=== PATIENT | female | born 1965 | race Caucasian/White ===

== ENCOUNTER → 2018-01-11 02:38 | Outpatient (CLI) | payer BC, SELFPAY ==
[2018-01-11 08:38] LABS: Abs Immature Grans 0.01 k/cumm (0.0-0.09); Absolute Basophil Count 0.04 k/cumm (0.0-0.2); Absolute Monocyte Count 0.35 k/cumm (0.11-0.7); Absolute Neutrophil Count 3.18 k/cumm (1.2-6.7); Basophils % 0.8; Eosinophils % 8.4; HCT 42.8 % (36.0-46.0); HGB 14.3 g/dL (12.0-15.5); Immature Grans % 0.2; Lymphocytes % 16.7; Mean Corp. HGB Concentration 33.4 g/dL (32.0-36.0); Mean Corpuscular Hemoglobin 31.6 pg (27.0-33.0); Mean Corpuscular Volume 94.5 fL (80-95); Mean Platelet Volume 10.6 fL (8.0-11.0); Monocytes % 7.3; Neutrophils % 66.6; Platelet Count 133 x1000/uL (130-400); RBC 4.53 m/cumm (4.00-5.20); RBC Distribution Width 12.7 % (11.7-14.6); White Blood Cell Count 4.78 k/cumm (4.4-10.8)
[2018-01-11 08:53] LABS: ALT 23 U/L (12-78); AST 22 U/L (15-37); Alkaline Phosphatase 58 U/L (46-116); Anion Gap 10.3 mmol/L (3-11); BUN 17 mg/dL (7-18); Bilirubin, Total 0.5 mg/dL (0.2-1.0); CO2 26.7 mmol/L (21.0-32.0); CREATININE 1.12 mg/dL (0.55-1.02); Calcium 8.7 mg/dL (8.5-10.1); Chloride 105 mmol/L (98-107); Estimated GFR 51.49 (mL/min/1.73m2); Glucose 82 mg/dL (70-100); Potassium 3.6 mmol/L (3.5-5.1); Sodium 142 mmol/L (136-145); Total Protein 7.7 g/dL (6.4-8.2)
== END ==
PROVIDERS: PCP Family Medicine; Visit Provider Internal Medicine Medical Oncology
DX: C50.412 Malignant neoplasm of upper-outer quadrant of left female breast (principal); Z17.0 Estrogen receptor positive status [ER+]
CPT/HCPCS: 36415; 80053; 85025

== ENCOUNTER 2018-10-24 08:49 | Outpatient (CLI) | payer BC, SELFPAY ==
[2018-10-24 09:48] LABS: ALT 30 U/L (12-78); AST 23 U/L (15-37); Albumin 4.1 g/dL (3.4-5.0); Alkaline Phosphatase 56 U/L (46-116); Anion Gap 10.9 mmol/L (3-11); BUN 23 mg/dL (7-18); Bilirubin, Total 0.4 mg/dL (0.2-1.0); CO2 27.1 mmol/L (21.0-32.0); CREATININE 0.78 mg/dL (0.55-1.02); Calcium 9.4 mg/dL (8.5-10.1); Chloride 102 mmol/L (98-107); Glucose 92 mg/dL (70-100); Sodium 140 mmol/L (136-145); Total Protein 7.8 g/dL (6.4-8.2)
[2018-10-24 09:52] LABS: TSH (W/Ref FT4) 2.11 uIU/mL (0.358-3.74)
== END 2018-10-24 09:09 ==
PROVIDERS: PCP Family Medicine; Visit Provider Nurse Practitioner Adult Health
DX: F32.9 Major depressive disorder, single episode, unspecified (principal); C50.512 Malignant neoplasm of lower-outer quadrant of left female breast; Z17.0 Estrogen receptor positive status [ER+]
CPT/HCPCS: 36415; 80053; 84443

== ENCOUNTER 2021-01-27 16:49 | Outpatient (REF) | payer BC, SELFPAY ==
--- NOTE | 2021-01-27 16:00 | PAPFT_PTH ---
PATIENT: Shannen Nobles LOC: [facility]#:[id number] AGE/SX: 55/F ROOM: RE01/27/[address]: Shonda Garcia : 1965 BED: DIS: 01/27/2021 SPEC #: [id number] RECD: 01/28/21 13:02 STATUS: [place] #: [id number] SALMA: 01/27/21 16:[address]: Shonda Garcia DEPT: PENDING SALE TO [facility] Cytology RECD BY: Maribell Skelton Tissues: 1 - CX/ENDOCX FOR PAP SMEARS Procedures: PAP THIN PREP/UVM Screening HPV DNA PROBE Comments: [id number]
== END 2021-01-27 16:50 | disposition home or self-care (01) ==
LOC: NCHCN 16:49
PROVIDERS: PCP Family Medicine; Visit Provider Family Medicine
DX: Z00.00 Encounter for general adult medical examination without abnormal findings (principal); Z12.4 Encounter for screening for malignant neoplasm of cervix; Z11.51 Encounter for screening for human papillomavirus (HPV)
CPT/HCPCS: 88142; 87624

== ENCOUNTER 2021-07-17 16:54 | Outpatient (REF) | payer BC, SELFPAY ==
[2021-07-19 12:00] LABS: COVID-19 RT-PCR UVMMC Result Negative (Negative)
== END 2021-07-17 16:55 | disposition home or self-care (01) ==
LOC: LBN 16:54
PROVIDERS: PCP Family Medicine; Visit Provider Physician Assistant
DX: Z20.822 Contact with and (suspected) exposure to COVID-19 (principal); R05.8 Other specified cough
CPT/HCPCS: U0003

== ENCOUNTER 2021-09-13 13:42 | Outpatient (CLI) | payer BC, SELFPAY ==
--- NOTE | 2021-09-13 14:14 | DI.RAD_ITS ---
Exam(s) XR CHEST 2V PA LATERAL EXAM: XR CHEST 2V PA LATERAL CLINICAL HISTORY: COUGH R05.8 TECHNIQUE: 2D digital imaging was performed. COMPARISON: No exams were available for comparison FINDINGS: MEDIASTINUM: Normal. HEART: Normal. PULMONARY VASCULATURE: Normal. LUNGS: Clear. PLEURAL SPACE: No pleural effusion or pneumothorax. BONE:Unremarkable for age. IMPRESSION: No acute abnormality. DATA REPOSITORY: RADIATION DOSE DELIVERED:
== END 2021-09-13 14:02 ==
PROVIDERS: PCP Family Medicine; Visit Provider Family Medicine
DX: R05.8 Other specified cough (principal)
CPT/HCPCS: 71046

== ENCOUNTER 2022-05-20 12:59 | Outpatient (REF) | payer BC, SELFPAY ==
[2022-05-20 19:20] LABS: Hemoglobin A1C 5.9 % (<5.7)
[2022-05-20 19:44] LABS: Vitamin D 25 Total 48.6 ng/mL (30-100)
[2022-05-20 19:47] LABS: Calculated LDL 157 mg/dL (<100); Cholesterol 246 mg/dL (<200); Folate 7.5 ng/mL (8.6-20.0); HDL Cholesterol 75 mg/dL (40-60); Triglyceride 74 mg/dL (<150); Vitamin B12 441 pg/mL (193-986)
[2022-05-23 10:02] LABS: HIV-1/2 Ag & Ab Screen Negative (Negative)
[2022-05-23 10:05] LABS: Hepatitis C Ab w Rflx HCV PCR Negative (Negative)
== END 2022-05-20 13:00 | disposition home or self-care (01) ==
LOC: NCHCN 12:59
PROVIDERS: PCP Family Medicine; Visit Provider Family Medicine
DX: E53.8 Deficiency of other specified B group vitamins; E55.9 Vitamin D deficiency, unspecified; Z13.220 Encounter for screening for lipoid disorders; Z00.00 Encounter for general adult medical examination without abnormal findings; Z11.59 Encounter for screening for other viral diseases; Z11.4 Encounter for screening for human immunodeficiency virus [HIV]; F32.89 Other specified depressive episodes; J45.909 Unspecified asthma, uncomplicated; Z13.1 Encounter for screening for diabetes mellitus
CPT/HCPCS: 80061; 82306; 86803; 87389; 82607; 82746; 83036

== ENCOUNTER 2022-08-03 01:34 | Outpatient (CLI) | payer BC, SELFPAY ==
--- NOTE | 2022-08-03 10:30 | DI.RAD_ITS ---
Exam(s) XR HIP LT COMPLETE AP PELVIS EXAM: XR HIP LT COMPLETE AP PELVIS CLINICAL HISTORY: LT HIP PAIN, M25.552; LT LEG GIVES OUT PERIODICALLY THEN HIP SORE. TECHNIQUE: 2D digital imaging was performed of the left hip. Four views were obtained. AP pelvis a nd lateral left hip views were obtained. COMPARISON: No exams were available for comparison FINDINGS: BONES: No acute fracture is present. No bony destructive lesion is seen. JOINTS: No dislocation present. Degenerative changes are seen in the hips bilaterally with joint spac e narrowing, subchondral sclerosis and subchondral cyst. The findings appear more prominent on the r ight. SOFT TISSUE: Normal. IMPRESSION: Osteoarthritis of the hips, right greater than left. DATA REPOSITORY: RADIATION DOSE DELIVERED:
== END 2022-08-03 01:54 ==
PROVIDERS: PCP Family Medicine; Visit Provider Family Medicine
DX: M25.552 Pain in left hip (principal); M16.0 Bilateral primary osteoarthritis of hip
CPT/HCPCS: 73502

== ENCOUNTER 2023-05-15 19:46 | Outpatient (REF) | payer OTHER, SELFPAY ==
[2023-05-15 19:44] LABS: HCT 44.1 % (36.0-46.0); HGB 14.4 g/dL (11.2-15.7); MCH 29.9 pg (27.0-33.0); MCHC 32.7 % (32.0-36.0); MCV 92 fL (80-95); MPV 11.4 fL (8.0-11.0); Platelet Count 188 10^3/uL (130-400); RBC 4.81 10^6/uL (3.93-5.22); RDW 12.7 % (11.7-14.6); RDW-SD 43.2 fL; WBC 7.02 10^3/uL (4.4-10.8)
[2023-05-15 19:58] LABS: ALT 29 U/L (14-59); AST 32 U/L (15-37); Albumin 4.3 g/dL (3.4-5.0); Alkaline Phosphatase 98 U/L (46-116); Anion Gap 15.2 mmol/L (3-11); BUN 28 mg/dL (7-18); Bilirubin, Total 0.3 mg/dL (0.2-1.0); CO2 23.8 mmol/L (21.0-32.0); CREATININE 0.9 mg/dL (0.55-1.02); Calcium 9.4 mg/dL (8.5-10.1); Chloride 98 mmol/L (98-107); Folate 7.6 ng/mL (8.6-20.0); Glucose 97 mg/dL (74-106); Potassium 4.4 mmol/L (3.5-5.1); Sodium 137 mmol/L (136-145); Total Protein 8.2 g/dL (6.4-8.2); Vitamin B12 1744 pg/mL (193-986)
== END 2023-05-15 19:47 | disposition home or self-care (01) ==
LOC: NCHCN 19:46
PROVIDERS: PCP Family Medicine; Visit Provider Family Medicine
DX: Z51.81 Encounter for therapeutic drug level monitoring (principal); D53.1 Other megaloblastic anemias, not elsewhere classified
CPT/HCPCS: 80053; 85027; 82607; 82746

== ENCOUNTER 2024-05-17 21:05 | Outpatient (REF) | payer OTHER, SELFPAY ==
--- OUTSIDE RECORDS SUMMARY | 2024-05-17 21:12 | XMS_ITS | Encounter Summary ---
[facility] Address [facility] [place] [address] Care Team Providers Care Pegger Dobby Looms Name Role Phone Shonda Garcia MD Primary Care Provider Encounter Details Date Type Department Care Team (Late st Contact Info) Description 07/04/2019 1:30 PM EST Office Visit Hematology/Oncology at [address] [address] [facility] [place] [address] Latanya Larkin, RN [facility] [place] [address] Malignant neoplasm of upper-outer quadrant of left breast in female, estrogen receptor positive Social History Tobacco Use Types Packs/Day Years Used Date Smoking Tobacco: Never Smokeless Tobacco: Never Alcohol Use Standard Drinks/Week Comments Yes 0 (1 standard drink = 0.6 oz pur e alcohol) very seldom, once a year Sex and Gender Information Value Date Recorded Sex Assigned at Not on file Gender Identity Not on file Sexual Orientation Not on file documented as of this encounter Last Filed Vital Signs Vital Sign Reading Time Taken Comments Blood Pressure 106/62 07/04/2019 1:29 PM EST Pulse 76 07/04/2019 1:29 PM EST Temperature 36.8 ??C (98.2 ??F) 07/04/2019 1:29 PM ES T Respiratory Rate 18 07/04/2019 1:29 PM EST Oxygen Saturation 99% 07/04/2019 1:29 PM EST Inhaled Oxygen Concentration - - Weight - - Height 167.6 cm (5' 6) 07/04/2019 1:29 PM EST Body Mass Index - - documented in this encounter Progress Notes * Latanya Larkin, STATISTICS PROFESSOR - 07/04/2019 1:30 PM EST Images from the original note were not included. Diagnosis: Left breast IDC 0.5 cm, low grade, ER+/CA+, Her-2 unamplified Stage Ia, s/p lumpectomy and sentinellymph node biopsy 07/14/14 followed by XRT Upper/Outer left breast location HPI: Shannen returns today for follow up of breast cancer. She is currently on treatment with Tamoxifen. Overall she is doing well today. Her main concern is her weight. She refused to weigh today because it makes her anxious. She knows she has gained weight on the Tamoxifen. She wants to know how soon she can stop it. Denies any side effects except for the weight gain. No longer having hot flashes.No cough, SOB, Chest pain, edema, vaginal discharge or bleeding. She recently had surgery at [facility] and had a fatty lump removed on right breast. No new lumps or bumps noted. Denies any new illnesses or hospitalizations since last visit. Past medical history and social history are reviewed. 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 Current Outpatient Medications on File Prior to Visit Medication Sig Dispense Refill ??? cyanocobalamin, vitamin B-12, 1,000 mcg Tablet Take 1,000 mcg by mouth daily. ??? sertraline (ZOLOFT) 25 mg Tablet Take 25 mg by mouth daily. ??? spironolactone (ALDACTONE) 100 mg Tablet ??? tamoxifen (NOLVADEX) 20 mg Tablet Take 1 tablet by mouth daily. 90 tablet 3 ??? crisaborole (EUCRISA) 2 % Ointment Apply to face BID for maintenance 60 g 1 ??? loratadine (CLARITIN) 10 mg Tablet Take 10 mg by mouth daily. ??? pimecrolimus (ELIDEL) 1 % Cream Apply to the face BID. (Patient not taking: Reported on 06/26/2019) 60 g 2 ??? acetaminophen (TYLENOL) 500 mg Tablet Take 1,000 mg by mouth every 6 hours as needed for Pain. ??? triamcinolone (KENALOG) 0.1 % Cream Apply topically on trunk for severe flair of eczema 80 g 1 ??? Fluocinolone Acetonide Oil 0.01 % Drops Reported on 07/04/2016 ??? tacrolimus (PROTOPIC) 0.1 % Ointment Apply topically 2 times daily. To the face (Patient not taking: Reported on 06/26/2019) 60 g 3 ??? cholecalciferol, Vitamin D3, 400 unit tablet Take 1,000 Units by mouth daily. ??? multivitamin (THERAGRAN) tablet Take 1 tablet by mouth daily. ??? LEVALBUTEROL TARTRATE (XOPENEX HFA INHL) Inhale 2 puffs into the lungs every 4 hours as needed. No current facility-administered medications on file prior to visit. Review of Systems Constitution: Positive for weight gain. HENT: Negative. Cardiovascular: Negative. Negative for chest pain and leg swelling. Respiratory: Negative. Skin: Negative. Musculoskeletal: Negative. Gastrointestinal: Negative. Genitourinary: Negative. Neurological: Negative. Psychiatric/Behavioral: Negative. All other systems reviewed and are negative. There were no vitals taken for this visit. Wt Readings from Last 3 Encounters: 11/14/18 59 kg (130 lb) 11/08/18 60.3 kg (133 lb) 05/03/18 59.9 kg (132 lb) Physical Exam Constitutional: She is oriented to person, place, and time. She appears well- developed and well-nourished. HENT: Head: Normocephalic. Eyes: Pupils are equal, round, and reactive to light. Conjunctivae are normal. No scleral icterus. Neck: Normal range of motion. Neck supple. Cardiovascular: Normal rate and regular rhythm. Pulmonary/Chest: Effort normal and breath sounds normal. Right breast exhibits no inverted nipple, no mass, no nipple discharge, no skin change and no tenderness. Left breast exhibits no inverted nipple, no nipple discharge, no skin change and no tenderness. Mass: ? scarring vs .3-4mm nodule. Breasts are symmetrical. Breast exam deferred today- done by Daisy Servin APRN in Breast surgery on 06/26/19. Abdominal: Soft. She exhibits no distension and no mass. There is no abdominal tenderness. There isno guarding. Musculoskeletal: Normal range of motion. General: No edema. Lymphadenopathy: She has no cervical adenopathy. Neurological: She is alert and oriented to person, place, and time. Skin: Skin is warm and dry. Psychiatric: She has a normal mood and affect. Her behavior is normal. Mammograms 06/26/19 CONCLUSION: No mammographic evidence of malignancy. Assessment/plan: Shannen is doing well and has no evidence of recurrent breast cancer now nearly 5 years out. She is at very low risk for recurrence. She is tolerating tamoxifen well but is concerned about her weight and wants to stop taking the tamoxifen because she thinks this is causing her weight gain. Will haveher follow up in 6 months with to discuss discontinuing Tamoxifen. documented in this encounter Plan of Treatment Upcoming Encounters Date Type Department Care Team (Late st Contact Info) Description 09/03/2024 3:30 PM EDT Office Visit Dermatology at [facility] [address] [place] [address] [facility] [place] [address] documented as of this encounter Visit Diagnoses Diagnosis Malignant neoplasm of upper-outer quadrant of left breast in female, estrogen receptor positive documented in this encounter Care Teams Pegger Dobby Looms Relationship Specialty Start Date End Date Shonda Garcia MD [facility] [address] [place] [address] PCP - General 04/27/10 documented as of this encounter
--- OUTSIDE RECORDS SUMMARY | 2024-05-17 21:12 | XMS_ITS | Encounter Summary ---
[place] [address] Care Team Providers Care Junior Accountant Bookkeeper Name Role Phone Shonda Garcia MD Primary Care Provider [phone] Encounter Details Date Type Department Care Team (Late st Contact Info) Description 03/20/2024 Telephone Obstetrics [place] [address] Erika Armendariz RN Social History Tobacco Use Types Packs/Day Years Used Date Smoking Tobacco: Never Smokeless Tobacco: Never Alcohol Use Standard Drinks/Week Comments Yes 0 (1 standard drink = 0.6 oz pur e alcohol) once a week Sex and Gender Information Value Date Recorded Sex Assigned at Not on file Gender Identity Not on file Sexual Orientation Not on file documented as of this encounter Miscellaneous Notes * Telephone Encounter - Erika Armendariz RN - 03/20/2024 2:14 PM EDT Returning TC to Shannen Nobles 58 y.o. to discuss medication questions prior to surgery with Dr. Fung. Shannen is going to start taking the Vagifem tablets tonight, which she is supposed to take nightly for 2 weeks before the surgery. She is also supposed to insert the misoprostol the night prior to surgery, and wants to make sure it is okay to use them both at the same time. Message sent to Dr. Fung for recommendations. Per Dr. Fung, okay to use both simultaneously. Updated patient. documented in this encounter Plan of Treatment Upcoming Encounters Date Type Department Care Team (Late st Contact Info) Description 09/03/2024 3:30 PM EDT Office Visit Dermatology at [facility] [address] [place] [address] Miladys Gordon MD [facility] DR MYESHA [place] [address] documented as of this encounter Visit Diagnoses Not on filedocumented in this encounter Care Teams Junior Accountant Bookkeeper Relationship Specialty Start Date End Date Shonda Garcia MD [facility] [address] [address] PCP - General 04/27/10 documented as of this encounter
--- OUTSIDE RECORDS SUMMARY | 2024-05-17 21:12 | XMS_ITS | Encounter Summary ---
Author Organization [facility] [place] [address] Care Team Providers Care Cosmetology Educator Name Role Phone Shonda Garcia MD Primary Care Provider [phone] Encounter Details Date Type Department Care Team (Latest Contact Info) Description 09/05/2022 Travel Social History Tobacco Use Types Packs/Day Years Used Date Smoking Tobacco: Never Smokeless Tobacco: Never Alcohol Use Standard Drinks/Week Comments Yes 0 (1 standard drink = 0.6 oz pur e alcohol) once a week Sex and Gender Information Value Date Recorded Sex Assigned at Not on file Gender Identity Not on file Sexual Orientation Not on file documented as of this encounter Plan of Treatment Upcoming Encounters Date Type Department Care Team (Late st Contact Info) Description 09/03/2024 3:30 PM EDT Office Visit Dermatology at [facility] [address] [place] [address] Miladys Gordon MD [facility] [address] [place] [address] documented as of this encounter Visit Diagnoses Not on filedocumented in this encounter Care Teams Cosmetology Educator Relationship Specialty Start Date End Date Shonda Garcia MD [facility] [address] [place] [address] PCP - General 04/27/10 documented as of this encounter
--- OUTSIDE RECORDS SUMMARY | 2024-05-17 21:12 | XMS_ITS | Encounter Summary ---
Author Organization [facility] [place] [address] Care Team Providers Care Web Press Operator Apprentice Name Role Phone Shonda Garcia MD Primary Care Provider [phone] Reason for Visit * Reason Comments Follow-up Encounter Details Date Type Department Care Team (Latest Contact Info) Description 02/08/2024 3:00 PM EDT Office Visit Obstetrics [place] [address] Kaylie Fung MD [facility] DR OBSTETRICS [place] [address] Postmenopausal bleeding Social History Tobacco Use Types Packs/Day Years [...] Sign Reading Time Taken Comments Blood Pressure 111/50 02/08/2024 3:04 PM EDT Pulse 82 02/08/2024 3:04 PM EDT Temperature 37 ??C (98.6 ??F) 02/08/2024 3:04 PM EDT Respiratory Rate - - Oxygen Saturation 100% 02/08/2024 3:04 PM EDT Inhaled Oxygen Concentration - - Weight 53.6 kg (118 lb 1.6 oz) 02/08/2024 3:04 P M EDT Height - - Body Mass Index 19.21 12/29/2022 8:01 AM EDT documented in this encounter Progress Notes * Kaylie Fung MD - 02/08/2024 3:00 PM EDT TRUCK FARMER Follow Up Visit Reason for Visit: Shannen is a 58 y.o. post menopausal female with a history of breast cancer who presents for follow up of PMB. History of Present Illness: Last seen by me 12/2022 US stable x2, last US 05/2023 EMB benign 12/2023 Just a little bit of spotting about 1 month ago, nothing since A few days of spotting, red Aunt had some type of TRUCK FARMER cancer that she from after diagnosis of breast cancer Father- prostate cancer Brother- esophagus cancer age 57 Maternal aunt- breast cancer Mother- breast cancer, in January Older sister- breast cancer Younger sister- celiacs disease, ppx mastectomy- tissue was abnormal Gynecologic History: LMP: No LMP recorded. Patient is postmenopausal. Pregnancies: x1 TRUCK FARMER diagnoses: Denies TRUCK FARMER surgeries: Denies Denies sexually active, going through a divorce Was diagnosed with anemia in 06/2022 but this has resolved, changed her eating habits Last pap on 2020. Results NILM, neg HPV History of abnormal paps: Denies Current Outpatient Medications Medication Sig Dispense Refill ketoconazole (Nizoral) 200 mg tablet Symbicort 80-4.5 mcg/actuation HFA Aerosol Inhaler cetirizine (ZyrTEC) 10 mg tablet cyanocobalamin, vitamin B-12, 1,000 mcg Tablet Take 1,000 mcg by mouth daily. sertraline (ZOLOFT) 25 mg Tablet Take 150 mg by mouth daily. spironolactone (ALDACTONE) 100 mg Tablet loratadine (CLARITIN) 10 mg Tablet Take 10 mg by mouth daily. acetaminophen (TYLENOL) 500 mg Tablet Take 1,000 mg by mouth every 6 hours as needed for Pain. triamcinolone (KENALOG) 0.1 % Cream Apply topically on trunk for severe flair of eczema 80 g 1 Fluocinolone Acetonide Oil 0.01 % Drops Reported on 07/04/2016 cholecalciferol, Vitamin D3, 400 unit tablet Take 1,000 Units by mouth daily. multivitamin (THERAGRAN) tablet Take 1 tablet by mouth daily. LEVALBUTEROL TARTRATE (XOPENEX HFA INHL) Inhale 2 puffs into the lungs every 4 hours as needed. crisaborole (EUCRISA) 2 % Ointment Apply to face BID for maintenance (Patient not taking: Reported on 01/09/2020) 60 g 1 pimecrolimus (ELIDEL) 1 % Cream Apply to the face BID. (Patient not taking: Reported on 06/26/2019) 60 g 2 No current facility-administered medications for this visit. Allergies Allergen Reactions Latex Rash Latex balloon Amoxicillin Trihydrate Rash Thiuram Analogues Dermatitis ROS: Otherwise negative except as specified in HPI. Physical Exam Vitals: 02/08/24 1504 BP: 111/50 Pulse: 82 Temp: 37 ??C (98.6 ??F) SpO2: 100% Weight: 53.6 kg (118 lb 1.6 oz) General: NAD, comfortable, pleasant Lungs: Unlabored breathing Neuro: grossly intact Pelvic: External genitalia/vulva- normal, no lesions Bartholin's- normal, no masses or tenderness Urethral meatus- normal size, no prolapse, no lesions Vagina- atrophic vaginal mucosa with friability at cervicovaginal junction, no physiologic discharge, no blood in the vault, no lesions Bladder- no masses or tenderness Cervix- no lesions, well epithelialized Uterus- anteverted, normal size, non-tender, regular shape Adnexa- no masses, tenderness, or nodularity Rectal/perineum- confirms above, normal sphincter tone ENDOMETRIAL BIOPSY PROCEDURE NOTE DOCUMENTATION OF UNIVERSAL PROTOCOL FOR INVASIVE PROCEDURES Informed consent was obtained verbally Timeout conducted with patient and all members of the team. We discussed the risks of endometrial biopsy, including pain, bleeding, infection, risk of uterine perforation and injury to surrounding structures in the event of perforation. PROCEDURE NOTE: Type of Procedure: Endometrial biopsy Procedure Date: 02/09/2024 Performing Provider: Kaylie Fung MD Clinical Indications: Abnormal Uterine Bleeding, Postmenopausal Bleeding Description of Procedure: The cervix was prepped with antiseptic solution. A tenaculum was used to grasp the anterior lip of the cervix. The Pipelle endometrial sampler was used to attempt to collect an endometrial sample but due to cervical stenosis, was not successful. There were no complications, thepatient tolerated the procedure well. No amount of tissue was obtained. Specimens Sent: None Estimated Blood Loss: Min Pre-procedure pain level is xx. Post-procedure pain level is xx. (Patient advised, if pain level above 3, may take Tylenol/Ibuprofen; If pain level above 7,patient advised to call provider). Procedure was chaperoned. Assessment/Plan: Shannen is a 58 y.o. post menopausal female who presents for follow up of PMB. 1. Postmenopausal bleeding Surgical Pathology - Unable to complete endometrial biopsy due to cervical stenosis - Plan for hysteroscopy D&C in OR - Preop vagifem for 2 weeks and misoprostol night prior - Follow up pending pathology Note to patient: The 21st Century Cures Act makes medical notes like this available to patients in the interest of transparency. However, be advised this is a medical document. It is intended as [id number]-lt-eiys communication. It is written in medical language and may contain abbreviations or verbiage that are unfamiliar. Total time spent day of service on chart review, disease discussion and therapeutic counseling, as well as, documentation and coordination of care: 20 min in addition to time needed for procedure that was ultimately not successful Kaylie Fung MD 02/08/2024 3:28 PM * Lasha Mir LNA - 02/08/2024 3:00 PM EDT Examination chaperoned by CARLA Wright. documented in this encounter Plan of Treatment Upcoming Encounters Date Type Department Care Team (Late st Contact Info) Description 09/03/2024 3:30 PM EDT Office Visit Dermatology at [facility] [address] [place] [phone] Miladys Gordon MD [facility] DR [address] [place] [address] documented as of this encounter Visit Diagnoses Diagnosis Postmenopausal bleeding documented in this encounter Care Teams Web Press Operator Apprentice Relationship Specialty Start Date End Date Shonda Garcia MD [address] [place] [address] PCP - General 04/27/10 documented as of this encounter
--- OUTSIDE RECORDS SUMMARY | 2024-05-17 21:12 | XMS_ITS | Encounter Summary ---
Author Organization [facility] [place] [address] Care Team Providers Care Molder Sweep Name Role Phone Shonda Garcia MD Primary Care Provider [phone] Encounter Details Date Type Department Care Team (Late st Contact Info) Description 12/12/2022 Ancillary Procedure Radiology Library at [facility] [place] [id number] Shonda Garcia MD [address] [place] [address] [id number] Social History Tobacco Use Types Packs/Day Years [...] 3:30 PM EDT Office Visit Dermatology at [facility] [address] [place] [address] Miladys Gordon MD [facility] DR [address] [address] documented as of this encounter Procedures Procedure Name Priority Date/Time Associated Diagnosis Comments FILM LIBRARY STORAGE ONLY ULTRASOUND STUDY Routine 12/12/2022 12:00 AM EDT documented in this encounter Results * Film Library- Storage Only Ultrasound Study (12/12/2022 12:00 AM EDT) Narrative JULIANNA - 12/16/2022 9:55 AM EDT This exam is auto-finalizing. It's purpose is for storage only. Shonda Garcia MD IMG FILM LIBRARY ORD ERABLES Performing Organization Address City/State/[facility] Co de Phone Number [place], [place] documented in this encounter Visit Diagnoses Not on filedocumented in this encounter Care Teams Molder Sweep Relationship Specialty Start Date End Date Shonda Garcia MD [address] [place] [address] [address] [place] [address] PCP - General 04/27/10 documented as of this encounter
--- OUTSIDE RECORDS SUMMARY | 2024-05-17 21:12 | XMS_ITS ---
[facility] Organization [facility] [place] [address] Care Team Providers Care Belly Dancer Name Role Phone Shonda Nunez MD Primary Care Provider [phone] Active Problems Problem Noted Date Diagnosed Date History of breast cancer 06/26/2019 Malignant neoplasm of upper- outer quadrant of left breast in female, estrogen receptor positive 01/03/2017 S/P breast reconstruction, left 11/21/2016 S/P lumpectomy, left breast 07/06/2015 Current Oncology Plans No current plan information found. Past Plans No past plan information found. Radiation Treatments * No radiation treatments are documented for this patient in [facility]. Treatments may have been administered in another system. Treatment Summaries Breast cancer, left breast* Cancer Treatment Summary Provided by Shruthi Russell on 06/30/16 General Information Patient name Shannen Nobles (home) [phone] (work) Date of 1965 Support contact Dutch Noblse Care Team Medical Oncologist Dr Noe Couch and Dr Stephen Santoro Surgeon Dr Patricia Cast Radiation Oncologist Dr Monalisa Waller Genetic testing Dr Tan Lu Plastic Surgeon Dr Cassie De Anda Primary Care Physician SHONDA NUNEZ Treatment Summary Chemotherapy and Supportive Care Treatment History Breast Cancer Notes BREAST CANCER NOTES 06/30/2016 Method of Cancer Detection patient-detected mass/breast change left breast Menopausal Status at Diagnosis premenopausal Farmily History Sister with breast cancer in her 40s--genetic testing ordered Date of Diagnostic Biopsy 06/23/2014 Local Surgery Lumpectomy by Dr Cast Axillary Management [place] nodes alone Total Number of Nodes Removed 2 Total Nodes Positive 0 Date of Last Surgical Procedure 07/14/2014 Histology Invasive ductal carcinoma Tumor Staging from Staging System [id number] T1= tumor that is less than 2 cm in size N0= no lymph node involvement M0= no distant spread Stage 1--good prognosis Size of Primary Malignancy 0.5 cm Grade low Margin negative ER estrogen receptor Positive > 90% FL progesterone receptor Positive > 90% HER-2 negative First Adjuvant Endocrine Therapy Tamoxifen 11/03/2014 BRCA Testing negative for deleterious germline mutation BRCA Test Date 07/09/2014 Radiation Rosenbaum Whole breast with tangents Radiation Boost yes Total Dosage of Radiation 60.4--treatment was given from 08/25/2014 to 10/08/2014 Surveillance 03/04/2016- mammogram--no evidence of malignancy Follow-up and Survivorship Care Monitor for ongoing toxicities: Surveillance: Primary Care Provider: Follow-up at least yearly for health maintenance Medical Oncology: Follow up every six months Surgeon: follow up yearly Radiation Oncology: follow- yearly Mammogram: yearly Breast self exam: monthly Genetic testing--done and negative for BRCA mutation Possible late and snf effects of treatment: Tamoxifen side effects: Tamoxifen side effects might include a 0.2% per year increase in his risk of developing a blood clot in the leg or lung,as well as hot flashes, night sweats, mood swings, difficulty sleeping, change in mood, night time leg cramping and an increased risk of developing cataracts. Skin changes at the site of radiation. Late effects include change in pigmentation, skin thickening, retraction and fibrosis (scar tissue) and formation of telangiectasias (small red lines on skin--this can occur several years after completion of treatment and is cosmetic only) Lymphedema of the breast and arm are caused by lymph node dissection and fibrosis (scars) from radiation therapy and surgery. Report any swelling to your cancer team. Your risk if very low for this to happen. You may require physical therapy for manual lymphatic drainage and/or compression sleeve. Alteration in sexual function: Cancer diagnosis and treatment can cause changes in sexual function.You are encouraged to discuss this with your cancer care team. There are no restrictions in being sexually active. Water, oil or silicone-based lubricants or vaginal moisturizers can help with vaginal dryness. Different sexual positions may be more comfortable. Pain: Discuss any problems with persistent pain with your cancer team. Fatigue: Cancer related fatigue is a distressing persistent, subjective sense of physical, emotional, and/or cognitive tiredness or exhaustion related to cancer or cancer treatment that is not proportional to recent activity and interferes with usual functioning. This is a common issue for individuals undergoing cancer treatment and for cancer survivors sometimes for months and years following ena gnosis and treatment. The time course of fatigue is unique to each person. In most cases mild to moderate fatigue will resolve within a year. If it persists longer than this time or if fatigue worsens discuss this issue with your cancer team for further evaluation. Anxiety depression: Survivors of cancer treatment are at high risk for anxiety and depression due to multiple stressors, feeling vulnerable and the many challenges that you have faced and continue toface. Fear of recurrence is normal. Let your providers know if you have any of these symptoms--frequent feelings of being nervous, restless or worried or fearful, trouble sleeping, difficulty concentrating, less interest or enjoyment of usual activities, feeling sad or depressed, difficulty performing your usual activities. Cardiac Toxicities: As part of your cancer treatments you received radiation therapy to the chest you should be screened for heart disease and have an ECHO five to ten years after completion of treatment PCP follow up: Yearly exams for health maintenance and preventative care. Yearly gynecologic exams for women's health care with either narcotics detective or primary care provider. LIFE STYLE: Exercise: Many studies now show that women who exercise and who do not gain weight reduce their risk of breast cancer recurrence. Engage in at least 20-30 minutes of moderate intensity activity on most days of the week. Include strength training exercises at least two days a week. Alcohol: Minimize alcohol intake to no more than one drink a day. Nutrition: Follow the [employer] Guidelines that include the following: limit consumption of processed meat and red meat; eat at least 2.5 cups of vegetables and fruits daily; choose whole grains instead of refined grain products. High fiber and low fat diet is advised. Smoking: smoking increases the risk of breast cancer and other cancers Sunscreen should be used prolonged sun exposure, ie longer than 15 minutes. Screening: Colonoscopy at age 50, yearly pelvic exams, bone density when menopausal, fasting lipid profile as indicated and at the discretion of you primary care provider and all other age appropriate screenings that need to be done yearly Vaccinations: Immunization of inactivated vaccines is recommended for cancer survivors. This includes flu vaccines yearly. Pneumonia vaccine is recommended per CDC guidelines for pneumonia vaccine--primary care provider would administer this. Potential signs of recurrence: Any symptom lasting more than 2 weeks and not improving--persistent pain, cough, shortness of breath, headache. Any change in skin at treatment site from post treatmentbaseline or new lump or nipple discharge. Resources: Helpful websites www. cancer.gov -- National Cancer Drew www. nccn.org -- National Comprehensive Cancer Network www. canceradvocacy. org --National Coalition for Cancer Survivorship www. livestrong. org -- [employer] Survivor Care www. acscsn.org -- Cancer Survivors Network Survivorship care provider contacts PRODUCT MARKETING COORDINATOR: Shruthi Russell
--- OUTSIDE RECORDS SUMMARY | 2024-05-17 21:12 | XMS_ITS | Encounter Summary ---
Author Organization [facility] Address [address] [place] [address] Care Team Providers Care Dress Operator Name Role Phone Unavailable Primary Care Provider Unavailabl e Encounter Details Date Type Department Care Team (Late st Contact Info) Description 07/29/2010 Results Only [facility] [address] [place] [address] Shonda Nunez MD [address] [place] [address] [place] [id number] Social History Tobacco Use Types Packs/Day Years Used Date Smoking Tobacco: Never Assessed Comments Unknown Sex and Gender Information Value Date Recorded Sex Assigned at Not on file Legal Sex Female 18:12 EST Gender Identity Not on file Sexual Orientation Not on file documented as of this encounter Plan of Treatment Not on file documented as of this encounter Procedures Procedure Name Priority Date/Time Associated Diagnosis Comments CYTOPATHOLOGY Routine 07/29/2010 0:00 EST documented in this encounter Results * CYTOPATHOLOGY (07/29/2010 0:00 EST) Pathology Report: CYTOPATHOLOGY REPORT ? Reports generated via electronic interface contain original data; ? however they are lacking the format of the original report. ? Caution should be taken when reading/interpreti ng unformatted reports. ? Name: ? SHANNEN NOBLES ? Accession #: ? [id number] ? : ? 1965 (Age: 44) ??F ?Collect Date: ? 07/29/2010 ? Location: ? [facility] ? Receive Date: ? 08/02/2010 ? Provider: SHONDA NUNEZ MD ? Copy to: ? Final Report ? SPECIMEN ADEQUACY ? Satisfactory for Evaluation ? - transformation zone component present ? GENERAL CATEGORIZATION ? Negative for Intraepithelial Lesion or Malignancy ? INTERPRETATION ? Reactive cellular changes associated with inflammation present (includes ?? repair). ? Bacteria present morphologically consistent with Actinomyces species. ? Last Menstural Period: 07/23/2010 ? Specimen/Source: ??Pap Test, Cervix/Endocervix, ThinPrep Imaging System with ? manual evaluation ? Document reviewed and electronically signed by: ? TOMMIE C GALDAMEZ MD ? Report ??Date: 08/08/2010 10:37 ? HPV with Pap Test ? Date Ordered: ? 08/05/2010 ? Status: ?? Signed Out ?Date Complete: ? 08/12/2010 ? By: ??System Interface ? Date Reported: ? 08/12/2010 ? Interpretation ? RESULT: Negative for HPV types 16, 18, 31, 33, 35, 39, 45, 51, 52, ? 56, 58, 59, and 68. ? Comments ? Document reviewed and electronically signed by: ? System Interface ? Report date: 08/12/2010 ? By the signature above, the attending physician certifies that he/she has ? personally conducted a gross and/or microscopic examination of the described ? specimens and rendered or confirmed the above diagnosis. ? End of Report ? [facility] 07/29/2010 08/02/2010 us Shonda Nunez MD PATHOLOGY ORDERABLES Final Resul t [facility] [address] [place] [address] documented in this encounter Visit Diagnoses Not on filedocumented in this encounter
--- OUTSIDE RECORDS SUMMARY | 2024-05-17 21:12 | XMS_ITS | Encounter Summary ---
Author Organization [facility] [place] [address] Care Team Providers Care Dredge Pump Operator Name Role Phone Shonda Garcia MD Primary Care Provider [phone] Encounter Details Date Type Department Care Team (Latest Contact Info) Description 06/26/2019 1:25 PM EST Laboratory Appointment Lab [address] [place] [phone] Malignant neoplasm of lower-outer quadrant of left breast of female, estrogen receptor positive Social History Tobacco [...] 3:30 PM EDT Office Visit Dermatology at [address] [place] [address] Miladys Gordon MD [facility] [place] [address] documented as of this encounter Procedures Procedure Name Priority Date/Time Associated Diagnosis Comments HC VENIPUNCTURE STAT 06/26/2019 2:05 PM EST Malignant neoplasm of lower-outer quadrant of left breast of female, estrogen receptor positive documented in this encounter Results * (ABNORMAL) Comprehensive metabolic panel (non-fasting) (06/26/2019 2:05 PM EST) Glucose 93 65 - 199 mg/dL [facility] Comment:Diabetes: >=200 mg/d L plus symptoms Blood Urea Nitrogen 27(H) 8 - 18 mg/dL [facility] Creatinine 0.78 0.70 - 1.20 mg/dL [facility] Sodium 140 135 - 145 mmol/L [facility] Potassium 4.0 3.5 - 5.0 mmol/L [facility] Comment: Please note: ??Patients with WBC >100,000 may have falsely elevated Potassium levels. ??For accurate Potassium quantification in these patients send serum separator tube (gold top) for subsequent determinations. ??Contact the Clinical Chemistry Laboratory if there are any questions. Chloride 100 98 - 107 mmol/L [facility] Carbon Dioxide 28 22 - 31 mmol/L [facility] Anion Gap 12 5 - 15 mmol/L [facility] Calcium 9.5 8.5 - 10.5 mg/dL [facility] Protein, Total 7.6 6.1 - 8.0 gm/dL [facility] Albumin 4.5 3.2 - 5.2 gm/dL [facility] Aspartate Aminotransferase 23 0 - 30 unit/L [facility] Alanine Aminotransferase 18 0 - 30 unit/L [facility] Alkaline Phosphatase 60 35 - 105 unit/L [facility] Bilirubin, Total 0.3 0.2 - 1.3 mg/dL [facility] Est Glomerular Filtration Rate 88 >=60 mL/min/1. 73 m?? [facility] Comment: The eGFR was calculated using the CKD-EPI equation. As with all creatinine based estimates of kidney function, eGFR values calculated with the CKD-EPI equation are not accurate in patients with acute kidney failure, extremes of body mass or the acutely ill. [email or web address]/[facility]nk[facility] eGFR 102 >=60 mL/min/1. 73 m?? [facility] Comment: The eGFR was calculated using the CKD-EPI equation. As with all creatinine based estimates of kidney function, eGFR values calculated with the CKD-EPI equation are not accurate in patients with acute kidney failure, extremes of body mass or the acutely ill. [email or web address]/[facility] Blood specimen (specimen) 06/26/2019 2:05 PM EST 06/26/2019 2:08 PM EST Narrative Resulting Agency Comment Spec In Lab Ra Weems MD CHEMISTRY ORDERABLES [facility] [place] [address] documented in this encounter Visit Diagnoses Diagnosis Malignant neoplasm of lower-outer quadrant of left breast of female, estrogen receptor positive documented in this encounter Care Teams Dredge Pump Operator Relationship Specialty Start Date End Date Shonda Garcia MD [facility] [address] [place] [address] PCP - General 04/27/10 documented as of this encounter
--- OUTSIDE RECORDS SUMMARY | 2024-05-17 21:12 | XMS_ITS | Encounter Summary ---
Author Organization [facility] [place] [address] Care Team Providers Care Film Or Tape Librarian Name Role Phone Shonda Garcia MD Primary Care Provider [phone] Reason for Visit * Reason Comments Follow Up Surgery Encounter Details Date Type Department Care Team (Late st Contact Info) Description 11/16/2020 2:00 PM EDT Office [place] [address] Pardeep Quan MD [facility] [place] [address] S/P breast reconstruction, left Social History Tobacco Use Types Packs/Day Years [...] on file documented as of this encounter Progress Notes * Pardeep Quan MD - 11/16/2020 2:00 PM EDT Plastic Surgery Post Op Note Reason for visit: F/U status post procedure Date of surgery: 11/14/18 Procedure(s): Removal of left ruptured implant and replacement Complications: None Reported Date of surgery: 08/09/16 Procedure(s): Left capsulotomy Complications: None reported ?? Date of surgery: 10/20/15 ??Procedure(s): Bilateral breast reconstruction s/p left lumpectomy and radiation (300 cc saline smooth round moderate plus saline??implants placed and filled to 325 cc.) ??Complications: None reported HPI: Patient reports she is doing great. Arrives unaccompanied for today's visit. Denies any pressing concerns, no new asymmetry. Examination: Patient is alert, conversant, comfortable, ambulating Incision: CDI, healing well. No collection, no erythema, no evidence of cellulitis. Oliva 1 implants bilaterally Small volume deficit on left Good volume symmetry Nipple sits slightly higher on the left Implants in good position Gen: pleasant, well-appearing, in no acute distress. Neuro: Perrl eomi Resp: Regular rate, no stridor or wheezing Impression: Shannen Nobles is a 55 y.o. female who was seen today for follow-up after the above procedure. Please see the operative note for details. She has healed well, has an excellent result. Noconcern of asymmetry. We talked about the left breast and the history of radiation that increases the likelihood of capsular contraction. There is a subtle volume loss in the inferior portion of the left breast and options of the possibility of proceeding with another surgery to improve the contour. At this time she would like to defer an operation. We will plan to see her back in 1 year. Photos were obtained with signed informed consent. Plan: Follow up: 1 year with me I, Viktoriya Bailey, have preformed the documentation for this encounter in the presence of and acting as a scribe for Pardeep Quan MD I performed the services which were documented by the scribe, and I agree with the accuracy of the documentation in this encounter. PARDEEP QUAN MD documented in this encounter Plan of Treatment Upcoming Encounters Date Type Department Care Team (Late st Contact Info) Description 09/03/2024 3:30 PM EDT Office Visit Dermatology at [facility] [address] [place] [address] Miladys Gordon MD [facility] [address] [place] [address] documented as of this encounter Visit Diagnoses Diagnosis S/P breast reconstruction, left Breast replaced by other means documented in this encounter Care Teams Film Or Tape Librarian Relationship Specialty Start Date End Date Shonda Garcia MD [facility] [facility] [address] [place] [address] PCP - General 04/27/10 documented as of this encounter
--- OUTSIDE RECORDS SUMMARY | 2024-05-17 21:12 | XMS_ITS | Encounter Summary ---
Author Organization [facility] Address [address] [place] [address] Care Team Providers Care Drug Discovery Informatics Specialist Name Role Phone Unavailable Primary Care Provider Unavailabl e Encounter Details Date Type Department Care Team (Late st Contact Info) Description 06/26/2015 Results Only [facility] [phone] Shonda Nunez MD [address] [phone] Social History Tobacco Use Types Packs/Day [...] Procedure Name Priority Date/Time Associated Diagnosis Comments PAP TEST- RESULT ONLY Routine 06/26/2015 0:00 EST documented in this encounter Results * PAP TEST- RESULT ONLY (06/26/2015 0:00 EST) Pathology Report: CYTOPATHOLOGY REPORT Reports generated via electronic interface contain original data; however they are lacking the format of the original report. Caution should be taken when reading/interpreti ng unformatted reports. Name: ? SHANNEN NOBLES ? Accession #: ? [id number] ? : ? 1965 (Age: 49) ??F ?Collect Date: ? 06/26/2015 ? Location: ? [facility] ? Receive Date: ? 06/29/2015 ? Provider: SHONDA NUNEZ MD Copy to: ? Final Report SPECIMEN ADEQUACY ? Satisfactory for Evaluation - transformation zone component present GENERAL CATEGORIZATION ? Negative for Intraepithelial Lesion or Malignancy INTERPRETATION ? Reactive cellular changes associated with inflammation present (includes repair). Last Menstrual Period: 2014 Hormonal/Contracep tive status: None Specimen/Source: ??Pap Test, Cervix, ThinPrep Imaging System with manual evaluation Document reviewed and electronically signed by: ? MEGAN HWANG MD ? Report ??Date: 07/02/2015 17:03 HPV with Pap Test ? Date Ordered: ? 07/06/2015 ? Status: ?? Signed Out ?Date Complete: ? 07/07/2015 ? By: ??System Interface ? Date Reported: ? 07/07/2015 ? Interpretation RESULT: Negative for HPV. No E6 or E7 mRNA is detected from HPV types 16,18,31,33,35, 39,45,51,52,56,58, 59,66, and 68 by room attendant mediated amplification. Comments Document reviewed and electronically signed by: ? System Interface ? Report date: 07/07/2015 By the signature above, the attending physician certifies that he/she has personally conducted a gross and/or microscopic examination of the described specimens and rendered or confirmed the above diagnosis. End of Report [facility] 06/26/2015 06/29/2015 us Shonda Nunez MD PATHOLOGY ORDERABLES Final Resul t [facility] [address] [place] [address] documented in this encounter Visit Diagnoses Not on filedocumented in this encounter
--- OUTSIDE RECORDS SUMMARY | 2024-05-17 21:12 | XMS_ITS | Encounter Summary ---
[place] [address] Care Team Providers Care Profile Stitching Machine Operator Name Role Phone Shonda Garcia MD Primary Care Provider [phone] Encounter Details Date Type Department Care Team (Late st Contact Info) Description 06/26/2019 2:30 PM EST Office Visit [place] [phone] Daisy Nash, SAFE AND VAULT MECHANIC [facility] [place] [address] History of breast cancer Social History Tobacco Use Types Packs/Day Years [...] as of this encounter Progress Notes * Daisy Nash, SAFE AND VAULT MECHANIC - 06/26/2019 2:30 PM EST Shannen returns today in surgical follow up of left breast cancer. She is a patient of Dr. Cast. Shannen incidentally noted a left breast mass in June 2014. She presented for evaluation. Mammogram and u/s confirmed a 5mm mass in the upper, outer left breast. Biopsy revealed IDC (ER/PA+, HER2-). Breast MRI did not reveal any additional sites of disease nor adenopathy. She opted for BCT. ---Pathologic Diagnosis--- Specimens: A - Left breast partial mastectomy C - Left axillary sentinal node Histologic Type: Invasive ductal carcinoma Tumor Grade: Low (High, Intermediate, Low) Eirylg-Llwki-Yehpyiglxc Score: 5 Tubular Differentiation: 2 Mitotic Rate: 1 Nuclear Grade: 2 Tumor Size: 0.5 cm (maximum diameter) In Situ Histologic Type: DCIS Extensive/Minor Component: Minor Grade: Low (High, Intermediate, Low) Necrosis: Absent (Present / Absent) Pattern(s): Solid, Cribriform Microcalcifications: Not identified. Angiolymphatic Invasion: Absent Perineural invasion: Absent Nipple involvement: N/A Skin/Skeletal muscle invasion: N/A Other Findings: Atypical ductal hyperplasia. Columnar cell hyperplasia and flat epithelial atypia. (See Comment.) Fibrocystic changes including usual ductal hyperplasia, cysts, duct ectasia, adenosis. Healing biopsy site. Resection Margins (RM): Invasive Ca: Uninvolved (involved/uninvolved) Distance from closest RM(s): 0.1 cm to blue/superficial (A3) 0.4 cm to deep margin (A4) DCIS: Uninvolved (involved/uninvolved) Distance from closest RM(s): 0.14 cm to blue/superficial (A3) Axillary lymph nodes: Total no. nodes sampled: 2 No. non-sentinel nodes: 0 (Specimen _, block(s)_) No. positive for carcinoma: NA (H&E stain only) No. sentinel nodes: 2 (Specimen C, blocks1-2)(H&E only) No. with metastases 0.02 cm or less (isolated tumor cells) 0 No. with metastases >0.02 cm to 0.2 cm (micrometastases) 0 No. with metastases >0.2 cm (macrometastases) 0 Total no. nodes negative for carcinoma: 2 Estrogen/Progestin receptors and FISH, performed on prior biopsy [id number], see spearate report pTNM: pT1aN0 (AJCC, 7th edition, 2010) B - Left breast superfical margin, re-excision: Benign breast tissue. She did well with surgery. She was treated with whole breast xrt and is now on tamoxifen. She has not had menses since she started mc. She has noted some weight gain. She is currently going through a divorce, she was for 32 years. She believes this is a good thing. She has no complaints and is happy with her implants. She has no fevers, chills, sob, chest pain, abdominal pain, or lymphedema. Objective: Physical Exam Constitutional: She is oriented to person, place, and time. She appears well- developed and well-nourished. Eyes: EOM are normal. Neck: Normal range of motion. ROM in the left arm is intact. There is no cervical, supraclavicular or axillary adenopathy. There are no masses in either breast and no skin changes. Well healed axillary incision with preserved shape of the breast. verterbral bodies without tenderness. Mammogram today: cat2 Assessment and Plan: 53 y.o. female with history of stage I IDC of the left breast. Shannen is doing well without evidence of local or systemic recurrence. I will see Shannen back in 1 year with screening mammogram. She will call with any questions in the interval timeframe. Comprehensive Breast Program Surgery Follow Up Note Range of motion of surgical arm complete Lymphedema present No Cosmesis-surgeon reported Cosmesis-patient reported Excellent Good Local or regional recurrence No Contralateral cancer present No Distant recurrence present No Date of last follow up 06/26/19 Daisy Nash APRN documented in this encounter Plan of Treatment Upcoming Encounters Date Type Department Care Team (Late st Contact Info) Description 09/03/2024 3:30 PM EDT Office Visit Dermatology at [facility] [address] [place] [address] Miladys Gordon MD [facility] [address] [place] [address] documented as of this encounter Results * Mammo Screening Cad and Guillaume with Implants Bilateral (11/16/2020 4:08 PM EDT) Anatomical Region Laterality Modality Breast Bilateral Mammography Impressions 11/16/2020 4:41 PM EDT No mammographic evidence of malignancy. RECOMMENDATION: Routine screening. A result letter has been sent to this patient by the [facility]. BIRADS CATEGORY 1: NEGATIVE * ??Regular screening mammograms starting between age 40 and 50 reduces the risk of from breast cancer. * ??All screening tests have both risks and benefits. These risks and benefits should be assessed for each individual patient through discussion with their provider to determine their preferred breast cancer screening schedule. * ??Women should report any breast changes to a health care provider right away. * ??Some women, because of their family history, a genetic tendency, or other factors, should be screened with annual breast MRI as well as with mammograms. (The number of women who fall into this category is very small). Patients and health care providers should discuss each patients history to decide if earlier screening and/or breast MRI are appropriate. * ??Screening should continue as long as a woman is in good health and is expected to live 10 years or longer. * ??Screening mammography may not detect 10-15% of breast cancers. Thank you for letting us participate in the care of this patient. ??If you are a health care provider and have any questions regarding this report, please contact the number below. ??For patients who have questions please contact the health acute care clinical nurse specialist that requested your imaging first. ? Electronically signed by: Deepika River MD, [facility] ([phone]), at 11/16/2020 4:41 PM Narrative 11/16/2020 4:41 PM EDT BILATERAL MAMMOGRAPHY REASON FOR EXAM: Screening TECHNIQUE: CC and MLO views were obtained of each breast using standard 2-D mammography as well as 3-D tomosynthesis. Images were obtained in standard and implant displaced projections. Computer aided detection was used. Comparison: This is compared with prior images. FINDINGS: There are scattered areas of fibroglandular density. There are no suspicious microcalcifications, masses, or areas of distortion. There are intact bilateral submuscular saline implants. The pattern is stable. Daisy Nash SAFE AND VAULT MECHANIC IMG MAMMO ORDERABLE S documented in this encounter Visit Diagnoses Diagnosis History of breast cancer Personal history of malignant neoplasm of breast History of breast cancer Personal history of malignant neoplasm of breast documented in this encounter Care Teams Profile Stitching Machine Operator Relationship Specialty Start Date End Date Shonda Garcia MD [address] [facility] [address] [place] [address] PCP - General 04/27/10 documented as of this encounter
--- OUTSIDE RECORDS SUMMARY | 2024-05-17 21:12 | XMS_ITS | Encounter Summary ---
Author Organization [facility] Address [address] [place] [address] Care Team Providers Care Planting Material Carrier Name Role Phone Unavailable Primary Care Provider Unavailabl e Encounter Details Date Type Department Care Team (Late st Contact Info) Description 04/08/2013 Results Only [facility] Laboratory Services - [facility] ([facility]) [address] [place] [address] Shonda Nunez MD [address] [address] Social History Tobacco Use Types [...] Diagnosis Comments PAP TEST- RESULT ONLY Routine 04/08/2013 0:00 EST documented in this encounter Results * PAP TEST- RESULT ONLY (04/08/2013 0:00 EST) Pathology Report: CYTOPATHOLOGY REPORT Reports generated via electronic interface contain original data; however they are lacking the format of the original report. Caution should be taken when reading/interpreti ng unformatted reports. Name: ? SHANNEN NOBLES ? Accession #: ? [id number] : ? 1965 (Age: 47) ??F ?Collect Date: ? 04/08/2013 Location: ? [facility] ? Receive Date: ? 04/09/2013 Provider: ?SHONDA NUNEZ MD Copy to: ? Specimen/Source: ?Pap Test, Cervix/Endocervix, ThinPrep Imaging System with manual evaluation Last Menstrual Period: ? 04/01/2013 ? SPECIMEN ADEQUACY ? Satisfactory for Evaluation - transformation zone component present GENERAL CATEGORIZATION ? Negative for Intraepithelial Lesion or Malignancy ? Document reviewed and electronically signed by: ? VERO Pickett(ASCP) ? Report Date: ??04/15/2013 14:02 End of Report [facility] 04/08/2013 04/09/2013 us Shonda Nunez MD PATHOLOGY ORDERABLES Final Resul t [facility] [address] [place] [address] documented in this encounter Visit Diagnoses Not on filedocumented in this encounter
--- OUTSIDE RECORDS SUMMARY | 2024-05-17 21:12 | XMS_ITS | Clinical Summary ---
Author Organization [facility]ly [facility] Address [address] [facility] [place] [address] Care Team Providers Care Fleet Operations Manager Name Role Phone Shonda Garcia MD Primary Care Provider [phone] Allergies Active Allergy Reactions Criticality Noted Date Comments Amoxicillin Trihydrate Rash Medium Latex Rash 07/03/2014 Latex balloon Thiuram Analogues Dermatitis Low Medications Medication Sig Dispensed Refills Start Date End Date Status LEVALBUTEROL TARTRATE (XOPENEX HFA INHL) Inhale 2 puffs into the lungs every 4 hours as needed. Active cholecalciferol, Vitamin D3, 400 unit tablet Take 1,000 Units by mouth daily. Active multivitamin (THERAGRAN) tablet Take 1 tablet by mouth daily. Active Fluocinolone Acetonide Oil 0.01 % Drops Reported on 07/04/2016 05/11/2014 Active triamcinolone (KENALOG) 0.1 % Cream Apply topically on trunk for severe flair of eczema 80 g 1 06/18/2015 Active acetaminophen (TYLENOL) 500 mg Tablet Take 1,000 mg by mouth every 6 hours as needed for Pain. Active pimecrolimus (ELIDEL) 1 % CreamIndications:At opic dermatitis, unspecified type Apply to the face BID. 60 g 2 03/04/2016 Active Additional Information Patient not taking.Reported on 06/26/2019 loratadine (CLARITIN) 10 mg Tablet Take 10 mg by mouth daily. Active crisaborole (EUCRISA) 2 % OintmentIndications :Atopic dermatitis, unspecified type Apply to face BID for maintenance 60 g 1 12/22/2016 Active Additional Information Patient not taking.Reported on 01/09/2020 spironolactone (ALDACTONE) 100 mg Tablet 02/13/2018 Active sertraline (ZOLOFT) 25 mg Tablet Take 150 mg by mouth daily. Active cyanocobalamin, vitamin B-12, 1,000 mcg Tablet Take 1,000 mcg by mouth daily. Active ketoconazole (Nizoral) 200 mg tablet 08/26/2022 Active Symbicort 80-4.5 mcg/actuation HFA Aerosol Inhaler 08/23/2022 Active cetirizine (ZyrTEC) 10 mg tablet 08/31/2022 Active estradioL (Vagifem) 10 mcg vaginal tabletIndications:P ostmenopausal bleeding Insert 1 tablet nightly for 2 weeks leading up to procedure and then continue twice per week 28 tablet 3 02/08/2024 Active miSOPROStoL (Cytotec) 200 mcg tabletIndications:P ostmenopausal bleeding Place one tablet vaginally night prior to procedure 1 tablet 02/08/2024 Active Active Problems Problem Noted Date Diagnosed Date History of breast cancer 06/26/2019 Malignant neoplasm of upper- outer quadrant of left breast in female, estrogen receptor positive 01/03/2017 S/P breast reconstruction, left 11/21/2016 S/P lumpectomy, left breast 07/06/2015 Encounters Date Type Department Care Team Description 04/04/2024 11:42 AM EDT Anesthesia Event [facility] [phone] Benedict Hidalgo MD 04/04/2024 11:33 AM EDT - 04/04/2024 12:34 PM EDT Surgery [place] [phone] Kaylie Fung MD HYSTEROSCOPY, SURG W/ENDOMETRIAL SAMPLING, POLYPECTOMY (WRVU 4.17) 04/04/2024 9:52 AM EDT - 04/04/2024 12:53 PM EDT Hospital Encounter [place] [phone] Kaylie Fung MD Postmenopausal bleeding Discharge Disposition: Home 04/04/2024 Interpretation Only Radiology [address] [place] [address] [place] [phone] Unknown 03/20/2024 Telephone Obstetrics and Gynecology at [facility] [address] [place] [address] Erika Armendariz RN from Last 3 Months Family History Medical History Relation Comments Esophageal Cancer Brother metastatic; ? Etoh, smoker; alive at 50 Prostate Cancer Father also, skin cance r in his 30s and 40s (nose, arms); alive at 70 Esophageal Cancer Paternal Uncle 1 Etoh, smoker; alive at 62 Prostate Cancer Paternal Uncle 2 alive at 75 Breast Cancer Sister Dx's 2013; lumpe ctomy, XRT, Gordon; alive at 49 Relation Status Comments Brother Father Paternal Uncle 1 Paternal Uncle 2 Sister Social History Tobacco Use Types Packs/Day Years Used Date Smoking Tobacco: Never Smokeless Tobacco: Never Alcohol Use Standard Drinks/Week Comments Yes 0 (1 standard drink = 0.6 oz pur e alcohol) once a week IPV Inpatient Questions Answer Date Recorded Does Anyone Try to Keep You From Having Contact with Others or Doing Things Outside Your Home? no 04/04/2024 Feels Threatened by Someone no 03/07 Feels Unsafe at Home or Work/School no 04/04/2024 Physical Signs of Abuse Present no 04/04/2024 Sex and Gender Information Value Date Recorded Sex Assigned at Not on file Gender Identity Not on file Sexual Orientation Not on file Last Filed Vital Signs Vital Sign Reading Time Taken Comments Blood Pressure 108/74 04/04/2024 12:45 PM EDT Pulse 50 04/04/2024 12:45 PM EDT Temperature 36.6 ??C (97.9 ??F) 04/04/2024 12:18 PM E DT Respiratory Rate 16 04/04/2024 12:45 PM EDT Oxygen Saturation 100% 04/04/2024 12:45 PM EDT Inhaled Oxygen Concentration - - Weight 53.5 kg (118 lb) 04/04/2024 10:07 AM EDT Height 167.6 cm (5' 6) 04/04/2024 10:07 AM EDT Body Mass Index 19.05 04/04/2024 10:07 AM EDT Plan of Treatment Upcoming Encounters Date Type Department Care Team (Late st Contact Info) Description 09/03/2024 3:30 PM EDT Office Visit Dermatology at [facility] [address] [place] [address] [facility] [address] [place] [address] Health Maintenance Due Date Last Done Comments CT Colonography 1965 Colonoscopy 1965 Colorectal Cancer Screening 1965 FIT DNA 1965 FIT 1965 Sigmoidoscopy (10 year) with FIT yearly 1965 Sigmoidoscopy 1965 HIV screen 09/13/1985 Hepatitis C Screening 09/13/1985 Hepatitis B vaccine (0-59 yrs) (1) 09/13/1986 Tetanus/Diphtheria/Pertussis Vaccines (1 - Tdap) 09/13/1986 HPV test 09/13/1997 PAP Smear 09/13/1997 Breast Cancer Share Decision Needed 2007 Zoster vaccine (1 of 2) 09/13/2017 Advance Directive 09/13/2022 Covid-19 Vaccine (1 - 2023-2 5 season) 2024 Influenza (Flu) vaccine (1 o f 1 - Influenza standard series) 02/04/2024 Breast Cancer screening 12/07/2025 12/08/19, 07/08/2022, 11/16/2020, Additional history exists Medical Devices Implanted Type Area Aircraft Systems Technician Device Identifier Shelf Expiration Date Model / Serial / Lot Mammpete,Eugenio Rodriguez d,Mod,+,Prfl, 300c ([id number]) - [id number] Implanted:Qty : 1 on 10/20/2015 by Cassie De Anda MD at [facility] IMPLANTS Right: Breast DO NOT USE [employer] - [id number] 09/02/2019 350-2300 / / [id number] MammaJennifer Rn d,Mod,+,Prfl, 300c ([id number]) - [id number] Implanted:Qty : 1 on 10/20/2015 by Cassie De Anda MD at [facility] IMPLANTS Left: Breast DO NOT USE [employer] - [id number] 12/03/2016 350-2300 / / [id number] Mamma,Eugenio Rodriguez d,Mod,+,Prfl, 300c ([id number]) - [id number] Implanted:Qty : 1 on 11/14/2018 by Pardeep Lund MD at [facility] IMPLANTS Left: Breast [employer] [facility] SUE 08/05/2022 350-2300 / [id number] / [id number] Procedures Procedure Name Priority Date/Time Associated Diagnosis Comments SURGICAL PATHOLOGY Routine 04/04/2024 12 :01 PM EDT Postmenopausal bleeding Hysteroscopy, W/Endo Bx (64047) Yes 04/04/2024 11:42 AM EDT Postmenopausal bleeding HYSTEROSCOPY, SURG W/ENDOMETRIAL SAMPLING, POLYPECTOMY Routine 04/04/2024 9:58 AM EDT Postmenopausal bleeding DH OR ENDOSCOPY Routine 04/04/2024 MAMMO SCREENING CAD AND GUILLAUME WITH IMPLANTS BILATERAL Routine 12/08/2023 8:54 AM EDT Encounter for screening mammogram for breast cancer from Last 3 Months or Most Recently Relevant to Health Maintenance Results * Surgical Pathology (04/04/2024 12:01 PM EDT) Case Report Surgical Pathology Report ? Case: [id number] ? Authorizing Provider: ??Kaylie Fung MD ? Collected: ? 04/04/2024 1201 ? Ordering Location: ? [facility] ??Received: ?04/04/2024 1711 ? [facility] ? Hospital ? Pathologist: ? Nancy Betancourt, ? MD Mary ? Specimen: ?Endometrium ? 04/15/2024 6:17 PM [facility] Final Diagnosis A. Endometrium, hysteroscopic curetting: - Benign atrophic endometrium. - Fragments of myometrium 04/15/2024 6:17 PM [facility] Clinical Information PMB 04/15/2024 6:17 PM [facility] Gross Description A. Endometrium, . A - Labeled/Fixative : EMC, formalin. Quantity/Size: Fragments, averaging 0.3 cm. Tissue Description: Rodríguez-brown soft tissue fragments. Sections/Process ing: Submitted in toto in 1 cassette labeled A1. CCP 04/15/2024 6:17 PM EST [facility] Result Note Routine 04/15/2024 6:17 PM EST [facility] Tissue ENDOMETRIAL STRUCTURE / Unknown 04/04/2024 12:01 PM EDT 04/04/2024 5:11 PM EDT Comment:Endocervical Curetti ngs, POSTMENOPAUSAL BLEEDING, CERVICAL STENOSIS Kaylie Fung MD PATHOLOGY/CYTOLOGY O RDERABLES [facility] [place] [address] * DH OR Endoscopy (04/04/2024) Anatomical Region Laterality Modality Other 04/04/2024 Narrative 04/04/2024 12:00 AM EDT Photographs - Images Procedure Note Unknown - 04/09/2024 Photographs - Images Unknown EA IMAGES * Mammo Screening Cad and Guillaume with Implants Bilateral (12/08/2023 8:54 AM EDT) WORKSTATION ID [id number] DH RAD Anatomical Region Laterality Modality Breast Bilateral Mammography Impressions 12/08/2023 10:44 AM EDT Limited study secondary to implants. No mammographic evidence of malignancy. Annual screening mammography is recommended. For women with a personal history of breast cancer and dense breast tissue, or those diagnosed before age 50, annual surveillance with breast MRI is recommended. FINAL ASSESSMENT: BI-RADS Category 2: Benign * ??Individuals should report any breast changes to a health care provider right away. * ??Screening mammography may not detect 10-15% of?breast cancers. Thank you for letting us participate in the care of this patient. ??If you are a health care provider and have any questions regarding this report, please contact the number below. ??For patients who have questions please contact the health school childcare attendant that requested your imaging first. ? Electronically signed by: Lillian Munoz MD, [facility] ??([phone]), at 12/08/2023 10:44 AM Narrative 12/08/2023 10:44 AM EDT EXAMINATION: MAMMO SCREENING CAD AND GUILLAUME WITH IMPLANTS BILATERAL REASON FOR EXAM: Screening; sister with breast cancer history. Personal history of left breast cancer treated with lumpectomy and radiation starting in 2014. TECHNIQUE: CC and MLO views were obtained of BOTH breasts. 2D and 3D tomosynthesis images were obtained, with and without implant displacement. Computer aided detection was used. COMPARISON: Comparison was made to the prior relevant examinations. BREAST DENSITY: There are scattered areas of fibroglandular density. FINDINGS: The presence of implants reduces the sensitivity of mammography for cancer detection. There are no suspicious microcalcifications, masses, or areas of distortion. Stable appearance. Shonda Garcia MD IMG MAMMO ORDERABLES from Last 3 Months or Most Recently Relevant to Health Maintenance Advance Directives * Full Code (Latest Code Status on File) Date Activated Date Inactivated Comments 11/13/2018 1:13 PM 11/14/2018 3:27 PM Question Answer Comments Does patient have capacity to make decision: Yes * Full Code Date Activated Date Inactivated Comments 08/09/2016 2:07 PM 08/09/2016 6:53 PM Question Answer Comments Does patient have capacity to make decision: Yes * Full Code Date Activated Date Inactivated Comments 08/09/2016 12:50 PM 08/09/2016 2:07 PM Question Answer Comments Does patient have capacity to make decision: Yes * Full Code Date Activated Date Inactivated Comments 07/13/2014 12:27 PM 07/14/2014 4:02 PM Care Teams Fleet Operations Manager Relationship Specialty Start Date End Date Shonda Garcia MD [facility] [address] [address] PCP - General 04/27/10
--- OUTSIDE RECORDS SUMMARY | 2024-05-17 21:12 | XMS_ITS | Encounter Summary ---
Author Organization [facility] [place] [address] Care Team Providers Care Automotive Warranty Administrator Name Role Phone Shonda Garcia MD Primary Care Provider [phone] Encounter Details Date Type Department Care Team (Latest Contact Info) Description 07/08/2022 1:50 PM EST - 07/08/2022 11:59 PM EST Hospital Encounter Mammography/[place] [address] Shonda Garcia MD [address] [place] [address] [address] [place] [address] Visit for screening mammogram Discharge Disposition: Home Social History Tobacco Use Types Packs/Day Years [...] on file documented as of this encounter Medications at Time of Discharge Medication Sig Dispensed Refills Start Date End Date cyanocobalamin, vitamin B-12, 1,000 mcg Tablet Take 1,000 mcg by mouth daily. sertraline (ZOLOFT) 25 mg Tablet Take 150 mg by mouth daily. spironolactone (ALDACTONE) 100 mg Tablet 02/13/2018 crisaborole (EUCRISA) 2 % OintmentIndications:At opic dermatitis, unspecified type Apply to face BID for maintenance 60 g 1 12/22/2016 loratadine (CLARITIN) 10 mg Tablet Take 10 mg by mouth daily. pimecrolimus (ELIDEL) 1 % CreamIndications:Atopi c dermatitis, unspecified type Apply to the face BID. 60 g 2 03/04/2016 acetaminophen (TYLENOL) 500 mg Tablet Take 1,000 mg by mouth every 6 hours as needed for Pain. triamcinolone (KENALOG) 0.1 % Cream Apply topically on trunk for severe flair of eczema 80 g 1 06/18/2015 Fluocinolone Acetonide Oil 0.01 % Drops Reported on 07/04/2016 05/11/2014 cholecalciferol, Vitamin D3, 400 unit tablet Take 1,000 Units by mouth daily. multivitamin (THERAGRAN) tablet Take 1 tablet by mouth daily. LEVALBUTEROL TARTRATE (XOPENEX HFA INHL) Inhale 2 puffs into the lungs every 4 hours as needed. 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 90 tablet 3 07/04/2019 09/05/2022 tacrolimus (PROTOPIC) 0.1 % OintmentIndications:De rmatitis Apply topically 2 times daily. To the face 60 g 3 07/25/2014 09/05/2022 documented as of this encounter Plan of Treatment Upcoming Encounters Date Type Department Care Team (Late st Contact Info) Description 09/03/2024 3:30 PM EDT Office Visit Dermatology at [facility] [address] [place] [address] Miladys Gordon MD [facility] [place] [address] documented as of this encounter Procedures Procedure Name Priority Date/Time Associated Diagnosis Comments MAMMO SCREENING CAD AND PAUL WITH IMPLANTS BILATERAL Routine 07/08/2022 2:08 PM EST Visit for screening mammogram documented in this encounter Results * Mammo Screening Cad and Paul with Implants Bilateral (07/08/2022 2:08 PM EST) Anatomical Region Laterality Modality Breast Bilateral Mammography Impressions 07/11/2022 11:54 AM EST No mammographic evidence of malignancy. RECOMMENDATION: Routine screening mammography is recommended with the frequency dependent on the patient?s age, breast cancer risk factors and preference. Additional studies may be recommended for women with higher than average risk for breast cancer. A result letter has been sent to this patient by the [facility]. BI-RADS CATEGORY 1: NEGATIVE * ??Regular screening mammograms [...] who have questions please contact the health rn coronary care unit that requested your imaging first. ? Electronically signed by: Jamie Aggarwal MD[facility] ([phone]), at 07/11/2022 11:54 AM Narrative 07/11/2022 11:54 AM EST REASON FOR EXAM: Screening TECHNIQUE: CC and MLO views were obtained of BOTH breasts. 2D and 3D tomosynthesis images were obtained. Computer aided detection was used. Karen views were obtained COMPARISON: Prior images BREAST DENSITY: There are scattered areas of fibroglandular density. FINDINGS: The implants are intact. There are no suspicious microcalcifications, masses, or areas of distortion in either breast. No significant changes compared to prior studies. The presence of dense implants reduces the sensitivity of mammography for cancer detection. Shonda Garcia MD IMG MAMMO ORDERABLES documented in this encounter Visit Diagnoses Diagnosis Visit for screening mammogram Other screening mammogram documented in this encounter Care Teams Automotive Warranty Administrator Relationship Specialty Start Date End Date Shonda Garcia MD [facility] [address] [place] [address] PCP - General 04/27/10 documented as of this encounter
--- OUTSIDE RECORDS SUMMARY | 2024-05-17 21:12 | XMS_ITS | Encounter Summary ---
Author Organization [facility] Address [address] [place] [address] Care Team Providers Care Gate Person Name Role Phone Unavailable Primary Care Provider Unavailabl e Encounter Details Date Type Department Care Team (Late st Contact Info) Description 09/03/2007 Results Only [facility] - Map conversion [address] [place] [address] Shonda Nunez MD [address] [address] Social History Tobacco Use Types [...] Priority Date/Time Associated Diagnosis Comments CYTOPATHOLOGY Routine 09/03/2007 0:00 EDT documented in this encounter Results * CYTOPATHOLOGY (09/03/2007 0:00 EDT) Pathology Report: CYTOPATHOLOGY REPORT Reports generated via electronic interface contain original data; however they are lacking the format of the original report. Caution should be taken when reading/interpreti ng unformatted reports. Name: ? SHANNEN NOBLES ? Accession #: ? [id number] : ? 1965 (Age: 41) ??F ?Collect Date: ? 09/03/2007 Location: ? [facility] ? Receive Date: ? 09/03/2007 Provider: ?SHONDA NUNEZ MD Copy to: ? Specimen/Source: ?ThinPrep Pap Test, Cervix/Endocervix, processed on [employer] ThinPrep Imaging System, with manual evaluation Last Menstrual Period: ? 08/15/07 Hormonal/Contracep tive Status: ? Yes: Ortho Novum 777 Other: ? HPVA - HPV testing requested if ASC-US on the current ThinPrep Pap test. ? SPECIMEN ADEQUACY ? Satisfactory for Evaluation - transformation zone component present GENERAL CATEGORIZATION ? Negative for Intraepithelial Lesion or Malignancy ? Document reviewed and electronically signed by: ? MAGDY Montelongo(ASCP) ? Report Date: ??09/07/2007 14:04 End of Report ARIELLA BOWMAN 09/03/2007 09/03/2007 us Shonda Nunez MD PATHOLOGY ORDERABLES Final Resul t Performing Organization Address City/State/[facility] Co de Phone Number ARIELLA BOWMAN [address] [place] [address] documented in this encounter Visit Diagnoses Not on filedocumented in this encounter
--- OUTSIDE RECORDS SUMMARY | 2024-05-17 21:12 | XMS_ITS | Encounter Summary ---
Author Organization [facility] Address [facility] [place] [address] Care Team Providers Care Waste Reduction Coordinator Name Role Phone Shonda Garcia MD Primary Care Provider [phone] Reason for Visit * Reason Comments Follow Up Surgery s/p removal of ruptu red implant and replacement dos 11/14/18 Encounter Details Date Type Department Care Team (Late st Contact Info) Description 06/26/2019 3:30 PM EST Office [place] [address] Pardeep Quan MD [facility] [place] [address] S/P breast reconstruction, left Social History Tobacco [...] Progress Notes * Pardeep Quan MD - 06/26/2019 3:30 PM EST Plastic Surgery Post Op Note Reason for [...] to 325 cc.) ??Complications: None reported HPI: Pt reports she is doing well. Arrives unaccompanied for today. She is happy with her the results of her reconstruction. Continues to preform implant massage daily. Examination: Patient is alert, conversant, comfortable, ambulating Incision: CDI, healing well. No collection, no erythema, no evidence of cellulitis. Oliva 1 implants bilaterally Implants in good position Gen: pleasant, well-appearing, in no acute distress. Neuro: Perrl eomi Resp: Regular rate, no stridor or wheezing Impression: Shannen Nobles is a 53 y.o. female who was seen today for follow-up after the above procedure. Please see the operative note for details. She is doing well without complaints, has healedwell. We talked about her prior history of radiation treatment, and that this does increase the likelihood of capsular contractor. We discussed the importance of implant massage and that her current implant massage regime has helped to keep the scar capsule around the implants soft. I expressed to the patient that in the instance any further questions or concerns were to arise that I would be happy to have her follow up with me in clinic at a sooner date. Photos were obtained with signed informed consent. Plan: Follow up: 1 year I, Viktoriya Bailey, have preformed the documentation for this encounter in the presence of and acting as a scribe for Pardeep Quna MD I performed the services which were documented by the scribe, and I agree with the accuracy of the documentation in this encounter. PARDEEP QUAN MD documented in this encounter Plan of Treatment Upcoming Encounters Date Type Department Care Team (Late st Contact Info) Description 09/03/2024 3:30 PM EDT Office Visit Dermatology at [facility] [address] [place] [address] Miladys Gordon MD [facility] [place] [address] documented as of this encounter Visit Diagnoses Diagnosis S/P breast reconstruction, left Breast replaced by other means documented in this encounter Care Teams Waste Reduction Coordinator Relationship Specialty Start Date End Date Shonda Garcia MD [address] [facility] [address] [place] [address] PCP - General 04/27/10 documented as of this encounter
--- OUTSIDE RECORDS SUMMARY | 2024-05-17 21:12 | XMS_ITS | Encounter Summary ---
Author Organization [facility] [place] [address] Care Team Providers Care Medical Record Librarians Teacher Name Role Phone Shonda Garcia MD Primary Care Provider [phone] Encounter Details Date Type Department Care Team (Late st Contact Info) Description 08/03/2022 Ancillary Procedure Radiology Library at [facility] [place] [id number] Shonda Garcia MD [address] [place] [address] [id number] Social History Tobacco Use Types Packs/Day Years [...] 3:30 PM EDT Office Visit Dermatology at [facility] [address] [place] [address] Miladys Gordon MD [facility] [address] [address] documented as of this encounter Procedures Procedure Name Priority Date/Time Associated Diagnosis Comments FILM LIBRARY STORAGE ONLY DX PELVIS Routine 08/03/2022 12:00 AM EST documented in this encounter Results * Film Library- Storage Only DX Pelvis (08/03/2022 12:00 AM EST) Narrative JULIANNA - 08/13/2022 2:22 AM EST This exam is auto-finalizing. It's purpose is for storage only. Shonda Garcia MD G FILM LIBRARY ORD ERABLES Performing Organization Address City/State/[facility] Co de Phone Number [place], [place] documented in this encounter Visit Diagnoses Not on filedocumented in this encounter Care Teams Medical Record Librarians Teacher Relationship Specialty Start Date End Date Shonda Garcia MD [address] [place] [address] [address] [place] [address] PCP - General 04/27/10 documented as of this encounter
--- OUTSIDE RECORDS SUMMARY | 2024-05-17 21:12 | XMS_ITS | Encounter Summary ---
[place] [address] Care Team Providers Care Wash Worker Name Role Phone Shonda Garcia MD Primary Care Provider [phone] Encounter Details Date Type Department Care Team (Latest Contact Info) Description 12/08/2023 8:20 AM EDT - 12/08/2023 11:59 PM EDT Hospital Encounter Mammography[place] [address] Shonda Garcia MD [address] [place] [address] [address] [place], [place] [id number] Encounter for screening mammogram for breast cancer Discharge Disposition: Home Social History Tobacco Use [...] Sig Dispensed Refills Start Date End Date ketoconazole (Nizoral) 200 mg tablet 08/26/2022 Symbicort 80-4.5 mcg/actuation HFA Aerosol Inhaler 08/23/2022 cetirizine (ZyrTEC) 10 mg tablet 08/31/2022 cyanocobalamin, vitamin B-12, 1,000 mcg Tablet Take 1,000 mcg by mouth daily. sertraline (ZOLOFT) 25 mg Tablet Take 150 mg by mouth daily. spironolactone (ALDACTONE) 100 mg Tablet 02/13/2018 crisaborole (EUCRISA) 2 % OintmentIndications:Atop ic dermatitis, unspecified type Apply to face BID for maintenance 60 g 1 12/22/2016 loratadine (CLARITIN) 10 mg Tablet Take 10 mg by mouth daily. pimecrolimus (ELIDEL) 1 % CreamIndications:Atopic dermatitis, unspecified type Apply to the face [...] the lungs every 4 hours as needed. documented as of this encounter Plan of Treatment Upcoming Encounters Date Type Department Care Team (Late st Contact Info) Description 09/03/2024 3:30 PM EDT Office Visit Dermatology at [address] [place] [address] Miladys Gordon MD [facility] [address] [place] [address] documented as of this encounter Procedures Procedure Name Priority Date/Time Associated Diagnosis Comments MAMMO SCREENING CAD AND GUILLAUME WITH IMPLANTS BILATERAL Routine 12/08/2023 8:54 AM EDT Encounter for screening mammogram for breast cancer documented in this encounter Results * Mammo Screening Cad and Guillaume with Implants Bilateral (12/08/2023 8:54 AM EDT) WORKSTATION ID [id number] DH RAD Anatomical Region Laterality Modality [...] who have questions please contact the health intensive care specialist that requested your imaging first. ? Electronically signed by: Lillian Munoz MD, [facility] ??([phone]), at 12/08/2023 10:44 AM Narrative 12/08/2023 10:44 [...] appearance. Shonda Garcia MD IMG MAMMO ORDERABLES documented in this encounter Visit Diagnoses Diagnosis Encounter for screening mammogram for breast cancer documented in this encounter Care Teams Wash Worker Relationship Specialty Start Date End Date Shonda Garcia MD [address] [place] [address] PCP - General 04/27/10 documented as of this encounter
--- OUTSIDE RECORDS SUMMARY | 2024-05-17 21:12 | XMS_ITS | Clinical Summary ---
Author Organization [facility] Address [address] [place] [address] Care Team Providers Care Machine Operator Assistant Name Role Phone Unavailable Primary Care Provider Unavailabl e Social History Tobacco Use Types Packs/Day Years Used Date Smoking Tobacco: Never Assessed Comments Unknown Sex and Gender Information Value Date Recorded Sex Assigned at Not on file Legal Sex Female 18:12 EST Gender Identity Not on file Sexual Orientation Not on file Plan of Treatment Health Maintenance Due Date Last Done Comments Hepatitis B Vaccine (1 of - 19+ 3-dose series) 09/13 COVID-19 Vaccine ( season) 2024 Hepatitis C Screen Completed 05/20/2022 Procedures Procedure Name Priority Date/Time Associated Diagnosis Comments HEPATITIS C AB W REFLEX TO HCV RNA BY PCR Routine 05/20/2022 9:26 EST from Last 3 Months or Most Recently Relevant to Health Maintenance Results * HEPATITIS C AB W REFLEX TO HCV RNA BY PCR (05/20/2022 9:26 EST) Hep C Antibody Negative Negative 05/23/2022 10:00 EST [facility] Blood VENOUS BLOOD / Unknown 05/20/2022 9:26 EST 05/22/2022 17:09 EST us Provider Outr Resulting Lab CHEMISTRY & BLOOD GA S ORDERABLES Final Result [facility] [address] [place] [address] from Last 3 Months or Most Recently Relevant to Health Maintenance
--- OUTSIDE RECORDS SUMMARY | 2024-05-17 21:12 | XMS_ITS | Encounter Summary ---
Author Organization [facility] Address [address] [place] [address] Care Team Providers Care Chaser Apprentice Name Role Phone Unavailable Primary Care Provider Unavailabl e Encounter Details Date Type Department Care Team (Late st Contact Info) Description 06/29/2005 Results Only [facility] - Maple conversion [address] [place] [address] Shonda Nunez MD [address] [place] [address] [place] [address] Social History Tobacco Use Types Packs/Day [...] Priority Date/Time Associated Diagnosis Comments CYTOPATHOLOGY Routine 06/29/2005 0:00 EST documented in this encounter Results * CYTOPATHOLOGY (06/29/2005 0:00 EST) Pathology Report: CYTOPATHOLOGY REPORT Reports generated via electronic interface contain original data; however they are lacking the format of the original report. Caution should be taken when reading/interpreti ng unformatted reports. Name: ? SHANNEN NOBLES ? Accession #: ? [id number] : ? 1965 (Age: 39) ??F ?Collect Date: ? 06/29/2005 Location: ? [facility] ? Receive Date: ? 07/01/2005 Provider: ?SHONDA NUNEZ MD Copy to: ? Specimen/Source: ?ThinPrep Pap Test, Cervix/Endocervix, processed on [employer] ThinPrep Imaging System, with manual evaluation Last Menstrual Period: ? 06/20/05 Hormonal/Contracep tive Status: ? Yes: Ortho Novum Lo Other: ? HPVA - HPV testing requested if ASC-US on the current ThinPrep Pap test. ? SPECIMEN ADEQUACY ? Satisfactory for Evaluation - transformation zone component present GENERAL CATEGORIZATION ? Negative for Intraepithelial Lesion or Malignancy ? Document reviewed and electronically signed by: ? Ellen Joaquin, SCT(ASCP) ? Report Date: ??07/04/2005 10:16 End of Report ARIELLA BOWMAN 06/29/2005 07/01/2005 us Shonda Nunez MD PATHOLOGY ORDERABLES Final Resul t ARIELLA BOWMAN [address] [place] [address] documented in this encounter Visit Diagnoses Not on filedocumented in this encounter
--- OUTSIDE RECORDS SUMMARY | 2024-05-17 21:12 | XMS_ITS | Encounter Summary ---
[place] [address] Care Team Providers Care Associate Professor Of Education Name Role Phone Shonda Garcia MD Primary Care Provider [phone] Reason for Visit * Auth/Cert (Routine) Specialty Diagnoses / Procedures Referred By Contac t Referred To Contact Diagnoses Postmenopausal bleeding postmenopausal bleeding, cervical stenosis Procedures PRO HYSTEROSCOPY, W/ENDO BX HYSTEROSCOPY, SURG W/ENDOMETRIAL SAMPLING, POLYPECTOMY (WRVU 4.17) Kaylie Fung MD [facility] DR OBSTETRICS [place] [address] [facility] Referral ID Status Reason Start Date Expiration Date Visits Re quested Visits Authorized [id number] 1 1 Encounter Details Date Type Department Care Team (Late st Contact Info) Description 04/04/2024 11:42 AM EDT Anesthesia Event [facility] [place] [address] Benedict Hidalgo MD [facility] [place] [address] Anesthesia Record Procedure Summary Procedure Name Responsible Anesthesiologist Anesthesia Start Time Anesthesia Stop Time HYSTEROSCOPY, SURG W/ENDOMETRIAL SAMPLING, POLYPECTOMY (WRVU 4.17) (Uterus) Benedict Hidalgo MD 04/04/24 1142 04/04/24 1220 Events Date Time Event Comment 04/04/2024 1049 1142 AN Verify 1142 Start 1142 An Start Data 1146 An Induction 1147 An Intubation 1149 Anesthesia Ready 1150 Break/Relief Out 1216 an stop data 1220 Recovery or ICU Handoff Kinga ent care was transferred to the destination unit staff after review of the patient's medical history, current anesthetic/surgical status and plan, according to the Provider Handoff Checklist. 1220 Stop Meds Name Total midazolam 2 mg fentaNYL 12.5 mcg lidocaine IV 50 mg propofoL 200 mg propofol INF 151.14 mg PHENYLephrine 80 mcg dexAMETHasone 8 mg ondansetron 8 mg ketorolac 30 mg lactated ringers 0 mL * Agents Name O2 * Blood No blood administrations on file. Lines, Drains, and Airways Type Details Placement Removal Supraglottic Mask Ventilation: No t Attempted (0); LMA Type: iGel; LMA Size: 3 04/04/24 1150 by Kaylyn Bo CRNA documented in this encounter Social History Tobacco Use Types Packs/Day Years Used Date Smoking Tobacco: Never Smokeless Tobacco: Never Alcohol Use Standard Drinks/Week Comments Yes 0 (1 standard drink = 0.6 oz pur e alcohol) once a week DH IPV Inpatient Questions Answer Date Recorded Does [...] on file documented as of this encounter OR Notes * Anesthesia Postprocedure Evaluation - Benedict Hidalgo MD - 04/04/2024 1:04 PM EDT Department of Anesthesiology Post-procedure Note Patient: Shannen Nobles Procedure Summary Date: 04/04/24 Room / Location: [facility] OR [address] [place] [address] [facility] Anesthesia Start: 1142 Anesthesia Stop: 1220 Procedure: HYSTEROSCOPY, SURG W/ENDOMETRIAL SAMPLING, POLYPECTOMY (WRVU 4.17) (Uterus) Diagnosis: Postmenopausal bleeding (postmenopausal bleeding, cervical stenosis) Surgeons: Kaylie Fung MD Responsible Provider: Benedict Hidalgo MD Anesthesia Type: general ASA Status: 2 All Anesthesia Providers: Anesthesiologist: Benedict Hidalgo MD [facility] ERECT[facility]: Kaylyn Bo CRNA Vitals Value Taken Time BP 108/74 04/04/24 1245 Temp 36.6 ??C (97.9 ??F) 04/04/24 1218 Pulse 50 04/04/24 1245 Resp 16 04/04/24 1245 SpO2 100 % 04/04/24 1245 Pain Level 0 04/04/24 1245 Vitals shown include unfiled device data. Patient Location: PACU/[facility] Level of Consciousness: Awake and Alert Pain Management: Satisfactory Analgesia PONV: None Cardiovascular Status: At Baseline Respiratory Status: At Baseline Postoperative Fluid Status: Possible Anesthetic Complications: NONE apparent at time of evaluation Final Primary Anesthesia Type: General (The anesthetic type performed was the same as planned.) Comments: * Anesthesia Preprocedure Evaluation - Benedict Hidalgo MD - 04/04/2024 10:45 AM EDT Pre-Anesthesia Evaluation for: Shannen Nobles a 58 y.o. female. Procedure(s): HYSTEROSCOPY, SURG W/ENDOMETRIAL SAMPLING, POLYPECTOMY (WRU 4.17) Patient Active Problem List Diagnosis Date Noted ??? History of breast cancer 06/26/2019 ??? Malignant neoplasm of upper-outer quadrant of left breast in female, estrogen receptor /01/2017 ??? S/P breast reconstruction, left 11/21/2016 ??? S/P lumpectomy, left breast 07/06/2015 Past Medical History: Diagnosis Date ??? Asthma ??? Attention deficit disorder controlled with Adderal ??? Breast cancer ??? Dermatitis ??? Eczema childhood eczema ??? TMJ (temporomandibular joint disorder) wears retainer Past Surgical History: Procedure Laterality Date ??? BREAST BIOPSY Left 06/23/2014 Invasive ductal carcinoma, atypical papillary hyperplasia ??? BREAST ENHANCEMENT SURGERY Bilateral ??? BREAST LUMPECTOMY Left 07/2014 rad tx ??? NASAL SEPTUM SURGERY 2011 deviated septum ??? PRO BX/REMV, LYMPH NODE, DEEP AXILL Left 07/14/2014 BIOPSY OR EXCISION OF LYMPH NODE(S), OPEN, DEEP AXILLARY NODE(S) performed by Patricia Cast MD at [facility] ??? PRO DELAY BREAST PROS AFTER BREAST SURG Left 11/14/2018 DELAYED INSERTION OF BREAST PROSTHESIS FOLLOWING MASTOPEXY, MASTECTOMY, OR IN RECONSTRUCTION (WRVU 12.63) performed by Pardeep Lund MD at [facility] ??? PRO ENLARGE BREAST WITH IMPLANT Bilateral 10/20/2015 AUGMENTATION MAMMOPLASTY, RICK performed by Cassie De Anda MD at [facility] ??? PRO ENLARGE BREAST WITH IMPLANT Left 11/14/2018 AUGMENTATION MAMMOPLASTY, UNILATERAL (WRVU 8.64) performed by Pardeep Lund MD at [facility] ??? PRO INJ RADIOACTIVE TRACER FOR ID OF SENTINEL NODE Left 07/14/2014 SENTINEL NODE INJECTION performed by Patricia Cast MD at [facility] ??? PRO MASTECTOMY PARTIAL Left 07/14/2014 MASTECTOMY PARTIAL performed by Patricia Cast MD at [facility] ??? PRO REMOVAL OF IMPLANT MATERIAL Left 11/14/2018 REMOVAL OF MAMMARY IMPLANT MATERIAL (WRVU 8.54) performed by Pardeep Lund MD at [facility] ??? PRO REVISION RECONSTRUCTED BREAST Left 08/09/2016 REVISION OF RECONSTRUCTED BREAST (WRVU 10.41) performed by Cassie De Anda MD at [facility] Social History Tobacco Use ??? Smoking status: Never ??? Smokeless tobacco: Never Substance Use Topics ??? Alcohol use: Yes Comment: once a week Social History Substance and Sexual Activity Drug Use No Allergies Allergen Reactions ??? Latex Rash Latex balloon ??? Amoxicillin Trihydrate Rash ??? Thiuram Analogues Dermatitis Medications: MAR and/or home medications have been reviewed. Physical Exam: Preprocedure Vitals Current as of 04/04/24 1045 BP: 109/76 Pulse: 56 Resp: 18 SpO2: 98 Temp: 36.5 ??C (97.7 ??F) Height: 167.6 cm (5' 6) (04/04/24) Weight: 53.5 kg (118 lb) (04/04/24) BMI: 19.04 IBW: 59.3 kg (130 lb 10.4 oz) Last edited 04/04/24 1007 by CL Airway Assessment: Mallampati: II TM distance: >3 FB Neck ROM: full Cardiovascular Assessment: system normal Pulmonary Assessment: unlabored breathing pulmonary exam normal Dental Assessment: Misc Assessment: Other exam findings: BP Readings from Last 3 Encounters: 04/04/24 : 109/76 02/08/24 : 111/50 12/29/22 : 96/50 Last Filed Perioperative Cognitive Screening None Anesthesia Plan: ASA 2 general, with a(n) intravenous induction 58 y/o female, hx of asthma, ADD, TMJ, presenting for hysteroscopy. Allergies to latex, amoxicillin, thiuram analogues. NPO confirmed. > 4 METS. Plan for GALMA. Informed Consent: Anesthetic plan and risks discussed with patient. Plan discussed with [employer] [employer] ERECT[employer]. Anesthesia Screening documented in this encounter Plan of Treatment Upcoming Encounters Date Type Department Care Team (Late st Contact Info) Description 09/03/2024 3:30 PM EDT Office Visit Dermatology at [facility] [address] [facility] [place] [address] Miladys Gordon MD [facility] DR MYESHA [place] [address] documented as of this encounter Visit Diagnoses Not on filedocumented in this encounter Administered Medications Inactive Administered Medications - up to 3 most recent administrations Medication Order MAR Action Action Date Dose Rate Site dexAMETHasone (Decadron) injection Intravenous, PRN, Starting on Ana Laura 04/04/24 at 1147, Until Ana Laura 04/04/24 at 1225, Anesthesia Intra-op, Routine Given 04/04/2024 11:47 AM EDT 8 mg fentaNYL (pf) (50 mcg/mL) multi-dose injection Intravenous, PRN, Starting on Ana Laura 04/04/24 at 1204, Until Ana Laura 04/04/24 at 1225, Anesthesia Intra-op, Routine Given 04/04/2024 12:04 PM EDT 12.5 mcg ketorolac (Toradol) (30 mg/mL) injection Intravenous, PRN, Starting on Ana Laura 04/04/24 at 1208, Until Ana Laura 04/04/24 at 1225, Anesthesia Intra-op, Routine Given 04/04/2024 12:08 PM EDT 30 mg lactated ringers infusion Intravenous, CONTINUOUS PRN, Starting on Ana Laura 04/04/24 at 1142, Until Ana Laura 04/04/24 at 1225, Anesthesia Intra-op New Bag 04/04/2024 11:42 AM EDT lidocaine (pf) (Xylocaine) (20 mg/mL) 2% injection syringe Intravenous, PRN, Starting on Ana Laura 04/04/24 at 1146, Until Ana Laura 04/04/24 at 1225, Anesthesia Intra-op, Routine Given 04/04/2024 11:46 AM EDT 50 mg midazolam (pf) (Versed) (1 mg/mL) multi-dose injection Intravenous, PRN, Starting on Ana Laura 04/04/24 at 1142, Until Ana Laura 04/04/24 at 1225, Anesthesia Intra-op, Routine Given 04/04/2024 11:42 AM EDT 2 mg ondansetron (pf) (Zofran) (2 mg/mL) injection Intravenous, PRN, Starting on Ana Laura 04/04/24 at 1147, Until Ana Laura 04/04/24 at 1225, Anesthesia Intra-op, Routine Given 04/04/2024 12:08 PM EDT 4 mg Given 04/04/2024 11:47 AM EDT 4 mg PHENYLephrine in NS (PF) (ZAIN-SYNEPHRINE) 0.8 mg/10 mL (80 mcg/mL) multi-dose injection Syringe Intravenous, PRN, Starting on Ana Laura 04/04/24 at 1150, Until Ana Laura 04/04/24 at 1225, Anesthesia Intra-op, Routine Given 04/04/2024 11:50 AM EDT 80 mcg propofoL (Diprivan) (10 mg/mL) infusion Intravenous, CONTINUOUS PRN, Starting on Ana Laura 04/04/24 at 1147, Until Ana Laura 04/04/24 at 1225, Anesthesia Intra-op, Routine Rate/Dose Change 04/04/2024 11:55 AM EDT 125 mcg/kg/min 40.125 mL/hr New Bag 04/04/2024 11:47 AM EDT 150 mcg/kg/min 48.15 mL /hr propofoL (Diprivan) 10 mg/mL bolus injection (Anesthesia) Intravenous, PRN, Starting on Ana Laura 04/04/24 at 1146, Until Ana Laura 04/04/24 at 1225, Anesthesia Intra-op Given 04/04/2024 12:03 PM EDT 50 mg Given 04/04/2024 11:46 AM EDT 150 mg documented in this encounter Care Teams Associate Professor Of Education Relationship Specialty Start Date End Date Shonda Garcia MD [address] [place] [address] PCP - General 04/27/10 documented as of this encounter
--- OUTSIDE RECORDS SUMMARY | 2024-05-17 21:12 | XMS_ITS | Encounter Summary ---
[facility] [place] [address] Care Team Providers Care Signalman Name Role Phone Shonda Garcia MD Primary Care Provider Encounter Details Date Type Department Care Team (Latest Contact Info) Description 11/16/2020 3:40 PM EDT - 11/16/2020 11:59 PM EDT Hospital Encounter Mammography/[place] [address] Daisy Nash, ZOOKEEPER [facility] [place] [address] History of breast cancer Discharge Disposition: Home Social History [...] 3:30 PM EDT Office Visit Dermatology at [facility] [address] [place] [address] Miladys Gordon MD [facility] DR MYESHA [place] [address] documented as of this encounter Procedures Procedure Name Priority Date/Time Associated Diagnosis Comments MAMMO SCREENING CAD AND PAUL WITH IMPLANTS BILATERAL Routine 11/16/2020 4:08 PM EDT History of breast cancer documented in this encounter Results * Mammo Screening Cad and Paul with Implants Bilateral (11/16/2020 4:08 PM EDT) [...] who have questions please contact the health respite care provider that requested your imaging first. ? Electronically signed by: Deepika River MD, [facility] ([phone]), at 11/16/2020 4:41 PM Narrative 11/16/2020 4:41 [...] implants. The pattern is stable. Daisy Nash APRN IMG MAMMO ORDERABLE S documented in this encounter Visit Diagnoses Diagnosis History of breast cancer Personal history of malignant neoplasm of breast documented in this encounter Care Teams Signalman Relationship Specialty Start Date End Date Shonda Garcia MD [address] [facility] [address] [place] [address] PCP - General 04/27/10 documented as of this encounter
--- OUTSIDE RECORDS SUMMARY | 2024-05-17 21:12 | XMS_ITS | Encounter Summary ---
Author Organization [facility] [place] [address] Care Team Providers Care Office Clerk Name Role Phone Shonda Garcia MD Primary Care Provider [phone] Encounter Details Date Type Department Care Team (Latest Contact Info) Description 12/08/2023 Travel Social History Tobacco Use Types Packs/Day [...] 3:30 PM EDT Office Visit Dermatology at [facility] [address] [place] [address] Miladys Gordon MD [facility] [address] [place] [address] documented as of this encounter Visit Diagnoses Not on filedocumented in this encounter Care Teams Office Clerk Relationship Specialty Start Date End Date Shonda Garcia MD [facility] [address] [place] [address] PCP - General 04/27/10 documented as of this encounter
--- OUTSIDE RECORDS SUMMARY | 2024-05-17 21:12 | XMS_ITS | Encounter Summary ---
Author Organization [facility] [place] [address] Care Team Providers Care Stay Cutter Name Role Phone Shonda Garcia MD Primary Care Provider [phone] Reason for Visit * Reason Comments Bilateral Hip Pain * Consultation (Routine) - Closed Specialty Diagnoses / Procedures Referred By Charanjit t Referred To Contact Orthopaedics Diagnoses Left hip pain BILATERAL HIP PAIN Shonda Garcia MD [address] [place] [address] [address] [facility] [address] [place] [id number] Referral ID Status Reason Start Date Expiration Date V isits Requested Visits Authorized [id number] Closed Consult, Test & Treat PCP Updated and/or Approved 08/12/2022 08/12/2023 12 12 Encounter Details Date Type Department Care Team (Late st Contact Info) Description 09/05/2022 3:00 PM EDT Office [place] [address] Kerri Bush PA [facility] [place] [address] Arthritis of right hip Social History Tobacco Use Types Packs/Day Years [...] Sign Reading Time Taken Comments Blood Pressure - - Pulse - - Temperature - - Respiratory Rate - - Oxygen Saturation - - Inhaled Oxygen Concentration - - Weight 65.8 kg (145 lb) 09/05/2022 3:04 PM EDT Height 167 cm (5' 5.75) 09/05/2022 3:04 PM EDT Body Mass Index 23.58 09/05/2022 3:04 PM EDT documented in this encounter Progress Notes * Kerri Bush PA - 09/05/2022 3:00 PM EDT Images from the original note were not included. Department of Orthopaedics Division of Adult Joint Reconstructive Surgery ARTHROPLASTY HISTORY/PREVIOUS HIP SURGERY: 1. none No chief complaint on file. Today's date: 09/05/2022 Subjective: Shannen Nobles presents to clinic today to discuss BILATERAL hip pain. She does not have a ton of pain, but feels that her hips give out. Her hips can become stiff. She is noticing this everywhere now. She was not able to get in to see her local doctor so they sent her to see us. She will sometimes have a slight groin pain if she was carrying boxes up stairs. Things will calm down after this. 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 She stands most of the day. Her biggest concern today is that her hips are giving out. \ REVIEW OF SYSTEMS: Shannen denies fevers, chills, night sweats, nausea, or vomiting. QUESTIONNAIRE RESPONSES: View : No data to display. View : No data to display. View : No data to display. ALLERGIES Allergies Allergen Reactions ??? Latex Rash Latex balloon ??? Amoxicillin Trihydrate Rash ??? Thiuram Analogues Dermatitis SOCIAL HISTORY: reports that she has never smoked. She has never used smokeless tobacco. She reports current alcohol use. She reports that she does not use drugs. SIGNIFICANT MEDICAL COMORBIDITIES: Patient Active Problem List Diagnosis Code ??? S/P lumpectomy, left breast Z98.890 ??? S/P breast reconstruction, left Z98.890 ??? Malignant neoplasm of upper-outer quadrant of left breast in female, estrogen receptor [id number], Z17.0 ??? History of breast cancer Z85.3 Objective: There were no vitals taken for this visit. General : alert, appears stated age and cooperative Gait: Normal. The patient can bear weight on the injured extremity. Hip Exam: RIGHT Prior surgery on this joint:No Leg Length: Longer leg: equal Limb Length discrepancy: 0cm Motion: Flexion contracture: 0 Total degrees of Flexion: 125 Total degrees of Abduction: 25 Total degrees of Ext Rotation: 40 Total degrees of Internal Rotation: 10 Gait Abnormality: Normal Radiographic evidence of joint damage: [0= normal; 1=minimal ; 2= some osteophytes , some narrowing ; 3= moderate osteophytes, significantnarrowing, mild deformity; 4= large osteophytes, marked narrowing, obvious deformity]: 3= moderate osteophytes, significant narrowing, mild deformity Skin Integrity: Normal Pulses Palpable: Left PT: Yes Left DP: Yes Motor/Sensory: Left Distal Motor: Normal Distal Sensory: Normal Hip Abductors: 4 Quads 4 Planter flexion/dorsiflexion against resistance 5/5 Hip Exam: LEFT Prior surgery on this joint:No Leg Length: Longer leg: equal Limb Length discrepancy: 0cm Motion: Flexion contracture: 0 Total degrees of Flexion: 125 Total degrees of Abduction: 25 Total degrees of Ext Rotation: 40 Total degrees of Internal Rotation: 10 Gait Abnormality: Normal Radiographic evidence of joint damage: [0= normal; 1=minimal ; 2= some osteophytes , some narrowing ; 3= moderate osteophytes, significantnarrowing, mild deformity; 4= large osteophytes, marked narrowing, obvious deformity]: 2 Skin Integrity: Normal Pulses Palpable: Left PT: Yes Left DP: Yes Motor/Sensory: Left Distal Motor: Normal Distal Sensory: Normal Hip Abductors: 4 Quads 4 Planter flexion/dorsiflexion against resistance 5/5 Imaging: X-ray RIGHT more than left Joint space narrowing with osteophyte formation. Assessment: Ms. Nobles is a 56 y.o. year old female with non symptomatic RIGHT more than LEFT hip arthritis. Plan: We had a long discussion regarding the nature of complaints. She continues to have good hip ROM with no groin pain on exam. She has recently been going through some emotional challenges and has movedinto her own apartment. Her weight has fluctuated a bit and she has been a bit less active as her baseline. I suspect that this is contributing to her feeling of weakness. Her ankle strength is reassuring. We discussed working on HEP to increase strengthening of the hip/knees. We discussed keeping active as well as symptoms of hip arthritis that could warrant changes in treatment plan. She will work with HEP and let us know if she would like to change her treatment plan. Kerri Bush PA-C This note was dictated using Lasso software documented in this encounter Plan of Treatment Upcoming Encounters Date Type Department Care Team (Late st Contact Info) Description 09/03/2024 3:30 PM EDT Office Visit Dermatology at [facility] [address] [place] [address] Miladys Gordon MD [facility] [address] [place] [address] documented as of this encounter Visit Diagnoses Diagnosis Arthritis of right hip documented in this encounter Care Teams Stay Cutter Relationship Specialty Start Date End Date Shonda Garcia MD [address] [place] [address] PCP - General 04/27/10 documented as of this encounter
--- OUTSIDE RECORDS SUMMARY | 2024-05-17 21:12 | XMS_ITS | Encounter Summary ---
Author Organization [facility] [place] [address] Care Team Providers Care Manager Federal Name Role Phone Shonda Garcia MD Primary Care Provider Encounter Details Date Type Department Care Team (Late st Contact Info) Description 04/04/2024 Interpretation Only Radiology [address] [place] [address] [place] [id number] Unknown None Social History Tobacco Use Types Packs/Day Years [...] Dermatology at [facility] [address] [place] [phone] Miladys Gordon MD [facility] [address] [place] [address] documented as of this encounter Procedures Procedure Name Priority Date/Time Associated Diagnosis Comments DH OR ENDOSCOPY Routine 04/04/2024 documented in this encounter Results * DH OR Endoscopy (04/04/2024) Anatomical Region Laterality Modality Other 04/04/2024 Narrative 04/04/2024 12:00 AM EDT Photographs - Images Procedure Note Unknown - 04/09/2024 Photographs - Images Unknown EA IMAGES documented in this encounter Visit Diagnoses Not on filedocumented in this encounter Care Teams Manager Federal Relationship Specialty Start Date End Date Shonda Garcia MD [facility] [address] [place] [address] PCP - General 04/27/10 documented as of this encounter
--- OUTSIDE RECORDS SUMMARY | 2024-05-17 21:12 | XMS_ITS | Encounter Summary ---
[place] [address] Care Team Providers Care Executive Administrative Assistant Name Role Phone Shonda Garcia MD Primary Care Provider Reason for Visit * Reason Comments Follow-up * Consultation (Routine) - Closed Specialty Diagnoses / Procedures Referred By Charanjit dover Referred To Contact Obstetrics and Gynecology Diagnoses Abnormal uterine bleeding Shonda Garcia MD [address] [place] [address] [address] [facility] [place] [employer] [address] [place] [address] Referral ID Status Reason Start Date Expiration Date V isits Requested Visits Authorized [id number] Closed Consult, Test & Treat PCP Updated and/or Approved 12/23/2022 12/23/2023 12 12 Encounter Details Date Type Department Care Team (Latest Contact Info) Description 12/29/2022 8:00 AM EDT Office Visit Obstetrics [place] [address] Mike Hayes MD [facility] OBSTETRICS [place] [address] Postmenopausal bleeding Social History Tobacco Use Types [...] Sign Reading Time Taken Comments Blood Pressure 96/50 12/29/2022 8:01 AM EDT Pulse 56 12/29/2022 8:01 AM EDT Temperature 36.8 ??C (98.2 ??F) 12/29/2022 8:01 AM ED T Respiratory Rate 18 12/29/2022 8:01 AM EDT Oxygen Saturation 100% 12/29/2022 8:01 AM EDT Inhaled Oxygen Concentration - - Weight 56.1 kg (123 lb 11.2 oz) 12/29/2022 8:01 AM EDT Height 167 cm (5' 5.75) 12/29/2022 8:01 AM EDT Body Mass Index 20.12 12/29/2022 8:01 AM EDT documented in this encounter Patient Instructions * Patient Instructions* Mike Hayes MD - 12/29/2022 8:00 AM EDT ENDOMETRIAL BIOPSY AFTERCARE INSTRUCTIONS What should you expect after an endometrial biopsy? You will notice some light bleeding which will require a sanitary pad, for approximately one week. The discharge may become more watery, pink or yellow. The vaginal area may feel sore for 1-2 days. You will experience mild cramping that should subside with aufs-ucn-hndvhte medications, such as ibuprofen or Tylenol, for approximately 2-7 days. If you have no allergies and medical contraindications, you may take 600 mg of ibuprofen/motrin/advil or 650 mg of Tylenol for relief of this cramping every 6 hours as needed for pain. What restrictions should I follow after an endometrial biopsy? The following restrictions apply: Do not have sex for one week Do not use tampons for one week Do not douche Avoid heavy lifting for 1-2 days You should call the office if you experience the following: Fever (temperature greater than 101.0) or chills Bright red, heavy bleeding (using more than one pad per hour) Severe cramping or pain that does not improve with vhfi-usw-qgzysze medications, such as ibuprofen. When should I follow-up? You should expect a post-procedure follow-up through myD-H message, phone call or letter in 2-3 weeks once your results return. You may need follow up after your biopsy depending on your results. This will be determined by review of your results and determined by your provider. When should you expect results of your biopsies? Most pathology results are available within 1-2 weeks. documented in this encounter Progress Notes * Freida Payan LNA - 12/29/2022 8:00 AM EDT This patient was seen in the [facility] clinic today. I was present as dietary director for the sensitive parts of her exam. * Mike Hayes MD - 12/29/2022 8:00 AM EDT Images from the original note were not included. 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 post menopausal female who presents for a new patient visit with the following complaints/concerns: postmenopausal bleeding History of Present Illness: A week of postmenopausal bleeding about a month ago One spot here and there and couple times since then No cramping No change in bowel or bladder changes 06/19 breast CA, Had reconstructive surgery 10/18 Tamoxifen for 5 years, ended 2 years ago Stopped having periods when she went on Tamoxifen 7 years ago Bled at 3 year joy on Tamoxifen x1 episode Father- prostate cancer Brother- esophagus cancer age 57 Maternal aunt- breast cancer Mother- undiagnosed cancer, currently on hospice Younger sister- celiacs disease, ppx mastectomy- tissue was abnormal Genetic testing for patient was negative TVUS Gynecologic History: LMP: No LMP recorded. Patient is postmenopausal. 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 Results NILM, neg HPV History of abnormal paps: Denies PHQ9 Questionnaires Data (Clinic and Pt Entered): Today's value 12/29/2022 7:58 AM PHQ-9: Responses Post 10/03/22 Conversion Little interest or pleasure Not at all Down, depressed, hopeless Not at all PHQ-2 Subscore 0 GAD7 Questionnaires Data: last 4 values No data to display Patient Active Problem List Diagnosis Date Noted History of breast cancer 06/26/2019 Malignant neoplasm of upper-outer quadrant of left breast in female, estrogen receptor positive 01/03/2017 S/P breast reconstruction, left 11/21/2016 S/P lumpectomy, left breast 07/06/2015 Past Medical History: Diagnosis Date Asthma Attention deficit disorder controlled with Adderal Breast cancer Dermatitis Eczema childhood eczema TMJ (temporomandibular joint disorder) wears retainer Past Surgical History: Procedure Laterality Date BREAST BIOPSY Left 06/23/2014 Invasive ductal carcinoma, atypical papillary hyperplasia BREAST ENHANCEMENT SURGERY Bilateral BREAST LUMPECTOMY Left 07/2014 rad tx NASAL SEPTUM SURGERY 2010 deviated septum PRO BX/REMV, LYMPH NODE, DEEP AXILL Left 07/14/2014 BIOPSY OR EXCISION OF LYMPH NODE(S), OPEN, DEEP AXILLARY NODE(S) performed by Patricia Cast MD at [facility] PRO DELAY BREAST PROS AFTER BREAST SURG Left 11/14/2018 DELAYED INSERTION OF BREAST PROSTHESIS FOLLOWING MASTOPEXY, MASTECTOMY, OR IN RECONSTRUCTION (WRVU 12.63) performed by Pardeep Lund MD at [facility] PRO ENLARGE BREAST WITH IMPLANT Bilateral 10/20/2015 AUGMENTATION MAMMOPLASTY, RICK performed by Cassie De Anda MD at [facility] PRO ENLARGE BREAST WITH IMPLANT Left 11/14/2018 AUGMENTATION MAMMOPLASTY, UNILATERAL (WRVU 8.64) performed by Pardeep Lund MD at [facility] PRO INJ RADIOACTIVE TRACER FOR ID OF SENTINEL NODE Left 07/14/2014 SENTINEL NODE INJECTION performed by Patricia Cast MD at [facility] PRO MASTECTOMY PARTIAL Left 07/14/2014 MASTECTOMY PARTIAL performed by Patricia Cast MD at [facility] PRO REMOVAL OF IMPLANT MATERIAL Left 11/14/2018 REMOVAL OF MAMMARY IMPLANT MATERIAL (WRVU 8.54) performed by Pardeep Lund MD at [facility] PRO REVISION RECONSTRUCTED BREAST Left 08/09/2016 REVISION OF RECONSTRUCTED BREAST (WRVU 10.41) performed by Cassie De Anda MD at [facility] Family History Problem Relation Age of Onset Breast Cancer Sister 48 Dx's 2013; lumpectomy, XRT, Gordon; alive at 49 Prostate Cancer Father 60 also, skin cancer in his 30s and 40s (nose, arms); alive at 70 Esophageal Cancer Brother 49 metastatic; ? Etoh, smoker; alive at 50 Esophageal Cancer Paternal Uncle 58 Etoh, smoker; alive at 62 Prostate Cancer Paternal Uncle 70 alive at 75 OB History 1 Para 1 Term AB Living SAB IAB Ectopic Multiple Live Births # Outc Date GA Lbr Mario/2nd Wgt Sex Del Anes PTL Lv 1 Para has a current medication list which includes the following prescription(s): symbicort, cyanocobalamin (vitamin b-12), spironolactone, loratadine, acetaminophen, triamcinolone, cholecalciferol, multivitamin, levalbuterol tartrate, ketoconazole, cetirizine, sertraline, crisaborole, pimecrolimus, and f luocinolone acetonide oil. Allergies Allergen Reactions Latex Rash Latex balloon Amoxicillin Trihydrate Rash Thiuram Analogues Dermatitis ROS: Otherwise negative except as specified in HPI. Physical Exam Vitals: 12/29/22 0801 BP: 96/50 Pulse: 56 Resp: 18 Temp: 36.8 ??C (98.2 ??F) TempSrc: Temporal SpO2: 100% Weight: 56.1 kg (123 lb 11.2 oz) Height: 167 cm (5' 5.75) General: NAD, comfortable, pleasant Lungs: Unlabored breathing Abdomen: soft, nontender, nondistended Neuro: grossly intact Pelvic: External genitalia/vulva- normal, no lesions Bartholin's- normal, no masses or tenderness Urethral meatus- normal size, no prolapse, no lesions Vagina- pale pink vaginal mucosa, moderate physiologic discharge, no blood in the vault, no lesions Bladder- no masses or tenderness Cervix- no lesions, well epithelialized Uterus- anteverted, normal size, non-tender, regular shape Adnexa- no masses, tenderness, or nodularity Rectal/perineum- no skin changes ENDOMETRIAL BIOPSY PROCEDURE NOTE DOCUMENTATION OF UNIVERSAL PROTOCOL FOR INVASIVE PROCEDURES Informed consent was obtained verbally. Timeout conducted with patient and all members of the team. We discussed the risks of endometrial biopsy, including pain, bleeding, infection, risk of uterine perforation and injury to surrounding structures in the event of perforation. PROCEDURE NOTE: Type of Procedure: Endometrial biopsy Procedure Date: 12/29/2022 Performing Provider: Mike Hayes MD Clinical Indications:Postmenopausal Bleeding Description of Procedure: The cervix was prepped with antiseptic solution. A tenaculum was used to grasp the anterior lip of the cervix. Karma dilators needed for cervical dilation. The Gynex endometrial sampler was passed into endometrial canal, 1 passes were made, the uterus sounds to 7 cm. There were no complications, the patient tolerated the procedure well. Scant amount of tissue was obtained. Specimens Sent: Endometrial biopsy Estimated Blood Loss: Min Procedure was chaperoned. Assessment/Plan: Shannen is a 57 y.o. post menopausal female who presents for a new patient visit with the following complaints/concerns: PMB 1. Postmenopausal bleeding Specimen to Pathology - Reviewed ddx of PMB including vaginal/uterine atrophy, uterine polyps, cervical dysplasia, hyperplasia or uterine cancer - Reviewed workup including endometrial sampling in the OR or the office and TVUS - Reviewed TVUS results from OSH - EMB completed today - Will call patient with results Note to patient: The 21st Century Cures Act makes medical notes like this available to patients in the interest of transparency. However, be advised this is a medical document. It is intended as joib-yj-tjsv communication. It is written in medical language and may contain abbreviations or verbiage that are unfamiliar. Total time spent day of service on chart review, disease discussion and therapeutic counseling, as well as, documentation and coordination of care: 30 min not including time take for endometrial biopsy Mike Hayes MD 12/29/2022 8:48 AM documented in this encounter Miscellaneous Notes * Addendum Note - Mike Hayes MD - 12/29/2022 8:00 AM EDTAddended by: MIKE HAYES on: 01/12/2023 05:40 PM Modules accepted: Orders documented in this encounter Plan of Treatment Upcoming Encounters Date Type Department Care Team (Late st Contact Info) Description 09/03/2024 3:30 PM EDT Office Visit Dermatology at [facility] [address] [place] [id number] Miladys Gordon MD [facility] MYESHA [place] [address] documented as of this encounter Procedures Procedure Name Priority Date/Time Associated Diagnosis Comments SPECIMEN TO PATHOLOGY Routine 12/29/2022 8:45 AM EDT Postmenopausal bleeding SURGICAL PATHOLOGY REPORT Routine 12/29/2022 8:00 AM EDT documented in this encounter Results * Specimen to Pathology (12/29/2022 8:45 AM EDT) AP Specimen 12/29/2022 8:45 AM EDT 12/29/2022 8:45 AM EDT Narrative [facility] - 12/29/2022 8:45 AM EDT Specimen requisition ordered. ??Separate Pathology report to follow Mike Hayes MD PATHOLOGY/CYTOLOGY O RDERABLES [facility] [place] [address] * Surgical Pathology Report (12/29/2022 8:00 AM EDT) Final Diagnosis [id number] ? Location: 5L The signing pathologist has (i) examined the relevant preparation(s) for the specimen(s) and (ii) rendered or confirmed the diagnosis(es). . ?Surgical Pathology DIAGNOSIS A - Endometrium, biopsy: - Strips of benign inactive endometrium with stromal breakdown and scant fragments of benign cervical squamous and endocervical epithelium intermixed with mucus and inflammatory exudates. - No evidence of endometrial hyperplasia or overt cytologic atypia. Electronically signed by: ?Jaky WESLEY, Filipe Verified: ??01/02/2023 8:29 ?? Pathologist Performed at: ??-[facility] [place] Dept. of [place]ology, [place] [address] Executive Admin: Naz Urias MD, FCAP, ??CLIA Certificate: [id number] SPECIMEN(S) SUBMITTED A - endometrial, biopsy (1) CLINICAL INFORMATION Postmenopausal bleeding, five years of tamoxifen use SPECIMEN PROCESSING A - Labeled/Fixative : Patient demographics, formalin. Quantity/Size: Fragments, aggregating 1 x 0.8 x 0.3 cm. Tissue Description: Scant fragments of pink red soft tissue admixed with abundant mucus. Sections/Process ing: Entirely submitted in 1 cassette labeled A1. ??pps 01/02/2023 8:29 AM EDT [facility] ENDOMETRIAL STRUCTURE / Unknown 12/29/2022 8:00 AM EDT 12/29/2022 8:00 AM EDT Mike Hayes MD PATHOLOGY/CYTOLOGY O RDERABLES [facility] [address] [place] [address] documented in this encounter Visit Diagnoses Diagnosis Postmenopausal bleeding documented in this encounter Care Teams Executive Administrative Assistant Relationship Specialty Start Date End Date Shonda Garcia MD [address] [place] [address] PCP - General 04/27/10 documented as of this encounter
--- OUTSIDE RECORDS SUMMARY | 2024-05-17 21:12 | XMS_ITS | Encounter Summary ---
Author Organization [facility] Address [address] [place] [address] Care Team Providers Care Store Management Trainee Name Role Phone Unavailable Primary Care Provider Unavailabl e Encounter Details Date Type Department Care Team (Late st Contact Info) Description 04/11/2003 Results Only [facility] [address] [place] [address] Shonda Nunez MD [address] [place] [address] [place] [phone] Social History Tobacco Use Types Packs/Day [...] Priority Date/Time Associated Diagnosis Comments CYTOPATHOLOGY Routine 04/11/2003 0:00 EST documented in this encounter Results * CYTOPATHOLOGY (04/11/2003 0:00 EST) Pathology Report: CYTOPATHOLOGY REPORT Reports generated via electronic interface contain original data; however they are lacking the format of the original report. Caution should be taken when reading/interpreti ng unformatted reports. Name: ? SHANNEN NOBLES ? Accession #: ? [id number] : ? 1965 (Age: 37) ??F ?Collect Date: ? 04/11/2003 Location: ? [facility] ? Receive Date: ? 04/15/2003 Provider: ?SHONDA NUNEZ MD Copy to: ? Specimen/Source: ?ThinPrep Pap Test, Cervix/Endocervix Last Menstrual Period: ? 03/10/03 Hormonal/Contracep tive Status: ? Yes: Ortho[facility] 777 Other: ? HPVA - HPV testing requested if ASC-US on the current ThinPrep Pap test. ? SPECIMEN ADEQUACY ? Satisfactory for Evaluation - transformation zone component present GENERAL CATEGORIZATION ? Negative for Intraepithelial Lesion or Malignancy INTERPRETATION ? Reactive cellular changes associated with inflammation present (includes repair). ? Document reviewed and electronically signed by: ? ALEXX JACOBS MD ? Report Date: ??04/24/2003 17:56 End of Report ARIELLA BOWMAN 04/11/2003 04/15/2003 us Shonda Nunez MD PATHOLOGY ORDERABLES Final Resul t ARIELLA BOWMAN [address] [place] [address] documented in this encounter Visit Diagnoses Not on filedocumented in this encounter
--- OUTSIDE RECORDS SUMMARY | 2024-05-17 21:12 | XMS_ITS | Encounter Summary ---
[place] [address] Care Team Providers Care Scientist Electronics Name Role Phone Shonda Garcia MD Primary Care Provider [phone] Reason for Referral * Consultation (Routine) - Closed Specialty Diagnoses / Procedures Referred By Contac t Referred To Contact Orthopaedics Diagnoses Left hip pain BILATERAL HIP PAIN Shonda Garcia MD [address] [place] [address] [facility] [address] [place] [phone] Referral ID Status Reason Start Date Expiration Date V isits Requested Visits Authorized [id number] Closed Consult, Test & Treat PCP Updated and/or Approved 08/12/2022 08/12/2023 12 12 Encounter Details Date Type Department Care Team (Late st Contact Info) Description 08/12/2022 Transcribe Orders eDH Incoming Referrals [phone] Shonda Garcia MD [address] [place] [address] Left hip pain Social History Tobacco Use Types Packs/Day Years [...] 3:30 PM EDT Office Visit Dermatology at [facility] [address] [place] [address] Miladys Gordon MD [facility] [place] [address] Scheduled Referrals Name Type Priority Associated Diagnoses Order Schedule Referral to Orthopaedics Outpatient Referral Routine Left hip pain Ordered: 08/12/2022 documented as of this encounter Visit Diagnoses Diagnosis Left hip pain Pain in joint, pelvic region and thigh documented in this encounter Care Teams Scientist Electronics Relationship Specialty Start Date End Date Shonda Garcia MD [address] [facility] [address] [place] [address] PCP - General 04/27/10 documented as of this encounter
--- OUTSIDE RECORDS SUMMARY | 2024-05-17 21:12 | XMS_ITS | Referral Summary ---
Author Organization [facility] Address [address] [place] [address] Care Team Providers Care Presser And Blocker Knitted Goods Name Role Phone Unavailable Primary Care Provider Unavailabl e Social History Tobacco Use Types Packs/Day Years Used Date Smoking Tobacco: Never Assessed Comments Unknown Sex and Gender Information Value Date Recorded Sex Assigned at Not on file Legal Sex Female 18:12 EST Gender Identity Not on file Sexual Orientation Not on file Plan of Treatment Not on file Procedures Procedure Name Priority Date/Time Associated Diagnosis Comments HEPATITIS C AB W REFLEX TO HCV RNA BY PCR Routine 05/20/2022 9:26 EST from Last 3 Months or Most Recently Relevant to Health Maintenance Results * HEPATITIS C AB W REFLEX TO HCV RNA BY PCR (05/20/2022 9:26 EST) Hep C Antibody Negative Negative 05/23/2022 10:00 EST [facility] Blood VENOUS BLOOD / Unknown 05/20/2022 9:26 EST 05/22/2022 17:09 EST us Provider Outr Resulting Lab CHEMISTRY & BLOOD GA S ORDERABLES Final Result [facility] [address] [place] [address] from Last 3 Months or Most Recently Relevant to Health Maintenance
--- OUTSIDE RECORDS SUMMARY | 2024-05-17 21:12 | XMS_ITS | Encounter Summary ---
Author Organization [facility] [place] [address] Care Team Providers Care Scientific Programmer Name Role Phone Shonda Garcia MD Primary Care Provider [phone] Encounter Details Date Type Department Care Team (Latest Contact Info) Description 12/29/2022 Travel Social History Tobacco Use Types Packs/Day [...] 3:30 PM EDT Office Visit Dermatology at [facility] [address] [place] [address] Miladys Gordon MD [facility] [address]ES[address] [place] [address] documented as of this encounter Visit Diagnoses Not on filedocumented in this encounter Care Teams Scientific Programmer Relationship Specialty Start Date End Date Shonda Garcia MD [facility] ETHAN GOMEZ [address] [place] [id number] PCP - General 04/27/10 documented as of this encounter
--- OUTSIDE RECORDS SUMMARY | 2024-05-17 21:12 | XMS_ITS | Encounter Summary ---
Author Organization [facility] Address [address] [place] [address] Care Team Providers Care Power Wood Sawyer Name Role Phone Unavailable Primary Care Provider Unavailabl e Encounter Details Date Type Department Care Team (Late st Contact Info) Description 05/21/2022 Lab Requisition [facility] Pathology & Laboratory Medicine - [address] [phone] Outr Resulting Lab, Provider Social History Tobacco Use Types Packs/Day Years [...] Procedure Name Priority Date/Time Associated Diagnosis Comments HIV 1/2 ANTIGEN AND ANTIBODY, 4TH GENERATION Routine 05/20/2022 9:26 EST documented in this encounter Results * HIV 1/2 ANTIGEN AND ANTIBODY, 4TH GENERATION (05/20/2022 9:26 EST) HIV 1 and 2 Antibody/p24 Antigen, 4th Generation Negative Negative 05/23/2022 9:57 EST [facility] Comment:If acute HIV-1 infec tion is suspected in a high risk patient, submit plasma specimen for HIV-1 RNA quantitation test. Blood VENOUS BLOOD / Unknown 05/20/2022 9:26 EST 05/22/2022 17:09 EST Narrative [facility] - 05/23/2022 9:57 EST Fourth Generation assay performed on the Siemens Centaur XPT. us Provider Outr Resulting Lab IMMUNOLOGY AND SEROL OGY ORDERABLES Final Result [facility] [address] [place] [address] documented in this encounter Visit Diagnoses Not on filedocumented in this encounter
--- OUTSIDE RECORDS SUMMARY | 2024-05-17 21:12 | XMS_ITS | Encounter Summary ---
Author Organization [facility] [place] [address] Care Team Providers Care Profile Grinder Technician Name Role Phone Shonda Garcia MD Primary Care Provider Encounter Details Date Type Department Care Team (Late st Contact Info) Description 01/09/2020 10:30 AM EDT Office Visit Hematology/Oncology at [address] [phone] Ra Weems MD [facility] DR HEMAT[place] [address] Ophelia Jennings APRN [address] [place] [address] DR HEMATOLOGY ONCOLOGY [place], [place] [id number] Malignant neoplasm of upper-outer quadrant of left [...] Sign Reading Time Taken Comments Blood Pressure 106/69 01/09/2020 10:40 AM EDT Pulse 82 01/09/2020 10:40 AM EDT Temperature 36.4 ??C (97.5 ??F) 01/09/2020 1 0:40 AM EDT Respiratory Rate 16 01/09/2020 10:4 0 AM EDT Oxygen Saturation 100% 01/09/2020 10: 40 AM EDT Inhaled Oxygen Concentration - - Weight 64.8 kg (142 lb 12.8 oz) 020 10:40 AM EDT Height 167.6 cm (5' 5.98) 01/09/2020 1 0:40 AM EDT Body Mass Index 23.06 01/09/2020 10:40 AM EDT documented in this encounter Progress Notes * Ra Weems MD - 01/09/2020 10:30 AM EDT Subjective: Patient ID: Shannen Nobles is a 54 y.o. female. HPI I am meeting the patient for the first time in the [facility]. She has a history of left breast cancer that was ER positive and HER-2 negative. She underwent a partial mastectomy and radiation therapy. The tumor was only 5 mm with no nodes. She has now completed 5 years of tamoxifen. Her biggest complaint is weight gain which she blames on the tamoxifen. She is also been under a lot of stress with a contentious divorce that she is going through. She has not noted any lumps or bumps. Review of Systems Constitutional: Positive for unexpected weight change (weight gain on Gordon). Negative for fatigue and fever. HENT: Negative for nosebleeds. Respiratory: Negative for cough and shortness of breath. Cardiovascular: Negative for chest pain and palpitations. Gastrointestinal: Negative for abdominal pain and diarrhea. Musculoskeletal: Negative for back pain. Skin: Negative for rash. Neurological: Negative for speech difficulty. Hematological: Negative for adenopathy. Does not bruise/bleed easily. All other systems reviewed and are negative. Objective: Physical Exam Constitutional: Appearance: Normal appearance. She is not toxic-appearing. HENT: Mouth/Throat: Mouth: Mucous membranes are moist. Eyes: General: No scleral icterus. Cardiovascular: Rate and Rhythm: Normal rate. Pulmonary: Effort: Pulmonary effort is normal. Skin: Findings: No rash. Neurological: Mental Status: She is oriented to person, place, and time. Assessment and Plan: 54-year-old female with a very early stage low risk invasive breast cancer of the left breast. She underwent optimal local therapy with breast conserving surgery and radiation therapy. She has now completed 5 years of tamoxifen in the adjuvant hormonal setting. We did discuss the rationale for hormonal therapy. It may be contributing somewhat to her weight gain. We also discussed duration of hormonal therapy. In her low risk situation I do not think there is any role to continue therapy beyond 5 years. We did review the CTS 5 calculator together which also put her in a low risk group and did not recommend extended hormonal therapy. She was quite happy not to go on with the treatment. At this point she can return to her primary care doctor. She needs no specific oncologic follow-up for the previous cancer but should get yearly mammograms. I remain available if she has more problems. documented in this encounter Plan of Treatment Upcoming Encounters Date Type Department Care Team (Late st Contact Info) Description 09/03/2024 3:30 PM EDT Office Visit Dermatology at [facility] [address] [place] [address] Miladys Gordon MD [facility] DR [place] [address] documented as of this encounter Visit Diagnoses Diagnosis Malignant neoplasm of upper-outer quadrant of left breast in female, estrogen receptor positive documented in this encounter Care Teams Profile Grinder Technician Relationship Specialty Start Date End Date Shonda Garcia MD Eva GOMEZ [address] [place] [address] PCP - General 04/27/10 documented as of this encounter
--- OUTSIDE RECORDS SUMMARY | 2024-05-17 21:12 | XMS_ITS | Encounter Summary ---
Author Organization [facility] [place] [address] Care Team Providers Care Eye Care Professional Name Role Phone Shonda Garcia MD Primary Care Provider Reason for Visit * Auth/Cert (Routine) Specialty Diagnoses / Procedures Referred By Contac t Referred To Contact Diagnoses Postmenopausal bleeding postmenopausal bleeding, cervical stenosis Procedures PRO HYSTEROSCOPY, W/ENDO BX HYSTEROSCOPY, SURG W/ENDOMETRIAL SAMPLING, POLYPECTOMY (WRVU 4.17) Kaylie Fung MD [facility] [address] [facility] Referral ID Status Reason Start Date Expiration Date Visits Re quested Visits Authorized [id number] 1 1 Encounter Details Date Type Department Care Team (Late st Contact Info) Description 04/04/2024 11:33 AM EDT - 04/04/2024 12:34 PM EDT Surgery [place] [address] Kaylie Fung MD [facility] [place] [address] HYSTEROSCOPY, SURG W/ENDOMETRIAL SAMPLING, POLYPECTOMY (WRVU 4.17) Social History Tobacco Use Types Packs/Day Years [...] Sign Reading Time Taken Comments Blood Pressure 111/74 04/04/2024 12:30 PM EDT Pulse 54 04/04/2024 12:30 PM EDT Temperature 36.6 ??C (97.9 ??F) 04/04/2024 12:18 PM E DT Respiratory Rate 16 04/04/2024 12:30 PM EDT Oxygen Saturation 100% 04/04/2024 12:30 PM EDT Inhaled Oxygen Concentration - - Weight 53.5 kg (118 lb) 04/04/2024 10:07 AM EDT Height 167.6 cm (5' 6) 04/04/2024 10:07 AM EDT Body Mass Index 19.05 04/04/2024 10:07 AM EDT documented in this encounter Discharge Instructions * Discharge Instructions* Kathy Martinez RN - 04/04/2024 10:02 AM EDT General Anesthesia Discharge Instructions Go home and rest. You may be sleepy for several hours. Take it easy as sudden position changes may cause nausea and/or dizziness. Use caution on stairs. Do not smoke if you are alone. Follow a light to regular diet as tolerated today. If nausea occurs, start with clear liquids, and progress slowly to a regular diet. Do not drive, operate machinery, drink alcoholic beverages or make any legal decisions after havinggeneral anesthesia. The medications given change your reaction time and alter your judgement. IV site -- slight redness is normal, you can use warm compresses. If tenderness and redness increases or foul drainage occurs, please contact your M.D. Patients who have had endotracheal tubes/LMA (tubes used by the anesthesia staff to ensure a safe airway during your operation) may have a sore throat. This is normal and cold liquids or soothing lozenges will help ease this discomfort. Narcotic pain medications can cause constipation, please ask the surgeons office what they recommend for prevention of this. Some non-pharmaceutical means of constipation prevention include increasing intake of fluids, eating more fruits and vegetables as well as fruit juices. If you are uncomfortable and/or unable to urinate within 8 hours of discharge and it is before 5 pm, call your physician. If it is after 5pm go to the closest emergency room or call the hospital power sewing machine operator at [phone] and ask for physician destination specialist covering for your physician. Questions or problems after 5pm or on a weekend: Call the [facility] power sewing machine operator at and ask for the physician destination specialist covering for your doctor. At 10:15 am you received 975 mg of acetaminophen- Your next dose should not be taken before 8 hourshave passed or as advised by your provider. Next dose not before- 4:15-6:15 pm You should not take more than a total of 3000 mg of acetaminophen in a 24 hour period. documented in this encounter Medications at Time of Discharge Medication Sig Dispensed Refills Start Date End Date estradioL (Vagifem) 10 mcg vaginal tabletIndications:Postm enopausal bleeding Insert 1 tablet nightly for 2 weeks leading up to procedure and then continue twice per week 28 tablet 3 02/08/2024 miSOPROStoL (Cytotec) 200 mcg tabletIndications:Postm enopausal bleeding Place one tablet vaginally night prior to procedure 1 tablet 02/08/2024 ketoconazole (Nizoral) 200 mg tablet 08/26/2022 Symbicort 80-4.5 mcg/actuation HFA Aerosol Inhaler 08/23/2022 cetirizine (ZyrTEC) 10 mg tablet 08/31/2022 cyanocobalamin, vitamin B-12, 1,000 mcg Tablet Take 1,000 mcg by mouth daily. sertraline (ZOLOFT) 25 mg Tablet Take 150 mg by mouth daily. spironolactone (ALDACTONE) 100 mg Tablet 02/13/2018 crisaborole (EUCRISA) 2 % OintmentIndications:Tylor pic dermatitis, unspecified type Apply to face BID [...] as needed. documented as of this encounter Progress Notes * Jaya Hernandez RN - 04/04/2024 12:51 PM EDT Discharge instructions and medications reviewed with patient and escort. All questions answered andwritten copy sent home with patient.Patient awake and alert in PACU, VSS, able to tolerate PO intake. Not complaining of any pain. Patient ambulated to car for discharge accompanied by [facility] staff member. documented in this encounter H&P Notes * Brooke Melgar MD - 04/04/2024 11:40 AM EDT PROPULSION SYSTEMS ENGINEER Pre-op H&P HISTORY OF PRESENT ILLNESS: Shannen Nobles is a 58 y.o. patient presenting for her pre-op evaluation. She is scheduled for a hysteroscopy, D&C for PMB. She last saw Dr. Fung on 02/08/24. She wasfound to have PMB and an in office EMB on 02/2024 was unable to be completed due to cervical stenosis. She has used vagifem for 2 weeks prior and took misprostol last night. Today, she reports no recent changes in her health or medications. She desires to proceed with the scheduled procedures. Denies lightheadedness, chest pain, shortness of breath, abdominal pain, leg cramping. OBGyn hx: US stable x2, last US 05/2023 EMB benign 12/2023 Spotting 01/2024 P1, x1 No motorboat mechanic surgeries or diagnoses Last pap 2020, NILM, HPV neg REVIEW OF SYMPTOMS Constitutional: Negative for activity change, fatigue and fever. Respiratory: Negative for cough, shortness of breath and wheezing. Cardiovascular: Negative for chest pain, palpitations and leg swelling. Gastrointestinal: Negative for abdominal pain, nausea and vomiting. Genitourinary: Negative for pelvic pain and vaginal bleeding. Neurological: Negative for dizziness and headaches. Past Medical History: Diagnosis Date Asthma Attention [...] NODE(S) performed by Patricia Cast MD at [facility] PRO DELAY BREAST PROS AFTER BREAST SURG Left 11/14/2018 DELAYED INSERTION OF BREAST PROSTHESIS FOLLOWING MASTOPEXY, MASTECTOMY, OR IN RECONSTRUCTION (WRVU 12.63) performed by Pardeep Lund MD at [facility] PRO ENLARGE BREAST WITH IMPLANT Bilateral 10/20/2015 AUGMENTATION MAMMOPLASTY, RICK performed by Cassie De Anda MD at [facility] PRO ENLARGE BREAST WITH IMPLANT Left 11/14/2018 AUGMENTATION MAMMOPLASTY, UNILATERAL (WRVU 8.64) performed by Pardeep Lund MD at [facility] PRO INJ RADIOACTIVE TRACER FOR ID OF SENTINEL NODE Left 07/14/2014 SENTINEL NODE INJECTION performed by Patricia Cast MD at [facility] PRO MASTECTOMY PARTIAL Left 07/14/2014 MASTECTOMY PARTIAL performed by Patricia Cast MD at [facility] PRO REMOVAL OF IMPLANT MATERIAL Left 11/14/2018 REMOVAL OF MAMMARY IMPLANT MATERIAL (WRVU 8.54) performed by Pardeep Lund MD at [facility] PRO REVISION RECONSTRUCTED BREAST Left 08/09/2016 REVISION OF RECONSTRUCTED BREAST (WRVU 10.41) performed by Cassie De Anda MD at [facility] Allergies: Allergies Allergen Reactions Latex Rash Latex balloon Amoxicillin Trihydrate Rash Thiuram Analogues Dermatitis No current facility-administered medications on file prior to encounter. Current Outpatient Medications on File Prior to Encounter Medication Sig Dispense Refill estradioL (Vagifem) 10 mcg vaginal tablet Insert 1 tablet nightly for 2 weeks leading up to procedure and then continue twice per week 28 tablet 3 miSOPROStoL (Cytotec) [address] one tablet vaginally night prior to procedure 1 tablet 0 ketoconazole (Nizoral) 200 mg tablet cetirizine (ZyrTEC) 10 mg tablet cyanocobalamin, vitamin B-12, 1,000 mcg Tablet Take 1,000 mcg by mouth daily. spironolactone (ALDACTONE) 100 mg Tablet loratadine (CLARITIN) 10 mg Tablet Take 10 mg by mouth daily. cholecalciferol, Vitamin D3, 400 unit tablet Take 1,000 Units by mouth daily. multivitamin (THERAGRAN) tablet Take 1 tablet by mouth daily. Symbicort 80-4.5 mcg/actuation HFA Aerosol Inhaler sertraline (ZOLOFT) 25 mg Tablet Take 150 mg by mouth daily. crisaborole (EUCRISA) 2 % Ointment Apply to face BID for maintenance (Patient not taking: Reported on 01/09/2020) 60 g 1 pimecrolimus (ELIDEL) 1 % Cream Apply to the face BID. (Patient not taking: Reported on 06/26/2019) 60 g 2 acetaminophen (TYLENOL) 500 mg Tablet Take 1,000 mg by mouth every 6 hours as needed for Pain. triamcinolone (KENALOG) 0.1 % Cream Apply topically on trunk for severe flair of eczema 80 g 1 Fluocinolone Acetonide Oil 0.01 % Drops Reported on 07/04/2016 LEVALBUTEROL TARTRATE (XOPENEX HFA INHL) Inhale 2 puffs into the lungs every 4 hours as needed. Social History Tobacco Use Smoking status: Never Smokeless tobacco: Never Substance Use Topics Alcohol use: Yes Comment: once a week OBJECTIVE: Last value Range last 8 hrs Temperature Temp: 36.5 ??C (97.7 ??F) Temp: [36.5 ??C (97.7 ??F)] Heart Rate Heart Rate: 56 Heart Rate: [56] Blood Pressure BP: 109/76 BP: (109)/(76) Respiratory Rate Resp: 18 Resp: [18] SpO2 SpO2: 98 % SpO2: [98 %] Constitutional: Well-developed and well-nourished. No distress. Cardiovascular: Normal rate, regular rhythm and normal heart sounds. Pulmonary/Chest: Effort normal and bilateral breath sounds clear to auscultation Abdominal: Soft, normal bowel sounds. She exhibits no distension. There is no tenderness. Neurological: She is alert A/P: 58 y.o. female presents for planned hysteroscopy, D&C for endometrial sampling in the setting of PMB with failed in-office attempt 2/2 cervical stenosis. No interval changes in history or physical exam. -- Surgical consent reviewed, discussed risks including bleeding, infection, injury to surrounding structure, uterine perforation, need for additional procedures. Informed consent obtained and the consent form was signed. -- Antibiotics: N/A -- VTE prophylaxis: SCDs -- Proceed to OR for planned procedure -- Anticipated discharge: same day Discussed and seen with Dr. Fung, Sticker Operator Attending. Brooke Melgar MD, PGY4 Obstetrics and Gynecology 04/04/2024 Associated attestation - Kaylie Fung MD - 04/04/2024 12:31 PM EDT I have seen the patient in the preoperative area, reviewed the surgical plan, postoperative concerns for which to reach out, and answered any questions. I agree with the above resident note. Kaylie Fung MD 04/04/2024 12:31 PM documented in this encounter Miscellaneous Notes * Op Note - Kaylie Fung MD - 04/04/2024 11:59 AM EDT [facility] [place] Patient Name: Shannen Nobles : [id number] MR#: [id number] Case Date: 04/04/2024 Surgeon: Surgeons and Role: * Kaylie Fung MD - Primary Preoperative diagnosis: postmenopausal bleeding, cervical stenosis Postoperative diagnosis: postmenopausal bleeding, cervical stenosis Procedure(s) (LRB): HYSTEROSCOPY, SURG W/ENDOMETRIAL SAMPLING, POLYPECTOMY (WRVU 4.17) (N/A) Anesthesia: General Estimated Blood Loss: 0 mL Findings: EUA with small, mobile uterus. Hysteroscopically, normal vagina, cervix and uterine cavity. Atrophic uterine lining, no lesions, bilateral ostia visualized. Complications: None Specimens removed during surgery: ID Type Source Tests Collected by Time Destination 1 : Endocervical Curettings Tissue Endometrium SURGICAL PATHOLOGY Kaylie Fung MD 04/04/2024 1201 Disposition: awakened from anesthesia, extubated and taken to the recovery room in a stable condition, having suffered no apparent untoward event. Condition: doing well without problems (Please see the Surgical Encounter Summary for any Implant and Specimen details pertinent to this patient.) HPI / Surgical Indications and Consent: Shannen oNbles is a 58 y.o. post menopausal female with a history of breast cancer who presents with recurrent postmenopausal bleeding. TVUS stable x2, last TVUS 05/2023, EMB benign 12/2022. EMBattempted in the office but was unsuccessful due to cervical stenosis. She used estradiol and misoprostol vaginally in anticipation of this procedure. Reviewed consent with the patient. Discussed risks such as bleeding, infection, need for blood transfusion, and damage to nearby organs, including uterine perforation. Discussed benefits and alternatives. Patient had time to ask questions which were answered. Patient signed consent and it was placed in the chart. Procedure: After obtaining informed consent and discussing the risks and benefits of the above procedure in the outpatient setting, the patient was met in the preoperative area where she was properly identifiedby the surgical and anesthesia teams. The patient was taken to the operating room where anesthesia was obtained without difficulty. She was placed in dorsal lithotomy position using Yellofin stirrups. The perineum and vagina were preppedwith Betadine solution. The patient was draped in the usual sterile fashion. Attention was directed to the perineum where the cervix was easily visualized with vaginal retractors and grasped at the anterior lip with a single-tooth tenaculum. The uterus was sounded as above.The cervix was then sequentially dilated to 17-Yoruba with Jaquez dilators. The diagnostic Myosure hysteroscope with saline infusion was introduced through the cervix into the uterine cavity. Survey was performed with the above findings noted. A Temens curette was then used to curettage the uterine cavity in all 4 quadrants with a gritty texture noted. Pathologic specimens were sent off for pathologic review. The tenaculum was removed from the cervix. There was no active bleeding noted and all instr uments were withdrawn from the uterus and vagina. All sponge, instrument, and needle counts were correct x2 at this point. The patient was placed in dorsal supine position. Anesthesia was reversed without difficulty and the patient was taken to the recovery room in stable condition. I, Dr. Kaylie Fung was present and scrubbed throughout the entire procedure. Surgical Infection Prevention Bundle Used? N/A Attestation: Case Date: 04/04/2024 I performed this procedure without the involvement of a resident. Kaylie Fung MD * Brief Op Note - Kaylie Fung MD - 04/04/2024 11:47 AM EDT Brief Operative Note Patient Name: Shannen Nobles : [id number] MR#: [id number] Case Date: 04/04/2024 Surgeon: Surgeons and Role: * Kaylie Fung MD - Primary Preoperative diagnosis: postmenopausal bleeding, cervical stenosis Postoperative diagnosis: postmenopausal bleeding, cervical stenosis Procedure(s) (LRB): HYSTEROSCOPY, SURG W/ENDOMETRIAL SAMPLING, POLYPECTOMY (WRVU 4.17) (N/A) Anesthesia: General Findings: EUA with small, mobile uterus. Hysteroscopically, normal vagina, cervix and uterine cavity. Atrophic uterine lining, no lesions, bilateral ostia visualized. Complications: None Intake: Intraprocedure Crystalloid Total None Transfusion No data found in the last 1 encounters. Output: Estimated Blood Loss: 0mL Urine Output:: (no urine output recorded) Other Output: (no other output recorded) Bladder not drained Drains: None Specimens removed during surgery: ID Type Source Tests Collected by Time Destination 1 : Endocervical Curettings Tissue Endometrium SURGICAL PATHOLOGY Kaylie Fung MD 04/04/2024 1201 Disposition: awakened from anesthesia, extubated and taken to the recovery room in a stable condition, having suffered no apparent untoward event. Condition: doing well without problems Attestation: Case Date: 04/04/2024 I performed this procedure without the involvement of a resident. (Please see the Surgical Encounter Summary for any Implant and Specimen details pertinent to this patient.) Surgical Infection Prevention Bundle Used? N/A documented in this encounter Plan of Treatment Upcoming Encounters Date Type Department Care Team (Late st Contact Info) Description 09/03/2024 3:30 PM EDT Office Visit Dermatology at [facility] [address] [place] [address] Miladys Gordon MD [facility] [address] MY[place] [address] documented as of this encounter Procedures Procedure Name Priority Date/Time Associated Diagnosis Comments SURGICAL PATHOLOGY Routine 04/04/2024 12 :01 PM EDT Postmenopausal bleeding Hysteroscopy, W/Endo Bx (28622) Yes 04/04/2024 11:42 AM EDT Postmenopausal bleeding HYSTEROSCOPY, SURG W/ENDOMETRIAL SAMPLING, POLYPECTOMY Routine 04/04/2024 9:58 AM EDT Postmenopausal bleeding documented in this encounter Results * Surgical Pathology (04/04/2024 12:01 PM EDT) Case Report Surgical Pathology Report ? Case: [id number] ? Authorizing Provider: ??Kaylie Fung MD ? Collected: ? 04/04/2024 1201 ? Ordering Location: ? [facility] ??Received: ?04/04/2024 1711 ? [facility] ? Hospital ? Pathologist: ? Nancy Betancourt, ? Mary, MD ? Specimen: ?Endometrium ? 04/15/2024 6:17 PM EST [facility] Final Diagnosis A. Endometrium, hysteroscopic curetting: - Benign atrophic endometrium. - Fragments of myometrium 04/15/2024 6:17 PM EST [facility] Clinical Information PMB 04/15/2024 6:17 PM EST [facility] Gross Description A. Endometrium, . A - Labeled/Fixative : EMC, formalin. Quantity/Size: Fragments, averaging 0.3 cm. Tissue Description: Rodríguez-brown soft tissue fragments. Sections/Process ing: Submitted in toto in 1 cassette labeled A1. CCP 04/15/2024 6:17 PM [facility] Result Note Routine 04/15/2024 6:17 PM [facility] Tissue ENDOMETRIAL STRUCTURE / Unknown 04/04/2024 12:01 PM EDT 04/04/2024 5:11 PM EDT Comment:Endocervical Curetti ngs, POSTMENOPAUSAL BLEEDING, CERVICAL STENOSIS Kaylie Fung MD PATHOLOGY/CYTOLOGY O RDDEEPTI Performing Organization Address City/State/[facility] Co de Phone Number [facility] [place] [phone] documented in this encounter Visit Diagnoses Diagnosis Postmenopausal bleeding Postmenopausal bleeding documented in this encounter Administered Medications Inactive Administered Medications - up to 3 most recent administrations Medication Order MAR Action Action Date Dose Rate Site acetaminophen (Tylenol) tablet 975 mg 975 mg, Oral, ONCE, 1 dose, On Ana Laura 04/04/24 at 1015, Maximum dose of acetaminophen is 4,000 mg from all sources in 24 hours. When ordered for pain, acetaminophen should be given even when other ordered pain medications are indicated. , Routine Given 04/04/2024 10:13 AM EDT 975 mg documented in this encounter Active and Recently Administered Medications Times are shown in EDT. Scheduled Medication Order 04/02/2024 04/03/2024 04/04/2024 acetaminophen (Tylenol) tablet 975 mg (COMPLETED) 975 mg, Oral, ONCE, 1 dose, On Ana Laura 04/04/24 at 1015, Maximum dose of acetaminophen is 4,000 mg from all sources in 24 hours. When ordered for pain, acetaminophen should be given even when other ordered pain medications are indicated. , Routine 1013 (Given - Provid er: Teleisha Juan V, RN) documented in this encounter Care Teams Eye Care Professional Relationship Specialty Start Date End Date Shonda Garcia MD [facility] [address] [place] [address] PCP - General 04/27/10 documented as of this encounter
--- OUTSIDE RECORDS SUMMARY | 2024-05-17 21:12 | XMS_ITS | Encounter Summary ---
Author Organization [facility] [place] [place] [address] Care Team Providers Care Road Traffic Controller Name Role Phone Shonda Garcia MD Primary Care Provider [phone] Encounter Details Date Type Department Care Team (Latest Contact Info) Description 06/26/2019 1:22 PM EST - 06/26/2019 11:59 PM EST Hospital Encounter Mammography/[place] [address] Daisy Nash, AGRICULTURAL SERVICE WORKER [facility] [place] [address] History of breast cancer Discharge Disposition: Home [...] hours as needed. tamoxifen (NOLVADEX) 20 mg Tablet Take 1 tablet by mouth daily. 90 tablet 3 02/03/2017 07/04/2019 tacrolimus (PROTOPIC) 0.1 % OintmentIndications:De rmatitis Apply topically 2 times daily. To the face 60 g 3 07/25/2014 09/05/2022 documented as of this encounter Plan of Treatment Upcoming Encounters Date Type Department Care Team (Late st Contact Info) Description 09/03/2024 3:30 PM EDT Office Visit Dermatology at [facility] [address] [place] [address] Miladys Gordon MD [facility] [address] MYES[place] [address] documented as of this encounter Procedures Procedure Name Priority Date/Time Associated Diagnosis Comments MAMMO SCREENING CAD AND PAUL WITH IMPLANTS BILATERAL Routine 06/26/2019 1:49 PM EST History of breast cancer documented in this encounter Results * Mammo Screening Cad and Paul with Implants Bilateral (06/26/2019 1:49 PM EST) Anatomical Region Laterality Modality Breast Bilateral Mammography Impressions 06/26/2019 2:05 PM EST No mammographic evidence of malignancy. Recommendation: Routine annual screening anticipated postlumpectomy changes left breast. Intact bilateral saline implants. Advise continued screening. BI-RADS Category 2: Benign Findings * ??Medical organizations agree that annual screening mammography beginning at age 40 saves the most lives. * ??The risks of screening are negligible compared to dying from breast cancer or suffering from more aggressive treatment required when detected at a later stage. * ??No woman is at low risk for breast cancer. * ??Some women, because of their family history, a genetic tendency, or certain other factors, should be screened with breast MRI along with mammograms. (The number of women who fall into this category is very small). The patient and health care provider should discuss the patient history and decide if earlier screening and breast MRI are appropriate. * ??Screening should continue as long as a woman is in good health and is expected to live 10 years or longer. * ??Screening mammography may not detect 10-15% of breast cancers. * ??Women should report any breast changes to a health care provider right away. Thank you for letting us participate in the care of this patient. For questions regarding this report, please contact the number below. ? Narrative 06/26/2019 2:05 PM EST EXAMINATION: MAMMO SCREENING CAD AND PAUL WITH IMPLANTS BILATERAL CLINICAL HISTORY: follow up 03.19.18 Status post left lumpectomy TECHNIQUE: CC and MLO views were obtained of each breast. 2-D and 3- D tomosynthesis images were obtained. Images were obtained in standard and implant displaced projections. Computer aided detection was used. COMPARISON: This study was compared with prior images. FINDINGS: There are scattered areas of fibroglandular density. There are no suspicious masses, suspicious microcalcifications, or areas of architectural distortion. There are intact bilateral submuscular saline implants. There is minimal postsurgical distortion in the left upper outer quadrant. An axillary node dissection clip is identified on the left. Daisy Nash APRN IMG MAMMO ORDERABLE S documented in this encounter Visit Diagnoses Diagnosis History of breast cancer Personal history of malignant neoplasm of breast documented in this encounter Care Teams Road Traffic Controller Relationship Specialty Start Date End Date Shonda Garcia MD [facility] [address] [place] [address] PCP - General 04/27/10 documented as of this encounter
--- OUTSIDE RECORDS SUMMARY | 2024-05-17 21:12 | XMS_ITS | Encounter Summary ---
Author Organization [facility] [place] [address] Care Team Providers Care Machine Paint Mixer Name Role Phone Shonda Garcia MD Primary Care Provider [phone] Encounter Details Date Type Department Care Team (Latest Contact Info) Description 02/08/2024 Travel Social History Tobacco Use Types Packs/Day [...] 3:30 PM EDT Office Visit Dermatology at [facility] [address] [place] [address] Miladys Gordon MD [facility] DR MYESHA [place] [address] documented as of this encounter Visit Diagnoses Not on filedocumented in this encounter Care Teams Machine Paint Mixer Relationship Specialty Start Date End Date Shonda Garcia MD [facility] ETHAN GOMEZ [address] [place] [address] PCP - General 04/27/10 documented as of this encounter
--- OUTSIDE RECORDS SUMMARY | 2024-05-17 21:12 | XMS_ITS | Encounter Summary ---
Author Organization [facility] Address [address] [place] [address] Care Team Providers Care Puddler Pile Driving Name Role Phone Unavailable Primary Care Provider Unavailabl e Encounter Details Date Type Department Care Team (Late st Contact Info) Description 07/18/2021 Lab Requisition [facility] Pathology & [place] [address] Outr Resulting Lab, Provider Social History Tobacco [...] Procedure Name Priority Date/Time Associated Diagnosis Comments ZZCOVID-19 TEST [facility] PCR Today 07/17/2021 13:15 EST COVID-19 TESTING Routine 07/17/2021 13:1 5 EST documented in this encounter Results * COVID-19 TEST [facility] PCR (07/17/2021 13:15 EST) Swab 07/17/2021 13:1 5 EST 07/18/2021 16:04 EST us Provider Outr Resulting Lab MICROBIOLOGY - GENER AL ORDERABLES Final Result [facility] [address] [place] [address] * COVID-19 TESTING (07/17/2021 13:15 EST) COVID-19 rt-PCR Result Negative Negative 07/19/2021 11:54 EST [facility] Comment: This test has not been FDA cleared or approved. This test has been authorized by FDA under an EUA for use by authorized laboratories. This test has been authorized only for detection of nucleic acid from 2019-nCoV, not for any other viruses or pathogens. This test is only authorized for the duration of the declaration that circumstances exist justifying the authorization of emergency use of in vitro diagnostic tests for detection and/or diagnosis of 2019-nCoV under section 564(b)(1) of Act, 21 U.S.C ?? 360bbb-3(b) (1), unless the authorization is terminated or revoked sooner. Negative results do not preclude 2019-nCoV infection and should not be used as the sole basis for treatment or other patient management decisions. Negative results must be combined with clinical observations, patient history, and epidemiological information. Testing was performed using the yue SARS-CoV-2 assay ([employer] on the Yue 6800 System Performing Lab Yue 6800 [facility] Lab 07/19/2021 11:54 EST [facility] Swab 07/17/2021 13:1 5 EST 07/18/2021 16:04 EST us Provider Outr Resulting Lab MICROBIOLOGY - GENER AL ORDERABLES Final Result [facility] [address] [place] [address] documented in this encounter Visit Diagnoses Not on filedocumented in this encounter
--- OUTSIDE RECORDS SUMMARY | 2024-05-17 21:12 | XMS_ITS | Encounter Summary ---
Author Organization [facility] Address [address] [place] [address] Care Team Providers Care Lye Peel Operator Name Role Phone Unavailable Primary Care Provider Unavailabl e Encounter Details Date Type Department Care Team (Late st Contact Info) Description 05/21/2022 Lab Requisition [facility] Pathology & Laboratory Medicine - [address] [address] Outr Resulting Lab, Provider Social History Tobacco [...] RNA BY PCR Routine 05/20/2022 9:26 EST documented in this encounter Results * HEPATITIS C AB W REFLEX TO HCV RNA BY PCR (05/20/2022 9:26 EST) Hep C Antibody Negative Negative 05/23/2022 10:00 EST [facility] Blood VENOUS BLOOD / Unknown 05/20/2022 9:26 EST 05/22/2022 17:09 EST us Provider Outr Resulting Lab CHEMISTRY & BLOOD GA S ORDERABLES Final Result [facility] [address] [place] [address] documented in this encounter Visit Diagnoses Not on filedocumented in this encounter
--- OUTSIDE RECORDS SUMMARY | 2024-05-17 21:12 | XMS_ITS | Encounter Summary ---
Author Organization [facility] [place] [address] Care Team Providers Care Air Carrier Inspector Name Role Phone Shonda Garcia MD Primary Care Provider [phone] Encounter Details Date Type Department Care Team (Late st Contact Info) Description 06/08/2020 Telephone [place] [address] Delaney Mathew Social History Tobacco Use Types Packs/Day Years [...] encounter Miscellaneous Notes * Telephone Encounter - Delaney Scherer - 06/08/2020 1:27 PM EST Shannen called stating that Lucina DesireMiguel Angel saw her sister Ashly Tong last week for a consultation, and Shannen wanted to give Lucina permission to review her records for comparison. documented in this encounter Plan of Treatment Upcoming Encounters Date Type Department Care Team (Late st Contact Info) Description 09/03/2024 3:30 PM EDT Office Visit Dermatology at [facility] [address] [place] [phone] Miladys Gordon MD [facility] DR MYESHA [place] [address] documented as of this encounter Visit Diagnoses Not on filedocumented in this encounter Care Teams Air Carrier Inspector Relationship Specialty Start Date End Date Shonda Garcia MD [address] [place] [address] PCP - General 04/27/10 documented as of this encounter
--- OUTSIDE RECORDS SUMMARY | 2024-05-17 21:12 | XMS_ITS | Encounter Summary ---
Author Organization [facility] [place] [address] Care Team Providers Care Hat Band Attacher Name Role Phone Shonda Garcia MD Primary Care Provider [phone] Encounter Details Date Type Department Care Team (Latest Contact Info) Description 07/08/2022 Travel Social History Tobacco Use Types Packs/Day [...] 3:30 PM EDT Office Visit Dermatology at [facility] [address] [place] [address] Miladys Gordon MD [facility] DR MYESHA [place] [address] documented as of this encounter Visit Diagnoses Not on filedocumented in this encounter Care Teams Hat Band Attacher Relationship Specialty Start Date End Date Shonda Garcia MD [facility] ETHAN GOMEZ [address] [place] [address] PCP - General 04/27/10 documented as of this encounter
--- OUTSIDE RECORDS SUMMARY | 2024-05-17 21:12 | XMS_ITS | Encounter Summary ---
[place] [address] Care Team Providers Care Principal Statistical Programmer Name Role Phone Shonda Garcia MD Primary Care Provider [phone] Reason for Referral * Consultation (Routine) - Closed Specialty Diagnoses / Procedures Referred By Contac t Referred To Contact Obstetrics and Gynecology Diagnoses Abnormal uterine bleeding Shonda Garcia MD [address] [place] [address] [facility] [employer] [address] [address] Referral ID Status Reason Start Date Expiration Date V isits Requested Visits Authorized [id number] Closed Consult, Test & Treat PCP Updated and/or Approved 12/23/2022 12/23/2023 12 12 Encounter Details Date Type Department Care Team (Latest Contact Info) Description 12/23/2022 Transcribe Orders eDH Incoming Referrals [phone] Shonda Garcia MD [address] [place] [address] Abnormal uterine bleeding Social History Tobacco Use Types Packs/Day [...] PM EDT Office Visit Dermatology at [facility] [address] [place] [address] Miladys Gordon MD [facility] DR MYESHA [place] [address] Scheduled Referrals Name Type Priority Associated Diagnoses Orde r Schedule Referral to Ob-Master Hearth Technician Outpatient Referral Routine Abnormal uterine bleeding Ordered: 12/23/2022 documented as of this encounter Visit Diagnoses Diagnosis Abnormal uterine bleeding Unspecified disorder of menstruation and other abnormal bleeding from female genital tract documented in this encounter Care Teams Principal Statistical Programmer Relationship Specialty Start Date End Date Shonda Garcia MD [address] [place] [address] PCP - General 04/27/10 documented as of this encounter
--- OUTSIDE RECORDS SUMMARY | 2024-05-17 21:12 | XMS_ITS | Encounter Summary ---
Author Organization [facility] Address [address] [place] [address] Care Team Providers Care Ore Dressing Engineer Name Role Phone Unavailable Primary Care Provider Unavailabl e Encounter Details Date Type Department Care Team (Latest Contact Info) Description 01/29/2021 Lab Requisition [facility] Pathology & Laboratory Medicine - [facility] [address] [place] [address] Shonda Garcia MD [address] [phone] Encounter for general adult medical examination without abnormal findings; Encounter for screening for malignant neoplasm of cervix; Encounter for screening for human papillomavirus (HPV) Social History Tobacco Use Types Packs/Day Years [...] Name Priority Date/Time Associated Diagnosis Comments PAP TEST Today 01/27/2021 4:00 EDT Encounter for general adult medical examination without abnormal findings Encounter for screening for malignant neoplasm of cervix Encounter for screening for human papillomavirus (HPV) HPV DNA DETECTION WITH GENOTYPING, PCR Today 01/27/2021 4:00 EDT Encounter for general adult medical examination without abnormal findings Encounter for screening for malignant neoplasm of cervix Encounter for screening for human papillomavirus (HPV) documented in this encounter Results * HUMAN PAPILLOMAVIRUS (HPV) DETECTION-HIGH RISK TYPES (01/27/2021 4:00 EDT) HPV other High Risk types, PCR Negative Negative 02/10/2021 7:16 [facility] Comment:No E6 or E7 mRNA is detected from HPV types 16,18,31,33,35,39,45,51,52,56,58,59,66, and 68 by wire spooler mediated amplification. Papanicolaou smear specimen (specimen) CERVIX UTERI STRUCTURE / Unknown 01/27/2021 4:00 EDT 02/08/2021 9:46 EDT us Shonda Garcia MD MICROBIOLOGY - GENERAL ORDERABLE S Final Result [facility] [address] [place] [address] * PAP TEST (01/27/2021 4:00 EDT) Specimens A. Cervix and/or Endocervix , ThinPrep Imaging System with Manual Evaluation 02/10/2021 7:16 [facility] Specimen Adequacy Satisfactory for Evaluation - transformation zone component present Scant squamous epithelial component, contamination present, possibly lubricant 02/10/2021 7:16 [facility] General Categorization Negative for intraepithelial lesion or malignancy 02/10/2021 7:16 [facility] Attestation . 02/10/2021 7:16 [facility] at 0716 Clinical History See below 02/11/20 7:16 [facility] HPV The result for the Human Papillomavirus (HPV) Detection-High Risk Types is Negative. No E6 or E7 mRNA is detected from HPV types 16,18,31,33,35,39 ,45,51,52,56,58,5 9,66, and 68 by wire spooler mediated amplification.Cassie ting was performed on specimen [id number] and was resulted on 02/10/2021 0709 EDT by LEISA, LAB INSTRUMENT RESULTS IN 02/10/2021 7:16 T [facility] Performing Lab [facility] 02/10/2021 7:16 [facility] Scanned Images 02/10/2021 7:16 EDT [facility] Papanicolaou smear specimen (specimen) CERVIX UTERI STRUCTURE / Unknown 01/27/2021 4:00 EDT 01/29/2021 11:08 EDT us Shonda Garcia MD PATHOLOGY ORDERABLES Final Resul t [facility] [address] [place] [address] documented in this encounter Visit Diagnoses Diagnosis Encounter for general adult medical examination without abnormal findings Unspecified general medical examination Encounter for screening for malignant neoplasm of cervix Screening for malignant neoplasm of the cervix Encounter for screening for human papillomavirus (HPV) Special screening examination for human papillomavirus (HPV) documented in this encounter
--- OUTSIDE RECORDS SUMMARY | 2024-05-17 21:12 | XMS_ITS | Encounter Summary ---
Author Organization [facility] [place] [address] Care Team Providers Care Windsmith Name Role Phone Shonda Garcia MD Primary Care Provider [phone] Encounter Details Date Type Department Care Team (Late st Contact Info) Description 11/16/2020 2:40 PM EDT Laboratory Appointment Lab [address] [place] [phone] Social History Tobacco Use Types Packs/Day Years [...] 3:30 PM EDT Office Visit Dermatology at [facility] [address] [place] [address] Miladys Gordon MD [facility] [place] [address] documented as of this encounter Procedures Procedure Name Priority Date/Time Associated Diagnosis Comments HEMOGRAM Routine 11/16/2020 2:59 PM EDT HEPATIC FUNCTION PANEL Routine 11/16/2020 2:59 PM EDT documented in this encounter Results * Hemogram (11/16/2020 2:59 PM EDT) White Blood Cell 6.2 4.0 - 9.5 x10(3)/[facility] Red Blood Cell 4.54 4.00 - 5.21 x10(6)/[facility] Hemoglobin 13.3 11.7 - 15.5 gm/dL [facility] Hematocrit 40.8 35.7 - 45.8 % [facility] Mean Cell Volume 89.9 82.6 - 94.4 fL [facility] Mean Cell Hemoglobin 29.3 27.1 - 32.0 pg [facility] Mean Cell Hemoglobin Concentration 32.6 31.7 - 35.0 gm/dL [facility] Platelet 215 145 - 357 x10(3)/[facility] RDW Standard Deviation 43.6 37.0 - 46.0 [facility] RDW coefficient of variation 13.2 11.5 - 14.1 % [facility] Mean Platelet Volume 10.3 7.6 - 12.9 fL [facility] NRBC% auto 0.0 % [facility] NRBC Absolute 0.000 0.000 - 0.000 x10(3)/[facility] Blood Venous Draw / Unknown 11/16/2020 2:59 PM EDT 11/16/2020 3:03 PM EDT Narrative Resulting Agency Comment Spec In Lab Shonda Garcia MD HEMATOLOGY ORDERABLE S [facility] [place] [address] * Hepatic Function Panel (11/16/2020 2:59 PM EDT) Pathologist [facility] Protein, Total 7.4 6.1 - 8.0 gm/dL [facility] Albumin 4.6 3.2 - 5.2 gm/dL [facility] Aspartate Aminotransferase 23 0 - 30 unit/L [facility] Alanine Aminotransferase 18 0 - 30 unit/L [facility] Alkaline Phosphatase 100 35 - 105 unit/L [facility] Bilirubin, Total 0.3 0.2 - 1.3 mg/dL [facility] Bilirubin, Direct 0.1 0.0 - 0.3 mg/dL [facility] Blood Venous Draw / Unknown 11/16/2020 2:59 PM EDT 11/16/2020 3:03 PM EDT Narrative Resulting Agency Comment Spec In Lab Shonda Garcia MD CHEMISTRY ORDERABLES [facility] [place] [address] documented in this encounter Visit Diagnoses Not on filedocumented in this encounter Care Teams Windsmith Relationship Specialty Start Date End Date Shonda Garcia MD [facility] [address] [place] [address] PCP - General 04/27/10 documented as of this encounter
--- OUTSIDE RECORDS SUMMARY | 2024-05-17 21:12 | XMS_ITS | Continuity of Care Document ---
Author Organization [facility] Address [address] [place] [address] Care Team Providers Care Cat Hooker Name Role Phone Shonda Garcia Primary Care Physician [phone] Encounter [id number] Date(s): 04/02/24 - 04/02/[address] [address] Discharge Disposition: Home or Self Care Attending Physician: Shonda Garcia MD Admitting Physician: Shonda Garcia MD Assessment and Plan Diagnostic Tests Pending * Hemoglobin A1c 04/02/24 Results Laboratory List Name Date Folate Level 04/02/24 Most recent to oldest [Reference Range]: 1 Folate Level [>=8.6 ng/mL] >20.0 ng/mL 1 (04/02/24 6:30 PM) 1Interpretive Data: Normal: >8.6 ng/mL Deficient: <3.0 ng/mL The results of this assay can be falsely elevated due to the consumption of Biotin. Please instructpatients to discontinue the use of vitamins or supplements that contain Biotin 12 hours before blood collection. Social History Social History Type Response Sex Female Sex Representation Female (finding) Patient Care team information Care Team Personnel Name: Shonda Garcia MD Position: No Access Member Role: Primary Care Physician Address: [address] [facility] [place] [address]- Insurance Providers Guarantor name: ANDREA PATEL Health Plan Information #: 1 [facility] Member Number: [id number] Policy Number: NA Health Plan Information #: 2 Payer: [facility] Member Number: [id number] Policy Number: NA
--- OUTSIDE RECORDS SUMMARY | 2024-05-17 21:12 | XMS_ITS | Encounter Summary ---
Author Organization [facility]ly [facility] [place] [address] Care Team Providers Care Buffer Machine Name Role Phone Shonda Garcia MD Primary Care Provider [phone] Reason for Visit * Auth/Cert (Routine) Specialty Diagnoses / Procedures Referred By Contac t Referred To Contact Diagnoses Postmenopausal bleeding postmenopausal bleeding, cervical stenosis Procedures PRO HYSTEROSCOPY, W/ENDO BX HYSTEROSCOPY, SURG W/ENDOMETRIAL SAMPLING, POLYPECTOMY (WRVU 4.17) Kaylie Fung MD [facility] OBSTETRICS [place] [address] [facility] Referral ID Status Reason Start Date Expiration Date Visits Re quested Visits Authorized [id number] 1 1 Encounter Details Date Type Department Care Team (Latest Contact Info) Description 04/04/2024 9:52 AM EDT - 04/04/2024 12:53 PM EDT Hospital Encounter Outpatient [place] [address] Kaylie Fung MD [facility] OBSTETR[facility] [place] [address] Postmenopausal bleeding Discharge Disposition: Home Social History Tobacco Use Types Packs/Day Years Used Date Smoking Tobacco: Never Smokeless Tobacco: Never Alcohol Use Standard Drinks/Week Comments Yes 0 (1 standard drink = 0.6 oz pur e alcohol) once a week [facility] Inpatient Questions Answer Date Recorded Does Anyone [...] Discharge Instructions * Discharge Instructions* Kathy Martinez V RN - 04/04/2024 10:02 AM EDT General [...] closest emergency room or call the hospital glass pulverizer equipment operator at [phone] and ask for physician precision printing worker covering for your physician. Questions or problems after 5pm or on a weekend: Call the [facility] glass pulverizer equipment operator at and ask for the physician precision printing worker covering for your doctor. At 10:15 am [...] Melgar MD - 04/04/2024 11:40 AM EDT BAKERY SUPERVISOR Pre-op H&P HISTORY OF PRESENT ILLNESS: Shannen [...] benign 12/2023 Spotting 01/2024 P1, x1 No trust administrative assistant surgeries or diagnoses Last pap 2020, NILM, [...] NODE(S) performed by Patricia Cast MD at [facility] PRO DELAY BREAST PROS AFTER BREAST SURG Left 11/14/2018 DELAYED INSERTION OF BREAST PROSTHESIS FOLLOWING MASTOPEXY, MASTECTOMY, OR IN RECONSTRUCTION (WRVU 12.63) performed by Pardeep Lund MD at [facility] PRO ENLARGE BREAST WITH IMPLANT Bilateral 10/20/2015 AUGMENTATION MAMMOPLASTY, RICK performed by Cassie De Anda MD at [facility] PRO ENLARGE BREAST WITH IMPLANT Left 11/14/2018 AUGMENTATION MAMMOPLASTY, UNILATERAL (WRVU 8.64) performed by Pardeep Lund MD at [facility] PRO INJ RADIOACTIVE TRACER FOR ID OF SENTINEL NODE Left 07/14/2014 SENTINEL NODE INJECTION performed by Patricia Cast MD at [facility] PRO MASTECTOMY PARTIAL Left 07/14/2014 MASTECTOMY PARTIAL performed by Patricia Cast MD at [facility] PRO REMOVAL OF IMPLANT MATERIAL Left 11/14/2018 REMOVAL OF MAMMARY IMPLANT MATERIAL (WRVU 8.54) performed by Pardeep Lund MD at [facility] PRO REVISION RECONSTRUCTED BREAST Left 08/09/2016 REVISION OF RECONSTRUCTED BREAST (WRVU 10.41) performed by Cassie De Anda MD at [facility] Allergies: Allergies Allergen Reactions Latex Rash [...] day Discussed and seen with Dr. Fung, Cyber Systems Administrator Attending. Brooke Melgar MD, PGY4 Obstetrics and [...] Fung MD - 04/04/2024 11:59 AM EDT [facility] [place] Patient Name: Shannen Nobles : [id number] MR#: [id number] Case Date: 04/04/2024 Surgeon: Surgeons and Role: [...] HPI / Surgical Indications and Consent: Shannen Nobles is a 58 y.o. post menopausal female [...] above.The cervix was then sequentially dilated to 17-Cuban with Jaquez dilators. The diagnostic Myosure hysteroscope [...] Operative Note Patient Name: Shannen Nobles : [id number] MR#: [id number] Case Date: 04/04/2024 Surgeon: Surgeons and Role: [...] PM EDT Office Visit Dermatology at [facility] [address] [place] [address] Miladys Gordon MD [facility] DR MYESHA [place] [address] documented as of this encounter Procedures Procedure Name Priority Date/Time Associated Diagnosis Comments SURGICAL PATHOLOGY Routine 04/04/2024 12 :01 PM EDT Postmenopausal bleeding Hysteroscopy, W/Endo Bx (19461) Yes 04/04/2024 11:42 AM EDT Postmenopausal bleeding HYSTEROSCOPY, SURG W/ENDOMETRIAL SAMPLING, POLYPECTOMY Routine 04/04/2024 9:58 AM EDT Postmenopausal bleeding documented in this encounter Results * Surgical Pathology (04/04/2024 12:01 PM EDT) Case Report Surgical Pathology Report ? Case: [id number] ? Authorizing Provider: ??Kaylie Fung MD ? Collected: ? 04/04/2024 1201 ? Ordering Location: ? [facility] ??Received: ?04/04/2024 1711 ? [facility] ? Hospital ? Pathologist: ? Nancy Betancourt, ? MD Mary ? Specimen: ?Endometrium ? 04/15/2024 6:17 PM EST [facility] Final Diagnosis A. Endometrium, hysteroscopic curetting: - Benign atrophic endometrium. - Fragments of myometrium 04/15/2024 6:17 PM EST [facility] Clinical Information PMB 04/15/2024 6:17 PM EST [facility] Gross Description A. Endometrium, . A - Labeled/Fixative : EMC, formalin. Quantity/Size: Fragments, averaging 0.3 cm. Tissue Description: Rodríguez-brown soft tissue fragments. Sections/Process ing: Submitted in toto in 1 cassette labeled A1. CCP 04/15/2024 6:17 PM [facility] Result Note Routine 04/15/2024 6:17 PM [facility] Tissue ENDOMETRIAL STRUCTURE / Unknown 04/04/2024 12:01 PM EDT 04/04/2024 5:11 PM EDT Comment:Endocervical Curetti ngs, POSTMENOPAUSAL BLEEDING, CERVICAL STENOSIS Kaylie Fung MD PATHOLOGY/CYTOLOGY O RDERABLES [facility] [place] [address] documented in this encounter Visit Diagnoses Diagnosis Postmenopausal bleeding documented in this encounter Administered [...] , Routine 1013 (Given - Provid er: Kathy Sheth RN) documented in this encounter Care Teams Buffer Machine Relationship Specialty Start Date End Date Shonda Garcia MD [address] [place] [address] PCP - General 04/27/10 documented as of this encounter
--- OUTSIDE RECORDS SUMMARY | 2024-05-17 21:13 | XMS_ITS | Encounter Summary ---
Author Organization [facility] [place] [address] Care Team Providers Care Child Support Officer Name Role Phone Shonda Garcia MD Primary Care Provider [phone] Reason for Visit * Reason Onset Date Comments Medication Refill 12/22/2016 Encounter Details Date Type Department Care Team (Late st Contact Info) Description 12/22/2016 Refill Dermatology at [facility] [address] [place] [phone] Dulce Markham MD [facility] [place] [address] Atopic dermatitis, unspecified type Social History Tobacco Use Types Packs/Day Years [...] 3:30 PM EDT Office Visit Dermatology at [facility] [address] [place] [phone] Miladys Gordon MD [facility] [address] [address] documented as of this encounter Visit Diagnoses Diagnosis Atopic dermatitis, unspecified type documented in this encounter Care Teams Child Support Officer Relationship Specialty Start Date End Date Shonda Garcia MD [facility] [address] [place] [address] PCP - General 04/27/10 documented as of this encounter
--- OUTSIDE RECORDS SUMMARY | 2024-05-17 21:13 | XMS_ITS | Encounter Summary ---
[place] [address] Care Team Providers Care Hospital Internship Name Role Phone Shonda Garcia MD Primary Care Provider [phone] Reason for Visit * Reason Comments Establish Care * Consultation (Routine) - Closed Specialty Diagnoses / Procedures Referred By Contac t Referred To Contact Obstetrics and Gynecology Diagnoses recurrent vaginitis Shonda Garcia MD [address] [place] [address] [address] [facility] [address] [place] [address] Referral ID Status Reason Start Date Expiration Date V isits Requested Visits Authorized [id number] Closed Consult, Test & Treat Connection Center 04/01/2016 04/01/2017 1 1 Encounter Details Date Type Department Care Team (Late st Contact Info) Description 07/04/2016 11:00 AM EST Office Visit Obstetrics [place] [address] Rae Miller MD [facility] DR OBSTETRICS [place] [address] Recurrent vaginitis; Atopic dermatitis, unspecified type Social History Tobacco [...] Sign Reading Time Taken Comments Blood Pressure 100/60 07/04/2016 10:52 AM EST Pulse 59 07/04/2016 10:52 AM EST Temperature 36.7 ??C (98.1 ??F) 07/04/2016 10:[address] Respiratory Rate 14 07/04/2016 10:52 AM EST Oxygen Saturation 100% 07/04/2016 10:52 AM EST Inhaled Oxygen Concentration - - Weight 58.5 kg (129 lb) 07/04/2016 10:52 AM EST Height 165.1 cm (5' 5) 07/04/2016 10:52 AM EST Body Mass Index 21.47 07/04/2016 10:52 AM EST documented in this encounter Progress Notes * Rae Miller MD - 07/04/2016 11:00 AM EST Ms. Nobles is a 50 y.o.P1 seen at the request of Dr. Shonda Garcia for recurrent vaginitis. She developed this discharge when she started tamoxifen 11/17. She also developed vulvar itching., The vulvar itching is controlled when when she showers daily, but she hesitates to do that with hergeneralized skin dryness. Sometimes she gets a feeling of the skin being scaly, mostly inner labial sulcus anteriorly. She has been treated with several different courses of fluconazole, she can't say if it got better or not with use. Currently she does have a discharge daily, it is not a severe problem for her. She doesn't need a lubricant with sex. Long history of atopic dermatitis. Previously took oral ketoconazole. Was prescribed elidel, but comments that protopic works better, but gives her acne. 06/19 breast CA, Had reconstructive surgery 10/18 Outpatient Prescriptions Marked as Taking for the 07/04/16 encounter (Office Visit) with Rae Miller MD Medication Sig Dispense Refill ??? lactobacillus (BACID) Capsule Take 1 tablet by mouth daily. ??? pimecrolimus (ELIDEL) 1 % Cream Apply to the face BID. 60 g 2 ??? tamoxifen (NOLVADEX) 20 mg Tablet Take 1 tablet by mouth daily. 90 tablet 3 ??? acetaminophen (TYLENOL) 500 mg Tablet Take 1,000 mg by mouth every 6 hours as needed for Pain. ??? triamcinolone (KENALOG) 0.1 % Cream Apply topically on trunk for severe flair of eczema 80 g 1 ??? tacrolimus (PROTOPIC) 0.1 % Ointment Apply topically 2 times daily. To the face 60 g 3 ??? CETIRIZINE HCL (ZYRTEC ORAL) Take by mouth daily as needed. ??? cholecalciferol, Vitamin D3, 400 unit tablet Take 1,000 Units by mouth daily. ??? multivitamin (THERAGRAN) tablet Take 1 tablet by mouth daily. ??? LEVALBUTEROL TARTRATE (XOPENEX HFA INHL) Inhale 2 puffs into the lungs every 4 hours as needed. Patient Active Problem List Diagnosis Code ??? Breast cancer, left breast C50.912 ??? S/P lumpectomy, left breast Z90.12 BP 100/60 Pulse 59 Temp 36.7 ??C (98.1 ??F) (Oral) Resp 14 Ht 165.1 cm (5' 5) Wt 58.5 kg (129 lb) SpO2 100% BMI 21.47 kg/m2 On exam, she has mild erythema on her face. Ext genitalia with normal appearing labia, and clitoris. No scaling seen. No lichenification. Speculum exam: Small amount of light yellow creamy secretions. Vag yeast culture done. Wet mount: rare spores seen, nl squames, elongated lactobacilli. Impression: Recurrent ?yeast infections, in a patient on tamoxifen Plan: Check yeast culture. Discussed that the most common yeast seen in women on tamoxifen is rylan glabrata - which does not respond to fluconazole. If she has glabrata, would treat with boric acid vag supps 600 mg for 2 weeks. Fluconazole can decrease efficacy of tamoxifen -so would need to consider suppressive topical product if she has rylan albicans. As the discharge is not severely symptomatic, she might also choose to avoid 2nd or 3rd line treatment if it is rylan glabrata and we are unable to clear her vaginitis. I spent 35 minutes total with the patient, with 30 minutes of the time spent [id number] in discussing her diagnosis and reviewing options for treatment documented in this encounter Plan of Treatment Upcoming Encounters Date Type Department Care Team (Late st Contact Info) Description 09/03/2024 3:30 PM EDT Office Visit Dermatology at [facility] [address] [place] [address] Miladys Gordon MD [facility] [address] [place] [address] documented as of this encounter Procedures Procedure Name Priority Date/Time Associated Diagnosis Comments YEAST CULTURE Routine 07/04/2016 12:15 PM EST Recurrent vaginitis documented in this encounter Results * Yeast culture Vaginal (07/04/2016 12:15 PM EST) Yeast Culture Moderate Rylan spherica [facility] Vaginal 07/04/2016 12:1 5 PM EST 07/04/2016 1:10 PM EST Narrative Resulting Agency Comment Spec In Lab Rae Milelr MD MICROBIOLOGY - GENE RAL ORDERABLES [facility] [place] [address] documented in this encounter Visit Diagnoses Diagnosis Recurrent vaginitis Vaginitis and vulvovaginitis, unspecified Atopic dermatitis, unspecified type documented in this encounter Care Teams Hospital Internship Relationship Specialty Start Date End Date Shonda Garcia MD [facility] [address] [place] [address] PCP - General 04/27/10 documented as of this encounter
--- OUTSIDE RECORDS SUMMARY | 2024-05-17 21:13 | XMS_ITS | Encounter Summary ---
[facility] Organization [facility] [place] [address] Care Team Providers Care Funeral Driver Name Role Phone Shonda Garcia MD Primary Care Provider [phone] Reason for Visit * Auth/Cert Specialty Diagnoses / Procedures Referred By Charanjit dover Referred To Contact Diagnoses Personal history of malignant neoplasm of breast Z85.3 - History of breast cancer Tentative DOS - 08/09/2016 CPT: 56265-[id number], [id number] Procedures PRO REVISE BREAST RECONSTRUCTION PRO SURGERY OF BREAST CAPSULE REVISION OF RECONSTRUCTED BREAST Referral ID Status Reason Start Date Expiration Date Visits Re quested Visits Authorized [id number] 1 1 Encounter Details Date Type Department Care Team (Late st Contact Info) Description 08/09/2016 2:16 PM EST Anesthesia Event [place] [address] Omar Forte MD [facility] DR [place] [address] Ap Raymond MD [facility] DR [place] [address] Anesthesia Record Procedure Summary Procedure Name Responsible Anesthesiologist Anesthesia Start Time Anesthesia Stop Time REVISION OF RECONSTRUCTED BREAST (WRVU 11.17) (Left: Breast) Omar Forte MD 08/09/16 1416 08/09/16 1524 Events Date Time Event Comment 08/09/2016 1232 1416 Start 1421 AN Verify 1421 An Start Data 1421 An Induction 1423 An Intubation 1424 Anesthesia Ready 1446 Procedure Start Time out don e. Local per surgeon. 1519 an stop data 1523 Recovery or ICU Handoff [place] ent care was transferred to the destination unit staff after review of the patient's medical history, current anesthetic/surgical status and plan, according to the Provider Handoff Checklist. 1524 Stop Meds Name Total Midazolam 2 mg fentaNYL 50 mcg IV Lidocaine 20 mg Propofol 150 mg Propofol INF 221.25 mg Dexmedetomidine 12 mcg Dexmedetomidine INF 15.34 mcg Dexamethasone 8 mg Ondansetron 8 mg ePHEDrine 25 mg clindamycin (CLEOCIN) injection 600 mg 6 00 mg lactated ringers infusion 1,000 mL 1,600 mL * Agents Name O2 Air N2O Sevoflurane (et) * Blood No blood administrations on file. Lines, Drains, and Airways Type Details Placement Removal Incision mid axillary; LDA no t present upon assessment; 11/14/18; 1009 07/14/14 1119 by 11/14/18 1009 by Tatiana Houser, KOREY Incision breast; 11/14/18; 1009 07/14/14 1120 by 0 11/14/18 1009 by Tatiana Houser, KOREY Incision 10/20/15; breast; LD A not present upon assessment; 11/14/18; 1009 10/20/15 0000 by Ap Linda RN 11/14/18 1009 by Tatiana Houser, KOREY (RETIRED) Peripheral IV Line - Single Lumen 08/09/16; 1225; metacarpal vein (top of hand), right; [id number] catheter system; 20 gauge, 1 in length; Nichelle Lara RN; distraction, intradermal injection; no longer indicated, removed per policy/procedure, catheter/device intact; 08/09/16; 1640 08/09/16 1225 by Nichelle Lara RN 08/09/16 1640 by Melanie Lambert RN Supraglottic Mask Ventilation: No t Attempted (0); LMA Type: iGel; LMA Size: 3; Inserted by: Neida VENCES; Removal Date: 08/09/16; Removal Time: 1541 08/09/16 1423 by Yumiko Carrasquillo CRNA 08/09/16 1541 by Melanie Lambert RN Incision 08/09/16; 1510; breast; LDA not present upon assessment; 11/14/18; 1009 08/09/16 1510 by Ellen Lowe RN 11/14/18 1009 by Tatiana Houser RN documented in this encounter Social History Tobacco [...] OR Notes * Anesthesia Postprocedure Evaluation - Omar Forte MD - 08/09/2016 4:55 PM EST [facility] Department of Anesthesiology Post-procedure Note Patient: Shannen Nobles Procedure Summary Date Anesthesia Start Anesthesia Stop Room / Location 08/09/16 1416 1524 [facility] [place] [address] [place] [address] [facility] Procedure Diagnosis Surgeon Responsible Provider REVISION OF RECONSTRUCTED BREAST (WRVU 10.41) (Left Breast) (history of left breast cancer) Cassie De Anda MD Nguyen, Tung T, MD All Anesthesia Providers: Anesthesiologist: Omar Forte MD ROUTE SALES ASSOCIATE: Yumiko Carrasquillo CRNA Last (1hr) Vitals: BP 119/73 (08/09/16 1600) Temp Pulse 79 (08/09/16 1600) Resp SpO2 100 % (08/09/16 1600) Patient Location: PACU/LOCATED WITHIN [facility] Level of Consciousness: Awake and Alert Pain Management: Satisfactory Analgesia PONV: None Cardiovascular Status: At Baseline Respiratory Status: At Baseline Postoperative Fluid Status: Intravascular EUvolemia Possible Anesthetic Complications: NONE apparent at time of evaluation Final Primary Anesthesia Type: General (The anesthetic type performed was the same as planned.) Comments: * Anesthesia Preprocedure Evaluation - Ap Raymond MD - 08/09/2016 12:21 PM EST Pre-Anesthesia Evaluation for: Shannen Nobles a 50 y.o. female. Procedure(s): REVISION OF RECONSTRUCTED BREAST (WRVU 10.41) BREAST, CAPSULOTOMY, OPEN PERIPROSTHETIC (WRVU 9.17) Patient Active Problem List Diagnosis ??? S/P lumpectomy, left breast ??? Breast cancer, left breast Past Medical History: Diagnosis Date ??? Asthma ??? Attention deficit disorder controlled with Adderal ??? Breast cancer ??? Dermatitis ??? Eczema childhood eczema ??? TMJ (temporomandibular joint disorder) wears retainer Past Surgical History: Procedure Laterality Date ??? BREAST BIOPSY Left 06/2014 ??? BREAST ENHANCEMENT SURGERY Bilateral ??? BREAST LUMPECTOMY Left 07/2014 ??? NASAL SEPTUM SURGERY 2011 deviated septum ??? PRO BX/REMV, LYMPH NODE, DEEP AXILL Left 07/14/2014 BIOPSY OR EXCISION OF LYMPH NODE(S), OPEN, DEEP AXILLARY NODE(S) performed by Patricia Cast MD at [facility] ??? PRO ENLARGE BREAST WITH IMPLANT Bilateral 10/20/2015 AUGMENTATION MAMMOPLASTY, RICK performed by Cassie De Anda MD at [facility] ??? PRO IDENTIFY SENTINEL NODE Left 07/14/2014 SENTINEL NODE INJECTION performed by Patricia Cast MD at [facility] ??? PRO MASTECTOMY, PARTIAL Left 07/14/2014 MASTECTOMY PARTIAL performed by Patricia Cast MD at [facility] Social History Substance Use Topics ??? Smoking status: Never Smoker ??? Smokeless tobacco: Never Used ??? Alcohol use Yes Comment: very seldom, once a year History Drug Use No Allergies Allergen Reactions ??? Latex Rash ??? Amoxicillin Trihydrate ??? Thiuram Analogues Dermatitis Medications: MAR and/or home medications have been reviewed. Physical Exam: Vitals: 08/09/16 1205 BP: 111/63 Pulse: 59 Resp: 18 Temp: 36.3 ??C (97.3 ??F) Body mass index is 21.3 kg/(m^2). Height: 166.4 cm (5' 5.5) Weight - Scale: 59 kg (130 lb) Airway Assessment: Mallampati: II TM distance: <3 FB Neck ROM: full Hx of TMJ and wears a lower mouth device that is easily removable Cardiovascular Assessment: cardiovascular exam normal Pulmonary Assessment: pulmonary exam normal [facility]: IV access: Peripheral line Anesthesia Plan: ASA 2 general, with a(n) intravenous induction 50 yo with hx of left breast ca presents for left breast reconstruction revision Hx of motion sickness and ARIELA (has done well with scope patch) TMJ and wears lower mouth device Asthma- Mild ADHD Denies other problems with anesthesia Denies recent CP SOB URI or GERD Risks and benefits of GA discussed All questions answered Pre-op tylenol, gabapentin, scope patch AP RAYMOND MD Region - Other Informed Consent: Anesthetic plan and risks discussed with patient. Plan discussed with ROUTE SALES ASSOCIATE. PAT Staff Note documented in this encounter Plan of Treatment Upcoming Encounters Date Type Department Care Team (Late st Contact Info) Description 09/03/2024 3:30 PM EDT Office Visit Dermatology at [facility] [address] [place] [address] Miladys Gordon MD [facility] DR MYESHA [place] [address] documented as of this encounter Visit Diagnoses Not on filedocumented in this encounter Administered Medications Inactive Administered Medications - up to 3 most recent administrations Medication Order MAR Action Action Date Dose Rate Site clindamycin (CLEOCIN) injection 600 mg 600 mg, Intravenous, EVERY 12 HOURS, First dose on Mon08/09/16 at 1430, Until Discontinued, Routine, Indication for (Active or Suspected): Prophylaxis Given 08/09/2016 2:24 PM EST 600 mg dexamethasone (DECADRON) injection PRN, Starting on Mon08/09/16 at 1421, Until Mon08/09/16 at 1526, Anesthesia Intra-op, Routine Given 08/09/2016 2:21 PM EST 8 mg dexmedetomidine (PRECEDEX) injection PRN, Starting on Mon08/09/16 at 1435, Until Mon08/09/16 at 1526, Anesthesia Intra-op, Routine Given 08/09/2016 2:35 PM EST 12 mcg dexmedetomidine (PRECEDEX) IV infusion (anesthesia) CONTINUOUS PRN, Starting on Mon08/09/16 at 1428, Until Mon08/09/16 at 1526, Anesthesia Intra-op, Routine Rate/Dose Change 08/09/2016 2:29 PM EST 0.2 mcg/kg/hr 3 mL/hr New Bag 08/09/2016 2:28 PM EST 12 mcg/kg/hr 177 mL/hr ePHEDrine 5 mg/mL multi-dose injection PRN, Starting on Mon08/09/16 at 1430, Until Mon08/09/16 at 1526, Anesthesia Intra-op, Routine Given 08/09/2016 3:04 PM EST 5 mg Given 08/09/2016 2:50 PM EST 10 mg Given 08/09/2016 2:30 PM EST 10 mg fentaNYL 50 mcg/mL multi-dose injection PRN, Starting on Mon08/09/16 at 1421, Until Mon08/09/16 at 1526, Pain, Anesthesia Intra-op, Routine Given 08/09/2016 2:40 PM EST 25 mcg Given 08/09/2016 2:21 PM EST 25 mcg lactated ringers infusion 1,000 mL 1,000 mL, at 100 mL/hr, Intravenous, CONTINUOUS, Starting on Mon08/09/16 at 1215, Until Mon08/09/16 at 1651, Day of Surgery (Day of Procedure) New Bag 08/09/2016 2:54 PM EST New Bag 08/09/2016 12:26 PM EST 1,000 mLs 100 mL/hr lidocaine (PF) (XYLOCAINE) 100 mg/5 mL (2 %) injection PRN, Starting on Mon08/09/16 at 1421, Until Mon08/09/16 at 1526, Anesthesia Intra-op, Routine Given 08/09/2016 2:21 PM EST 20 mg midazolam (PF) (VERSED) 1 mg/mL multi-dose injection PRN, Starting on Mon08/09/16 at 1421, Until Mon08/09/16 at 1526, Sleep, Anesthesia Intra-op, Routine Given 08/09/2016 2:21 PM EST 2 mg ondansetron (ZOFRAN) injection PRN, Starting on Mon08/09/16 at 1502, Until Mon08/09/16 at 1526, Nausea, Anesthesia Intra-op, Routine Given 08/09/2016 3:04 PM EST 4 mg Given 08/09/2016 3:02 PM EST 4 mg propofol (DIPRIVAN) 10 mg/mL bolus injection (Anesthesia) PRN, Starting on Mon08/09/16 at 1421, Until Mon08/09/16 at 1526, Anesthesia Intra-op Given 08/09/2016 2:21 PM EST 150 mg propofol (DIPRIVAN) infusion CONTINUOUS PRN, Starting on Mon08/09/16 at 1422, Until Mon08/09/16 at 1526, Anesthesia Intra-op, Routine Rate/Dose Change 08/09/2016 2:45 PM EST 100 mcg/kg/min 35.4 mL/hr New Bag 08/09/2016 2:22 PM EST 50 mcg/kg/min 17.7 mL/hr documented in this encounter Care Teams Funeral Driver Relationship Specialty Start Date End Date Shonda Garcia MD [facility] [address] [place] [address] PCP - General 04/27/10 documented as of this encounter
--- OUTSIDE RECORDS SUMMARY | 2024-05-17 21:13 | XMS_ITS | Encounter Summary ---
[facility] [place] [address] Care Team Providers Care Wood Pile Driver Operator Name Role Phone Shonda Garcia MD Primary Care Provider [phone] Reason for Visit * Reason Comments Breast Cancer Encounter Details Date Type Department Care Team (Late st Contact Info) Description 01/03/2017 2:30 PM EDT Office Visit Hematology/Oncology at [address] [phone] Taz Santoro MD [address] [place] [phone] Malignant neoplasm of upper-outer quadrant of left [...] Sign Reading Time Taken Comments Blood Pressure 93/59 01/03/2017 2:45 PM EDT Pulse 58 01/03/2017 2:45 PM EDT Temperature 36.8 ??C (98.2 ??F) 01/03/2017 2:45 PM ED T Respiratory Rate 16 01/03/2017 2:45 PM EDT Oxygen Saturation 100% 01/03/2017 2:45 PM EDT Inhaled Oxygen Concentration - - Weight 56.2 kg (124 lb) 01/03/2017 2:45 PM EDT Height 165.8 cm (5' 5.28) 01/03/2017 2:45 PM ED T copied Body Mass Index 20.46 01/03/2017 2:45 PM EDT documented in this encounter Progress Notes * Taz Santoro MD - 01/03/2017 2:30 PM EDT Diagnosis: 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 She remains on tamoxifen 20 mg daily and is doing well in that regard. She did have some initial weight gain after her diagnosis but is now on a very vigorous exercise program using a treadmill for 6 miles a day and she has increased the protein in her diet a bit and with that has lost 9 pounds and is back where she wants to be as far as weight. She feels well overall. She is having no bone pain, no breathing problems, no other difficulties. She has not noticed any lumps or bumps. Past medical history and social history are reviewed. She is doing well overall. Current Outpatient Prescriptions on File Prior to Visit Medication Sig Dispense Refill ??? crisaborole (EUCRISA) 2 % Ointment Apply to face BID for maintenance 60 g 1 ??? crisaborole 2 % Ointment Apply twice a day to the face for maintenance 60 g 0 ??? tamoxifen (NOLVADEX) 20 mg Tablet Take 1 tablet by mouth every day 90 tablet 3 ??? loratadine (CLARITIN) 10 mg Tablet Take 10 mg by mouth daily. ??? acetaminophen (TYLENOL) 500 mg Tablet Take [...] To the face 60 g 3 ??? SPIRONOLACTONE ORAL Take 100 mg by mouth daily. Indications: Acneiform Eruption ??? cholecalciferol, Vitamin D3, 400 unit tablet Take 1,000 Units by mouth daily. ??? multivitamin (THERAGRAN) tablet Take 1 tablet by mouth daily. ??? LEVALBUTEROL TARTRATE (XOPENEX HFA INHL) Inhale 2 puffs into the lungs every 4 hours as needed. ??? lactobacillus (BACID) Capsule Take 1 tablet by mouth daily. ??? pimecrolimus (ELIDEL) 1 % Cream Apply to the face BID. (Patient not taking: Reported on 01/03/2017) 60 g 2 No current facility-administered medications on file prior to visit. Review of Systems Constitutional: Negative for fever, chills, activity change, fatigue and unexpected weight change. HENT: Negative for sore throat, mouth sores and trouble swallowing. Eyes: Negative. Respiratory: Negative for cough, shortness of breath and wheezing. Cardiovascular: Negative for chest pain, palpitations and leg swelling. Gastrointestinal: Negative for nausea, vomiting, abdominal pain, diarrhea, constipation and abdominal distention. Genitourinary: Negative for dysuria and difficulty urinating. Musculoskeletal: Negative. Skin: Negative. Neurological: Negative. Hematological: Negative for adenopathy. BP 93/59 (Patient Position: Sitting) Pulse 58 Temp 36.8 ??C (98.2 ??F) (Oral) Resp 16 Ht 165.8 cm (5' 5.28) Comment: copied Wt 56.2 kg (124 lb) SpO2 100% BMI 20.46 kg/m2 Head: Normocephalic, without obvious abnormality, atraumatic Eyes: PERRL, conjunctiva/corneas clear, EOM's intact, fundi benign, both eyes Ears: Normal TM's and external ear canals, both ears Nose: Nares normal, septum midline, mucosa normal, no drainage or sinus tenderness Throat: Lips, mucosa, and tongue normal; teeth and gums normal Neck: Supple, symmetrical, trachea midline, no adenopathy, thyroid: not enlarged, symmetric, no tenderness/mass/nodules, no carotid bruit or JVD Back: Symmetric, no curvature, ROM normal, no CVA tenderness Lungs: Clear to auscultation bilaterally, respirations unlabored Chest Wall: No tenderness or deformity Heart: Regular rate and rhythm, S1, S2 normal, no murmur, rub or gallop Abdomen: Soft, non-tender, bowel sounds active all four quadrants, no masses, no organomegaly Extremities: Extremities normal, atraumatic, no cyanosis or edema Pulses: 2+ and symmetric Skin: Skin color, texture, turgor normal, no rashes or lesions Lymph nodes: Cervical, supraclavicular, and axillary nodes normal Neurologic: Normal REASON FOR EXAM: Screening. History of left breast cancer. 03/04/16 ?? TECHNIQUE: CC and MLO views were obtained of both breasts. Images were obtained in standard and implant displaced projections. Computer aided detection was used. 3D tomosynthesis images were obtained in addition to 2D images. ?? Comparison: The study is compared with prior images. ?? FINDINGS: Breast density:The breasts are heterogeneously dense, which may obscure small masses. ?? There are no suspicious microcalcifications, masses, or areas of distortion. There are bilateral intact submuscular saline implants. There are post treatment changes in the left breast. ?? CONCLUSION: No mammographic evidence of malignancy. ?? RECOMMENDATION: Routine screening. ?? BIRADS CATEGORY 2: BENIGN FINDINGS ?? Lab today shows white count of 6.25, hemoglobin 14.5, hematocrit 43.4, platelet count is 211,000. CMP shows normal electrolytes. Creatinine of 0.79, an ALP of 60, and a calcium of 9.2. ASSESSMENT/PLAN: Shannen is doing well with no evidence of recurrent breast cancer. She is at very low risk for recurrence. She is tolerating the tamoxifen well. We will see her back in 6 months time with labs or sooner if there are issues in the interim. documented in this encounter Plan of Treatment Upcoming Encounters Date Type Department Care Team (Late st Contact Info) Description 09/03/2024 3:30 PM EDT Office Visit Dermatology at [facility] [address] [place] [address] Miladys Gordon MD [facility] [place] [address] Scheduled Orders Name Type Priority Associated Diagnoses Orde r Schedule CBC (with Diff) Lab Routine Malignant Neoplasm Of Upper-Outer Quadrant Of Left Breast In Female, Estrogen Receptor Positive Expected: 07/06/2017 (Approximate), Expires: 01/03/2018 Comprehensive metabolic panel (non-fasting) Lab Routine Malignant Neoplasm Of Upper-Outer Quadrant Of Left Breast In Female, Estrogen Receptor Positive Expected: 07/06/2017 (Approximate), Expires: 01/03/2018 documented as of this encounter Visit Diagnoses Diagnosis Malignant neoplasm of upper-outer quadrant of left breast in female, estrogen receptor positive documented in this encounter Care Teams Wood Pile Driver Operator Relationship Specialty Start Date End Date Shonda Garcia MD [address] [place] [address] PCP - General 04/27/10 documented as of this encounter
--- OUTSIDE RECORDS SUMMARY | 2024-05-17 21:13 | XMS_ITS | Encounter Summary ---
Author Organization [facility] [place] [address] Care Team Providers Care [employer] Name Role Phone Shonda Garcia MD Primary Care Provider Reason for Visit * Auth/Cert Specialty Diagnoses / Procedures Referred By Contac t Referred To Contact Diagnoses RUPTURED IMPLANT AND REPLACEMENT Procedures PRO REMOVAL OF IMPLANT MATERIAL PRO DELAY BREAST PROS AFTER BREAST SURG PRO ENLARGE BREAST WITH IMPLANT REMOVAL OF MAMMARY IMPLANT MATERIAL (WRVU 8.54) DELAYED INSERTION OF BREAST PROSTHESIS FOLLOWING MASTOPEXY, MASTECTOMY, OR IN RECONSTRUCTION (WRVU 12.63) AUGMENTATION MAMMOPLASTY, UNILATERAL (WRVU 8.64) Referral ID Status Reason Start Date Expiration Date Visits Re quested Visits Authorized [id number] 1 1 Encounter Details Date Type Department Care Team (Late st Contact Info) Description 11/14/2018 11:15 AM EDT - 11/14/2018 1:00 PM EDT Surgery [facility] [place] [address] Pardeep Quan MD [facility] [place] [address] REMOVAL OF MAMMARY IMPLANT MATERIAL (WRVU 9) Social History Tobacco Use Types Packs/Day Years [...] Sign Reading Time Taken Comments Blood Pressure 123/66 11/14/2018 12:50 PM EDT Pulse 58 11/14/2018 12:50 PM EDT Temperature 36.2 ??C (97.2 ??F) 11/14/2018 11:55 AM E DT Respiratory Rate 16 11/14/2018 12:50 PM EDT Oxygen Saturation 100% 11/14/2018 12:50 PM EDT Inhaled Oxygen Concentration - - Weight 59 kg (130 lb) 11/14/2018 9:50 AM EDT Height 167.6 cm (5' 6) 11/14/2018 9:50 AM EDT Body Mass Index 20.98 11/14/2018 9:50 AM EDT documented in this encounter Discharge Instructions * Discharge Instructions* Tatiana Houser, RN - 11/14/2018 10:27 AM EDT At 10:30 am you received 1000 mg of acetaminophen- Your next dose should not be taken before 8 hours have passed. Next dose not before- 6:30 pm today. You should not take more than a total of 3000 mg of acetaminophen in a 24 hour period. General Anesthesia Discharge Instructions Go home and [...] closest emergency room or call the hospital hydrogen braze furnace operator at [phone] and ask for physician residential collections covering for your physician. Questions or problems after 5pm or on a weekend: Call the [facility] hydrogen braze furnace operator at and ask for the physician residential collections covering for your doctor. * Patient Instructions* Anthony Olivo MD - 11/14/2018 10:28 AM EDT Implant Post-op Instructions Pain ??? With any surgery there is some discomfort or pain. We recommend taking an anti-inflammatory (Ibuprofen) and Tylenol for pain after surgery. ??? DO NOT use ice or heat on your incisions. Your ability to feel hot or cold at the incision willbe abnormal for several months. ??? You will have nerve pain after your surgery because the nerve endings have been disturbed. Nerve pain may feel like a burning sensation, itching, or a shooting, electric shock pain. This is normal and will get better as you heal. Swelling ??? Mild swelling is normal after surgery, this will improve over the next few weeks. Incisions ??? Expect to have some red, pink, yellow/clear drainage from your incisions for the first 1-[address] dressings at the incisions while you have drainage. ??? Expect redness at the incision line for several weeks as your absorbable sutures are dissolving. If the redness begins to spread away from the incision, you should call the clinic. ??? Spitting sutures: occasionally an area of redness and tenderness develops where a dissolving stitch becomes irritated and pushes to the surface. This stitch is clear or white and looks like fishing line. If this occurs, it is not an emergency. You may clip the stitch or call the clinic for an appointment with the nurse. Bra ??? Surgical bra only until your 1st clinic visit after surgery. ??? Do not wear an under-wire bra for 3 months as your skin may still be numb from surgery. Activity ???If it hurts, don???t do it? You should see the physical therapist approximately three weeks after surgery. If this is not scheduled, please call our office. ??? For the first 1-2 weeks, when pushing yourself up to get out of bed, avoid using the arm on thereconstructed side. ??? Do not engage in sexual intercourse for the first 1-2 weeks. ??? Do not sleep on your side or stomach for 2 weeks. ??? Do not lift anything that weighs more than 5 pounds for 6 weeks. ??? No strenuous exercise (tennis, aerobics, jogging) for 6 weeks. ??? Walking is encouraged. At least get up and walk around the house several times per day. Feel free to walk as much as you want. Walking improves circulation, respiratory function and healing. ??? Most women return to work in 4-6 weeks. ??? Traveling is fine but you may wish to say close to your doctor in the first few weeks in case there are any complications. Call our office if: ??? Your incision opens up ??? One breast is hard and is much larger than the other ??? You have signs of infection o A temperature over 100.4 F. o Redness of the incision lines that is beginning to spread away from the incision. o Yellow pus-like or foul smelling drainage from the incision or drain site. o Increase pain/discomfort that is not relieved by your pain medication. To make an appointment or for questions about scheduling, please contact our administrative officesat [phone] For clinical questions, please call our nurses at [phone] Both offices are open Monday thru Monday 8a - 5p. With emergencies after hours, call the hospital hydrogen braze furnace operator at [phone] and ask for the Plastic Surgery Resident residential collections. Future Appointments Date Time Provider Department Center 11/21/2018 10:40 AM Sera Alvarez APRN [facility] 01/15/2019 8:30 AM Ericka Richardson APRN [facility] documented in this encounter Medications at Time [...] 07/25/2014 09/05/2022 documented as of this encounter Progress Notes * Maddie Rodriguez - 11/14/2018 1:25 PM EDT Patient dressing and into the BR, + void documented in this encounter H&P Notes * Anthony Olivo MD - 11/14/2018 10:26 AM EDT PLASTIC SURGERY INTERVAL H&P CC: ruptured breast implant (left) S: Shannenviviana Nobles's condition is unchanged since H&P originally performed. Denies any new ED visits, hospitalizations, trauma, or new events. Overall the patient has been doing well and now presents for removal of left breast implant and replacement. Past Medical History: Diagnosis Date ??? Asthma ??? Attention deficit disorder controlled with Adderal ??? Breast cancer ??? Dermatitis ??? Eczema childhood eczema ??? TMJ (temporomandibular joint disorder) wears retainer Past Surgical History: Procedure Laterality Date ??? BREAST BIOPSY Left 06/23/2014 Invasive ductal carcinoma, atypical papillary hyperplasia ??? BREAST ENHANCEMENT SURGERY Bilateral ??? BREAST LUMPECTOMY Left 07/2014 rad tx ??? NASAL SEPTUM SURGERY 2010 deviated septum ??? PRO BX/REMV, LYMPH NODE, DEEP AXILL Left 07/14/2014 BIOPSY OR EXCISION OF LYMPH NODE(S), OPEN, DEEP AXILLARY NODE(S) performed by Patricia Cast MD at [facility] ??? PRO ENLARGE BREAST WITH IMPLANT Bilateral 10/20/2015 AUGMENTATION MAMMOPLASTY, RICK performed by Cassie De Anda MD at [facility] ??? PRO IDENTIFY SENTINEL NODE Left 07/14/2014 SENTINEL NODE INJECTION performed by Patricia Cast MD at [facility] ??? PRO MASTECTOMY, PARTIAL Left 07/14/2014 MASTECTOMY PARTIAL performed by Patricia Cast MD at [facility] ??? PRO REVISE BREAST RECONSTRUCTION Left 08/09/2016 REVISION OF RECONSTRUCTED BREAST (WRVU 10.41) performed by Cassie De Anda MD at [facility] Allergies Allergen Reactions ??? Latex Rash Latex balloon ??? Amoxicillin Trihydrate Rash ??? Thiuram Analogues Dermatitis No current facility-administered medications on file prior to encounter. Current Outpatient Medications on File Prior to Encounter Medication Sig Dispense Refill ??? cyanocobalamin, vitamin B-12, 1,000 mcg Tablet Take 1,000 mcg by mouth daily. ??? sertraline (ZOLOFT) 25 mg Tablet Take 25 mg by mouth daily. ??? spironolactone (ALDACTONE) 100 mg Tablet ??? tamoxifen (NOLVADEX) 20 mg Tablet Take 1 tablet by mouth daily. 90 tablet 3 ??? loratadine (CLARITIN) 10 mg Tablet Take 10 mg by mouth daily. ??? acetaminophen (TYLENOL) 500 mg Tablet Take 1,000 mg by mouth every 6 hours as needed for Pain. ??? triamcinolone (KENALOG) 0.1 % Cream Apply topically on trunk for severe flair of eczema 80 g 1 ??? cholecalciferol, Vitamin D3, 400 unit tablet Take 1,000 Units by mouth daily. ??? multivitamin (THERAGRAN) tablet Take 1 tablet by mouth daily. ??? LEVALBUTEROL TARTRATE (XOPENEX HFA INHL) Inhale 2 puffs into the lungs every 4 hours as needed. ??? crisaborole (EUCRISA) 2 % Ointment Apply to face BID for maintenance 60 g 1 ??? pimecrolimus (ELIDEL) 1 % Cream Apply to the face BID. 60 g 2 ??? Fluocinolone Acetonide Oil 0.01 % Drops Reported on 07/04/2016 ??? tacrolimus (PROTOPIC) 0.1 % Ointment Apply topically 2 times daily. To the face 60 g 3 Family History Problem Relation Age of Onset ??? Breast Cancer Sister 48 Dx's 2014; lumpectomy, XRT, Gordon; alive at 49 ??? Prostate Cancer Father 60 also, skin cancer in his 30s and 40s (nose, arms); alive at 70 ??? Esophageal Cancer Brother 49 metastatic; ? Etoh, smoker; alive at 50 ??? Esophageal Cancer Paternal Uncle 58 Etoh, smoker; alive at 62 ??? Prostate Cancer Paternal Uncle 70 alive at 75 Social History Socioeconomic History ??? Marital status: Spouse name: Not on file ??? Number of children: 1 ??? Years of education: Not on file ??? Highest education level: Not on file Occupational History ??? 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 Financial resource strain: Not on file ??? Food insecurity: Worry: Not on file Inability: Not on file ??? Transportation needs: Medical: Not on file Non-medical: Not on file Tobacco Use ??? Smoking status: Never Smoker ??? Smokeless tobacco: Never Used Substance and Sexual Activity ??? Alcohol use: Yes Comment: very seldom, once a year ??? Drug use: No ??? Sexual activity: Yes Lifestyle ??? Physical activity: Days per week: Not on file Minutes per session: Not on file ??? Stress: Not on file Relationships ??? Social connections: Talks on phone: Not on file Gets together: Not on file Attends zoroastrian service: Not on file Active member of club or organization: Not on file Attends meetings of clubs or organizations: Not on file Relationship status: Not on file ??? Intimate partner violence: Fear of current or ex partner: Not on file Emotionally abused: Not on file Physically abused: Not on file Forced sexual activity: Not on file Other Topics Concern ??? Not on file Social History Narrative ??? Not on file Review of Systems: Constitutional: denies fever, chills Skin: denies rashes or skin changes HEENT, CV, Resp, GI, , Neuro: negative O: Patient Vitals for the past 24 hrs: BP Temp Temp src Pulse Resp SpO2 Height Weight 11/14/18 0950 113/66 36 ??C (96.8 ??F) Temporal 52 18 100 % 167.6 cm (5' 6) 59 kg (130 lb) NAD, A&Ox3 Non-labored respirations, clear to auscultation bilaterally Regular rate and rhythm Site: left breast AP: 53 y.o. female with RUPTURED IMPLANT AND REPLACEMENT. - After extensive discussion of the risks, benefits, and alteratives of surgical intervention, the patient consented to proceed with surgery. - IV antibiotics ordered - Proceed to OR for: Procedure(s): REMOVAL OF MAMMARY IMPLANT MATERIAL (WRVU 8.54) DELAYED INSERTION OF BREAST PROSTHESIS FOLLOWING MASTOPEXY, MASTECTOMY, OR IN RECONSTRUCTION (WRVU 12.63) AUGMENTATION MAMMOPLASTY, UNILATERAL (WRVU 8.64) Anthony Olivo MD Plastic Surgery, PGY-5 documented in this encounter Miscellaneous Notes * Op Note - Pardeep Quan MD - 11/14/2018 11:50 AM EDT [facility] [place] [facility] Operative Note Patient Name: Shannen Nobles : [id number] MR#: [id number] Case Date: 11/14/2018 Surgeon: Surgeon(s) and Role: * Pardeep Quan MD - Primary * Anthony Olivo MD - Resident Registered Nurse Beam Sealer: Almita Miller RN Preoperative diagnosis: RUPTURED IMPLANT AND REPLACEMENT Postoperative diagnosis: RUPTURED IMPLANT AND REPLACEMENT Procedure(s) (LRB): REMOVAL OF MAMMARY IMPLANT MATERIAL (WRVU 8.54) (Left) DELAYED INSERTION OF BREAST PROSTHESIS FOLLOWING MASTOPEXY, MASTECTOMY, OR IN RECONSTRUCTION (WRVU 12.63) (Left) AUGMENTATION MAMMOPLASTY, UNILATERAL (WRVU 8.64) (Left) Findings: removal of ruptured right breast implant, capsulotomy, implantation of 300cc saline implant Anesthesia: General Estimated Blood Loss: 50ml Specimens removed during surgery: Ruptured implant sent to intern [employer]. Drains: none Surgical Closure: Primary Closure - skin incision is completely closed without any wires, mercedez, drains or other devices Disposition: awakened from anesthesia, extubated and taken to the recovery room in a stable condition, having suffered no apparent untoward event. Condition: doing well without problems (Please see the Surgical Encounter Summary for any Implant and Specimen details pertinent to this patient.) HPI/Surgical Indications: 53-year-old woman with history of bilateral saline submuscular implants who presents with recent left breast implant rupture. Procedure Description: The patient was identified and marked in the preoperative holding area. We reviewed the surgical plan and she wished to proceed. We reviewed the potential risks and complications. The patient was brought to the operating room and positioned supine on the operating table with arms out. Anesthetic monitors and SCDs were applied. General anesthesia was induced and a time-out was performed. Pre-operative antibiotics were administered. The breasts were prepped and draped in the usual sterile fashion. The prior inframammary incision on the left breast was marked and injected with 0.25% Marcaine withepinephrine. Incision was made with a #15 blade and a skin flap 1 cm in length was carefully elevated to allow for a 2-layered closure. The capsule was then entered and the ruptured implant was removed. The ruptured implant was inspected and found to contain a small amount of translucent thin yellow serous fluid which was also found in the breast pocket. Implant was carefully inspected and there were no obvious defects. The implant was removed in its entirety. The cavity was copiously irrigatedwith normal saline and a sizer was placed in the cavity and filled with 300 cc. The capsule was tight and the 300 cc volume was not easily accommodated, therefore we elected to perform a capsulotomy. The capsule was carefully released along the upper and lateral poles to give a more natural shape to the breast pocket. Radial and circumferential capsulotomy incision were performed from 11 to 5 o'clock. A temporary sizer was then placed in the breast pocket and the pocket were then again revised.Once the capsule was revised, it was carefully inspected after placement of the temporary sizer. The re was excellent position of the sizer at this point in time with a gentle curve. Of note, we did not change the position of the patient's IMF or performed any release inferiorly. The wounds were then copiously irrigated. Hemostasis was achieved with electrocautery. 300ml saline implants were chosen. The pocket and chest wall were irrigated with antibiotic solution and clean blue towels were placed around the incision. Using the Parisi Funnel, new gloves, and a no-touch technique, the implant was inserted into the breast pocket. The capsule was closed with a 4-0 PDS in an interrupted fashion, the deep dermal was closed with 4-0 PDS in a deep dermal fashion, and then a 4-0 Monocryl in the subcuticular layer of the skin. Dermabond and steristrips were applied. All counts were current at the end of the case. The attending surgeon was present for the entire care.The patient was awoken from anesthesia with no apparent complications and transported back to therecovery room. Infection Bundle used? No Attestation: Case Date: 11/14/2018 I was present and I participated during the entire procedure (does not need to include opening and closing). PARDEEP QUAN MD 11/14/2018 * Brief Op Note - Anthony Olivo MD - 11/14/2018 11:48 AM EDT Brief Operative Note Patient Name: Shannen Nobles : [id number] MR#: [id number] Case Date: 11/14/2018 Surgeon: Surgeon(s) and Role: * Pardeep Quan MD - Primary * Anthony Olivo MD - Resident Preoperative diagnosis: RUPTURED IMPLANT AND REPLACEMENT Postoperative diagnosis: RUPTURED IMPLANT AND REPLACEMENT Procedure(s) (LRB): REMOVAL OF MAMMARY IMPLANT MATERIAL (WRVU 8.54) (Left) DELAYED INSERTION OF BREAST PROSTHESIS FOLLOWING MASTOPEXY, MASTECTOMY, OR IN RECONSTRUCTION (WRVU 12.63) (Left) AUGMENTATION MAMMOPLASTY, UNILATERAL (WRVU 8.64) (Left) Anesthesia: General Findings: removal of ruptured right breast implant, capsulotomy, implantation of 300cc saline implant Complications: none apparent Estimated Blood Loss: 5ml Specimens removed during surgery: Implant sent to company. Fluids: Intraprocedure Crystalloid Total lactated ringers infusion Volume (mL) 1000 mL PRBCs: none (See Anesthesia Record/Report for Other Blood Products) Urine Output: none Drains: none Disposition: awakened from anesthesia, extubated and taken to the recovery room in a stable condition, having suffered no apparent untoward event. Condition: doing well without problems (Please see the Surgical Encounter Summary for any Implant and Specimen details pertinent to this patient.) Infection Bundle used? No Plan: -Follow-up: 1 week with Ann/nurse -no suture removal, no drain Future Appointments Date Time Provider Department Center 11/21/2018 10:40 AM Sera Alvarez APRN [facility] [address] [place] [address] CLIN 01/15/2019 8:30 AM Ericka Richardson APRN [facility] documented in this encounter Plan of Treatment Upcoming Encounters Date Type Department Care Team (Late st Contact Info) Description 09/03/2024 3:30 PM EDT Office Visit D[facility]atology at [facility] [address] [place] [address] Miladys Gordon MD [facility] [address] [place] [address] documented as of this encounter Procedures Procedure Name Priority Date/Time Associated Diagnosis Comments AUGMENTATION MAMMOPLASTY, UNILATERAL (WRVU 8.12) Yes 11/14/2018 10:44 AM EDT RUPTURED IMPLANT AND REPLACEMENT DELAYED INSERTION OF BREAST PROSTHESIS FOLLOWING MASTOPEXY, MASTECTOMY, OR IN RECONSTRUCTION (WRVU 10.48) Yes 11/14/2018 10:44 AM EDT RUPTURED IMPLANT AND REPLACEMENT REMOVAL OF MAMMARY IMPLANT MATERIAL (WRVU 9) Yes 11/14/2018 10:44 AM EDT RUPTURED IMPLANT AND REPLACEMENT documented in this encounter Visit Diagnoses Not on filedocumented in this encounter Administered Medications Inactive Administered Medications - up to 3 most recent administrations Medication Order MAR Action Action Date Dose Rate Site acetaminophen (TYLENOL) tablet 1,000 mg 1,000 mg, Oral, EVERY 6 HOURS PRN, Starting on Mon11/13/18 at 1313, Until Mon11/14/18 at 1527, Pain, Maximum dose of acetaminophen is 4000 mg from all sources in 24 hours., Routine Given 11/14/2018 10:24 AM EDT 1,000 mg bacitracin injection ONCE PRN, Starting on Mon11/14/18 at 1119, Until Mon11/14/18 at 1527, Intra-Operative (Intra-Procedure), Routine Given 11/14/2018 11:19 AM EDT 50,000 Units 19- Surgical Site BUpivacaine-EPINEPHrin e 0.25 %-1:200,000 injection ONCE PRN, Starting on Mon11/14/18 at 1105, Until Mon11/14/18 at 1527, Intra-Operative (Intra-Procedure), Routine Given 11/14/2018 11:05 AM EDT 9 mLs 19- Surgical Site gentamicin (GARAMYCIN) injection ONCE PRN, Starting on Mon11/14/18 at 1121, Until Mon11/14/18 at 1527, Intra-Operative (Intra-Procedure), Routine Given 11/14/2018 11:21 AM EDT 80 mg 19- Surgical Site ibuprofen (ADVIL;MOTRIN) 200 mg tablet 1 dose, Starting on Mon11/14/18 at 1304, Until Mon11/14/18 at 1306, Maddie Rodriguez: cabinet override Given 11/14/2018 1:06 PM EDT 400 mg scopolamine (TRANSDERM-SCOP) 1 mg over 3 days patch 1 patch 1 patch, Transdermal, EVERY 72 HOURS, First dose on Mon11/14/18 at 1100, Until Discontinued, Routine Patch Applied 11/14/2018 10:38 AM EDT 1 patch 01- Ear Behind (Left) scopolamine (TRANSDERM-SCOP) 1 mg over 3 days patch 1 dose, Starting on Mon11/14/18 at 1037, Until Mon11/14/18 at 1038, Tatiana Houser.: cabinet override scopolamine (TRANSDERM-SCOP) 1 mg patch Patch Removal Transdermal, EVERY 72 HOURS, First dose on Mon11/17/18 at 1045, Until Discontinued, Remove scopolamine 1 mg patch scopolamine (TRANSDERM-SCOP) 1 mg patch Patch Verification Transdermal, 2 TIMES DAILY, First dose on Mon11/14/18 at 2245, Until Discontinued, Verify scopolamine 1 mg patch. documented in this encounter Active and Recently Administered Medications Times are shown in EDT. Scheduled Medication Order 11/12/2018 11/13/2018 11/14/2018 clindamycin (CLEOCIN) injection 600 mg (COMPLETED) 600 mg, Intravenous, ONCE, 1 dose, On Mon11/14/18 at 1045, Day of Surgery (Day of Procedure), Routine, Indication for (Active or Suspected): Prophylaxis 1052 (Given - Provid er: Yumiko Carrasquillo CRNA) scopolamine (TRANSDERM-SCOP) 1 mg over 3 days patch 1 patch(Linked Group 1) 1 patch, Transdermal, EVERY 72 HOURS, First dose on Mon11/14/18 at 1100, Until Discontinued, Routine 1038 (Patch Applied - Provider: Tatiana Houser, RN) scopolamine (TRANSDERM-SCOP) 1 mg patch Patch Removal(Linked Group 1) Transdermal, EVERY 72 HOURS, First dose on Mon11/17/18 at 1045, Until Discontinued, Remove scopolamine 1 mg patch scopolamine (TRANSDERM-SCOP) 1 mg patch Patch Verification(Linked Group 1) Transdermal, 2 TIMES DAILY, First dose on Mon11/14/18 at 2245, Until Discontinued, Verify scopolamine 1 mg patch. Continuous Medication Order 11/12/2018 11/13/2018 11/14/2018 lactated ringers infusion (CANCELED) 1,000 mL, at 100 mL/hr, Intravenous, CONTINUOUS, Starting on Mon11/14/18 at 1030, Until Mon11/14/18 at 1318, Day of Surgery (Day of Procedure) 1037 (New Bag - Prov ider: Yumiko Carrasquillo CRNA)1137 (Stopped - Provider: Yumiko Carrasquillo CRNA) PRN Medication Order 11/12/2018 11/13/2018 11/14/2018 acetaminophen (TYLENOL) tablet 1,000 mg 1,000 mg, Oral, EVERY 6 HOURS PRN, Starting on Mon11/13/18 at 1313, Until Mon11/14/18 at 1527, Pain, Maximum dose of acetaminophen is 4000 mg from all sources in 24 hours., Routine 1024 (Given - Provid er: Tatiana Houser RN) bacitracin injection (CANCELED) ONCE PRN, Starting on Mon11/14/18 at 1119, Until Mon11/14/18 at 1527, Intra-Operative (Intra-Procedure), Routine 1119 (Given - Provid er: Pardeep Quan MD - Comment: Bacitracin 50,000 units mixed with Gentamicin 80mg, added to 500ml of Normal Saline.) BUpivacaine-EPINEPHrine 0.25 %-1:200,000 injection (CANCELED) ONCE PRN, Starting on Mon11/14/18 at 1105, Until Mon11/14/18 at 1527, Intra-Operative (Intra-Procedure), Routine 1105 (Given - Provid er: Pardeep Qaun MD) gentamicin (GARAMYCIN) injection (CANCELED) ONCE PRN, Starting on Mon11/14/18 at 1121, Until Mon11/14/18 at 1527, Intra-Operative (Intra-Procedure), Routine 1121 (Given - Provid er: Pardeep Quan MD - Comment: Bacitracin 50,000 units mixed with Gentamicin 80mg, added to 500ml of Normal Saline.) No Frequency Medication Order 11/12/2018 11/13/2018 11/14/2018 clindamycin (CLEOCIN) 600 mg/50 mL infusion 1 dose, Starting on Mon11/14/18 at 1022, Until Mon11/14/18 at 1527, Tatiana Houser.: cabinet override 1030 (Due) ibuprofen (ADVIL;MOTRIN) 200 mg tablet (COMPLETED) 1 dose, Starting on Mon11/14/18 at 1304, Until Mon11/14/18 at 1306, Maddie Rodriguez: cabinet override 1306 (Given - Provid er: Maddie Rodriguez) Linked Groups Order Group 1: scopolamine (TRANSDERM-SCOP) 1 mg over 3 days patch 1 patchJump to med 1 patch, Transdermal, EVERY 72 HOURS, First dose on Mon11/14/18 at 1100, Until Discontinued, Routine And scopolamine (TRANSDERM-SCOP) 1 mg patch Patch VerificationJump to med Transdermal, 2 TIMES DAILY, First dose on Mon11/14/18 at 2245, Until Discontinued, Verify scopolamine 1 mg patch. And scopolamine (TRANSDERM-SCOP) 1 mg patch Patch RemovalJump to med Transdermal, EVERY 72 HOURS, First dose on Mon11/17/18 at 1045, Until Discontinued, Remove scopolamine 1 mg patch documented in this encounter Care Teams Curator Medical Museum Relationship Specialty Start Date End Date Shonda Garcia MD [address] [place] [address] PCP - General 04/27/10 documented as of this encounter
--- OUTSIDE RECORDS SUMMARY | 2024-05-17 21:13 | XMS_ITS | Encounter Summary ---
Author Organization [facility] [place] [address] Care Team Providers Care Environmental Law Professor Name Role Phone Shonda Garcia MD Primary Care Provider [phone] Reason for Visit * Reason Comments Follow Up Surgery BBA Encounter Details Date Type Department Care Team (Late st Contact Info) Description 03/04/2016 11:45 AM EDT Office [place] [address] Cassie De Anda MD [facility] DR [place]LASTIC [place] [address] S/P lumpectomy, left breast Social History Tobacco Use Types Packs/Day Years [...] as of this encounter Progress Notes * Cassie De Anda MD - 03/04/2016 11:45 AM EDT Plastic Surgery Post Op Note Reason for visit: F/U status post procedure Date of surgery: 10/20/15 Procedure(s): Bilateral breast augmentation s/p left lumpectomy and radiation (300 cc saline smooth round moderate plus implants placed and filled to 325 cc.) Complications: None reported Pain: 0/10 HPI: Pt reports she is doing well and has no concerns. She is delighted with her outcome. Examination: Patient is alert, conversant, comfortable, ambulating Incisions: CDI, healing well. Breasts symmetric in volume Left IMF approximately 5 mm higher than right. Capsule slightly firmer on left. Right side khanna grade I capsule Left side khanna grade II capsule No palpable fluid collection. No erythema, no evidence of cellulitis. Impression: Shannen Nobles is a 50 y.o. female who was seen today for follow-up after the above procedure. Please see the operative note for details. She is doing well to date. We discussed revisionto lower the left implant but she declined. I explained that the differences in her breasts are largely due to the radiation. Plan: 1. Follow up: annually 2. Continue implant massage 3. RTC sooner for any concerns or rupture I, Melissa Kerr, am acting as scribe for Dr De Anda. All work documented was performed by Dr De Anda. ???I performed the above scribed service and agree with the accuracy of the note?? CASSIE DE ANDA MD documented in this encounter Plan of Treatment Upcoming Encounters Date Type Department Care Team (Late st Contact Info) Description 09/03/2024 3:30 PM EDT Office Visit Dermatology at [facility] [address] [place] [address] Miladys Gordon MD [facility] DR MYESHA NEAL-[place] [address] documented as of this encounter Visit Diagnoses Diagnosis S/P lumpectomy, left breast Other postprocedural status documented in this encounter Care Teams Environmental Law Professor Relationship Specialty Start Date End Date Shonda Garcia MD [address] [place] [id number] PCP - General 04/27/10 documented as of this encounter
--- OUTSIDE RECORDS SUMMARY | 2024-05-17 21:13 | XMS_ITS | Encounter Summary ---
Author Organization [facility] [place] [address] Care Team Providers Care External Auditor Name Role Phone Shonda Garcia MD Primary Care Provider [phone] Encounter Details Date Type Department Care Team (Late Contact Info) Description 05/20/2019 Orders Only Hematology/Oncology at [address] [address] Ra Weems MD [facility] [place] [address] Malignant neoplasm of lower-outer quadrant of left [...] Encounters Date Type Department Care Team (Late Contact Info) Description 09/03/2024 3:30 PM EDT Office Visit Dermatology at [facility] [address] [place] [phone] Miladys Gordon MD [facility] DR MYESHA [place] [address] documented as of this encounter Results * (ABNORMAL) Comprehensive metabolic panel (non-fasting) (06/26/2019 2:05 PM EST) Glucose 93 65 - 199 mg/dL [facility] Comment:Diabetes: >=200 mg/d L plus symptoms Blood Urea Nitrogen 27(H) 8 - 18 mg/dL [facility] Creatinine 0.78 0.70 - 1.20 mg/dL [facility] Sodium 140 135 - 145 mmol/L [facility] Potassium 4.0 3.5 - 5.0 mmol/L [facility] Comment: Please note: ??Patients with WBC >100,000 may have falsely elevated Potassium levels. ??For accurate Potassium quantification in these patients send serum separator tube (gold top) for subsequent determinations. ??Contact the Clinical Chemistry Laboratory if there are any questions. Chloride 100 98 - 107 mmol/L [facility] Carbon Dioxide 28 22 - 31 mmol/L [facility] Anion Gap 12 5 - 15 mmol/L [facility] Calcium 9.5 8.5 - 10.5 mg/dL [facility] Protein, Total 7.6 6.1 - 8.0 gm/dL [facility] Albumin 4.5 3.2 - 5.2 gm/dL [facility] Aspartate Aminotransferase 23 0 - 30 unit/L [facility] Alanine Aminotransferase 18 0 - 30 unit/L [facility] Alkaline Phosphatase 60 35 - 105 unit/L [facility] Bilirubin, Total 0.3 0.2 - 1.3 mg/dL [facility] Est Glomerular Filtration Rate 88 >=60 mL/min/1. 73 m?? [facility] Comment: The eGFR was calculated using the CKD-EPI equation. As with all creatinine based estimates of kidney function, eGFR values calculated with the CKD-EPI equation are not accurate in patients with acute kidney failure, extremes of body mass or the acutely ill. http://agri.capital/DHnkf eGFR 102 >=60 mL/min/1. 73 m?? [facility] Comment: The eGFR was calculated using the CKD-EPI equation. As with all creatinine based estimates of kidney function, eGFR values calculated with the CKD-EPI equation are not accurate in patients with acute kidney failure, extremes of body mass or the acutely ill. http://agri.capital/DHMCnkf Blood specimen (specimen) 06/26/2019 2:05 PM EST 06/26/2019 2:08 PM EST Narrative Resulting Agency Comment Spec In Lab Ra Weems MD CHEMISTRY ORDERABLES [facility] [place] [phone] documented in this encounter Visit Diagnoses Diagnosis Malignant neoplasm of lower-outer quadrant of left breast of female, estrogen receptor positive documented in this encounter Care Teams External Auditor Relationship Specialty Start Date End Date Shonda Garcia MD [address] [place] [address] PCP - General 04/27/10 documented as of this encounter
--- OUTSIDE RECORDS SUMMARY | 2024-05-17 21:13 | XMS_ITS | Encounter Summary ---
Author Organization [facility] [place] [address] Care Team Providers Care Multiple Needle Stitcher Name Role Phone Shonda Garcia MD Primary Care Provider [phone] Encounter Details Date Type Department Care Team (Late st Contact Info) Description 03/04/2016 8:30 AM EDT Laboratory Appointment Lab [address] [place] [phone] Social History Tobacco Use Types Packs/Day Years [...] 3:30 PM EDT Office Visit Dermatology at [facility] [address] [place] [address] Miladys Gordon MD [facility] DR MYESHA [place] [address] documented as of this encounter Procedures Procedure Name Priority Date/Time Associated Diagnosis Comments HEMOGLOBIN A1C Routine 03/04/2016 8:45 AM EDT GLUCOSE Routine 03/04/2016 8:45 AM EDT documented in this encounter Results * Hemoglobin A1c (03/04/2016 8:45 AM EDT) Hemoglobin A1c 5.3 4.3 - 5.6 % [facility] Comment: Reference Range: 4.3 - 5.6% 5.7 - 6.4% - Increased Risk of Developing Diabetes Mellitus >= 6.5% - Consistent with diagnosis of Diabetes Mellitus In the absence of hyperglycemia (i.e. plasma glucose > 200 mg/dL) or classic symptoms of hyperglycemia a repeat measurement of HbA1c should be performed on a separate sample to confirm the diagnosis. Diagnosis and Classification of Diabetes Mellitus, Diabetes Care 2013; 36: Suppl. 1, H11-01 Estimated Average Glucose 105 mg/dL [facility] Comment: eAG equivalents for HbA1c percentages: HbA1c(%) ?eAG(mg/dL) 6.0 ?126 6.5 ?140 7.0 ?154 7.5 ?169 8.0 ?183 8.5 ?197 9.0 ?212 9.5 ?226 10.0 ? 240 Limitations: The eAG calculation has not been validated on women, individuals below 18 years old and above 70 years old, and individuals with hemoglobinopathies. Additional resources are available on the ADA website: http://PlasmaSil.com/DHMCadacalc Barry LEWIS, Milton J, Stella R, et al. ??Translating the A1C assay into estimated average glucose values. ??Diabetes Care 2008:31(8):7838-9999. Blood specimen (specimen) Venous Draw / Unknown 03/04/2016 8:45 AM EDT 03/04/2016 8:50 AM EDT Narrative Resulting Agency Comment Spec In Lab Shonda Garcia MD CHEMISTRY ORDERABLES Performing Organization Address City/[facility]/ZIP Co de Phone Number [facility] [place] [address] * Glucose, random (03/04/2016 8:45 AM EDT) Glucose 77 65 - 199 mg/dL [facility] Comment:Diabetes: >=200 mg/d L plus symptoms Blood specimen (specimen) Venous Draw / Unknown 03/04/2016 8:45 AM EDT 03/04/2016 8:50 AM EDT Narrative Resulting Agency Comment Spec In Lab Shonda Garcia MD CHEMISTRY ORDERABLES Performing Organization Address [facility] Co de Phone Number [facility] [place] [address] documented in this encounter Visit Diagnoses Not on filedocumented in this encounter Care Teams Multiple Needle Stitcher Relationship Specialty Start Date End Date Shonda Garcia MD [facility] [address] [place] [address] PCP - General 04/27/10 documented as of this encounter
--- OUTSIDE RECORDS SUMMARY | 2024-05-17 21:13 | XMS_ITS | Encounter Summary ---
Author Organization [facility] [place] [address] Care Team Providers Care Test Engineering Technician Name Role Phone Shonda Garcia MD Primary Care Provider [phone] Reason for Visit * Reason Onset Date Comments Questions 10/31/2018 Encounter Details Date Type Department Care Team (Late st Contact Info) Description 10/31/2018 Telephone Hematology Oncology at [address] [phone] Yasmin Bettencourt I RN Questions Social History Tobacco Use Types Packs/Day Years [...] encounter Miscellaneous Notes * Telephone Encounter - Yasmin Bettencourt RN - 10/31/2018 2:36 PM EDT Placed call and spoke with patientwho is questioning if she should take Tamoxifen and Sertraline. Patient expresses concern that the Sertraline will affect the efficacy of the Tamoxifen. Message to Matti YOUNG> Howie mendoza with patient and explained that Sertraline has a less negative effect on Tamosifen.The patient intends to call her PCP to discuss . documented in this encounter Plan of Treatment Upcoming Encounters Date Type Department Care Team (Late st Contact Info) Description 09/03/2024 3:30 PM EDT Office Visit Dermatology at [facility] [address] [place] [address] Miladys Gordon MD [facility] DR MY[place] [address] documented as of this encounter Visit Diagnoses Not on filedocumented in this encounter Care Teams Test Engineering Technician Relationship Specialty Start Date End Date Shonda Garcia MD [address] [place], [place] [address] [place] [id number] PCP - General 04/27/10 documented as of this encounter
--- OUTSIDE RECORDS SUMMARY | 2024-05-17 21:13 | XMS_ITS | Encounter Summary ---
Author Organization [facility] [place] [address] Care Team Providers Care Aging Room Hand Name Role Phone Shonda Garcia MD Primary Care Provider [phone] Reason for Visit * Reason Comments Radiation Follow-up breast cancer Encounter Details Date Type Department Care Team (Late st Contact Info) Description 06/30/2016 9:00 AM EST Office Visit Radiation Oncology at [address] [phone] Shruthi Russell APRN [address] [place] [address] [place] [address] Malignant neoplasm of left female breast, unspecified site of breast Social History Tobacco Use Types Packs/Day [...] Sign Reading Time Taken Comments Blood Pressure 104/61 06/30/2016 8:58 AM EST Pulse 61 06/30/2016 8:58 AM EST Temperature 36.7 ??C (98.1 ??F) 06/30/2016 8:58 AM ES T Respiratory Rate 18 06/30/2016 8:58 AM EST Oxygen Saturation 100% 06/30/2016 8:58 AM EST Inhaled Oxygen Concentration - - Weight 60.3 kg (133 lb) 06/30/2016 8:58 AM EST Height 165.8 cm (5' 5.28) 06/30/2016 8:58 AM ES T copy Body Mass Index 21.95 06/30/2016 8:58 AM EST documented in this encounter Progress Notes * Shruthi Russell, MEDICAL SUPPLY TECHNICIAN - 06/30/2016 9:00 AM EST Patient ID: Shannen Nobles is a 50 y.o. female with breast ca, L, IDC, low gr, ER+TN+, Dsz1ptc-, s/p lumpectomy & SNB, pT1a pN0, stage I. She was treated with adjuvant radiation therapy for a total dose of 60.4 Gy which was completed on 10/08/2014. She was started on Tamoxifen post radiation therapy. She is in clinic for scheduled follow-up and to review her survivor care plan. HPI 48 y/o f who palpated a mass in UOQ L breast. ?? 06[place]10/14 [facility] [place]gs & US from 06/03/14: US visualized 5 mm mass @ 0200, correlatingw/palpable area of concern, equivocal on mmg. ? 06/23/14 US guided bx 5 mm L breast mass @ 0200. ?? Path: IDC. ER+TN+, [id number]-. ?? 06/27/14 CXR: No met dz. ? 06/30/14 MRI B Breasts: L breast lesion #1, 5 mm @ 2 o'clock. L ax visualization adequate, no suspicious node. R breast w/o lesion. R axilla visualization adequate, no suspicious node. ? 07/03/[address] Cast. ?? 07/09/14 BRCA1 & BRCA2 testing: Neg. ?? 07/14/14 L breast lumpectomy & SNB. Specimen mmg showed the marker clip & mass. Bx cavity clips placed. ?? Path: IDC, low gr, 0.5 cm, +DCIS (minor), no ALI, RM neg, closest RM to DCIS = 0.14 cm, 2 ax lymph nodes, both neg; pT1a N0. Treatment was given from 08/25/14 to 10/08/14. ??50.4 Gy in 28 fxs was given to L breast, followed by volume reduction & 10 Gy in 5 fxs boost to lumpectomy bed, boosting lumpectomy bed to 60.4 Gy in 33 fxs. 6 MV Xray external beam with 3D xrtused. ?? The course of xrt was tolerated well, w/the expected side effect of skin reaction w/in irradiated area managed w/shaylee's cream, 1% hydrocortisone cream & mepilex-lite. She also noted some tiredness. Exam near completion of xrt showed moderate erythema of L breast w/dry desquamation in several areas. Treatment summary reviewed with patient 06/30/2016 BREAST CANCER NOTES 06/30/2016 Method of Cancer Detection patient-detected mass/breast change left breast Menopausal Status at Diagnosis premenopausal Farm[place] History Sister with breast cancer in her 40s--genetic testing ordered Date of Diagnostic Biopsy 06/23/2014 Local Surgery Lumpectomy by Dr Cast Axillary Management [place] nodes alone Total Number of Nodes Removed [...] negative ER estrogen receptor Positive > 90% TN progesterone receptor Positive > 90% HER-2 negative First Adjuvant Endocrine Therapy Tamoxifen 11/03/2014 BRCA Testing negative for deleterious germline mutation BRCA Test Date 07/09/2014 Radiation [place]baum Whole breast with tangents Radiation Boost yes Total Dosage of Radiation 60.4 Gy --treatment was given from 08/25/2014 to 10/08/2014 Surveillance 03/04/2016- mammogram--no evidence of malignancy Patient Active Problem List Diagnosis Code ??? Breast cancer, left breast C50.912 ??? S/P lumpectomy, left breast Z90.12 Past Surgical History Procedure Laterality Date ??? Pro mastectomy, partial Left 07/14/2014 MASTECTOMY PARTIAL performed by Patricia Cast MD at [facility] ??? Pro bx/remv, lymph node, deep axill Left 07/14/2014 BIOPSY OR EXCISION OF LYMPH NODE(S), OPEN, DEEP AXILLARY NODE(S) performed by Patricia Cast MD at [facility] ??? Pro identify sentinel node Left 07/14/2014 SENTINEL NODE INJECTION performed by Patricia Cast MD at [facility] ??? Nasal septum surgery 2011 deviated septum ??? Pro enlarge breast with implant Bilateral 10/20/2015 AUGMENTATION MAMMOPLASTY, RICK performed by Cassie De Anda MD at [facility] ??? Breast lumpectomy Left 07/2014 ??? Breast biopsy Left 06/2014 ??? Breast enhancement surgery Bilateral Allergies Allergen Reactions ??? Latex Rash ??? Amoxicillin Trihydrate ??? Thiuram Analogues Dermatitis Medications 06/30/16 1117 Medication Sig Taking? lactobacillus (BACID) Capsule Take 1 tablet by mouth daily. Yes pimecrolimus (ELIDEL) 1 % Cream Apply to the face BID. Yes tamoxifen (NOLVADEX) 20 mg Tablet Take 1 tablet by mouth daily. Yes acetaminophen (TYLENOL) 500 mg Tablet Take 1,000 mg by mouth every 6 hours as needed for Pain. Yes triamcinolone (KENALOG) 0.1 % Cream Apply topically on trunk for severe flair of eczema Yes Fluocinolone Acetonide Oil 0.01 % Drops Yes tacrolimus (PROTOPIC) 0.1 % Ointment Apply topically 2 times daily. To the face Yes CETIRIZINE HCL (ZYRTEC ORAL) Take by mouth daily as needed. Yes SPIRONOLACTONE ORAL Take 100 mg by mouth daily. Indications: Acneiform Eruption Yes cholecalciferol, Vitamin D3, 400 unit tablet Take 1,000 Units by mouth daily. Yes multivitamin (THERAGRAN) tablet Take 1 tablet by mouth daily. Yes LEVALBUTEROL TARTRATE (XOPENEX HFA INHL) Inhale 2 puffs into the lungs every 4 hours as needed. Yes Social history reviewed and updated Social Supports: Pt is to Dutch of 29 years. They have a 15 year old son. Pt's parents and her parents are local supports. She indicated they have good friends and neighbors. ?? Living Situation/Daily Activities/Transportation: Pt and manage their daily chores and activities. Pt does drive. No issues with transportation. She lives ~ 40 minutes from this facility. ?? 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 ? Advance Directives: Pt has not completed her advance directive. She does have the booklet/form at home. She wants her as her health care decision maker ?? Utilization of Community Resources:Pt receives primary care at the [facility]. ?? Adjustment to Illness/Mental Health Issues:patient reports doing well emotionally at this time. Interim History?Mrs Nobles reports that she is doing very well at this time. She has had issues with chronic vaginal yeast infections?? And has been referred by her PCP to [facility] [place] [facility]. [facility] She has had menses once since starting HINOJOSA and that was last November. She has tolerated the HINOJOSA well with no significant side effects. She reports no breast issues. She has no persistent cough, no chesttightness, no restriction in range of motion, no lymphedema, no skeletal pain. She is active and exercises three times a week walking on her treadmill for about 45 minutes for a distance of about four miles. ?? Her mood is positive. She had questions regarding when a bone density test should be done since oneof her aunts has severe osteoporosis in her 60s. ?? Review of Systems Constitutional: Negative. Negative for activity change, appetite change, chills, diaphoresis, fatigue and unexpected weight change. Walks 4 miles three times a week HENT: Negative. Respiratory: Negative. Negative for chest tightness, shortness of breath and wheezing. Cardiovascular: Negative. Negative for chest pain, palpitations and leg swelling. Gastrointestinal: Negative. Genitourinary: Negative. Negative for difficulty urinating, dysuria and enuresis. Last menses November 2015 + chronic vaginal yeast infections--appointment at - next week for consult Musculoskeletal: Negative. Skin: Negative. Neurological: Negative. Hematological: Negative. Psychiatric/Behavioral: Negative. Vitals Office Visit from 06/30/2016 in [facility] Radiation Oncology Weight - Scale 60.3 kg (133 lb) Height 165.8 cm (5' 5.28) [copy] BSA (Calculated - sq m) 1.67 sq meters BMI (Calculated) 22 Temp 36.7 ??C (98.1 ??F) Temp Source Oral Heart Rate 61 Heart Rate Source NIBP Resp 18 BP 104/61 BP Location Left arm Patient Position Sitting SpO2 100 % Objective: Physical Exam Constitutional: She is oriented to person, place, and time. She appears well- developed and well-nourished. No distress. HENT: Head: Normocephalic and atraumatic. Eyes: Conjunctivae and EOM are normal. Right eye exhibits no discharge. Left eye exhibits no discharge. No scleral icterus. Neck: Neck supple. Cardiovascular: Normal rate, regular rhythm and normal heart sounds. Exam reveals no gallop and no friction rub. No murmur heard. Pulmonary/Chest: Effort normal and breath sounds normal. No respiratory distress. She has no wheezes. She has no rales. She exhibits no tenderness. Abdominal: Soft. Bowel sounds are normal. She exhibits no distension. There is no tenderness. Thereis no rebound. Musculoskeletal: Normal range of motion. She exhibits no edema or deformity. Lymphadenopathy: Head (right side): No submental, no submandibular, no tonsillar, no preauricular, no posterior auricular and no occipital adenopathy present. Head (left side): No submental, no submandibular, no tonsillar, no preauricular, no posterior auricular and no occipital adenopathy present. She has no cervical adenopathy. She has no axillary adenopathy. Right: No supraclavicular adenopathy present. Left: No supraclavicular adenopathy present. Neurological: She is alert and oriented to person, place, and time. She exhibits normal muscle tone. Coordination normal. Skin: Skin is warm and dry. No rash noted. She is not diaphoretic. No erythema. No pallor. Psychiatric: She has a normal mood and affect. Her behavior is normal. Judgment and thought contentnormal. Vitals reviewed. Breast__X__ no nipple discharge, no dryness, no erythema, no tenderness, no lymphedema of breast orarm Treated site: ____Right or _X___Left, __X__Breast or Chest wall Telangectasias: __X__None, ____Few; Moderate; Many and confluent Hypopigmentation: _X___None; ____Slight or localized; ____Marked or generalized Hyperpigmentation: __X__None; ____Slight or localized; ____Marked or generalized Fibrosis: __X___None; Increased density; ____Marked increased density + retraction; ____ Very marked Dry skin: __X__None; ____Asymptomatic; symptomatic; Interferes with ADL Cosmetic Result: ___X__ Excellent; Good;____ Fair; ____Poor 03/04/2016- bilateral mammogram REASON FOR EXAM: Screening. History of left breast cancer. ?? TECHNIQUE: CC and MLO views were [...] ?? CONCLUSION: No mammographic evidence of malignancy. Assessment and Plan: Shannen Nobles is a 50 y.o. female with breast ca, L, IDC, low gr, ER+TN+, Eqa5pcu-, s/p lumpectomy & SNB, pT1a pN0, stage I. She was treated with adjuvant radiation therapy for a total dose of 60.4 Gy which was completed on 10/08/2014. She was started on Tamoxifen post radiation therapy. She istolerating HINOJOSA well. Mrs Nobles is doing very well with BALJIT. Her most recent mammogram in February 2016 was negative for recurrence. She has no late effects from treatment. Follow-up for a total of 40 minutes, with 30 minutes of that time spent discussing her current clinical condition, reviewing her Breast Cancer Survivor Care Plan which includes review of her breast cancer history, treatment history, health behaviors to promote wellness, ongoing surveillance, late effects of treatments and symptoms to report as well as planning further management. We will see patient again in one year. She will be seen by medical oncology in the interim. documented in this encounter Plan of Treatment Upcoming Encounters Date Type Department Care Team (Late st Contact Info) Description 09/03/2024 3:30 PM EDT Office Visit Dermatology at [facility] [address] [place] [address] Miladys Gordon MD [facility] DR MYESHA [place] [address] documented as of this encounter Procedures Procedure Name Priority Date/Time Associated Diagnosis Comments LAB SCAN 12/28/2016 12:00 AM EDT LAB SCAN 06/30/2016 12:00 AM EST documented in this encounter Results * SCAN DOC: LAB (12/28/2016 12:00 AM EDT) Narrative 12/28/2016 12:00 AM EDT Ordered by an unspecified provider. Scanning Provider MEDIA MGR SCAN EXT O RDR/RSLT * SCAN DOC: LAB (06/30/2016 12:00 AM EST) Scanning Provider MEDIA MGR SCAN EXT O RDR/RSLT documented in this encounter Visit Diagnoses Diagnosis Malignant neoplasm of left female breast, unspecified site of breast documented in this encounter Care Teams Aging Room Hand Relationship Specialty Start Date End Date Shonda Garcia MD [address] [place] [address] PCP - General 04/27/10 documented as of this encounter
--- OUTSIDE RECORDS SUMMARY | 2024-05-17 21:13 | XMS_ITS | Encounter Summary ---
Author Organization [facility] [place] [address] Care Team Providers Care Vice President Lending Name Role Phone Shonda Garcia MD Primary Care Provider [phone] Encounter Details Date Type Department Care Team (Late st Contact Info) Description 07/11/2016 Orders Only Obstetrics [place] [phone] Tonya [address], RN Social History Tobacco Use Types Packs/Day [...] PM EDT Office Visit Dermatology at [facility] [address] [place] [address] Miladys Gordon MD [facility] DR MYESHA [place] [address] documented as of this encounter Visit Diagnoses Not on filedocumented in this encounter Care Teams Vice President Lending Relationship Specialty Start Date End Date Shonda Garcia MD [facility] [address] [place] [id number] PCP - General 04/27/10 documented as of this encounter
--- OUTSIDE RECORDS SUMMARY | 2024-05-17 21:13 | XMS_ITS | Encounter Summary ---
Author Organization [facility] [place] [address] Care Team Providers Care Skoog Patching Machine Operator Name Role Phone Shonda Garcia MD Primary Care Provider [phone] Reason for Visit * Reason Comments Breast Cancer Encounter Details Date Type Department Care Team (Late st Contact Info) Description 06/30/2016 10:30 AM EST Office Visit Hematology/Oncology at [address] [phone] Taz Santoro MD [address] [place] [address] Malignant neoplasm of lower-outer quadrant of left female breast Social History Tobacco Use Types Packs/Day [...] Time Taken Comments Blood Pressure 104/61 06/30/2016 9:19 AM EST Pulse 61 06/30/2016 9:19 AM EST Temperature 36.7 ??C (98.1 ??F) 06/30/2016 9:19 AM ES T Respiratory Rate 18 06/30/2016 9:19 AM EST Oxygen Saturation 100% 06/30/2016 9:19 AM EST Inhaled Oxygen Concentration - - Weight 60.3 kg (133 lb) 06/30/2016 9:19 AM EST c opied Height 165.8 cm (5' 5.28) 06/30/2016 9:19 AM ES T copied Body Mass Index 21.95 06/30/2016 9:19 AM EST documented in this encounter Progress Notes * Taz Santoro MD - 06/30/2016 10:30 AM EST Diagnosis: Left breast 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 It is now two years since her initial surgery. She is at low risk for recurrence and remains on tamoxifen 20 mg daily. Her menstrual periods have stopped. She is taking her medicine appropriately and not missing doses. She is having some problems with recurrent yeast infections and is going to be seeing FLIGHT MECHANIC for that. We talked about the possibility that there is a relationship between the tamoxifen and her infection. She asked whether switching to an aromatase inhibitor would help that and I am really not aware that would be the cause, although I suppose it is possible. We did decide to wait until she sees FLIGHT MECHANIC before making any changes. She is also thinking about having a minor revision of her left breast implant. She is scheduled tentatively for August to do that and after thinking about things for the past few months she has decided she wants to go ahead with that. She did have her mammograms last summer. I Past medical history and social history are reviewed. She is doing well overall. Current Outpatient Prescriptions on File Prior to Visit Medication Sig Dispense Refill ??? lactobacillus (BACID) [...] ??? Fluocinolone Acetonide Oil 0.01 % Drops ??? tacrolimus (PROTOPIC) 0.1 % Ointment Apply topically 2 times daily. To the face 60 g 3 ??? CETIRIZINE HCL (ZYRTEC ORAL) Take by mouth daily as needed. ??? SPIRONOLACTONE ORAL Take 100 mg by [...] Neurological: Negative. Hematological: Negative for adenopathy. BP 104/61 (Patient Position: Sitting) Pulse 61 Temp 36.7 ??C (98.1 ??F) (Oral) Resp 18 Ht 165.8 cm (5' 5.28) Comment: copied Wt 60.3 kg (133 lb) Comment: copied SpO2 100% BMI 21.95 kg/m2 Head: Normocephalic, without obvious abnormality, atraumatic [...] ?? BIRADS CATEGORY 2: BENIGN FINDINGS ?? Laboratory today is fine with normal CBC, white count 5.2, hemoglobin 12.9, hematocrit 38.8, platelets are 172, CMP shows normal electrolytes and creatinine of 0.79, calcium of 8.5, and ALP of 44. ASSESSMENT/PLAN: Shannen is doing well with no evidence of recurrent breast cancer. She is at very low risk for recurrence. We will see her back in six months' time with lab and she will continue on tamoxifen 20 mg daily. If she decides she wants to switch over to an aromatase inhibitor we would consider that, but she is at risk for osteoporosis with those and we would have to check some bone densities periodically. She has an understanding of that but may desire a change, depending on whether or not these yeast infections get under control. documented in this encounter Plan of Treatment Upcoming Encounters Date Type Department Care Team (Late st Contact Info) Description 09/03/2024 3:30 PM EDT Office Visit Dermatology at [facility] [address] [place] [address] Miladys Gordon MD [facility] [place] [address] documented as of this encounter Results * (ABNORMAL) Comprehensive metabolic panel (non-fasting) (06/30/2017 3:32 PM EST) Glucose 83 65 - 199 mg/dL [facility] Comment:Diabetes: >=200 mg/d L plus symptoms Blood Urea Nitrogen 30(H) 8 - 18 mg/dL [facility] Creatinine 0.91 0.70 - 1.20 mg/dL [facility] Sodium 141 135 - 145 mmol/L [facility] Potassium 3.6 3.5 - 5.0 mmol/L [facility] Comment: Please note: ??Patients with WBC >100,000 may have falsely elevated Potassium levels. ??For accurate Potassium quantification in these patients send serum separator tube (gold top) for subsequent determinations. ??Contact the Clinical Chemistry Laboratory if there are any questions. Chloride 101 98 - 107 mmol/L [facility] Carbon Dioxide 24 22 - 31 mmol/L [facility] Anion Gap 16(H) 5 - 15 mmol/L [facility] Calcium 9.4 8.5 - 10.5 mg/dL [facility] Protein, Total 7.6 6.1 - 8.0 gm/dL [facility] Albumin 4.7 3.2 - 5.2 gm/dL [facility] Aspartate Aminotransferase 22 0 - 30 unit/L [facility] Alanine Aminotransferase 22 0 - 30 unit/L [facility] Alkaline Phosphatase 49 40 - 104 unit/L [facility] Bilirubin, Total 0.3 0.2 - 1.3 mg/dL [facility] Est Glomerular Filtration Rate >60 >=60 [facility] Comment: The reported eGFR should be multiplied by 1.2 for patients. The MDRD is not an appropriate measure of renal function for patients with body mass extremes or in patients with acute kidney failure. http://Conecte Link.Mopio/DHnkdep http://HedgeCo/DHMCnkf Blood specimen (specimen) 06/30/2017 3:32 PM EST 06/30/2017 3:40 PM EST Narrative Resulting Agency Comment Spec In Lab Taz Santoro MD CHEMISTRY ORDERABLES Performing Organization Address City/State/[facility] Co de Phone Number [facility] [place] [address] documented in this encounter Visit Diagnoses Diagnosis Malignant neoplasm of lower-outer quadrant of left female breast Malignant neoplasm of lower-outer quadrant of female breast documented in this encounter Care Teams Skoog Patching Machine Operator Relationship Specialty Start Date End Date Shonda Garcia MD [address] [place] [address] PCP - General 04/27/10 documented as of this encounter
--- OUTSIDE RECORDS SUMMARY | 2024-05-17 21:13 | XMS_ITS | Encounter Summary ---
Author Organization [facility] [place] [address] Care Team Providers Care Insect Control Aide Name Role Phone Shonda Garcia MD Primary Care Provider [phone] Encounter Details Date Type Department Care Team (Late st Contact Info) Description 04/03/2017 10:33 AM EDT - 04/03/2017 11:59 PM EDT Hospital [place] [address] Alka Morse, KIERRA [facility] [place] [place] [address] Encounter for screening mammogram for malignant neoplasm of breast Discharge Disposition: Home Social History Tobacco Use [...] Sig Dispensed Refills Start Date End Date crisaborole (EUCRISA) 2 % OintmentIndications:At opic dermatitis, [...] mouth daily. 90 tablet 3 02/03/2017 07/04/2019 crisaborole 2 % OintmentIndications:At opi dermatitis, unspecified type Apply twice a day to the face for maintenance 60 g 11/21/2016 07/06/2017 lactobacillus (BACID) Capsule Take 1 tablet by mouth daily. 07/06/2017 tacrolimus (PROTOPIC) 0.1 % OintmentIndications:De rmatitis Apply topically 2 times daily. To the face 60 g 3 07/25/2014 09/05/2022 SPIRONOLACTONE ORALIndications:acneif orm eruption Take 100 mg by mouth daily. Indications: Acneiform Eruption 05/03/2018 documented as of this encounter Plan of Treatment Upcoming Encounters Date Type Department Care Team (Late st Contact Info) Description 09/03/2024 3:30 PM EDT Office Visit Dermatology at [facility] [address] [place] [address] Miladys Gordon MD [facility] [address] [place] [address] documented as of this encounter Procedures Procedure Name Priority Date/Time Associated Diagnosis Comments MAMMO SCREENING CAD AND PAUL WITH IMPLANTS BILATERAL Routine 04/03/2017 11:01 AM EDT Encounter for screening mammogram for malignant neoplasm of breast documented in this encounter Results * Mammo Screening Cad and Paul with Implants Bilateral (04/03/2017 11:01 AM EDT) Anatomical Region Laterality Modality Breast Bilateral Mammography Narrative 04/03/2017 11:50 AM EDT REASON FOR EXAM: Screening. History of left breast cancer. TECHNIQUE: CC and MLO views were obtained of both breasts. Images were obtained in standard and implant displaced projections. Computer aided detection was used. 3D tomosynthesis images were obtained in addition to 2D images. Comparison: The study is compared with prior images. FINDINGS: Breast density:The breasts are heterogeneously dense, which may obscure small masses. There are no suspicious microcalcifications, masses, or areas of distortion. There are bilateral submuscular saline implants. There are post treatment changes in the left breast. CONCLUSION: No mammographic evidence of malignancy. RECOMMENDATION: Routine screening. BIRADS CATEGORY 2: BENIGN FINDINGS * ??The [employer] and The Society of Breast Imaging recommend annual screening beginning at age 40 for the general female population. * ??Screening should continue as long as a woman is in good health and is expected to live 10 more years or longer. * ??All women should be familiar with the known benefits, limitations, and potential harms linked to breast cancer screening. They also should know how their breasts normally look and feel and report any breast changes to a health care provider right away. * ??Some women, because of their family history, a genetic tendency, or certain other factors, should be screened with MRIs along with mammograms. (The number of women who fall into this category is very small.) The patient and health care provider should discuss the patient history and decide if earlier screening and breast MRI are appropriate. Alka Morse APRN IMG MAMMO ORDERA BLES documented in this encounter Visit Diagnoses Diagnosis Encounter for screening mammogram for malignant neoplasm of breast Other screening mammogram documented in this encounter Care Teams Insect Control Aide Relationship Specialty Start Date End Date Shonda Garcia MD [address] [place] [address] PCP - General 04/27/10 documented as of this encounter
--- OUTSIDE RECORDS SUMMARY | 2024-05-17 21:13 | XMS_ITS | Encounter Summary ---
Author Organization [facility] Address [facility] [place] [address] Care Team Providers Care Machine Adjuster Leader Case Trim Name Role Phone Shonda Garcia MD Primary Care Provider [phone] Encounter Details Date Type Department Care Team (Latest Contact Info) Description 05/10/2018 9:35 AM EST - 05/10/2018 11:59 PM [facility] Hospital [place] [address] Tonya Santillan, TICKET DISPENSER CHANGER [address] [facility] [place] [address] Malignant neoplasm of lower-outer quadrant of left breast of female, estrogen receptor positive; Malignant neoplasm of upper-outer quadrant of left breast in female, estrogen receptor positive Discharge Disposition: Home Social History Tobacco Use [...] Sig Dispensed Refills Start Date End Date spironolactone (ALDACTONE) 100 mg Tablet 02/13/2018 crisaborole [...] 3:30 PM EDT Office Visit Dermatology at [facility] [address] [place] [address] Miladys Gordon MD [facility] [address] [place] [address] documented as of this encounter Procedures Procedure Name Priority Date/Time Associated Diagnosis Comments LAB SCAN 10/24/2018 12:00 AM EDT MAMMO BREAST US LIMITED LEFT Routine 05/10/2018 10:10 AM EST Malignant neoplasm of lower-outer quadrant of left breast of female, estrogen receptor positive Malignant neoplasm of upper-outer quadrant of left breast in female, estrogen receptor positive documented in this encounter Results * SCAN DOC: LAB (10/24/2018 12:00 AM EDT) Narrative 10/24/2018 12:00 AM EDT Ordered by an unspecified provider. Scanning Provider MEDIA MGR SCAN EXT O RDR/RSLT * US Breast Limited Left (05/10/2018 10:10 AM EST) Anatomical Region Laterality Modality Breast Left Mammography Impressions 05/10/2018 11:33 AM EST No sonographic evidence of malignancy with attention to the LEFT breast upper outer quadrant within the provider palpated region of interest.. RECOMMENDATION: Clinical follow-up. Continued annual screening. BI-RADS Category 2: Benign Findings * ??The [place] and The Society of [...] earlier screening and breast MRI are appropriate. I have personally reviewed the image(s) and the residents interpretation and agree with the findings, Deepika River at 05/10/2018 11:33 AM Narrative 05/10/2018 11:33 AM EST EXAMINATION: LEFT BREAST ULTRASOUND CLINICAL HISTORY: pt palpated lump- she is not sure if it is new or not. The palpated lump beneath inferior to the prior LEFT lumpectomy scar. TECHNIQUE: Targeted high-resolution grayscale ultrasound focused on the provider palpated region of interest. COMPARISON: Multiple prior mammograms with most recent comparison being a screening series dated March 19, 2018. FINDINGS: Both I and the resident performed high-resolution ultrasound of theLEFT breast following the technologist. There is a prominent fat lobule along the 2:00 radian approximately 10 cm from the nipple correlating with the palpable abnormality. This is surrounded by normal parenchymal elements. There is no evidence of discrete solid lesion, abnormal acoustical shadowing, or cyst. Tonya Santillan APRN IMG MAMMO ORDERABLES documented in this encounter Visit Diagnoses Diagnosis Malignant neoplasm of lower-outer quadrant of left breast of female, estrogen receptor positive Malignant neoplasm of upper-outer quadrant of left breast in female, estrogen receptor positive documented in this encounter Care Teams Machine Adjuster Leader Case Trim Relationship Specialty Start Date End Date Shonda Garcia MD [address] [facility] [address] [place] [address] PCP - General 04/27/10 documented as of this encounter
--- OUTSIDE RECORDS SUMMARY | 2024-05-17 21:13 | XMS_ITS | Encounter Summary ---
Author Organization [facility] [place] [address] Care Team Providers Care Food Production Supervisor Name Role Phone Shonda Garcia MD Primary Care Provider [phone] Encounter Details Date Type Department Care Team (Late st Contact Info) Description 03/19/2018 2:15 PM EDT Office [place] [id number] Alka Morse, RESERVOIR ENGINEERING CONSULTANT [facility] [place] [address] History of breast cancer Social History Tobacco [...] as of this encounter Progress Notes * Alka Morse, RESERVOIR ENGINEERING CONSULTANT - 03/19/2018 2:15 PM EDT Shannen returns today in surgical follow up of left breast cancer.She is a patient of Dr Cast.Shannen incidentally noted a left breast mass in June 2014.. She presented for evaluation. Mammogram and u/s confirmed a 5mm mass in the upper, outer left breast. Biopsy revealed IDC (ER/AL+, HER2-). Breast MRI did not reveal any additional sites of disease nor adenopathy. She opted for BCT. ---Pathologic Diagnosis--- Specimens: A - Left breast partial mastectomy C - Left axillary sentinal node Histologic Type: Invasive ductal carcinoma Tumor Grade: Low (High, Intermediate, Low) Ubyhcy-Hgyzg-Ypmywmvzou Score: 5 Tubular Differentiation: 2 Mitotic Rate: [...] and FISH, performed on prior biopsy [id number], see spearate report pTNM: pT1aN0 (AJCC, 7th edition, 2010) B - Left breast superfical margin, re-excision: Benign breast tissue. She did well with surgery. She was treated with whole breast xrt and is now on mc. She has no complaints and is happy with her implants.. She has no fevers, chills, sob, chest pain, adbominal pain, lymphedema. Objective: Physical Exam Constitutional: She is [...] tenderness. Mammogram today: cat2 Assessment and Plan: 52 yo female with history of stage I IDC [...] present No Date of last follow up 03/19/18 documented in this encounter Plan of Treatment Upcoming Encounters Date Type Department Care Team (Late st Contact Info) Description 09/03/2024 3:30 PM EDT Office Visit Dermatology at [place] [address] [place] [address] Miladys Gordon MD [facility] [place] [address] documented as of this encounter Visit Diagnoses Diagnosis History of breast cancer Personal history of malignant neoplasm of breast documented in this encounter Care Teams Food Production Supervisor Relationship Specialty Start Date End Date Shonda Garcia MD [facility] [address] [place] [address] PCP - General 04/27/10 documented as of this encounter
--- OUTSIDE RECORDS SUMMARY | 2024-05-17 21:13 | XMS_ITS | Encounter Summary ---
Author Organization [facility] [place] [address] Care Team Providers Care Ribbon Inker Name Role Phone Shonda Garcia MD Primary Care Provider [phone] Encounter Details Date Type Department Care Team (Late Contact Info) Description 11/03/2016 Orders Only Hematology Oncology at [address] [address] Maxine Winkler RN Malignant neoplasm of areola of left breast in female Social History Tobacco Use Types Packs/Day Years [...] 3:30 PM EDT Office Visit Dermatology at [facility] [address] [place] [address] Miladys Gordon MD [facility] [address] [address] documented as of this encounter Visit Diagnoses Diagnosis Malignant neoplasm of areola of left breast in female documented in this encounter Care Teams Ribbon Inker Relationship Specialty Start Date End Date Shonda Garcia MD [address] [place] [address] [address] [place] [address] PCP - General 04/27/10 documented as of this encounter
--- OUTSIDE RECORDS SUMMARY | 2024-05-17 21:13 | XMS_ITS | Encounter Summary ---
Author Organization [facility] [place] [address] Care Team Providers Care Crew Trainer Name Role Phone Shonda Garcia MD Primary Care Provider [phone] Encounter Details Date Type Department Care Team (Latest Contact Info) Description 06/30/2017 3:05 PM EST Laboratory Appointment Lab [address] [place] [phone] Malignant neoplasm of lower-outer quadrant of left female breast; Malignant neoplasm of upper-outer quadrant of left [...] Visit Dermatology at [facility] [address] [place] [address] Miladys Gordon MD [facility] [address] [place] [address] documented as of this encounter Procedures Procedure Name Priority Date/Time Associated Diagnosis Comments HEMOGRAM Routine 06/30/2017 3:32 PM EST Malignant neoplasm of lower-outer quadrant of left female breast DIFFERENTIAL, AUTOMATED Routine 06/30/2017 3:32 PM EST Malignant neoplasm of lower-outer quadrant of left female breast CBC (WITH DIFF) Routine 06/30/2017 3:32 PM EST Malignant neoplasm of lower-outer quadrant of left female breast COMPREHENSIVE METABOLIC PANEL Routine 06/30/2017 3:32 PM EST Malignant neoplasm of lower-outer quadrant of left female breast documented in this encounter Results * (ABNORMAL) Differential, Automated (06/30/2017 3:32 PM EST) Neutrophil % 70.7 % [facility] Neutrophil Absolute 4.86 1.70 - 6.10 x10(3)/ L [facility] Lymph % 14.8 % [facility] Lymphocytes Abs 1.0 0.9 - 3.2 x10(3)/ L [facility] Monocyte % 6.5 % [facility] Monocyte Abs 0.4 0.3 - 0.9 x10(3)/ L [facility] Eos % 6.7 % [facility] Eosinophils Abs 0.5(H) 0.0 - 0.4 x10(3)/ L [facility] Basophil % 1.0 % [facility] Baso Absolute 0.1 0.0 - 0.1 x10(3)/mc L [facility] Immature Gran % 0.30 % [facility] Comment: Immature granulocytes(IG's)percentage and absolute count will include metamyelocytes, myelocytes, and promyelocytes. Blood smears from CBCs yielding IG's will be scanned manually for concordance. If this scan disagrees with the automated IG or if promyelocytes are noted, a manual differential will be performed. Immature Gran Absolute 0.02 0.00 - 0.04 x10(3)/mc L [facility] Blood specimen (specimen) 06/30/2017 3:32 PM EST 06/30/2017 3:40 PM EST Narrative Resulting Agency Comment Spec In Lab Taz Santoro MD HEMATOLOGY ORDERABLE S [facility] [place] [address] * Hemogram (06/30/2017 3:32 PM EST) White Blood Cell 6.9 4.0 - 9.5 x10(3)/[facility] Red Blood Cell 4.22 4.00 - 5.21 x10(6)/[facility] Hemoglobin 13.2 11.7 - 15.5 gm/dL [facility] Hematocrit 39.6 35.7 - 45.8 % [facility] Mean Cell Volume 93.8 82.6 - 94.4 fL [facility] Mean Cell Hemoglobin 31.3 27.1 - 32.0 pg [facility] Mean Cell Hemoglobin Concentration 33.3 31.7 - 35.0 gm/dL [facility] Platelet 201 145 - 357 x10(3)/[facility] RDW Standard Deviation 45.2 37.0 - 46.0 fL [facility] RDW coefficient of variation 13.1 11.5 - 14.1 % [facility] Mean Platelet Volume 10.1 7.6 - 12.9 fL [facility] NRBC% auto 0.0 % [facility] NRBC Absolute 0.000 0.000 - 0.000 x10(3)/[facility] Blood specimen (specimen) 06/30/2017 3:32 PM EST 06/30/2017 3:40 PM EST Narrative Resulting Agency Comment Spec In Lab Taz Santoro MD HEMATOLOGY ORDERABLE S Performing Organization Address City/[facility]/ZIP Co de Phone Number [facility] [place] [address] * (ABNORMAL) Comprehensive metabolic panel (non-fasting) (06/30/2017 3:32 PM EST) Glucose 83 65 - 199 mg/dL [facility] Comment:Diabetes: >=200 mg/d L plus symptoms Blood Urea Nitrogen 30(H) 8 - 18 mg/dL [facility] Creatinine 0.91 0.70 - 1.20 mg/dL [facility] Sodium 141 135 - 145 mmol/L [facility] Potassium 3.6 3.5 - 5.0 mmol/L [facility] Comment: Please note: ??Patients with WBC >100,000 may have falsely elevated Potassium levels. ??For accurate Potassium quantification in these patients send serum separator tube (gold top) for subsequent determinations. ??Contact the Clinical Chemistry Laboratory if there are any questions. Chloride 101 98 - 107 mmol/L [facility] Carbon Dioxide 24 22 - 31 mmol/L [facility] Anion Gap 16(H) 5 - 15 mmol/L [facility] Calcium 9.4 8.5 - 10.5 mg/dL [facility] Protein, Total 7.6 6.1 - 8.0 gm/dL [facility] Albumin 4.7 3.2 - 5.2 gm/dL [facility] Aspartate Aminotransferase 22 0 - 30 unit/L [facility] Alanine Aminotransferase 22 0 - 30 unit/L [facility] Alkaline Phosphatase 49 40 - 104 unit/L [facility] Bilirubin, Total 0.3 0.2 - 1.3 mg/dL [facility] Est Glomerular Filtration Rate >60 >=60 [facility] Comment: The reported eGFR should be multiplied by 1.2 for patients. The MDRD is not an appropriate measure of renal function for patients with body mass extremes or in patients with acute kidney failure. http://[employer]/DHnkdep http://[employer]/DHMCnkf Blood specimen (specimen) 06/30/2017 3:32 PM EST 06/30/2017 3:40 PM EST Narrative Resulting Agency Comment Spec In Lab Taz Santoro MD CHEMISTRY ORDERABLES [facility] [place] [address] documented in this encounter Visit Diagnoses Diagnosis Malignant neoplasm of lower-outer quadrant of left female breast Malignant neoplasm of lower-outer quadrant of female breast Malignant neoplasm of upper-outer quadrant of left breast in female, estrogen receptor positive documented in this encounter Care Teams Crew Trainer Relationship Specialty Start Date End Date Shonda Garcia MD [facility] [address] [place] [address] PCP - General 04/27/10 documented as of this encounter
--- OUTSIDE RECORDS SUMMARY | 2024-05-17 21:13 | XMS_ITS | Encounter Summary ---
[place] [address] Care Team Providers Care Tube Rebuilder Name Role Phone Shonda Garcia MD Primary Care Provider [phone] Reason for Visit * Reason Comments Follow Up Surgery s/p left breast caps ulotomy 08/09/16 Encounter Details Date Type Department Care Team (Latest Contact Info) Description 08/18/2016 8:00 AM EDT Clinical [place] [address] Postoperative follow-up Social History Tobacco Use Types Packs/Day Years [...] as of this encounter Progress Notes * Jennyfer Humphreys RN - 08/18/2016 8:00 AM EDT Reason for Visit: Postoperative Evaluation s/p 08/09/16- left capsulotomy Pt is here for an incision check. Subjective: 0/10 for discomfort. States that she has not needed any narcotics for post op recovery Objective: Mild swelling. No bruising Sutures removed, incision well approximated, steri-strips applied after techni-care wash. Complications: none Assessment: No signs of delayed healing, erythemia, or fluid collection. Incisions CDI Plan: We reviewed post op incision instructions including; begin breast massage in 3 weeks once steri-strips fall off, instructions provided in AVS. We reviewed sun precautions, increase protein in the diet, signs and symptoms of infection and correct phone numbers to call us for concerns. Dressing instructions: She will continue to wear band for her implants and begin massage in 2 weeks. She will leave her steri strips in place until they fall off on their own. Shannen Nobles expressed understanding of instructions, and agrees with the plan of care. Follow up in [address] De Anda. For incision check. documented in this encounter Plan of Treatment Upcoming Encounters Date Type Department Care Team (Late st Contact Info) Description 09/03/2024 3:30 PM EDT Office Visit Dermatology at [facility] [address] [place] [address] Miladys Gordon MD [facility] [address] [place] [address] documented as of this encounter Visit Diagnoses Diagnosis Postoperative follow-up Follow-up examination, following unspecified surgery documented in this encounter Care Teams Tube Rebuilder Relationship Specialty Start Date End Date Shonda Garcia MD [facility] [address] [place] [address] PCP - General 04/27/10 documented as of this encounter
--- OUTSIDE RECORDS SUMMARY | 2024-05-17 21:13 | XMS_ITS | Encounter Summary ---
[facility] [place] [address] Care Team Providers Care Explosives Worker Name Role Phone Shonda Garcia MD Primary Care Provider [phone] Reason for Visit * Auth/Cert Specialty Diagnoses / Procedures Referred By Contac t Referred To Contact Diagnoses Personal history of malignant neoplasm of breast Z85.3 - History of breast cancer Tentative DOS - 08/09/2016 CPT: 13060-xrux, [id number] Procedures PRO REVISE BREAST RECONSTRUCTION PRO SURGERY OF BREAST CAPSULE REVISION OF RECONSTRUCTED BREAST Referral ID Status Reason Start Date Expiration Date Visits Re quested Visits Authorized [id number] 1 1 Encounter Details Date Type Department Care Team (Late st Contact Info) Description 08/09/2016 1:00 PM EST - 08/09/2016 2:45 PM EST Surgery [facility] [place] [address] Cassie De Anda MD [facility] [place] [address] REVISION OF RECONSTRUCTED BREAST (WRVU 11.17) Social History Tobacco Use Types Packs/Day Years [...] Sign Reading Time Taken Comments Blood Pressure 111/63 08/09/2016 12:05 PM EST Pulse 59 08/09/2016 12:05 PM EST Temperature 36.3 ??C (97.3 ??F) 08/09/2016 12:[address] Respiratory Rate 18 08/09/2016 12:05 PM EST Oxygen Saturation 100% 08/09/2016 12:05 PM EST Inhaled Oxygen Concentration - - Weight 59 kg (130 lb) 08/09/2016 12:05 PM EST Height 166.4 cm (5' 5.5) 08/09/2016 12:05 PM ES T Body Mass Index 21.3 08/09/2016 12:05 PM EST documented in this encounter Discharge Instructions * Discharge Instructions* Melanie Lambert RN - 08/09/2016 3:29 PM EST General Anesthesia Discharge Instructions Go home and rest. You may be sleepy for several hours. Take it easy as sudden position changes may cause nausea and/or dizziness. Use caution on stairs. Follow a light to regular diet as [...] is normal and cold liquids or soothing lozengers will help ease this discomfort. Narcotic pain [...] closest emergency room or call the hospital air support operations operator at [phone] and ask for physician personal lines insurance agent covering for your physician. Questions or problems after 5pm or on a weekend: Call the [facility] air support operations operator at and ask for the physician personal lines insurance agent covering for your doctor. At noon you received 1000 mg of acetaminophen- Your next dose should not be taken before 8 hours have passed. Next dose not before- 8pm. You should not take more than a total of 3000 mg of acetaminophen in a 24 hour period. SCOPOLAMINE PATCH DISCHARGE INSTRUCTIONS You are wearing a scopolamine patch. This is a medication patch used to prevent and treat nausea and vomiting after surgery. The patch is located: Behind the: Left ear. Please follow these instructions while you are wearing the patch. Try not to touch the patch. ??? If you do touch the patch, wash your hands right away. Make sure to remove all traces of medication from your hands. ??? If the medication gets on your hands and then you touch your eyes, your vision may become blurry or your pupils may widen. These are both normal and temporary reactions; they will go away shortly. You may remove the patch as early as: tonight BUT must remove it no later than Noon on 08/12. There will still be some active ingredients on the patch, so fold it in half (with the sticky sidestogether) and throw it in the trash. This will help prevent others from coming into contact with it. After removing the patch, carefully wash your hands and behind your ear (or wherever the patch was placed) with soap and water. If you have not urinated in 6-8 hours after your surgery, remove the patch and call your surgeon. * Patient Instructions* Subha Pemberton PA - 08/09/2016 2:08 PM EST Implant Based Reconstruction Post-op Instructions The healing process after breast reconstruction surgery varies with each person. You should expect to feel tired for the first 2-3 weeks due to anesthesia and the healing process. Pain ??? With any surgery there is some discomfort or pain. We will give you a prescription for a narcotic pain pill to take at home. We also recommend taking an anti-inflammatory (Ibuprofen , may start 48hrs after surgery). Take pain relievers as prescribed and only as needed. ??? Take an otrm-vdr-prwlrzg stool softener, such as Colace while taking your narcotic pain reliever to maintain bowel regularity. Drink plenty of water. ??? DO NOT use ice or heat [...] get better as you heal. Swelling ??? Moderate bruising and swelling of the breast(s) is normal for the first few weeks after surgery. Showering ??? You may shower 48 hours after surgery. At that time postoperative dressings may be removed. Please keep the steri strips on over your incision. Steri strips will fall off on their own. ??? Do not take a bath or use a hot tub until your skin is completely healed, approximately 3 weeks. Postoperative Dressings: ?? Please keep the krelix bandage around at the top of your breasts. After showering, please reapply the krelix. Krelix is to keep your implant down. Continue this until your follow-up appointment inclinic. Bra ??? Do not wear a bra until your 1st clinic visit after surgery. Activity ???If it hurts, don???t do it? For the first 1-2 weeks, when pushing yourself up to get out of bed, avoid using the arm on thereconstructed side. ??? Do not drive for 1-2 weeks while you are on narcotic pain reliever or if driving causes you pain. ??? Do not engage in sexual intercourse [...] about scheduling, please contact our administrative officesat [phone] For clinical questions, please call our nurses at [phone] Both offices are open Monday thru Monday 8a - 5p. With emergencies after hours, call the hospital air support operations operator at [phone] and ask for the Plastic Surgery Resident personal lines insurance agent. Narcotics: You may be given a prescription for a narcotic medication immediately following your surgery. Narcotics are prescribed for short-term use to help treat your pain. Surgical pain requiring narcotics will usually be greatly decreased 2-3 days after surgery & should be mild to absent by 10-14 days. We will prescribe a narcotic pain reliever for no longer than 2 weeks following your surgery. This will be determined by your surgeon. Narcotics do not reduce inflammation and it is inflammation that is usually a major cause of pain after surgery. Narcotics have many side effects such as constipation, lightheadedness, dizziness, sedation, confusion, nausea and vomiting. Driving and the use of alcohol are not recommended while you are using narcotic pain medications. Non-steroidal anti-inflammatories (NSAIDS) such as aspirin, Aleve and ibuprofen (Advil, Motrin) aremedications that reduce pain and inflammation. If you find your pain is not adequately controlled with the prescribed dose of your narcotic pain medication, NSAIDS may be used 48 hours after surgery with your narcotic to help alleviate the pain caused by inflammation. As you progress through your post-operative period, your pain should decrease and the use of narcotic medications should be less necessary. To reduce your chance of side effects, it is recommended that you save your narcotic medication for nighttime use and switch to NSAIDS or Acetaminophen (Tylenol) during the day. Alternative means of pain relief such as rest and relaxation, positioning, as well as decreasing stimulants such as coffee, tea, soft drinks, and nicotine may also help to alleviate pain. If you continue to experience significant pain 4-5 days after your procedure, it may be necessary to be re-evaluated by your physician. PRESCRIPTION RENEWALS: Renewal requests should be called in to our prescription line at [phone]. Narcotic renewals may be requested from 8am-4pm Monday through Monday. Due to patient safety, narcotic renewals will not be honored after hours or on weekends. It is best to make your request 2-3 days before you run out of your medication as it will take at least 24 hours for physician approval and nurse follow-up. Note that certain prescriptions, such as Percocet, Oxycodone, Vicodin, & Hydrocodone can not becalled in to a pharmacy and must be picked up or mailed to you. If mailed to you, expect 2-5 business days prior to arrival. Future Appointments Date Time Provider Department Center 08/16/2016 1:00 PM NURSE, PLASTIC SURGERY [facility] documented in this encounter Medications at Time of Discharge Medication Sig Dispensed Refills Start Date End Date loratadine (CLARITIN) 10 mg Tablet Take 10 [...] the lungs every 4 hours as needed. oxyCODONE (ROXICODONE) 5 mg Tablet Take 1 tablet by mouth every 4 hours as needed for Pain. 20 tablet 08/09/2016 09/05/2016 lactobacillus (BACID) Capsule Take 1 tablet by mouth daily. 07/06/2017 tamoxifen (NOLVADEX) 20 mg TabletIndications:Malig nant neoplasm of areola of left breast in female Take 1 tablet by mouth daily. 90 tablet 3 11/06/2015 11/02/2016 tacrolimus (PROTOPIC) 0.1 % OintmentIndications:Gary matitis Apply topically 2 times daily. To the face 60 g 3 07/25/2014 09/05/2022 SPIRONOLACTONE ORALIndications:acneifo rm eruption Take 100 mg by mouth daily. Indications: Acneiform Eruption 05/03/2018 documented as of this encounter Progress Notes * Melanie Lambert RN - 08/09/2016 4:51 PM EST Discharge instructions and medications reviewed with patient and nida Judd. All questions answered and written copy sent home with patient. * Subha Pemberton PA - 08/09/2016 2:07 PM EST Opioid PDMP 03/29/2016 [place] PDMP Query Date 08/08/2016 [place] QUERY DATE: 08/09/16 Risk Assessment Category: Estuardo Nobles is getting a prescription opioid for the treatment of acute post-operative pain related to the surgical procedure during this encounter. Pt has been advised to take the smallest dose possible to control pain and as the pain improves to take smaller doses and increase the time between doses. In addition to this medication, pt was educated on the non-opioid pain medications that canbe taken for adjunct treatment of pain. Non-pharmacological treatments were also discussed that include but not limited to ice, elevation, and activity modification as appropriate. The Acute Opioid Therapy Informed Consent form has been completed during this encounter and sent tomedical records for scanning to chart. Subha Pemberton PA-C Plastic Surgery Pager [phone] documented in this encounter H&P Notes * Subha Pemberton PA - 08/09/2016 2:07 PM EST 24 HOUR INTERVAL H&P S: Shannen Nobles's condition unchanged since last H&P Denies any new ED visits, hospitalizations, trauma, or new events. Denies history of bleeding/clotting disorders, heart disorders, liver or kidney disorders. Has beenoverall doing well. O: Patient Vitals for the past 24 hrs: BP Temp Temp src Pulse Resp SpO2 Height Weight 08/09/16 1205 111/63 36.3 ??C (97.3 ??F) Temporal 59 18 100 % 166.4 cm (5' 5.5) 59 kg (130 lb) Gen: appearing in no acute distress and stated age Resp: clear to auscultation bilaterally, non-labored on RA CV: RRR, no clubbing Surgical site marked AP: 50 y.o. female with history of left breast cancer. - After extensive discussion of the risks, benefits, and alteratives of surgical intervention, the patient consented to proceed with surgery. - IV antibiotics, SCDs ordered - Full Code - Proceed to OR for: Procedure(s): REVISION OF RECONSTRUCTED BREAST (WRVU 10.41) BREAST, CAPSULOTOMY, OPEN PERIPROSTHETIC (WRVU 9.17) Subha Pemberton PA-C Plastic Surgery Pager [phone] documented in this encounter Miscellaneous Notes * Op Note - Cassie De Anda MD - 08/09/2016 3:42 PM EST [facility] [place] Patient Name: Shannen Nobles : [id number] MR#: [id number] Case Date: 08/09/2016 Surgeon: Surgeon(s) and Role: * Cassie De Anda MD - Primary Preoperative diagnosis: history of left breast cancer Postoperative diagnosis: history of left breast cancer Procedure(s) (LRB): REVISION OF RECONSTRUCTED BREAST (WRVU 10.41) (Left) Anesthesia: General Estimated Blood Loss: 1 cc Specimens removed during surgery: None Drains: None Surgical Closure: Primary Closure - closure of ALL tissue levels during the original surgery regardless of wires, wickes, drains, or other devices extruding through the incision Disposition: awakened from anesthesia, extubated and taken to the recovery room in a stable condition, having suffered no apparent untoward event. Condition: doing well without problems (Please see the Surgical Encounter Summary for any Implant and Specimen details pertinent to this patient.) HPI/Surgical Indications: Shannen freeman 50 yo F who is s/p bilateral breast augmentation for asymmetry post left lumpectomy and RTX. On the left, the implant is resting one cm above the IMF and she presents today for inferior capsulotomy. Procedure Description: She was then marked in the preoperative area in the standing position. The midline, IMFs, proposed pocket site and meridians of each breast and the anterior axillary line were marked in addition to the planned incision site. She was then brought to the OR and positioned supine on OR table. General anesthesia was induced and pre-operative antibiotics dosed. SCDs were placed and a time out performed. The chest was then prepped and draped sterilely. We began by injected a total of 10 cc of 0.25% Sensorcaine with epinephrine into the left breast (along the proposed incision sites, along the medial aspect of each breast, and in the submuscular plane ). After adequate time for the epinephrine effect, the prior 4 cm long scar was excised and the incision deepened to the level of the implant. The implant was then retracted superiorly and protected with a retractor. The inferior capsule was then incised with bovie cautery along the chest wall and radial capsulotomies performed beginning at the base extending on to the inferior anterior surfaceof the capsule until the implant could descend to the desired symmetric IMF level. The pocket was then hemostased with electrocautery, checked for symmetry in position and washed with triple antibiotic saline solution. After conformation of correct lie within the pocket, the deep breast fascia and the deep dermis was closed with 3-0 Vicryl and the skin with subcuticular 4-0 monocryl. Dermabond was used to reinforce the wound closure. The wound was dressed with a sterile dressing and the patient placed in a Kerlex superiorly and a bra.There were no complications. Needle count was correct and I was present the entire procedure. Attestation: Case Date: 08/09/2016 I performed this procedure without the involvement of a resident. CASSIE DE ANDA MD 08/09/2016 Infection Bundle used? N/A Attestation: Case Date: 08/09/2016 I performed this procedure without the involvement of a resident. CASSIE DE ANDA MD 08/09/2016 * Brief Op Note - Subha Pemberton PA - 08/09/2016 3:15 PM EST Brief Operative Note Patient Name: Shannen Nobles : [id number] MR#: [id number] Case Date: 08/09/2016 Surgeon: Surgeon(s) and Role: * Cassie De Anda MD - Primary Preoperative diagnosis: history of left breast cancer Postoperative diagnosis: history of left breast cancer Procedure(s) (LRB): REVISION OF RECONSTRUCTED BREAST (WRVU 10.41) (Left) BREAST, CAPSULOTOMY, OPEN PERIPROSTHETIC (WRVU 9.17) (Left) Anesthesia: General Findings: left breast capsulotomy Complications: none Estimated Blood Loss: * No values recorded between 08/09/2016 2:46 PM and 08/09/2016 3:13 PM * Fluids: Intraprocedure Crystalloid Total None PRBCs: none (See Anesthesia Record/Report for Other Blood Products) Urine Output: (no blood products) Drains: none Disposition: awakened from anesthesia, extubated and taken to the recovery room in a stable condition, having suffered no apparent untoward event. Condition: doing well without problems (Please see the Surgical Encounter Summary for any Implant and Specimen details pertinent to this patient.) Infection Bundle used? No Post-Op Plan: - Follow up in: 7-10 days with Sera/nurse - Wound Check - Dressings: remove dressings (leave steri strips) documented in this encounter Plan of Treatment Upcoming Encounters Date Type Department Care Team (Late st Contact Info) Description 09/03/2024 3:30 PM EDT Office Visit D[facility]atology at [facility] [address] [place] [address] Miladys Gordon MD [facility] [address] [place] [address] documented as of this encounter Procedures Procedure Name Priority Date/Time Associated Diagnosis Comments REVISION OF RECONSTRUCTED BREAST (WRVU 11.17) 08/09/2016 2:21 PM EST history of left breast cancer documented in this encounter Visit Diagnoses Not on filedocumented in this encounter Administered Medications Inactive Administered Medications - up to 3 most recent administrations Medication Order MAR Action Action Date Dose Rate Site acetaminophen (TYLENOL) tablet 1,000 mg 1,000 mg, Oral, ONCE, 1 dose, On Mon08/09/16 at 1215, Maximum dose of acetaminophen is 4000 mg from all sources in 24 hours., Day of Surgery (Day of Procedure), Routine Given 08/09/2016 12:09 PM EST 1,000 mg BUpivacaine-EPINEPHrine 0.25 %-1:200,000 injection ONCE PRN, Starting on Mon08/09/16 at 1505, Until Mon08/09/16 at 1853, Intra-Operative (Intra-Procedure), Routine Given 08/09/2016 3:05 PM EST 10 mLs 19- Surgical Site clindamycin (CLEOCIN) injection 600 mg 600 mg, Intravenous, EVERY 12 HOURS, First dose on Mon08/09/16 at 1430, Until Discontinued, Routine, Indication for (Active or Suspected): Prophylaxis Given 08/09/2016 2:24 PM EST 600 mg gabapentin (NEURONTIN) capsule 300 mg 300 mg, Oral, ONCE, 1 dose, On Mon08/09/16 at 1215, Day of Surgery (Day of Procedure), Routine Given 08/09/2016 12:08 PM EST 300 mg lactated ringers infusion 1,000 mL 1,000 mL, at 100 mL/hr, Intravenous, CONTINUOUS, Starting on Mon08/09/16 at 1215, Until Mon08/09/16 at 1651, Day of Surgery (Day of Procedure) New Bag 08/09/2016 2:54 PM EST New Bag 08/09/2016 12:26 PM EST 1,000 mLs 100 mL/hr oxyCODONE (ROXICODONE) immediate release tablet 5 mg 5 mg, Oral, EVERY 4 HOURS PRN, Starting on Mon08/09/16 at 1407, Until Mon08/09/16 at 1853, Pain, Routine scopolamine (TRANSDERM-SCOP) 1.5 mg (1 mg over 3 days) patch 1 patch 1 patch, Transdermal, EVERY 72 HOURS, First dose on Mon08/09/16 at 1215, Until Discontinued, Day of Surgery (Day of Procedure), Routine Patch Applied 08/09/2016 12:14 PM EST 1 patch 01- Ear Behind (Left) documented in this encounter Active and Recently Administered Medications Times are shown in EST. Scheduled Medication Order 08/07/2016 08/08/2016 08/09/2016 acetaminophen (TYLENOL) tablet 1,000 mg (COMPLETED) 1,000 mg, Oral, ONCE, 1 dose, On Mon08/09/16 at 1215, Maximum dose of acetaminophen is 4000 mg from all sources in 24 hours., Day of Surgery (Day of Procedure), Routine 1209 (Given - Provid er: Nichelle Lara RN) clindamycin (CLEOCIN) injection 600 mg 600 mg, Intravenous, EVERY 12 HOURS, First dose on Mon08/09/16 at 1430, Until Discontinued, Routine, Indication for (Active or Suspected): Prophylaxis 1424 (Given - Provid er: Yumiko Carrasquillo CRNA)1430 (Due) gabapentin (NEURONTIN) capsule 300 mg (COMPLETED) 300 mg, Oral, ONCE, 1 dose, On Mon08/09/16 at 1215, Day of Surgery (Day of Procedure), Routine 1208 (Given - Provid er: Nichelle Lara RN) scopolamine (TRANSDERM-SCOP) 1.5 mg (1 mg over 3 days) patch 1 patch (CANCELED)(Linked Group 1) 1 patch, Transdermal, EVERY 72 HOURS, First dose on Mon08/09/16 at 1215, Until Discontinued, Day of Surgery (Day of Procedure), Routine 1200 (Due)1214 ([facility] h Applied - Provider: Nichelle Lara RN)1215 (Due) Continuous Medication Order 08/07/2016 08/08/2016 08/09/2016 lactated ringers infusion 1,000 mL (CANCELED) 1,000 mL, at 100 mL/hr, Intravenous, CONTINUOUS, Starting on Mon08/09/16 at 1215, Until Mon08/09/16 at 1651, Day of Surgery (Day of Procedure) 1226 (New Bag - Prov ider: Nichelle Lara RN)1424 (Anesthesia Volume Adjustment - Provider: Yumiko Carrasquillo CRNA)1430 (Anesthesia Volume Adjustment - Provider: Yumiko Carrasquillo CRNA)1454 (New Bag - Provider: Yumiko Carrasquillo CRNA)1511 (Anesthesia Volume Adjustment - Provider: Yumiko Carrasquillo CRNA) PRN Medication Order 08/07/2016 08/08/2016 08/09/2016 BUpivacaine-EPINEPHrine 0.25 %-1:200,000 injection (CANCELED) ONCE PRN, Starting on Mon08/09/16 at 1505, Until Mon08/09/16 at 1853, Intra-Operative (Intra-Procedure), Routine 1505 (Given - Provid er: Cassie De Anda MD) oxyCODONE (ROXICODONE) immediate release tablet 5 mg 5 mg, Oral, EVERY 4 HOURS PRN, Starting on Mon08/09/16 at 1407, Until Mon08/09/16 at 1853, Pain, Routine No Frequency Medication Order 08/07/2016 08/08/2016 08/09/2016 clindamycin (CLEOCIN) 600 mg/50 mL infusion 1 dose, Starting on Mon08/09/16 at 1407, Until Mon08/09/16 at 1853, AP BENOIT: cabinet override 1415 (Due) Linked Groups Order Group 1: scopolamine (TRANSDERM-SCOP) 1.5 mg (1 mg over 3 days) patch 1 patch (CANCELED)Jump to med 1 patch, Transdermal, EVERY 72 HOURS, First dose on Mon08/09/16 at 1215, Until Discontinued, Day of Surgery (Day of Procedure), Routine And scopolamine (TRANSDERM-SCOP) 1.5 mg patch Patch Verification (CANCELED) Transdermal, 2 TIMES DAILY, First dose on Mon08/09/16 at 1215, Until Discontinued, Verify scopolamine 1.5 mg patch., Day of Surgery (Day of Procedure) And scopolamine (TRANSDERM-SCOP) 1.5 mg patch Patch Removal (CANCELED) Transdermal, EVERY 72 HOURS, First dose on Mon08/11/16 at 1600, Until Discontinued, Remove Scopolamine Patch, Day of Surgery (Day of Procedure) documented in this encounter Care Teams Explosives Worker Relationship Specialty Start Date End Date Shonda Garcia MD [address] [place] [address] PCP - General 04/27/10 documented as of this encounter
--- OUTSIDE RECORDS SUMMARY | 2024-05-17 21:13 | XMS_ITS | Encounter Summary ---
Author Organization [facility] [place] [address] Care Team Providers Care Medical Geneticist Name Role Phone Shonda Garcia MD Primary Care Provider [phone] Reason for Visit * Reason Comments Follow Up Surgery Encounter Details Date Type Department Care Team (Late st Contact Info) Description 04/03/2017 11:45 AM EDT Office [place] [address] Alka Morse, [facility] [place] [address] History of breast cancer Social History Tobacco [...] this encounter Progress Notes * Alka Morse, KIERRA - 04/03/2017 11:45 AM EDT Shannen returns today in surgical follow up of left breast cancer.She is a patient of Dr Cast.Shannen incidentally noted a left breast mass in June 2014.. She presented for evaluation. Mammogram and u/s confirmed a 5mm mass in the upper, outer left breast. Biopsy revealed IDC (ER/RI+, HER2-). Breast MRI did not reveal any additional sites of disease nor adenopathy. She opted for BCT. ---Pathologic Diagnosis--- Specimens: A - Left breast partial mastectomy C - Left axillary sentinal node Histologic Type: Invasive ductal carcinoma Tumor Grade: Low (High, Intermediate, Low) Rholpe-Elzpg-Knpvbawrvr Score: 5 Tubular Differentiation: 2 Mitotic Rate: [...] and FISH, performed on prior biopsy [id number], see spearate report pTNM: pT1aN0 (AJCC, 7th [...] breast. verterbral bodies without tenderness. Mammogram today: pending Assessment and Plan: 51 yo female with history of stage I IDC of the left breast. Shannen is doing well without evidence of local or systemic recurrence. Pending normal mammogram,I will see Shannen back in 1 year with screening mammogram. She will call with any questions in the interval timeframe. Comprehensive Breast Program Surgery Follow Up Note Range of motion of surgical arm complete Lymphedema present No Cosmesis-surgeon reported Cosmesis-patient reported Excellent Good Local or regional recurrence No Contralateral cancer present No Distant recurrence present No Date of last follow up 04/03/17 documented in this encounter Plan of Treatment Upcoming Encounters Date Type Department Care Team (Late st Contact Info) Description 09/03/2024 3:30 PM EDT Office Visit Dermatology at [address] [address] Miladys Gordon MD [facility] DR MYESHA [place] [address] documented as of this encounter Visit Diagnoses Diagnosis History of breast cancer Personal history of malignant neoplasm of breast documented in this encounter Care Teams Medical Geneticist Relationship Specialty Start Date End Date Shonda Garcia MD Eva GOMEZ [address] [place] [id number] PCP - General 04/27/10 documented as of this encounter
--- OUTSIDE RECORDS SUMMARY | 2024-05-17 21:13 | XMS_ITS | Encounter Summary ---
Author Organization [facility] [address] Care Team Providers Care Mechanic Welder Truck Driver Name Role Phone Shonda Garcia MD Primary Care Provider [phone] Encounter Details Date Type Department Care Team (Late st Contact Info) Description 07/11/2016 Orders Only Obstetrics [place] [phone] Tonya St, RN Social History Tobacco Use [...] Dermatology at [facility] [address] [place] [address] Miladys Gordon MD [facility] DR [place] [address] documented as of this encounter Visit Diagnoses Not on filedocumented in this encounter Care Teams Mechanic Welder Truck Driver Relationship Specialty Start Date End Date Shonda Garcia MD [facility] ETHAN GOMEZ [address] [place] [phone] PCP - General 04/27/10 documented as of this encounter
--- OUTSIDE RECORDS SUMMARY | 2024-05-17 21:13 | XMS_ITS | Encounter Summary ---
[facility] [place] [address] Care Team Providers Care Electrical Drafter Name Role Phone Shonda Garcia MD Primary Care Provider [phone] Reason for Visit * Reason Comments Breast Cancer Encounter Details Date Type Department Care Team (Late st Contact Info) Description 07/06/2017 2:30 PM EST Office Visit Hematology/Oncology at [address] [phone] Taz Santoro MD [address] [place] [address] Malignant neoplasm of upper-outer quadrant of [...] Sign Reading Time Taken Comments Blood Pressure 102/66 07/06/2017 2:40 PM EST Pulse 64 07/06/2017 2:40 PM EST Temperature 36.4 ??C (97.5 ??F) 07/06/2017 2:40 PM ES T Respiratory Rate 16 07/06/2017 2:40 PM EST Oxygen Saturation 100% 07/06/2017 2:40 PM EST Inhaled Oxygen Concentration - - Weight 57.2 kg (126 lb) 07/06/2017 2:40 PM EST Height 165.8 cm (5' 5.28) 07/06/2017 2:40 PM ES T copied Body Mass Index 20.79 07/06/2017 2:40 PM EST documented in this encounter Progress Notes * Taz Santoro MD - 07/06/2017 2:30 PM EST Diagnosis: Left breast IDC 0.5 cm, low grade, ER+/ND+, Her-2 unamplified Stage Ia, s/p lumpectomy and sentinellymph node biopsy 07/14/14 followed by XRT Upper/Outer left breast location Subjective: Shannen comes in today for her 3 year follow-up on her breast cancer. She has had her mammograms andthey are fine. She has a family history of osteoporosis and her PCP is ordered a bone density studyso we did spend some time talking about osteoporosis and tamoxifen. Tamoxifen actually increases bone density it may be more effective than diphosphonates. She is taking vitamin D and calcium. It is n ot a bad idea though for her to have a baseline bone density. She is tolerating the pill well and has no new lumps or bumps. She has had a breast exam with her PCP and no significant masses were found last week. Review of systems is otherwise negative. Past medical history and social history are reviewed. She is doing well overall. Current Outpatient Prescriptions on File Prior to Visit Medication Sig Dispense Refill ??? tamoxifen (NOLVADEX) 20 mg Tablet Take 1 tablet by mouth daily. 90 tablet 3 ??? crisaborole (EUCRISA) 2 % Ointment Apply to face BID for maintenance 60 g 1 ??? loratadine (CLARITIN) 10 mg Tablet Take 10 mg by mouth daily. ??? pimecrolimus (ELIDEL) 1 % Cream Apply to the face BID. 60 g 2 ??? acetaminophen (TYLENOL) 500 [...] Neurological: Negative. Hematological: Negative for adenopathy. BP 102/66 (Patient Position: Sitting) Pulse 64 Temp 36.4 ??C (97.5 ??F) (Oral) Resp 16 Ht 165.8 cm (5' 5.28) Comment: copied Wt 57.2 kg (126 lb) SpO2 100% BMI 20.79 kg/m2 Head: Normocephalic, without obvious abnormality, atraumatic [...] supraclavicular, and axillary nodes normal Neurologic: Normal Mammograms 04/03/2017 REASON FOR EXAM: Screening. History of left [...] screening. ?? BIRADS CATEGORY 2: BENIGN FINDINGS Patient's laboratory is reviewed. CMP shows normal electrolytes and creatinine of 0.91 calcium of 9.4 and alkaline phosphatase of 49 CBC is unremarkable with a white count of 6.9 hemoglobin 13.2 hematocrit 39.6 and platelet count of 201,000 Assessment/plan: Shannen is doing well and has no evidence of recurrent breast cancer now 3 years out. She is at verylow risk for recurrence. She is tolerating tamoxifen well and plans will be to leave her on a carlos for at least 10 years if not 15. Long- term blockers are associated with a decrease incidence of second breast cancer 15 and 20 years later and in a younger age patient that makes some sense to consider. As far as her osteo-porosis risk goes is actually less on tamoxifen tamoxifen actually is a reasonable treatment for osteoporosis in this group of patients. She will continue on with her vitaminD and calcium. We will see her back in 6 months time with lab. documented in this encounter Plan of Treatment Upcoming Encounters Date Type Department Care Team (Late st Contact Info) Description 09/03/2024 3:30 PM EDT Office Visit Dermatology at [facility] [address] [place] [address] Miladys Gordon MD [facility] DR MY[place] [address] documented as of this encounter Visit Diagnoses Diagnosis Malignant neoplasm of upper-outer quadrant of left breast in female, estrogen receptor positive documented in this encounter Care Teams Electrical Drafter Relationship Specialty Start Date End Date Shonda Garcia MD [facility] ETHAN DALE [address] [address] PCP - General 04/27/10 documented as of this encounter
--- OUTSIDE RECORDS SUMMARY | 2024-05-17 21:13 | XMS_ITS | Encounter Summary ---
Author Organization [facility] [place] [address] Care Team Providers Care Maid Supervisor Name Role Phone Shonda Garcia MD Primary Care Provider [phone] Reason for Visit * Reason Comments Advice Only Left implant rupture Encounter Details Date Type Department Care Team (Late st Contact Info) Description 11/08/2018 3:30 PM EDT Office [place] [address] Pardeep Quan MD [facility] [place] [address] S/P breast augmentation Social History Tobacco Use Types Packs/Day Years [...] - Inhaled Oxygen Concentration - - Weight 60.3 kg (133 lb) 11/08/2018 2:58 PM EDT Height 167.6 cm (5' 6) 11/08/2018 2:58 PM EDT Body Mass Index 21.47 11/08/2018 2:58 PM EDT documented in this encounter Patient Instructions * Patient Instructions* Roberta Mart RN - 11/08/2018 3:30 PM EDT You were given written and verbal preoperative instructions today. Patient was advised to: 2 weeks prior to surgery: Stop taking aspirin & ibuprofen type products, Stop vitamin E, Garlic supplements, Ginseng, Fish oil tablets, Ginkgo and Tahoma's Wort. May resume 48 hours after surgery, Stop taking Tamoxifen and Estrogen and remain off these products for 2 weeks after surgery and Notify the doctor that has prescribed this medication that you have been requested to stop this medication 3 days before surgery: Do not shave near your surgical site 1 day before surgery: Shower the night before and the morning of your surgery using an antibacterial soap (Dial or Lever 2000) or Hibiclens that was provided Photos Taken: Yes with iPad To prepare for your upcoming surgery, please review the Pre-Operative Instruction brochure that youwere given at today's appointment. Feel free to call our office [phone] if you have any nursingquestions or concerns. We monitor the phones from 8-5 Monday through Monday. Expect a call from the Same Day Dept the business day before surgery to go over your list of medications and instruct you on arrival time, and when to stop eating and drinking. For questions pertaining to your surgery date or time please call Andreea at [phone]. Nasal carriage of Staphylococcus aureus including methicillin-resistant S. aureus (MRSA) is associated with an increased risk for postoperative staphylococcal infection. Studies have shown that eliminating this germ from your nose prior to surgery may reduce your risk of developing a surgical site infection. For that reason, your provider has recommended the following preventative measure: Directions for Nasal Mupirocin 2% (Bactroban) Beginning five (5) days before your surgery, applyointment to both nostrils twice daily: 1) Wash your hands thoroughly with soap and water. 2) Apply a dab (approximately the size of a large pea) of medication to the finger tip. 3) Place the dab of medication inside your nostril and gently massage until absorbed. 4) Repeat in the other nostril. Log Chart Date of Surgery: Mupirocin Start Date: AM: Day 1 Day 2 Day 3 Day 4 Day 5 PM: Day 1 Day 2 Day 3 Day 4 Day 5 documented in this encounter Progress Notes * Pardeep Quan MD - 11/08/2018 3:30 PM EDT Plastic Surgery Consultation Note Pardeep Quan MD PCP: Shonda Garcia MD Date of surgery: 08/09/16 Procedure(s): Left capsulotomy ?? Date of surgery: 10/20/15 ??Procedure(s): Bilateral breast augmentation s/p left lumpectomy and radiation (300 cc saline smooth round moderate plus saline??implants placed and filled to 325 cc.) ??Complications: None reported CC: Complication of breast implants HPI: Shannen Nobles is a 53 y.o. woman seen in our office today for evaluation of her breast implants. She arrives unaccompanied for today's visit She previously underwent a breast reconstruction s/p lumpectomy by Dr. Carlisle 10/20/15 and a capsulotomy 08/09/16. The reconstruction was done by using 300 cc saline smooth round moderate plus implants and filled to 325cc implants. The patient has a history of malignant neoplasm of upper-outer quadrant, and estrogen receptor positive of the left breast. The patient appreciates deflation in her left breast that has gradually increased this past weekend 10/27/18. She is unaware of any occurrence that may have impacted the implant. Her last mammogram was March, followed up with ultrasound and the patient reports everything was ok. The patient denies smoking, consuming alcohol and use of other drugs. 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 Pertinent findings to emphasize are: PLASTICS BREAST QUESTIONS 03/13/2015 Shoulder pain? None of the time Difficulty sleeping because of discomfort in your breast area? None of the time Neck pain? None of the time Arm pain? None of the time ROS: HEENT, GI, /Renal, Psych, Card, Pulm, Endo, Heme, Immun, Neuro: negative Examination: Ht 167.6 cm (5' 6) Wt 60.3 kg (133 lb) BMI 21.47 kg/m?? Healthy looking woman in no acute distress who asked appropriate questions throughout the consultation. Clear volume loss on left compared to right Palpable ruptured implant on the left. IMF incision bilaterally. There is some changes of the skin and parenchyma associated with radiation on the left. Impression: Bilateral breast implants, 3 years old, with asymmetry secondary to capsular contracture on left compared to right. Ms. Nobles and I spent the majority of this visit discussing her concerns and her options. I do believe she has a ruptured implant that has caused a significant volume loss in the left implant. I explained the nature in which implants can fail due to an injury or a routine mammogram. We discussed that due to her prior radiation treatment for breast cancer the volume defecit she appreciates would need to be surgically intervened as soon as possible to avoid skin retraction. The patient would like to replace the compromised implant with another similar saline implant. We talked about the risks of surgery including infection, bleeding, need for drains, seroma, delayed healing, implant failure, and interference with mammography. We discussed GEOVANNA-ALCL risk associated with implants. Following surgery the patient would need to have 2-3 weeks off of vigorous activityfor optimal healing. The patient is understanding and would like to proceed with scheduling surgery. Plan: Schedule Surgery JUAN M Surgical Grid: Surgeon: Pardeep Quan Duration: 90 mins Timeframe: JUAN M due to radiation of skin and possible skin retraction Coordinated with: None Procedure: Removal of ruptured implant and replacement CPT: 51852, 39654, 76976 Surgical site: Breast Side: Left Anesthesia: General Follow up: 7-10 Days PAT: No Implants needed: x2 Smooth Round Moderate Plus Profile Saline Volume Diameter Projection Catalog # Sizer 300 + 60 cc 11.5 cm 4.3 cm 350-2300 [id number] 325 + 65 cc 11.9 cm 4.4 cm 350-2325 [id number] I, Viktoriya Bailey, have performed the documentation for this encounter in the presence of and acting as a scribe for PARDEEP QUAN MD. I performed the services which were documented by the scribe, and I agree with the accuracy of the documentation in this encounter. PARDEEP QUAN MD documented in this encounter Plan of Treatment Upcoming Encounters Date Type Department Care Team (Late st Contact Info) Description 09/03/2024 3:30 PM EDT Office Visit Dermatology at [facility] [address] [place] [address] Miladys Gordon MD [facility] DR [place] [address] documented as of this encounter Visit Diagnoses Diagnosis S/P breast augmentation Breast replaced by other means documented in this encounter Care Teams Maid Supervisor Relationship Specialty Start Date End Date Shonda Garcia MD [facility] ETHAN DALE [facility] [address] [place] [address] PCP - General 04/27/10 documented as of this encounter
--- OUTSIDE RECORDS SUMMARY | 2024-05-17 21:13 | XMS_ITS | Encounter Summary ---
Author Organization [facility] [place] [address] Care Team Providers Care Seat Coverer Name Role Phone Shonda Garcia MD Primary Care Provider [phone] Reason for Visit * Reason Comments Skin Check Encounter Details Date Type Department Care Team (Late st Contact Info) Description 11/21/2016 2:15 PM EDT Office Visit Dermatology at [facility] [address] [place] [address] Dulce Markham MD [facility] [address] [place] [address] Skin exam, screening for cancer; Multiple benign nevi; Atopic dermatitis, unspecified type Social History Tobacco [...] on file documented as of this encounter Patient Instructions * Patient Instructions* Za Osborne - 11/21/2016 2:15 PM EDT Plan for Shannen: Atopic Dermatitis: - Start Rx: Eucrisa ointment twice daily as needed for maintenance. - Continue triamcinolone 0.1% ointment twice daily as needed. For recurrences, okay to use up to 14days total per month. - Continue sensitive skin care: Dove fragrance free bar soap (armpits, groin, and feet only), Cerave cream/Vanicream daily moisturizer within a few minutes of getting out of shower, lukewarm showers - Recommend daily face lotion spf 15-30 (Sravanthiave ISABELLA, [place], Kya) Caring for Your Skin Sun Protection Exposure to ultraviolet (UV) light--from the sun or tanning beds--is the most common modifiable risk factor for skin cancer. In fact, most skin cancers are found in locations where sun exposure is highest (e.g., face, ears, and hands). Furthermore, UV exposure is associated with skin aging, including wrinkles, brown spots, and leathery skin. Recommendations ?? Generously apply a broad-spectrum water-resistant sunscreen with a Sun Protection Factor (SPF) of 30 or more to all exposed skin. ?? Reapply sunscreen every 2 hours, even on cloudy days, and after swimming or sweating. ?? Preferred sunscreens: Sunscreens work by either forming a physical or a chemical barrier to ultraviolet light. Zinc oxide or Titanium dioxide are physical barriers to the sun. We recommend sunscreens that contain at least one physical barrier. Look for these brands: Neutrogena, Blue Lizard, [place] Baby, Jesus Laird MD, Frida banegas spf 45 very emollient sport (blue bottle) ?? Wear protective clothing. Long-sleeved shirts, pants, a wide-brimmed hat and sunglasses are all excellent choices. Some companies produce great, breathable SPF clothing (Coolibar, LL Benson, Monday Afternoon) ?? Seek shade. The sun's rays are strongest between 10a.m. And 4 p.m. ?? Recommend daily face lotion spf 15-30 (Cerave AMWileyo, Cotz) Skin Cancer screening The incidence of skin cancer has increased dramatically in the past 20 years. The most common skin cancer types include basal cell carcinoma and squamous cell carcinoma. These often look like new moles, and they might be tender, scaly, or prone to bleeding. The most deadly form of skin cancer is melanoma, and it can affect people of all ages and skin types. Recommendations ?? We recommend performing a skin self-examination monthly to become familiar with your moles. Thiswill help you to detect new or changing moles earlier. ?? Remember the ABCDE's of melanoma: ?? Asymmetry - Melanoma tends to grow in an asymmetric (uneven) fashion ?? Border - The border in melanoma tends to be uneven or jagged ?? Color - Melanomas often have different colors (e.g., dark brown, black, red) ?? Diameter - Look for moles that are larger than 0.6 cm (the size of a pencil eraser) ?? Evolution - This is perhaps the most important feature. Any mole that is rapidly growing or changing should be evaluated. If you have any questions, please call [phone]. documented in this encounter Progress Notes * Dulce Markham MD - 11/21/2016 2:15 PM EDT DERMATOLOGY - ESTABLISHED PATIENT NOTE Date of service: 11/21/2016 Shannen Nobles : 1965 CC: Full skin exam HPI: Shannen Nobles is a 51 y.o. established patient, last seen by on 03/04/16. Here today with the following concerns: - Patient is here for a full skin exam. Patient is concerned with a spot on the right dorsal hand and the left dorsal foot. Patient states that she has had these for about 30 years. Eczema follow up: - Saw Dr. Murphy in the Fall who mentioned follow-up after June for a new atopic dermatitis drug. - Uses triamcinolone and protopic. Vanicream as a moisturizer. Does not like protopic as it causes milia cysts on the cheeks. Triam works better as well. Still feels oral antifungal was the most helpful treatment - No allergy to propylene glycol Last FSE: never Current sun protection: Spf 70+ Relevant Medical History: Preferred name: Shannen Skin type: 2 Yes/No If yes (date, subtype, location, treatment) Melanoma no Dysplastic nevi no SCC no BCC no [place] no Eczema/Psoriasis yes Eczema - face Immunosuppression or Malignancy yes 2015, Breast Cancer, s/p radiation History of blistering sunburn yes Other Procedure Screening Questions: Yes/No If Yes, details Defibrillator/Pacemaker no Artificial Joints no Heart Valves no Blood Thinners no Prophylactic Antibiotics no Best way to reach with results Home Ok to leave a detailed message Relevant FamilyHistory: Yes/No If yes, who (mom/dad/sibling/child) Melanoma no SCC ? Father BCC ? 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 Latex Rash ??? Amoxicillin Trihydrate ??? Thiuram Analogues Dermatitis Review of Systems: - General: Feels well. - Skin: No other skin concerns. Examination: - Constitutional: Patient was alert, well-appearing and in no noticeable distress. - Skin exam: The patient was asked to disrobe to the level of their comfort. Full skin examination of the scalp, hair, head, face, neck, back, chest, abdomen, right and left upper extremities, right and left lower extremities and buttocks was normal with the exception of the findings listed below. Notable findings/Assessment/Plan: 1. Atopic Dermatitis - Right earlobe, chin, NLF, right inferior buttock: patches of erythema with scaling and slight lichenification - Start Rx: Eucrisa ointment BID as needed for maintenance. - Continue triamcinolone 0.1% ointment BID as needed for flares. For recurrences, okay to use up to7 days on face total per month. Discussed side effects of chronic steroid use including skin thinning, telangiectasias, acne, striae. - If not improved, will consider ketoconazole 2% cream as oral antifungals helped in the past - Continue sensitive skin care: Dove fragrance free bar soap (folds/feet only), Cerave cream/Vanicream/Aveeno daily moisturizer within a few minutes of getting out of shower, lukewarm showers 2. Benign nevi - Scattered medium brown macules and papules on the trunk and extremities with reassuring pigment pattern on dermoscopy. - Reassured of benign appearance on exam today. - Reviewed ABCDEs of melanoma and sun protection RTC: 2 months to follow up on eucrisa or PRN if symptoms worsen or persist. Note initiated by Cyndie Rg CMA. Za Osborne has performed the documentation for this encounter in the presence of and acting asa scribe for Dr. Markham. I performed the above scribed service and agree with the accuracy of the documentation in this encounter. Reviewed and signed by: Dulce Markham MD Dermatology [facility] documented in this encounter Plan of Treatment Upcoming Encounters Date Type Department Care Team (Late st Contact Info) Description 09/03/2024 3:30 PM EDT Office Visit Dermatology at [facility] [address] [place] [address] Miladys Gordon MD [facility] DR MY[place] [address] documented as of this encounter Visit Diagnoses Diagnosis Skin exam, screening for cancer Screening for malignant neoplasm of the skin Multiple benign nevi Benign neoplasm of skin, site unspecified Atopic dermatitis, unspecified type documented in this encounter Care Teams Seat Coverer Relationship Specialty Start Date End Date Shonda Garcia MD [address] [place] [address] [address] [place] [address] PCP - General 04/27/10 documented as of this encounter
--- OUTSIDE RECORDS SUMMARY | 2024-05-17 21:13 | XMS_ITS | Encounter Summary ---
[place] [address] Care Team Providers Care Continuous Improvement Black Belt Name Role Phone Shonda Garcia MD Primary Care Provider [phone] Reason for Visit * Reason Comments Follow Up Surgery breast band concerns Encounter Details Date Type Department Care Team (Latest Contact Info) Description 09/05/2016 2:00 PM EDT Clinical [place] [address] Surgery follow-up Social History Tobacco Use Types Packs/Day [...] this encounter Patient Instructions * Patient Instructions* Lisbet Ko RN - 09/05/2016 2:00 PM EDT Modify breast band for comfort under your arms. You may wear a thin layer of fabric under the band to protect your skin. Continue to do breast implant massage. Follow up with Dr. De Anda in November or sooner if you have any problems. Please call our office if you have any questions or concerns. The nurses line: [phone] Monday through Monday 8 - 5 The secretaries line: [phone] For emergencies at night or on the weekend: Call the main hospital number [phone] and ask for the Plastic Surgeon child nutrition manager. documented in this encounter Progress Notes * Lisbet Ko RN - 09/05/2016 2:00 PM EDT Shannen presents today for NSO visit to check application of breast band. She has discomfort under her left arm from the band being too tight. We discussed modifying the band by cutting under the arm to allow for movement. Skin integrity intact. Incision line appears dry and intact. No evidence of swelling or bruising. She will follow up in November with Dr. De Anda but call us if she has any further questions. documented in this encounter Plan of Treatment Upcoming Encounters Date Type Department Care Team (Late st Contact Info) Description 09/03/2024 3:30 PM EDT Office Visit Dermatology at [facility] [address] [place] [address] Miladys Gordon MD [facility] DR MYESHA [place] [address] documented as of this encounter Visit Diagnoses Diagnosis Surgery follow-up Follow-up examination, following unspecified surgery documented in this encounter Care Teams Continuous Improvement Black Belt Relationship Specialty Start Date End Date Shonda Garcia MD [facility] [address] [place] [address] PCP - General 04/27/10 documented as of this encounter
--- OUTSIDE RECORDS SUMMARY | 2024-05-17 21:13 | XMS_ITS | Encounter Summary ---
Author Organization [facility] [place] [address] Care Team Providers Care Neon Sign Servicer Name Role Phone Shonda Garcia MD Primary Care Provider [phone] Encounter Details Date Type Department Care Team (Late st Contact Info) Description 05/03/2018 8:45 AM EST Office Visit Hematology/Oncology at [address] [address] Tonya Santillan, PHARMACISTS [address] [facility] [place] [address] Malignant neoplasm of lower-outer quadrant of left [...] Sign Reading Time Taken Comments Blood Pressure 101/63 05/03/2018 8:51 AM EST Pulse 73 05/03/2018 8:51 AM EST Temperature 36.8 ??C (98.2 ??F) 05/03/2018 8:51 AM ES T Respiratory Rate 16 05/03/2018 8:51 AM EST Oxygen Saturation 100% 05/03/2018 8:51 AM EST Inhaled Oxygen Concentration - - Weight 59.9 kg (132 lb) 05/03/2018 8:51 AM EST Height 165.8 cm (5' 5.28) 05/03/2018 8:51 AM ES T Body Mass Index 21.78 05/03/2018 8:51 AM EST documented in this encounter Progress Notes * Tonya Santillan, PHARMACISTS - 05/03/2018 8:45 AM EST Images from the original note were not included. Diagnosis: Left breast IDC 0.5 cm, low grade, ER+/PA+, Her-2 unamplified Stage Ia, s/p lumpectomy and sentinellymph node biopsy 07/14/14 followed by XRT Upper/Outer left breast location Subjective: Shannen comes in today for follow-up on her breast cancer. She states she found a new lump and is concerned. She is continuing to take her tamoxifen as directed and not having any problems. Past medical history and social history are reviewed. She is doing well overall. Current Outpatient Medications on File Prior to [...] prior to visit. Review of Systems Constitution: Negative. HENT: Negative. Cardiovascular: Negative. Respiratory: Negative. Skin: Negative. Musculoskeletal: Negative. Gastrointestinal: Negative. Genitourinary: Negative. Neurological: Negative. Psychiatric/Behavioral: Negative. BP 101/63 (Patient Position: Sitting) Pulse 73 Temp 36.8 ??C (98.2 ??F) (Oral) Resp 16 Ht 165.8 cm (5' 5.28) Wt 59.9 kg (132 lb) SpO2 100% BMI 21.78 kg/m?? Wt Readings from Last 3 Encounters: 05/03/18 59.9 kg (132 lb) 01/16/18 59 kg (130 lb) 07/06/17 57.2 kg (126 lb) Physical Exam Constitutional: She is oriented to person, place, and time. She appears well- developed and well-nourished. HENT: Head: Normocephalic. Eyes: Conjunctivae are normal. Pupils are equal, round, and reactive to light. No scleral icterus. Neck: Normal range of [...] scarring vs .3-4mm nodule. Breasts are symmetrical. Abdominal: Soft. She exhibits no distension and no mass. There is no tenderness. There is no guarding. Musculoskeletal: Normal range of motion. She exhibits no edema. Lymphadenopathy: She has no cervical adenopathy. Neurological: She is alert and oriented to person, place, and time. Skin: Skin is warm and dry. Psychiatric: She has a normal mood and affect. Her behavior is normal. Mammograms 03/19/18 CONCLUSION: No mammographic evidence of malignancy. Bone Density test reportedly fine but I do not have a copy of this. Assessment/plan: Shannen is doing well and has no evidence of recurrent breast cancer now nearly 4 years out. She is at very low risk for recurrence. She is tolerating tamoxifen well and plans will be to leave her on a carlos for 10 -15 yrs. she has had breast augmentation which makes it physical exam somewhat difficult however there is abnormal tissue that may be either fibroglandular or scarring versus a nodulein her left breast just above the scar. Given her history and the fact that they did not see her initial malignancy on mammogram I will have her get an ultrasound done at [facility] to rule out an area of concern. Assuming there are no abnormalities I will plan to see her back in clinic in 6 months time with labs for her normal follow-up. Tonya Santillan, MSN, [employer], AOCN Hematology/Oncology Nurse Practitioner [place], [place] [phone] documented in this encounter Plan of Treatment Upcoming Encounters Date Type Department Care Team (Late st Contact Info) Description 09/03/2024 3:30 PM EDT Office Visit Dermatology at [facility] [address] [place] [address] Miladys Gordon MD [facility] DR MYESHA [place] [address] documented as of this encounter Results * US Breast Limited Left (05/10/2018 10:10 AM EST) Anatomical Region Laterality Modality Breast Left Mammography Impressions 05/10/2018 11:33 AM EST No sonographic evidence of malignancy with attention to the LEFT breast upper outer quadrant within the provider palpated region of interest.. RECOMMENDATION: Clinical follow-up. Continued annual screening. BI-RADS Category 2: Benign Findings * ??[employer] and The Society of [...] left breast in female, estrogen receptor positive Malignant neoplasm of lower-outer quadrant of left breast of female, estrogen receptor positive Malignant neoplasm of upper-outer quadrant of left breast in female, estrogen receptor positive documented in this encounter Care Teams Neon Sign Servicer Relationship Specialty Start Date End Date Shonda Garcia MD [facility] [address] [place] [address] PCP - General 04/27/10 documented as of this encounter
--- OUTSIDE RECORDS SUMMARY | 2024-05-17 21:13 | XMS_ITS | Encounter Summary ---
Author Organization [facility] [place] [address] Care Team Providers Care Family Nurse Practitioner Name Role Phone Shonda Garcia MD Primary Care Provider [phone] Reason for Visit * Reason Onset Date Comments Medication Refill 02/03/2017 Encounter Details Date Type Department Care Team (Late st Contact Info) Description 02/03/2017 Refill Hematology/Oncology at [address] [address] Taz Santoro MD [address] [place] [address] [phone] Social History Tobacco Use Types Packs/Day Years [...] EDT Office Visit Dermatology at [facility] [place] [address] [place] [phone] Miladys Gordon MD [facility] [address] MYES[place] [address] documented as of this encounter Visit Diagnoses Not on filedocumented in this encounter Care Teams Family Nurse Practitioner Relationship Specialty Start Date End Date Shonda Garcia MD [address] [place] [address] PCP - General 04/27/10 documented as of this encounter
--- OUTSIDE RECORDS SUMMARY | 2024-05-17 21:13 | XMS_ITS | Encounter Summary ---
Author Organization [facility] [place] [address] Care Team Providers Care Plant Operations Engineer Name Role Phone Shonda Garcia MD Primary Care Provider [phone] Reason for Visit * Auth/Cert Specialty Diagnoses / Procedures Referred By Ameyaac t Referred To Contact Diagnoses RUPTURED IMPLANT [...] Expiration Date Visits Re quested Visits Authorized [id number] 1 1 Encounter Details Date Type Department Care Team (Late st Contact Info) Description 11/14/2018 10:43 AM EDT Anesthesia Event [place] [address] Lonnie Carrera MD [facility] DR [place] [address] Arabella Chapman MD [facility] [place] [address] Anesthesia Record Procedure Summary Procedure Name Responsible Anesthesiologist Anesthesia Start Time Anesthesia Stop Time REMOVAL OF MAMMARY IMPLANT MATERIAL (WRVU 9) (Left: Breast) Lonnie Carrera MD 11/14/18 1043 11/14/18 1201 Events Date Time Event Comment 11/14/2018 1031 1043 Start 1046 AN Verify 1046 An Start Data 1047 An Induction 1050 An Intubation 1052 Anesthesia Ready 1103 an joy now TIME OUT DONE L OCAL PER SURGEON. 1151 Extubation/LMA Out 1152 an stop data 1201 Recovery or ICU Handoff [place] ent care was transferred to the destination unit staff after review of the patient's medical history, current anesthetic/surgical status and plan, according to the Provider Handoff Checklist. 1201 Stop Meds Name Total Midazolam 2 mg fentaNYL 50 mcg IV Lidocaine 50 mg Propofol 170 mg Propofol INF 112.1 mg Dexmedetomidine 4 mcg Dexamethasone 8 mg Ondansetron 8 mg ePHEDrine 15 mg clindamycin (CLEOCIN) injection 600 mg 6 00 mg lactated ringers infusion 1,000 mL * Agents Name O2 Air N2O Sevoflurane (et) * Blood No blood administrations on file. Lines, Drains, and Airways Type Details Placement Removal (RETIRED) Peripheral IV Line - Single Lumen 11/14/18; 1035; metacarpal vein (top of hand), right; [id number]-izjbyp catheter system; 22 gauge, 1 in length; distraction, intradermal injection, tolerated well; 0; 11/14/18; 1252 11/14/18 1035 by Tatiana Houser RN 11/14/18 1252 by Maddie Rodriguez Supraglottic Mask Ventilation: Ea sy (1); LMA Type: iGel; LMA Size: 3; Inserted by: Neida Luong; Removal Date: 11/14/18; Removal Time: 1151 11/14/18 1050 by Yumiko Carrasquillo CRNA 11/14/18 1151 by Yumiko Carrasquillo CRNA Incision 11/14/18; 1105; rj st; 01/31/22 (LDA cleanup utility RA#[id number]); 1715 (LDA cleanup utility RA#[id number]) 11/14/18 1105 by Angela Tavarez RN 01/31/22 1715 by Rich De Luna documented in this encounter Social History Tobacco [...] OR Notes * Anesthesia Postprocedure Evaluation - Lonnie Carrera MD - 11/14/2018 12:19 PM EDT Department of Anesthesiology Post-procedure Note Patient: Shannen Nobles Procedure Summary Date: 11/14/18 Room / Location: [address] Anesthesia Start: 1043 Anesthesia Stop: 1201 Procedures: REMOVAL OF MAMMARY IMPLANT MATERIAL (WRVU 8.54) (Left Breast) DELAYED INSERTION OF BREAST PROSTHESIS FOLLOWING MASTOPEXY, MASTECTOMY, OR IN RECONSTRUCTION (WRVU 12.63) (Left Breast) AUGMENTATION MAMMOPLASTY, UNILATERAL (WRVU 8.64) (Left Breast) Diagnosis: (RUPTURED IMPLANT AND REPLACEMENT) Surgeon: Pardeep Lund MD Responsible Provider: Lonnie Carrera MD Anesthesia Type: general ASA Status: 2 All Anesthesia Providers: Anesthesiologist: Lonnie Carrera MD R D INTERNSHIP: Yumiko Carrasquillo CRNA Vitals Value Taken Time BP 112/65 11/14/2018 12:10 PM Temp Pulse 74 11/14/2018 12:10 PM Resp 16 11/14/2018 12:10 PM SpO2 100 % 11/14/2018 12:10 PM Pain Level Patient Location: PACU/[facility] Level of Consciousness: Awake and Alert Pain Management: Satisfactory Analgesia PONV: None Cardiovascular Status: At Baseline Respiratory Status: At Baseline Postoperative Fluid Status: Intravascular EUvolemia Possible Anesthetic Complications: NONE apparent at time of evaluation Final Primary Anesthesia Type: General (The anesthetic type performed was the same as planned.) Comments: I have evaluated the patient in the postoperative period. The patient has no major complaints and there are no serious complications evident. * Anesthesia Preprocedure Evaluation - Lonnie Carrera MD - 11/14/2018 10:30 AM EDT Pre-Anesthesia Evaluation for: Shannen Nobles a 53 y.o. female. Procedure(s): REMOVAL OF MAMMARY IMPLANT MATERIAL (WRVU 8.54) DELAYED INSERTION OF BREAST PROSTHESIS FOLLOWING MASTOPEXY, MASTECTOMY, OR IN RECONSTRUCTION (WRVU 12.63) AUGMENTATION MAMMOPLASTY, UNILATERAL (WRVU 8.64) Patient Active Problem List Diagnosis ??? Malignant neoplasm of upper-outer quadrant of left breast in female, estrogen receptor positive ??? S/P breast reconstruction, left ??? S/P lumpectomy, left breast Past Medical History: Diagnosis Date [...] NODE(S) performed by Patricia Cast MD at [facility] ??? PRO ENLARGE BREAST WITH IMPLANT Bilateral 10/20/2015 AUGMENTATION MAMMOPLASTY, RICK performed by Cassie De Anda MD at [facility] ??? PRO IDENTIFY SENTINEL NODE Left 07/14/2014 SENTINEL NODE INJECTION performed by Patricia Cast MD at [facility] ??? PRO MASTECTOMY, PARTIAL Left 07/14/2014 MASTECTOMY PARTIAL performed by Patricia Cast MD at [facility] ??? PRO REVISE BREAST RECONSTRUCTION Left 08/09/2016 REVISION OF RECONSTRUCTED BREAST (WRVU 10.41) performed by Cassie De Anda MD at [facility] Social History Tobacco Use ??? Smoking status: Never Smoker ??? Smokeless tobacco: Never Used Substance Use Topics ??? Alcohol use: Yes Comment: very seldom, once a year Social History Substance and Sexual Activity Drug Use No Allergies Allergen Reactions ??? Latex Rash Latex balloon ??? Amoxicillin Trihydrate Rash ??? Thiuram Analogues Dermatitis Medications: MAR and/or home medications have been reviewed. Physical Exam: Most Recent Vitals: 11/14/18 0950 BP: 113/66 Pulse: 52 Resp: 18 Temp: 36 ??C (96.8 ??F) SpO2: 100% Body mass index is 20.98 kg/m??. Height: 167.6 cm (5' 6) Weight: 59 kg (130 lb) Airway Assessment: Mallampati: II TM distance: >3 FB Neck ROM: full Cardiovascular Assessment: Rhythm: regular Rate: normal Pulmonary Assessment: breath sounds clear to auscultation Dental Assessment: Misc Assessment: IV access: Peripheral line Anesthesia Plan: ASA 2 general, with a(n) intravenous induction I have seen and examined the patient. I have reviewed the medical record and pertinent laboratory information. I have noted her overall healthy status. I have reviewed risks from minor to major as outlined in the anesthesia consent form. I have highlighted risks related to airway management and perioperative opioid therapy. The patient was counseled regarding the dangers of opioid medications medications that may be prescribed including sedation and exacerbation of sleep apnea if present. The potential for addiction wasdiscussed and the need to stop use as soon as possible. It was recommended that she promptly destroy unused medication or take them back to drop box locations. She is aware that our care model is based on a team and I will be working with either a R D INTERNSHIP or resident physician. A resident physician means a physician who is in training to be an anesthesiologist. The patient acknowledged these risks and would like to proceed with the anesthesia plan. Balanced GA. Informed Consent: Anesthetic plan and risks discussed with patient. Plan discussed with R D INTERNSHIP. PAT Clinic Note documented in this encounter Plan of Treatment Upcoming Encounters Date Type Department Care Team (Late st Contact Info) Description 09/03/2024 3:30 PM EDT Office Visit Dermatology at [facility] [address] [place] [address] Miladys Gordon MD [facility] DR MYESHA [place] [address] documented as of this encounter Visit Diagnoses Not on filedocumented in this encounter Administered Medications Inactive Administered Medications - up to 3 most recent administrations Medication Order MAR Action Action Date Dose Rate Site clindamycin (CLEOCIN) injection 600 mg 600 mg, Intravenous, ONCE, 1 dose, On Mon11/14/18 at 1045, Day of Surgery (Day of Procedure), Routine, Indication for (Active or Suspected): Prophylaxis Given 11/14/2018 10:52 AM EDT 600 mg dexamethasone (DECADRON) injection PRN, Starting on Mon11/14/18 at 1056, Until Mon11/14/18 at 1201, Anesthesia Intra-op, Routine Given 11/14/2018 10:56 AM EDT 8 mg dexmedetomidine (PRECEDEX) injection PRN, Starting on Mon11/14/18 at 1051, Until Mon11/14/18 at 1201, Anesthesia Intra-op, Routine Given 11/14/2018 10:51 AM EDT 4 mcg ePHEDrine 5 mg/mL multi-dose injection PRN, Starting on Mon11/14/18 at 1104, Until Mon11/14/18 at 1201, Anesthesia Intra-op, Routine Given 11/14/2018 11:08 AM EDT 5 mg Given 11/14/2018 11:06 AM EDT 5 mg Given 11/14/2018 11:04 AM EDT 5 mg fentaNYL 50 mcg/mL multi-dose injection PRN, Starting on Mon11/14/18 at 1047, Until Mon11/14/18 at 1201, Anesthesia Intra-op, Routine Given 11/14/2018 10:58 AM EDT 25 mcg Given 11/14/2018 10:47 AM EDT 25 mcg lactated ringers infusion 1,000 mL, at 100 mL/hr, Intravenous, CONTINUOUS, Starting on Mon11/14/18 at 1030, Until Mon11/14/18 at 1318, Day of Surgery (Day of Procedure) New Bag 11/14/2018 10:37 AM EDT lidocaine (PF) (XYLOCAINE) 100 mg/5 mL (2 %) injection PRN, Starting on Mon11/14/18 at 1047, Until Mon11/14/18 at 1201, Anesthesia Intra-op, Routine Given 11/14/2018 10:47 AM EDT 50 mg midazolam (PF) (VERSED) multi-dose injection PRN, Starting on Mon11/14/18 at 1043, Until Mon11/14/18 at 1201, Anesthesia Intra-op, Routine Given 11/14/2018 10:43 AM EDT 2 mg ondansetron (ZOFRAN) injection PRN, Starting on Mon11/14/18 at 1056, Until Mon11/14/18 at 1201, Anesthesia Intra-op, Routine Given 11/14/2018 11:45 AM EDT 4 mg Given 11/14/2018 10:56 AM EDT 4 mg propofol (DIPRIVAN) 10 mg/mL bolus injection (Anesthesia) PRN, Starting on Mon11/14/18 at 1048, Until Mon11/14/18 at 1201, Anesthesia Intra-op Given 11/14/2018 11:33 AM EDT 30 mg Given 11/14/2018 10:48 AM EDT 140 mg propofol (DIPRIVAN) infusion CONTINUOUS PRN, Starting on Mon11/14/18 at 1052, Until Mon11/14/18 at 1201, Anesthesia Intra-op, Routine New Bag 11/14/2018 10:52 AM EDT 50 mcg/kg/min 17.7 mL/hr documented in this encounter Care Teams Plant Operations Engineer Relationship Specialty Start Date End Date Shonda Garcia MD [address] [place] [address] PCP - General 04/27/10 documented as of this encounter
--- OUTSIDE RECORDS SUMMARY | 2024-05-17 21:13 | XMS_ITS | Encounter Summary ---
Author Organization [facility] [place] [address] Care Team Providers Care Vp Analysis Name Role Phone Sohnda Garcia MD Primary Care Provider [phone] Reason for Visit * Reason Onset Date Comments Questions 10/24/2018 re: medication Encounter Details Date Type Department Care Team (Late st Contact Info) Description 10/24/2018 Telephone Hematology/Oncology at [address] [phone] Latesha Joyner, RN Questions (re: medication) Social History Tobacco Use Types Packs/Day Years [...] encounter Miscellaneous Notes * Telephone Encounter - Latesha Joyner RN - 10/24/2018 1:36 PM EDT LM for Shannen Nobles to return call to discuss. Reviewed with Sol Richardson APRN, okay to take sertraline and tamoxifen, there are no contraindications. 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 She would like to make sure it's okay to take with the Tamoxifen she currently takes before she fills the prescription? Please call her to let her know. Thanks documented in this encounter Plan of Treatment Upcoming Encounters Date Type Department Care Team (Late st Contact Info) Description 09/03/2024 3:30 PM EDT Office Visit Dermatology at [facility] [address] [place] [address] Miladys Gordon MD [facility] [place] [address] documented as of this encounter Visit Diagnoses Not on filedocumented in this encounter Care Teams Vp Analysis Relationship Specialty Start Date End Date Shonda Garcia MD [facility] [address] [place] [address] PCP - General 04/27/10 documented as of this encounter
--- OUTSIDE RECORDS SUMMARY | 2024-05-17 21:13 | XMS_ITS | Encounter Summary ---
Author Organization [facility] [place] [address] Care Team Providers Care Nursing Support Worker Name Role Phone Shonda Garcia MD Primary Care Provider [phone] Encounter Details Date Type Department Care Team (Late st Contact Info) Description 01/13/2017 Orders [place] [address] Alka Morse APRN [facility] [place] [address] Encounter for screening mammogram for malignant neoplasm of breast Social History Tobacco Use Types [...] Dermatology at [facility] [address] [place] [phone] Mialdys Gordon MD [facility] DR [place] [address] documented as of this encounter Results * Mammo Screening Cad and Guillaume with Implants Bilateral (04/03/2017 11:01 AM EDT) [...] BIRADS CATEGORY 2: BENIGN FINDINGS * ??The [place] [employer] and The Society of [...] malignant neoplasm of breast Other screening mammogram Encounter for screening mammogram for malignant neoplasm of breast Other screening mammogram documented in this encounter Care Teams Nursing Support Worker Relationship Specialty Start Date End Date Shonda Garcia MD [address] [place] [address] PCP - General 04/27/10 documented as of this encounter
--- OUTSIDE RECORDS SUMMARY | 2024-05-17 21:13 | XMS_ITS | Encounter Summary ---
[place] [address] Care Team Providers Care United [place] Marshal Name Role Phone Shonda Garcia MD Primary Care Provider [phone] Reason for Visit * Reason Comments Follow Up Surgery implant left, ashlyn s Encounter Details Date Type Department Care Team (Latest Contact Info) Description 11/19/2018 4:00 PM EDT Clinical [place] [phone] Postoperative follow-up Social History Tobacco Use Types [...] * Patient Instructions* Roberta Mart RN - 11/19/2018 4:00 PM EDT Signs of Infection : A temperature over 100.4 F or 38 C. Redness at the incision line that is beginning to spread away from the incision after the first 48 hours. Yellow pus-like or foul smelling drainage larger than a dime size from the incision or drain sites. Increased pain / discomfort that is not relieved by your pain medicine such as extra strength tylenol, or NSAIDS For any of these symptoms please call our nurse's line at [phone] M - F 8 - 5 For after hours, and on weekends; Call [phone] and ask for our plastic surgeon concrete pouring supervisor documented in this encounter Progress Notes * Roberta Mart RN - 11/19/2018 4:00 PM EDT Images from the original note were not included. Reason for Visit: Postoperative Evaluation s/p Case Date: 11/14/2018 ?? Surgeon: Surgeon(s) and Role: * Pardeep Lund MD - Primary * Anthony Olivo MD - Resident ?? Preoperative diagnosis: RUPTURED IMPLANT AND REPLACEMENT ?? Postoperative diagnosis: RUPTURED IMPLANT AND REPLACEMENT Shannen is here for an incision check due to concerns of redness to her left breast. Subjective: Shannen states she has no discomfort. Objective: Bruising: no Swelling: no Mild erythema to left breast. Temperature 98.4. Assessment: No signs of delayed healing or fluid collection.Incisions CDI. Dr. Lund in to assess patient. Area of erythema outlined. Plan: Patient instructed to call tomorrow with update. Shannen expressed understanding of instructions,and agrees with the plan of care. documented in this encounter Plan of Treatment Upcoming Encounters Date Type Department Care Team (Late st Contact Info) Description 09/03/2024 3:30 PM EDT Office Visit Dermatology at [address] [address] Miladys Gordon MD [facility] DR [address] [place] [address] documented as of this encounter Visit Diagnoses Diagnosis Postoperative follow-up Follow-up examination, following unspecified surgery documented in this encounter Care Teams United [place] Marshal Relationship Specialty Start Date End Date Shonda Garcia MD [address] [place] [address] PCP - General 04/27/10 documented as of this encounter
--- OUTSIDE RECORDS SUMMARY | 2024-05-17 21:13 | XMS_ITS | Encounter Summary ---
Author Organization [facility] [place] [address] Care Team Providers Care Chip Bin Conveyor Tender Name Role Phone Shonda Garcia MD Primary Care Provider [phone] Encounter Details Date Type Department Care Team (Late st Contact Info) Description 03/19/2018 10:52 AM EDT - 03/19/2018 11:59 PM EDT Hospital [place] [address] Alka Morse, FINANCIAL MANAGEMENT [facility] [place] [address] History of breast cancer Discharge Disposition: Home [...] 3:30 PM EDT Office Visit Dermatology at [facility] [address] [place] [address] Miladys Gordon MD [facility] DR MYESHA [place] [address] documented as of this encounter Procedures Procedure Name Priority Date/Time Associated Diagnosis Comments MAMMO SCREENING CAD AND PAUL WITH IMPLANTS BILATERAL Routine 03/19/2018 11:21 AM EDT History of breast cancer documented in this encounter Results * Mammo Screening Cad and Paul with Implants Bilateral (03/19/2018 11:21 AM EDT) Anatomical Region Laterality Modality Breast Bilateral Mammography Narrative 03/19/2018 11:34 AM EDT BILATERAL MAMMOGRAPHY REASON FOR EXAM: Screening TECHNIQUE: CC and MLO views were obtained of each breast using standard 2-D mammography as well as 3-D tomosynthesis. Computer aided detection was used. This is compared with prior images. FINDINGS: There are scattered areas of fibroglandular density. There are no suspicious microcalcifications, masses, or areas of distortion. Bilateral breast augmentation has been performed. ??The pattern is stable. CONCLUSION: No mammographic evidence of malignancy. RECOMMENDATION: The [place] [employer] and The Society of Breast Imaging recommend annual screening beginning at age 40 for the general female population. Screening should continue as long as a woman is in good health and is expected to live 10 more years or longer. All women should be familiar with the known benefits, limitations, and potential harms linked to breast cancer screening. They should also know how their breasts normally look and feel and report any breast changes to a health care provider right away. Some women - because of their family history, a genetic tendency, or certain other factors - should be screened with MRIs along with mammograms. (The number of women who fall into this category is very small.) The patient and health care provider should discuss the patient history and decide if earlier screening and breast MRI are appropriate. A result letter has been sent to this patient by the [facility]. BIRADS CATEGORY 1: NEGATIVE Alka Morse APRN IMG MAMMO ORDERA BLES documented in this encounter Visit Diagnoses Diagnosis History of breast cancer Personal history of malignant neoplasm of breast documented in this encounter Care Teams Chip Bin Conveyor Tender Relationship Specialty Start Date End Date Shonda Garcia MD [address] [place] [address] PCP - General 04/27/10 documented as of this encounter
--- OUTSIDE RECORDS SUMMARY | 2024-05-17 21:13 | XMS_ITS | Encounter Summary ---
Author Organization [facility] [place] [address] Care Team Providers Care Outdoor Studies Professor Name Role Phone Shonda Garcia MD Primary Care Provider [phone] Reason for Visit * Auth/Cert Specialty Diagnoses / Procedures Referred By Contnahomi t Referred To Contact Diagnoses Personal history of malignant neoplasm of breast Z85.3 - History of breast cancer Tentative DOS - 08/09/2016 CPT: 05605-iblj, [id number] Procedures PRO REVISE BREAST RECONSTRUCTION PRO SURGERY OF BREAST CAPSULE REVISION OF RECONSTRUCTED BREAST Referral ID Status Reason Start Date Expiration Date Visits Re quested Visits Authorized [id number] 1 1 Encounter Details Date Type Department Care Team (Latest Contact Info) Description 08/09/2016 11:43 AM EST - 08/09/2016 4:48 PM [facility] Hospital Encounter [place] [address] Cassie De Anda MD [facility] [place] [address] Discharge Disposition: Home Social History Tobacco Use [...] Sign Reading Time Taken Comments Blood Pressure 119/73 08/09/2016 4:00 PM EST Pulse 79 08/09/2016 4:00 PM EST Temperature 36.2 ??C (97.2 ??F) 08/09/2016 3:21 PM ES T Respiratory Rate 16 08/09/2016 3:50 PM EST Oxygen Saturation 100% 08/09/2016 4:00 PM EST Inhaled Oxygen Concentration - - [...] closest emergency room or call the hospital restrike hammer operator at [phone] and ask for physician seasonal driver covering for your physician. Questions or problems after 5pm or on a weekend: Call the [facility] restrike hammer operator at and ask for the physician seasonal driver covering for your doctor. At noon you [...] and only as needed. ??? Take an [id number]-[id number] stool softener, such as Colace while taking [...] about scheduling, please contact our administrative officesat [phone] For clinical questions, please call our nurses at [phone] Both offices are open Monday thru Monday 8a - 5p. With emergencies after hours, call the hospital restrike hammer operator at [phone] and ask for the Plastic Surgery Resident seasonal driver. Narcotics: You may be given a prescription [...] called in to our prescription line at [phone]. Narcotic renewals may be requested from 8am-4pm [...] 1:00 PM NURSE, PLASTIC SURGERY Aramis Arellano [address] [place] [address] CLIN documented in this encounter Medications at [...] 08/09/2016 2:07 PM EST [place]io[place] 03/29/2016 [place] Query Date 08/08/2016 [place] QUERY DATE: 08/09/16 Risk Assessment Category: Low Shannen Nobles is getting a prescription opioid for [...] chart. Subha Pemberton PA-C Plastic Surgery Pager [phone] documented in this encounter H&P Notes * [...] 9.17) Subha Pemberton PA-C Plastic Surgery Pager [phone] documented in this encounter Miscellaneous Notes * Op Note - Cassie De Anda MD - 08/09/2016 3:42 PM EST [facility] Operative Note Patient Name: Shannen Nobles : [id number] MR#: [id number] Case Date: 08/09/2016 Surgeon: Surgeon(s) and Role: [...] Operative Note Patient Name: Shannen Nobles : [id number] MR#: [id number] Case Date: 08/09/2016 Surgeon: Surgeon(s) and Role: [...] 3:30 PM EDT Office Visit Dermatology at [facility] [address] [place] [address] Miladys Gordon MD [facility] [address] [address] documented as of this encounter Procedures Procedure [...] Given 08/09/2016 12:09 PM EST 1,000 mg clindamycin (CLEOCIN) injection 600 mg 600 mg, [...] Surgery (Day of Procedure), Routine 1200 (Due)1214 (Pat h Applied - Provider: Nicehlle Lara RN)1215 (Due) Continuous Medication Order 08/07/2016 [...] Procedure) documented in this encounter Care Teams Outdoor Studies Professor Relationship Specialty Start Date End Date Shonda Garcia MD [address] [place] [address] PCP - General 04/27/10 documented as of this encounter
--- OUTSIDE RECORDS SUMMARY | 2024-05-17 21:13 | XMS_ITS | Encounter Summary ---
Author Organization [facility] [place] [address] Care Team Providers Care Undergraduate Internship Name Role Phone Shonda Garcia MD Primary Care Provider [phone] Reason for Visit * Auth/Cert Specialty Diagnoses [...] Expiration Date Visits Re quested Visits Authorized [id number] 1 1 Encounter Details Date Type Department Care Team (Latest Contact Info) Description 11/14/2018 9:16 AM EDT - 11/14/2018 1:25 PM EDT Hospital Encounter Outpatient [place] [address] Pardeep Quan MD [facility] [place] [address] Discharge Disposition: Home Social History Tobacco Use [...] encounter Discharge Instructions * Discharge Instructions* Tatiana Houser RN - 11/14/2018 10:27 AM EDT At [...] closest emergency room or call the hospital network control operators supervisor at [phone] and ask for physician onion tier covering for your physician. Questions or problems after 5pm or on a weekend: Call the [facility] network control operators supervisor at and ask for the physician onion tier covering for your doctor. * Patient Instructions* [...] about scheduling, please contact our administrative officesat [phone] For clinical questions, please call our nurses at [phone] Both offices are open Monday thru Monday 8a - 5p. With emergencies after hours, call the hospital network control operators supervisor at [phone] and ask for the Plastic Surgery Resident onion tier. Future Appointments Date Time Provider Department Center 11/21/2018 10:40 AM Sera Alvarez APRN [facility] [place] [facility] 01/15/2019 8:30 AM Ericka Richardson APRN [facility] [place] [facility] documented in this encounter Medications at [...] H&P CC: ruptured breast implant (left) S: Shannenjustine Nobles's condition is unchanged since H&P originally [...] NODE(S) performed by Patricia Cast MD at [facility] ??? PRO ENLARGE BREAST WITH IMPLANT Bilateral 10/20/2015 AUGMENTATION MAMMOPLASTY, RICK performed by Cassie De Anda MD at [facility] ??? PRO IDENTIFY SENTINEL NODE Left 07/14/2014 SENTINEL NODE INJECTION performed by Patricia Cast MD at [facility] ??? PRO MASTECTOMY, PARTIAL Left 07/14/2014 MASTECTOMY PARTIAL performed by Patricia Cast MD at [facility] ??? PRO REVISE BREAST RECONSTRUCTION Left 08/09/2016 REVISION OF RECONSTRUCTED BREAST (WRVU 10.41) performed by Cassie De Anda MD at [facility] Allergies Allergen Reactions ??? Latex Rash [...] Not on file Occupational History ??? 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 Financial [...] file Gets together: Not on file Attends faith service: Not on file Active member of [...] Quan MD - 11/14/2018 11:50 AM EDT [facility] Operative Note Patient Name: Shannen Nobles : [id number] MR#: [id number] Case Date: 11/14/2018 Surgeon: Surgeon(s) and Role: * Pardeep Quan MD - Primary * Powelson, Anthony A, MD - Resident Registered Nurse Votator Machine Operator: Almita Miller RN Preoperative diagnosis: RUPTURED IMPLANT [...] removed during surgery: Ruptured implant sent to sandwich board carrier. Drains: none Surgical Closure: Primary Closure - [...] Operative Note Patient Name: Shannen Nobles : [id number] MR#: [id number] Case Date: 11/14/2018 Surgeon: Surgeon(s) and Role: [...] 10:40 AM Sera Alvarez APRN [facility] [address] [place] [address] CLIN 01/15/2019 8:30 AM Ericka Richardson APRN [facility] documented in this encounter Plan of Treatment Upcoming Encounters Date Type Department Care Team (Late st Contact Info) Description 09/03/2024 3:30 PM EDT Office Visit Dermatology at [facility] [address] [place] [address] Miladys Gordon MD [facility] DR MYESHA [place] [address] documented as of this encounter Procedures Procedure [...] Given 11/14/2018 10:24 AM EDT 1,000 mg ibuprofen (ADVIL;MOTRIN) 200 mg tablet 1 dose, [...] at 1037, Until Mon11/14/18 at 1038, Tatiana Houser: cabinet override scopolamine (TRANSDERM-SCOP) 1 mg patch [...] Routine 1038 (Patch Applied - Provider: Tatiana Houser RN) scopolamine (TRANSDERM-SCOP) 1 mg patch Patch [...] Routine 1105 (Given - Provid er: Pardeep Quan MD) gentamicin (GARAMYCIN) injection (CANCELED) ONCE PRN, [...] at 1304, Until Mon11/14/18 at 1306, Maddie Rodriguez.: cabinet override 1306 (Given - Provid er: [...] patch documented in this encounter Care Teams Undergraduate Internship Relationship Specialty Start Date End Date Shonda Garcia MD [address] [place] [address] PCP - General 04/27/10 documented as of this encounter
--- OUTSIDE RECORDS SUMMARY | 2024-05-17 21:13 | XMS_ITS | Encounter Summary ---
Author Organization [facility] [place] [address] Care Team Providers Care Adjunct Mathematics Instructor Name Role Phone Shonda Garcia MD Primary Care Provider [phone] Reason for Visit * Reason Comments Follow Up Surgery left breast implant Encounter Details Date Type Department Care Team (Late st Contact Info) Description 11/21/2016 1:15 PM EDT Office [place] [address] Cassie De Anda MD [facility] [place] [address] S/P breast augmentation Social History Tobacco Use [...] this encounter Patient Instructions * Patient Instructions* Cassie De Anda MD - 11/21/2016 1:15 PM EDT 1. Follow up annually 2. Continue implant and scar massage documented in this encounter Progress Notes * Cassie De Anda MD - 11/21/2016 1:15 PM EDT Plastic Surgery Post Op Note Reason for visit: F/U status post procedure Date of surgery: 08/09/16 Procedure(s): Left capsulotomy Date of surgery: 10/20/15 ??Procedure(s): Bilateral breast augmentation s/p left lumpectomy and radiation (300 cc saline smooth round moderate plus saline implants placed and filled to 325 cc.) Complications: None reported Pain: 0/10 HPI: Pt reports that she has been well. She used a breast band regularly but has since discontinuedits use. She has been engaging in implant massage. She is pleased with the results of surgery compared to how her left breast previously looked. Examination: Patient is alert, conversant, comfortable, ambulating Incision: CDI, healing well. Implants in good position, soft. No collection, no erythema, no evidence of cellulitis. Impression: Shannen Nobles is a 51 y.o. female who was seen today for follow-up after the above procedure. Please see the operative note for details. She is doing well without complaints. We discussed that radiation may have contributed to the scarring of her left breast. I am happy with her overall results. I assured her that her scar will continue to soften and improve with time and more massage. We had an in depth conversation regarding the nursing home care of her implants. I explained that she should continue to massage her implants to prevent capsular contracture. Plan: 1. Follow up annually 2. Continue implant and scar massage. We discussed risks of radiation and capsular contracture and implant rupture. I, Elsa Sage, am acting as scribe for Dr. De Anda. All work documented was performed by Dr. De Anda. ???I performed the above scribed service and agree with the accuracy of the note?? CASSIE DE ANDA MD. documented in this encounter Plan of Treatment Upcoming Encounters Date Type Department Care Team (Late st Contact Info) Description 09/03/2024 3:30 PM EDT Office Visit Dermatology at [facility] [address] [place] [address] Miladys Gordon MD [facility] DR MYESHA [place] [address] documented as of this encounter Visit Diagnoses Diagnosis S/P breast augmentation Breast replaced by other means documented in this encounter Care Teams Adjunct Mathematics Instructor Relationship Specialty Start Date End Date Shonda Garcia MD [address] [place] [address] PCP - General 04/27/10 documented as of this encounter
--- OUTSIDE RECORDS SUMMARY | 2024-05-17 21:13 | XMS_ITS | Encounter Summary ---
Author [facility] [place] [address] Care Team Providers Care Sql Engineer Name Role Phone Shonda Garcia MD Primary Care Provider [phone] Reason for Visit * Reason Comments Advice Only rediscuss surgery Encounter Details Date Type Department Care Team (Late st Contact Info) Description 03/29/2016 11:00 AM EDT Office [place] [address] [facility] [place] [place] [address] S/P lumpectomy, left breast; S/P breast augmentation Social History Tobacco Use [...] - - Weight 60.3 kg (133 lb) 03/29/2016 9:39 AM EDT Height 165.8 cm (5' 5.28) 03/29/2016 9:39 AM ED T Body Mass Index 21.95 03/29/2016 9:39 AM EDT documented in this encounter Patient Instructions * Patient Instructions* Nilam Osborn RN - 03/29/2016 10:23 AM EDT -You were given written and verbal preoperative instructions today. To prepare for your upcoming surgery, please review the Pre-Operative Instruction brochure that youwere given at today's appointment. Feel free to call our office [phone] if you have any questions or concerns. We monitor the phones from 8-5 Monday through Monday. -Notify your doctor that you will be stopping tamoxifen for 2 weeks before and 2 weeks following surgery -Nasal carriage of Staphylococcus aureus including methicillin-resistant S. [...] Notes * Cassie De Anda MD - 03/29/2016 11:00 AM EDT Plastic Surgery Post Op Note Reason for visit: F/U status post procedure Date of surgery: 10/20/15 Procedure(s): Bilateral breast augmentation s/p left lumpectomy and radiation (300 cc saline smooth round moderate plus saline implants placed and filled to 325 cc.) Complications: None reported Pain: 0/10 HPI: Pt presents to discuss possibly lowering the left implant to better match the right. She wonders if surgery would be an option. She states that her is influencing her to consider the procedure. Examination: Patient is alert, conversant, comfortable, ambulating [...] female who was seen today for follow-up for bilateral breast augmentation with saline implants s/p left lumpectomy and radiation. She is doing well overall. Iexpressed my reluctance to revise her left breast given her history of prior radiation. I reviewed the effects of radiation on her breast pocket, and that she may expect asymmetries between her breasts to persist throughout her life. I stressed that her breasts will never appear completely symmetric. She understands this. I also advised her that she may experience healing and surgical complications secondary to radiation. I did discuss potentially elevating the implant through her prior incision by approximately 5mm. We discussed timing and technique of surgery in detail today. She would liketo proceed, and she accepts the risks involved. Risk, benefits, alternative, complications of the procedure to include anesthesia plan and recoverywere discussed with the patient and informed consent obtained. Plan: 1. Surgical scheduling 2. Continue implant massage until surgery 3. RTC sooner for any concerns or rupture Surgeon: Cassie De Anda Location: Main OR or [facility] Duration: 1 hour Timeframe: August Procedure: revision of reconstructed breast with left breast capsulotomy CPT: 56327, 86359 Surgical site: Breast Side: Left Anesthesia: General Follow up: 7-10 Days PAT: No Implants needed 2 each 300 + 60 cc 11.5 cm 4.3 cm [phone] Melissa Lancaster, am acting as scribe for Dr De Anda. All work documented was performed by Dr De Anda. ???I performed the above scribed service and agree with the accuracy of the note?? CASSIE DE ANDA MD * Nilam Osborn RN - 03/29/2016 11:00 AM EDT Pre-Op Teaching for Surgery Surgery: implant exchange, capsulotomy Written and verbal pre-operative instructions were given and reviewed with patient: Patient was advised to discontinue use of NSAIDS and aspirin products (unless otherwise advised by patient's PCP/Burlap Spreader for cardiac symptoms), fish oil, Vitamin E and herbal supplements for 14 days prior to surgery, to perform the pre-op scrub, and to coordinate a ride home following surgery. Smoking status and medications were further reviewed to rule out/address current use of Nicotine, Coumadin, Plavix, Estrogen or Tamoxifen. BActroban was given Photos were taken Patient was instructed to call the clinic at with any questions or concerns prior tosurgery. documented in this encounter Plan of Treatment Upcoming Encounters Date Type Department Care Team (Late st Contact Info) Description 09/03/2024 3:30 PM EDT Office Visit Dermatology at [address] [address] [facility] [place] [address] documented as of this encounter Procedures Procedure Name Priority Date/Time Associated Diagnosis Comments REVISION OF RECONSTRUCTED BREAST Routine 03/29/2016 10:10 AM EDT documented in this encounter Visit Diagnoses Diagnosis S/P lumpectomy, left breast Other postprocedural status S/P breast augmentation Breast replaced by other means documented in this encounter Care Teams Sql Engineer Relationship Specialty Start Date End Date Shonda Garcia MD [address] [place] [address] PCP - General 04/27/10 documented as of this encounter
--- OUTSIDE RECORDS SUMMARY | 2024-05-17 21:13 | XMS_ITS | Encounter Summary ---
Author Organization [facility] [place] [address] Care Team Providers Care Spray Machine Operator Name Role Phone Shonda Garcia MD Primary Care Provider [phone] Reason for Visit * Reason Comments Breast Cancer Encounter Details Date Type Department Care Team (Late st Contact Info) Description 01/16/2018 2:30 PM EDT Office Visit Hematology/Oncology at [address] [phone] Taz Santoro MD [address] [place] [address] Malignant neoplasm of upper-outer quadrant of [...] Sign Reading Time Taken Comments Blood Pressure 99/60 01/16/2018 3:07 PM EDT Pulse 66 01/16/2018 3:07 PM EDT Temperature 37.1 ??C (98.8 ??F) 01/16/2018 3:07 PM ED T Respiratory Rate 16 01/16/2018 3:07 PM EDT Oxygen Saturation 100% 01/16/2018 3:07 PM EDT Inhaled Oxygen Concentration - - Weight 59 kg (130 lb) 01/16/2018 3:07 PM EDT Height - - Body Mass Index 21.45 07/06/2017 2:40 PM EST documented in this encounter Progress Notes * Taz Santoro MD - 01/16/2018 2:30 PM EDT Diagnosis: Left breast IDC 0.5 cm, low grade, ER+/WA+, Her-2 unamplified Stage Ia, s/p lumpectomy and sentinellymph node biopsy 07/14/14 followed by XRT Upper/Outer left breast location Subjective: Shannen comes in today for her 3 1/2 year follow-up on her breast cancer. Past medical history and social history are [...] Neurological: Negative. Hematological: Negative for adenopathy. BP 99/60 (Patient Position: Sitting) Pulse 66 Temp 37.1 ??C (98.8 ??F) (Oral) Resp 16 Wt 59kg (130 lb) SpO2 100% BMI 21.45 kg/m2 Head: Normocephalic, without obvious abnormality, atraumatic [...] 39.6 and platelet count of 201,000 Assessment/plan: * Taz Santoro MD - 01/16/2018 2:30 PM EDT Diagnosis: Left breast IDC 0.5 cm, low grade, ER+/WA+, Her-2 unamplified Stage Ia, s/p lumpectomy and sentinellymph node biopsy 07/14/14 followed by XRT Upper/Outer left breast location Subjective: Shannen comes in today for her 3 1/2 year follow-up on her breast cancer. She is continuing to take her tamoxifen as directed and not having any problems with the medication. She is put on a little bit of weight and is a little bit more sedentary so we talked about keeping her exercise levels up andbit on weight loss. She is not having any breathing problems no bone pain no other difficulties. Since I last saw her she had a bone density study that showed no evidence of osteoporosis. Past medical history and social history are [...] Neurological: Negative. Hematological: Negative for adenopathy. BP 99/60 (Patient Position: Sitting) Pulse 66 Temp 37.1 ??C (98.8 ??F) (Oral) Resp 16 Wt 59kg (130 lb) SpO2 100% BMI 21.45 kg/m2 Head: Normocephalic, without obvious abnormality, atraumatic [...] no evidence of recurrent breast cancer now 31/2 years out. She is at very low risk for recurrence. She is tolerating tamoxifen well and plans will be to leave her on a carlos for at least 10 years if not 15. Long-term blockers are associated with a decrease incidence of second breast cancer 15 and 20 years later and in a younger age patient that makes some sense to consider. As expected her bone density was fine and she will get some benefit from remaining on the tamoxifen. She will continue on with her vitamin D and calcium. We will see her back in 6 months timewith lab. documented in this encounter Plan of Treatment Upcoming Encounters Date Type Department Care Team (Late st Contact Info) Description 09/03/2024 3:30 PM EDT Office Visit Dermatology at [facility] [address] [place] [address] Miladys Gordon MD [facility] [address] [place] [address] documented as of this encounter Procedures Procedure Name Priority Date/Time Associated Diagnosis Comments LAB SCAN 01/11/2018 12:00 AM EDT documented in this encounter Results * SCAN DOC: LAB (01/11/2018 12:00 AM EDT) Narrative 01/11/2018 12:00 AM EDT Ordered by an unspecified provider. Scanning Provider MEDIA MGR SCAN EXT O RDR/RSLT documented in this encounter Visit Diagnoses Diagnosis Malignant neoplasm of upper-outer quadrant of left breast in female, estrogen receptor positive documented in this encounter Care Teams Spray Machine Operator Relationship Specialty Start Date End Date Shonda Garcia MD [facility] [address] [place] [address] PCP - General 04/27/10 documented as of this encounter
--- OUTSIDE RECORDS SUMMARY | 2024-05-17 21:13 | XMS_ITS | Encounter Summary ---
Author Organization [facility] [place] [address] Care Team Providers Care Comber Setter Name Role Phone Shonda Garcia MD Primary Care Provider [phone] Encounter Details Date Type Department Care Team (Late st Contact Info) Description 08/10/2016 Orders Only [place] [address] Cassie De Anda MD [facility] [place] [address] Social History Tobacco Use Types Packs/Day Years [...] 3:30 PM EDT Office Visit Dermatology at [facility] [address] [place] [address] Miladys Gordon MD [facility] [address] [place] [address] documented as of this encounter Visit Diagnoses Not on filedocumented in this encounter Care Teams Comber Setter Relationship Specialty Start Date End Date Shonda Garcia MD [address] [place] [address] PCP - General 04/27/10 documented as of this encounter
--- OUTSIDE RECORDS SUMMARY | 2024-05-17 21:13 | XMS_ITS | Encounter Summary ---
Author Organization [facility] [place] [address] Care Team Providers Care Steam Turbine Operator Name Role Phone Shonda Garcia MD Primary Care Provider [phone] Reason for Visit * Reason Comments Medication Refill Encounter Details Date Type Department Care Team (Late Contact Info) Description 11/02/2016 Refill Hematology/Oncology at [address] [phone] Taz Santoro MD [address] [place] [phone] Malignant neoplasm of areola of left breast [...] 3:30 PM EDT Office Visit Dermatology at [facility] [address] [place] [phone] Miladys Gordon MD [facility] [address] [address] documented as of this encounter Visit Diagnoses Diagnosis Malignant neoplasm of areola of left breast in female documented in this encounter Care Teams Steam Turbine Operator Relationship Specialty Start Date End Date Shonda Garcia MD [address] [place] [address] PCP - General 04/27/10 documented as of this encounter
--- OUTSIDE RECORDS SUMMARY | 2024-05-17 21:13 | XMS_ITS | Encounter Summary ---
Author Organization [facility] [place] [address] Care Team Providers Care Cattle Care Worker Name Role Phone Shonda Garcia MD Primary Care Provider [phone] Reason for Visit * Reason Comments Radiation Follow-up breast cancer Encounter Details Date Type Department Care Team (Late st Contact Info) Description 07/06/2017 3:15 PM EST Office Visit Radiation Oncology at [address] [phone] Shruthi Russell, CONTRACT COORDINATOR [address] [place] [address] RADIATION ONCOLOGY [place], [place] [id number] Malignant neoplasm of left breast in female, estrogen receptor positive, unspecified site of breast Social History Tobacco [...] as of this encounter Progress Notes * Shruthi Russell APRN - 07/06/2017 3:15 PM EST Patient ID: Shannen Nobles is a 51 y.o. female with breast ca, L, IDC, low gr, ER+NC+, Dbd2zrs-, s/p lumpectomy & SNB, pT1a pN0, stage I. She was treated with adjuvant radiation therapy for a total dose of 60.4 Gy which was completed on 10/08/2014. She was started on Tamoxifen post radiation therapy. She is in clinic for scheduled follow-up. HPI 48 y/o f who palpated a mass in UOQ L breast. ?? 06/10/14 [facility] interp outside mmgs & US from 06/03/14: US visualized 5 mm mass @ 0200, correlatingw/palpable area of concern, equivocal on mmg. ? 06/23/14 US guided bx 5 mm L breast mass @ 0200. ?? Path: IDC. ER+NC+, Lyu7par-. ?? 06/27/14 CXR: No met dz. ? [...] Surgery Lumpectomy by Dr Cast Axillary Management [place] nodes alone Total Number of Nodes Removed [...] negative ER estrogen receptor Positive > 90% NC progesterone receptor Positive > 90% HER-2 negative First Adjuvant Endocrine Therapy Tamoxifen 11/03/2014 BRCA Testing negative for deleterious germline mutation BRCA Test Date 07/09/2014 Radiation Rosenbaum Whole breast with tangents Radiation Boost yes Total Dosage of Radiation 60.4 Gy --treatment was given from 08/25/2014 to 10/08/2014 Surveillance 03/04/2016- mammogram--no evidence of malignancy 04/03/2017- mammogram-- no evidence of malignancy Patient Active Problem List Diagnosis Code ??? Breast cancer, left breast C50.912 ??? S/P lumpectomy, left breast Z98.890 ??? S/P breast reconstruction, left Z98.890 ??? Malignant neoplasm of upper-outer quadrant of left breast in female, estrogen receptor hhcqdnznX69.412, Z17.0 Past Surgical History: Procedure Laterality Date ??? BREAST BIOPSY Left 06/2014 ??? BREAST ENHANCEMENT SURGERY Bilateral ??? BREAST LUMPECTOMY Left 07/2014 rad tx ??? NASAL SEPTUM SURGERY 2011 deviated septum ??? PRO BX/REMV, LYMPH NODE, DEEP AXILL Left 07/14/2014 BIOPSY OR EXCISION OF LYMPH NODE(S), OPEN, DEEP AXILLARY NODE(S) performed by Patricia Cast MD at [facility] ??? PRO ENLARGE BREAST WITH IMPLANT Bilateral 10/20/2015 AUGMENTATION MAMMOPLASTY, RICK performed by Cassie De Anda MD at [facility] ??? PRO IDENTIFY SENTINEL NODE Left 07/14/2014 SENTINEL NODE INJECTION performed by Patricia Cast MD at [facility] ??? PRO MASTECTOMY, PARTIAL Left 07/14/2014 MASTECTOMY PARTIAL performed by Patricia Cast MD at [facility] ??? PRO REVISE BREAST RECONSTRUCTION Left 08/09/2016 REVISION OF RECONSTRUCTED BREAST (WRVU 10.41) performed by Cassie De Anda MD at [facility] Allergies Allergen Reactions ??? Latex Rash ??? Amoxicillin Trihydrate ??? Thiuram Analogues Dermatitis Medications 07/06/17 1509 Medication Sig Taking? tamoxifen (NOLVADEX) 20 mg Tablet Take 1 tablet by mouth daily. crisaborole (EUCRISA) 2 % Ointment Apply to face BID for maintenance loratadine (CLARITIN) 10 mg Tablet Take 10 mg by mouth daily. pimecrolimus (ELIDEL) 1 % Cream Apply to the face BID. acetaminophen (TYLENOL) 500 mg Tablet Take 1,000 mg by mouth every 6 hours as needed for Pain. triamcinolone (KENALOG) 0.1 % Cream Apply topically on trunk for severe flair of eczema Fluocinolone Acetonide Oil 0.01 % Drops Reported on 07/04/2016 tacrolimus (PROTOPIC) 0.1 % Ointment Apply topically 2 times daily. To the face SPIRONOLACTONE ORAL Take 100 mg by mouth daily. Indications: Acneiform Eruption cholecalciferol, Vitamin D3, 400 unit tablet Take 1,000 Units by mouth daily. multivitamin (THERAGRAN) tablet Take 1 tablet by mouth daily. LEVALBUTEROL TARTRATE (XOPENEX HFA INHL) Inhale 2 puffs into the lungs every 4 hours as needed. Social history reviewed and updated Social Supports: Pt is to Dutch of 29 years. They have a 16 year old son. Pt's parents and her parents are local supports. She indicated they have good friends and neighbors. ?? Living Situation/Daily Activities/Transportation: Pt and manage their daily chores and activities. Pt does drive. No issues with transportation. She lives ~ 40 minutes from this facility. ?? 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 ? Advance Directives: Pt has not completed her advance directive. She does have the booklet/form at home. She wants her as her health care decision maker ?? Utilization of Community Resources:Pt receives primary care at the [facility]. ?? Adjustment to Illness/Mental Health Issues:patient reports doing well emotionally at this time. Interim History?Mrs Nobles reports that she is doing very well at this time. She had issues with chronic vaginal yeast infections and was seen by TOPOLOGY PROFESSOR at [facility] for this which was helpful. She has not had any recent issues. . She has had menses once since starting HINOJOSA and that was last November (2015) . She has tolerated the HINOJOSA well with no significant side effects. She reports no breast issues other than some increase in fullness in the inferior aspect of her left breast which she is managing with massage. She has no persistent cough, no chest tightness, no restriction in range of motion, no lymphedema, no skeletal pain. She is active and exercises regularly. ??Her PCP has ordered a bone density study due to her family history Her mood is positive. ?? Review of Systems Constitutional: Negative. Negative for activity change, appetite change, chills, diaphoresis, fatigue and unexpected weight change. Active and walks regularly HENT: Negative. Eyes: Negative for visual disturbance. Respiratory: Negative. Negative for chest tightness, shortness of breath and wheezing. Cardiovascular: Negative. Negative for chest pain. Gastrointestinal: Negative. Genitourinary: Negative. Last menses November 2015 + chronic vaginal yeast infections--appointment at [facility] next [facility] for consult Musculoskeletal: Negative. Skin: Negative. Neurological: Negative. Hematological: Negative. Psychiatric/Behavioral: Negative. Vitals Office Visit from 07/06/2017 in Hematology/Oncology at [facility] Weight 57.2 kg (126 lb) Height 165.8 cm (5' 5.28) [copied] BSA (Calculated - sq m) 1.62 sq meters BMI (Calculated) 20.79 Temp 36.4 ??C (97.5 ??F) Temp src Oral Heart Rate 64 Heart Rate Source Right, NIBP Resp 16 BP 102/66 BP Location Right arm Patient Position Sitting SpO2 100 % Karnofsky Score 100 KPS; 100 Objective: Physical Exam Constitutional: She is oriented [...] sounds are normal. She exhibits no distension. Musculoskeletal: Normal range of motion. She exhibits [...] Cosmetic Result: ___X__ Excellent; Good;____ Fair; ____Poor 04/03/2017- bilateral mammogram--CONCLUSION: No mammographic evidence of malignancy Results for SHANNEN NOBLES ( ) as of 07/06/2017 16:58 Ref. Range 06/30/2017 15:32 WBC Latest Ref Range: 4.0 - 9.5 x10(3)/mcL 6.9 RBC Latest Ref Range: 4.00 - 5.21 x10(6)/mcL 4.22 Hemoglobin Latest Ref Range: 11.7 - 15.5 gm/dL 13.2 Hematocrit Latest Ref Range: 35.7 - 45.8 % 39.6 MCV Latest Ref Range: 82.6 - 94.4 fL 93.8 MCH Latest Ref Range: 27.1 - 32.0 pg 31.3 MCHC Latest Ref Range: 31.7 - 35.0 gm/dL 33.3 RDWSD Latest Ref Range: 37.0 - 46.0 fL 45.2 RDWCV Latest Ref Range: 11.5 - 14.1 % 13.1 Platelets Latest Ref Range: 145 - 357 x10(3)/mcL 201 MPV Latest Ref Range: 7.6 - 12.9 fL 10.1 nRBC % Auto Latest Units: % 0.0 nRBC Abs Auto Latest Ref Range: 0.000 - 0.000 x10(3)/mcL 0.000 Neutr Abs (ANC) Latest Ref Range: 1.70 - 6.10 x10(3)/mcL 4.86 Neutrophils % Latest Units: % 70.7 Immature Gran % Latest Units: % 0.30 Lymphocytes % Latest Units: % 14.8 Monocytes % Latest Units: % 6.5 Eosinophils % Latest Units: % 6.7 Basophils % Latest Units: % 1.0 Leslie Gran Abs Latest Ref Range: 0.00 - 0.04 x10(3)/mcL 0.02 Lymphocytes Abs Latest Ref Range: 0.9 - 3.2 x10(3)/mcL 1.0 Monocyte Abs Latest Ref Range: 0.3 - 0.9 x10(3)/mcL 0.4 Eosinophils Abs Latest Ref Range: 0.0 - 0.4 x10(3)/mcL 0.5 (H) Basophils Abs Latest Ref Range: 0.0 - 0.1 x10(3)/mcL 0.1 Sodium Latest Ref Range: 135 - 145 mmol/L 141 Potassium Latest Ref Range: 3.5 - 5.0 mmol/L 3.6 Chloride Latest Ref Range: 98 - 107 mmol/L 101 CO2 Latest Ref Range: 22 - 31 mmol/L 24 Anion Gap Latest Ref Range: 5 - 15 mmol/L 16 (H) BUN Latest Ref Range: 8 - 18 mg/dL 30 (H) Creatinine Latest Ref Range: 0.70 - 1.20 mg/dL 0.91 Estimated GFR Latest Ref Range: >=60 >60 Glucose Lvl Latest Ref Range: 65 - 199 mg/dL 83 Calcium Latest Ref Range: 8.5 - 10.5 mg/dL 9.4 Total Protein Latest Ref Range: 6.1 - 8.0 gm/dL 7.6 Albumin Latest Ref Range: 3.2 - 5.2 gm/dL 4.7 Total Bilirubin Latest Ref Range: 0.2 - 1.3 mg/dL 0.3 Alk Phos Latest Ref Range: 40 - 104 unit/L 49 AST Latest Ref Range: 0 - 30 unit/L 22 ALT Latest Ref Range: 0 - 30 unit/L 22 Assessment and Plan: Shannen Nobles is a quentin 51 y.o. female with breast ca, L, IDC, low gr, ER+NC+, Tzr3kbl-, s/p lumpectomy & SNB, pT1a pN0, stage I. She was treated with adjuvant radiation therapy for a total dose of 60.4 Gy which was completed on 10/08/2014. She was started on Tamoxifen post radiation therapy.She is tolerating HINOJOSA well and continues regular followup with Dr Santoro every six months. Mrs Nobles is doing very well with BALJIT. Her most recent mammogram in February 2017 was negative for recurrence. She has no late effects from treatment. She is to have a repeat mammogram in February 2018. Patient would like to decrease the number of appointments that she has. We will discharge her from radiation oncology. She was previously given her survivor care plan. She exercises regularly and hasa normal weight. She continues with recommended screenings and overall is doing very well. She willcontinue followup with medical oncology every six months and with surgery once a year coordinated with her yearly mammograms. Thank you for the opportunity to participate in her care documented in this encounter Plan of Treatment Upcoming Encounters Date Type Department Care Team (Late st Contact Info) Description 09/03/2024 3:30 PM EDT Office Visit Dermatology at [facility] [address] [place] [address] Miladys Gordon MD [facility] [address] [place] [address] documented as of this encounter Visit Diagnoses Diagnosis Malignant neoplasm of left breast in female, estrogen receptor positive, unspecified site of breast documented in this encounter Care Teams Cattle Care Worker Relationship Specialty Start Date End Date Shonda Garcia MD [facility] [address] [address] [address] PCP - General 04/27/10 documented as of this encounter
--- OUTSIDE RECORDS SUMMARY | 2024-05-17 21:13 | XMS_ITS | Encounter Summary ---
Author Organization [facility] [facility] [place] [place] [address] Care Team Providers Care Wrapping Checker Name Role Phone Shonda Garcia MD Primary Care Provider [phone] Encounter Details Date Type Department Care Team (Late Contact Info) Description 12/09/2016 Telephone Hematology/Oncology at [address] [phone] Stephania Tarango Social History Tobacco Use Types Packs/Day Years [...] encounter Miscellaneous Notes * Telephone Encounter - Stephania Tarango - 12/09/2016 1:50 PM EDT Had to move appointment from 12/29 to 01/03 to get a new patient in. Called and left a message to call, and sent out new card with appointment change on it. documented in this encounter Plan of Treatment Upcoming Encounters Date Type Department Care Team ([facility] Contact Info) Description 09/03/2024 3:30 PM EDT Office Visit Dermatology at [facility] [address] [place] [phone] Miladys Gordon MD [facility] [place] [address] documented as of this encounter Visit Diagnoses Not on filedocumented in this encounter Care Teams Wrapping Checker Relationship Specialty Start Date End Date Shonda Garcia MD [address] [place] [address] PCP - General 04/27/10 documented as of this encounter
--- OUTSIDE RECORDS SUMMARY | 2024-05-17 21:14 | XMS_ITS | Encounter Summary ---
Author Organization [facility] [place] [address] Care Team Providers Care Thermometer Maker Name Role Phone Shonda Garcia MD Primary Care Provider [phone] Encounter Details Date Type Department Care Team (Late st Contact Info) Description 09/03/2014 2:15 PM EDT Office Visit Hematology Oncology at [address] [phone] CLINIC, Monalisa Narvaez MD [facility] [place] [address] Discharge Disposition: Home Social History Tobacco Use Types Packs/Day Years Used Date Smoking Tobacco: Never Alcohol Use Standard Drinks/Week Comments [...] 3:30 PM EDT Office Visit Dermatology at [facility] [address] [place] [phone] Miladys Gordon MD [facility] [address] [address] documented as of this encounter Visit Diagnoses Not on filedocumented in this encounter Care Teams Thermometer Maker Relationship Specialty Start Date End Date Shonda Garcia MD [address] [place] [address] PCP - General 04/27/10 documented as of this encounter
--- OUTSIDE RECORDS SUMMARY | 2024-05-17 21:14 | XMS_ITS | Encounter Summary ---
Author Organization [facility] [place] [address] Care Team Providers Care Lock Setter Name Role Phone Shonda Garcia MD Primary Care Provider [phone] Reason for Visit * Reason Comments Radiation Treatment Encounter Details Date Type Department Care Team (Latest Contact Info) Description 10/08/2014 Unscheduled Encounter Radiation Oncology at [address] [phone] Monalisa Waller MD [facility] [place] [address] Breast cancer, female, left Social History Tobacco Use Types Packs/Day [...] as of this encounter Progress Notes * Monalisa Waller MD - 10/10/2014 8:50 AM EDT Shannen Nobles has completed xrt for breast ca, L, IDC, low gr, ER+TN+, Plc0mye-, s/p lumpectomy & SNB, pT1a pN0, stage I. Gordon to follow xrt. The course of xrt can be summarized as follows: Treatment was given from 08/25/14 to 10/08/14. 50.4 Gy in 28 fxs was given to L breast, followed by volume reduction & 10 Gy in 5 fxs boost tolumpectomy bed, boosting lumpectomy bed to 60.4 Gy in 33 fxs. 6 MV Xray external beam with 3D xrt used. The course of xrt was tolerated well, w/the expected side effect of skin reaction w/in irradiated area managed w/shaylee's cream, 1% hydrocortisone cream & mepilex-lite. She also noted some tiredness. Exam near completion of xrt showed moderate erythema of L breast w/dry desquamation in several areas. She has plans to vacation latter half of November & will FU w/me 11/03/14. Dr. Santoro 10/30/14. documented in this encounter Plan of Treatment Upcoming Encounters Date Type Department Care Team (Late st Contact Info) Description 09/03/2024 3:30 PM EDT Office Visit Dermatology at [facility] [address] [place] [address] Miladys Gordon MD [facility] [address] [address] documented as of this encounter Visit Diagnoses Diagnosis Breast cancer, female, left documented in this encounter Care Teams Lock Setter Relationship Specialty Start Date End Date Shonda Garcia MD [facility] [address] [place] [address] PCP - General 04/27/10 documented as of this encounter
--- OUTSIDE RECORDS SUMMARY | 2024-05-17 21:14 | XMS_ITS | Encounter Summary ---
Author Organization [facility] [place] [address] Care Team Providers Care Metalizing Supervisor Name Role Phone Shonda Garcia MD Primary Care Provider [phone] Reason for Visit * Reason Comments Follow Up Surgery s/p breast jan 07, ? infection Encounter Details Date Type Department Care Team (Late st Contact Info) Description 10/23/2015 11:00 AM EDT Office [place] [address] Sera Alvarez APRN [facility] [place] [address] Surgery follow-up Social History Tobacco Use Types [...] Pressure - - Pulse - - Temperature 36.8 ??C (98.2 ??F) 10/23/2015 10:48 AM E DT Respiratory Rate - - Oxygen Saturation - - Inhaled Oxygen Concentration - - Weight - - Height - - Body Mass Index - - documented in this encounter Patient Instructions * Patient Instructions* Sera Alvarez APRN - 10/23/2015 11:37 AM EDT 1. Follow up: Monday as previously scheduled. 2. Maintain support garments - large comfort bra provided today 3. Leave dressings in place until your next visit. documented in this encounter Progress Notes * Sera Alvarez APRN - 10/23/2015 11:09 AM EDT Plastic Surgery Post Op Note Reason for visit: F/U status post procedure Date of surgery: 10/20/15 Procedure(s): bilateral breast augmentation S/p left lumpectomy and radiation Complications: None reported Pain: 07/15 HPI: Pt reports that the left side has been more swollen and painful than her right. Examination: Visit Vitals ??? Temp 36.8 ??C (98.2 ??F) (Oral) Patient is alert, conversant, comfortable, ambulating Incision: CDI, healing well. Tegaderm dressings replaced. Left breast with more edema than right. No palpable fluid collection. No erythema, no evidence of cellulitis. Impression: Shannen Nobles is a 50 y.o. female who was seen today for follow-up after the above procedure. Please see the operative note for details. She is doing well without complaints. Plan: 1. Follow up: Monday as previously scheduled. 2. Maintain support garments - large comfort bra provided today 3. Leave dressings in place until your next visit. documented in this encounter Plan of Treatment Upcoming Encounters Date Type Department Care Team (Late st Contact Info) Description 09/03/2024 3:30 PM EDT Office Visit Dermatology at [facility] [address] [place] [address] Miladys Gordon MD [facility] DR [address] [place] [address] documented as of this encounter Visit Diagnoses Diagnosis Surgery follow-up Follow-up examination, following unspecified surgery documented in this encounter Care Teams Metalizing Supervisor Relationship Specialty Start Date End Date Shonda Garcia MD [address] [place] [address] PCP - General 04/27/10 documented as of this encounter
--- OUTSIDE RECORDS SUMMARY | 2024-05-17 21:14 | XMS_ITS | Encounter Summary ---
Author Organization [facility] [place] [address] Care Team Providers Care Panel Edge Painter Name Role Phone Shonda Garcia MD Primary Care Provider [phone] Reason for Visit * Reason Comments Follow-up Encounter Details Date Type Department Care Team (Late st Contact Info) Description 03/04/2016 10:45 AM EDT Office Visit Dermatology at [facility] [address] [place] [address] Moraima Murphy MD [facility] [place] [address] Atopic dermatitis, unspecified type Social History Tobacco [...] as of this encounter Progress Notes * Moraima Murphy MD - 03/04/2016 10:45 AM EDT DERMATOLOGY - ESTABLISHED PATIENT NOTE Date of service: 03/04/2016 Shannen Nobles : 1965 CC: atopic eczema Follow up: long time hx of ATOPIC eczema dust, dog allergy- per allergy No relevant allergens positive by patch testing. She is atopic with hx of childhood eczema Protopic made acne worse elidel- does not help (prior experience) Prior therapy: ketoconazole oral Since Feb 2011; 200mg a day . Rationale: control malesszia as a trigger for AD. - discontinued 2. Acne- improved on spironolactone 100mg a day ? Relevant History: Melanoma: no SCC: no BCC: no Psoriasis: no Eczema/Atopy: yes HPI: Shannen Nobles is a 50 y.o. established patient, last seen by Dr. Markham on 06/18/15. Here today with the following concerns: - She would like her face evaluated. She was previously treated with ketoconazole in 2012, for atopic eczema thought possibly triggered by pityrosporon, on her face, which she feels had helped. When she came to the clinic last year. She was seen by Dr. Markham. At that visit she states she was taking oral ketoconazole once weekly, but it had stopped working. She was told at that visit to stop it all together. She was informed to go back to applying the Triamcinolone to other body parts daily and Tacrolimus ointment to her face daily. She mentioned she can only use this ointment as needed do to it causing acne. She also reports that the Protopic causes her face to become very red. She wonders what she can do to help this. - She is currently on the spironolactone 100 mg daily to treat her acne - Eczema from the neck down is well controlled on occasional application of triamcinolone Also recently: - Recurent yeast infections x 3. She currently has a vaginal yeast infection and is wondering if itis from being on the tomaxifen? Her PCP is treating her with an oral antifungal. She wonders if therecurrent yeast infections is connected to her rash on the face. I think it is not and we discussed. - She has been tested with prick testing for aeroallergens by Dr. Garsia in the past with unknown to pt which test used (Pt brought paper work with her). States he told her that she was eligiblefor the immunology shot. 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 Asthma ??? Attention deficit disorder controlled with Adderal ??? Breast cancer ??? Dermatitis ??? Eczema childhood eczema ??? TMJ (temporomandibular joint disorder) wears retainer Medications: CETIRIZINE HCL, Fluocinolone Acetonide Oil, LEVALBUTEROL TARTRATE, SPIRONOLACTONE, acetaminophen, cholecalciferol (Vitamin D3), multivitamin, tacrolimus, tamoxifen, and triamcinolone Allergies Allergen Reactions ??? Latex Rash ??? Amoxicillin Trihydrate ??? Thiuram Analogues Dermatitis Review of Systems: - General: Feels well. - Skin: No other skin concerns. Examination: - Constitutional: Patient was alert, well-appearing and in no noticeable distress. - Skin exam: Focused exam of face Notable findings/Assessment/Plan: 1. Atopic dermatitis - pink erythema, fairly confluent, across the whole face, minimal scaling, some accentuation around the nares. We have limited options for this type of facial involvement at present time. I don't think I want to continue with group home oral antifungal. Low infrequent dose did not work, more frequent dose we question if there is any group home concerns, or adverse effects. - Start Rx: Elidel 1% cream to the face BID - Continue sensitive skin care: short luke-warm showers, minimal soap use (Dove fragrance-free), heavy daily moisturization with Vanicream, reviewed list of recommended skin products - Continue triamcinolone to all areas of eczema neck down BID, as needed. Instructed not to use formore than 14 days per month. RTC: 6-12 months or PRN Note initiated by MAGNO PINEDA LPN. I am documenting this encounter acting as the scribe for and in the presence of Moraima Murphy I performed the above scribed service and agree with the accuracy of the documentation in this encounter. Reviewed and signed by: Moraima Murphy MD Dermatology [facility] documented in this encounter Plan of Treatment Upcoming Encounters Date Type Department Care Team (Late st Contact Info) Description 09/03/2024 3:30 PM EDT Office Visit Dermatology at [facility] [address] [place] [address] Miladys Gordon MD [facility] DR MYES[address] [place] [address] documented as of this encounter Visit Diagnoses Diagnosis Atopic dermatitis, unspecified type documented in this encounter Care Teams Panel Edge Painter Relationship Specialty Start Date End Date Shonda Garcia MD [facility] [address] [address] PCP - General 04/27/10 documented as of this encounter
--- OUTSIDE RECORDS SUMMARY | 2024-05-17 21:14 | XMS_ITS | Encounter Summary ---
Author Organization [facility] [place] [address] Care Team Providers Care Form Builder Name Role Phone Shonda Garcia MD Primary Care Provider [phone] Reason for Visit * Reason Comments Breast Cancer Encounter Details Date Type Department Care Team (Late st Contact Info) Description 07/31/2014 1:00 PM EST Office Visit [place] [address] Patricia Cast MD [facility] [place] [address] Malignant neoplasm of female breast, unspecified laterality Discharge Disposition: Home Social History Tobacco Use Types Packs/Day Years Used Date Smoking Tobacco: Never Sex and Gender Information Value Date Recorded Sex Assigned at Not on file Gender Identity Not on file Sexual Orientation Not on file documented as of this encounter Last Filed Vital Signs Vital Sign Reading Time Taken Comments Blood Pressure 88/54 07/31/2014 12:54 PM EST Pulse 61 07/31/2014 12:54 PM EST Temperature 36.7 ??C (98.1 ??F) 07/31/2014 12:[address] Respiratory Rate 18 07/31/2014 12:54 PM EST Oxygen Saturation 100% 07/31/2014 12:54 PM EST Inhaled Oxygen Concentration - - Weight 54.7 kg (120 lb 9.6 oz) 07/31/2014 12:54 PM EST Height 166 cm (5' 5.35) 07/31/2014 12:54 PM EST Body Mass Index 19.85 07/31/2014 12:54 PM EST documented in this encounter Progress Notes * Patricia Cast MD - 07/31/2014 1:18 PM EST Subjective: Patient ID: Shannen Nobles is a 48 y.o. female. HPI Shannen returns today in surgical follow up of newly diagnosed left breast cancer. Shannen incidentally noted a left breast mass in June 2014.. She presented for evaluation. Mammogram and u/s confirmed a 5mm mass in the upper, outer left breast. Biopsy revealed IDC (ER/NV+, HER2-). Breast MRI did not reveal any additional sites of disease nor adenopathy. She opted for BCT. ---Pathologic Diagnosis--- Specimens: A - Left breast partial mastectomy C - Left axillary sentinal node Histologic Type: Invasive ductal carcinoma Tumor Grade: Low (High, Intermediate, Low) Viujrd-Lbzgp-Oavtmpxgyj Score: 5 Tubular Differentiation: 2 Mitotic Rate: [...] and FISH, performed on prior biopsy [id number], see spearate report pTNM: pT1aN0 (AJCC, 7th edition, 2010) B - Left breast superfical margin, re-excision: Benign breast tissue. FH: father with prostate cancer. Sister with breast cancer (age 47). SH: . Non smoker. Has one son, Chevy who is 13 PMH: Asthma Dermatitis Objective: Physical Exam Constitutional: She is oriented to person, place, and time. She appears well- developed and well-nourished. Eyes: EOM are normal. Neck: Normal range of motion. ROM in the left arm is intact. Well healed incision in the upper outer breast. No drainage or erythema. Assessment and Plan: 48 yo female with stage I IDC of the left breast. Shannen is doing well without evidence of surgical complications. She will meet with medical and radiation oncology to discuss adjuvant therapy. These appointments are scheduled. I will see Shannen back in 6 months with new baseline mammogram. She will call with any questions inthe interval timeframe. documented in this encounter Plan of Treatment Upcoming Encounters Date Type Department Care Team (Late st Contact Info) Description 09/03/2024 3:30 PM EDT Office Visit Dermatology at [facility] [address] [place] [address] Miladys Gordon MD [facility] DR MYES[address] [place] [address] documented as of this encounter Visit Diagnoses Diagnosis Malignant neoplasm of female breast, unspecified laterality documented in this encounter Care Teams Form Builder Relationship Specialty Start Date End Date Shonda Garcia MD [facility] [address] [place] [address] PCP - General 04/27/10 documented as of this encounter
--- OUTSIDE RECORDS SUMMARY | 2024-05-17 21:14 | XMS_ITS | Encounter Summary ---
Author Organization [facility] [place] [address] Care Team Providers Care Manager Packaging Name Role Phone Shonda Garcia MD Primary Care Provider [phone] Reason for Visit * Reason Comments Bladder Cancer Encounter Details Date Type Department Care Team (Late st Contact Info) Description 06/18/2015 10:00 AM EST Office Visit Hematology/Oncology at [address] [phone] Taz Santoro MD [address] [place] [address] Malignant neoplasm of upper-outer quadrant of left female breast Social History [...] Sign Reading Time Taken Comments Blood Pressure 94/54 06/18/2015 9:59 AM EST Pulse 58 06/18/2015 9:59 AM EST Temperature 36.7 ??C (98.1 ??F) 06/18/2015 9:59 AM ES T Respiratory Rate 18 06/18/2015 9:59 AM EST Oxygen Saturation 100% 06/18/2015 9:59 AM EST Inhaled Oxygen Concentration - - Weight 57.2 kg (126 lb) 06/18/2015 9:59 AM EST Height 166 cm (5' 5.35) 06/18/2015 9:59 AM EST Body Mass Index 20.74 06/18/2015 9:59 AM EST documented in this encounter Progress Notes * Taz Santoro MD - 06/18/2015 10:24 AM EST Diagnosis: Left breast IDC 0.5 cm, low grade, ER+/NM+, Her-2 unamplified Stage Ia, s/p lumpectomy and sentinellymph node biopsy 07/14/14 followed by XRT Upper/Outer left breast location Subjective: Shannen comes in today for followup. She has been on tamoxifen for the past six months and doing well in that regard. She is not having any hot flashes. In discussing her compliance to the medications, however, she notes she often does not take it on the weekends. We discussed that and I told her she really should take it although if she does occasionally forget the medication, she should not double up the next day. She seemed willing to do that. Her only other complaints are she is having a little bit of decrease in her libido overall. Otherwise though, she is not having any breast discomfort, no other difficulties. Past medical history and social history are reviewed. She is doing well overall. Her is currently on disability trying to get better from a right ulnar nerve surgery. At the current time he is having fairly significant discomfort in his right arm. Current Outpatient Prescriptions on File Prior to Visit Medication Sig Dispense Refill ??? tamoxifen (NOLVADEX) 20 mg Tablet Take 1 tablet by mouth daily. 90 tablet 3 ??? Fluocinolone Acetonide Oil 0.01 % Drops ??? tacrolimus (PROTOPIC) 0.1 % Ointment Apply topically 2 times daily. To the face 60 g 3 ??? CETIRIZINE HCL (ZYRTEC ORAL) Take by mouth daily as needed. ??? dextroamphetamine-amphetamine (ADDERALL) 10 mg Tablet Take 10 mg by mouth daily. ??? SPIRONOLACTONE ORAL Take 100 mg by mouth daily. Indications: Acneiform Eruption ??? ketoconazole (NIZORAL) 200 mg tablet Take 1 tablet by mouth daily. 90 tablet 0 ??? cholecalciferol, Vitamin D3, 400 unit tablet Take 400 Units by mouth daily. ??? multivitamin (THERAGRAN) [...] Neurological: Negative. Hematological: Negative for adenopathy. BP 94/54 mmHg Pulse 58 Temp(Src) 36.7 ??C (98.1 ??F) (Oral) Resp 18 Ht 166 cm (5' 5.35) Wt 57.153 kg (126 lb) BMI 20.74 kg/m2 SpO2 100% Head: Normocephalic, without obvious abnormality, atraumatic Eyes: [...] supraclavicular, and axillary nodes normal Neurologic: Normal Reason for Exam: Screening Technique: Craniocaudal (CC) and Medio-lateral Oblique (MLO) views of both breasts obtained with direct digital capture. In addition to routine 2-D imaging, this exam was also performed with 3-D Tomographic Imaging (MLO and CC). The exam was evaluated by CAD version 8.3.17. Findings: This is a negative mammogram (ACR Category 1). There is a stable fibroglandular pattern without significant change from prior studies. There is no mammographic evidence of cancer. The breasts are of scattered density. History of Breast Cancer status post BCT. There are treatment related changes in the left breast. CONCLUSION: This is a NEGATIVE mammogram (ACR Category 1). Routine screening mammography is recommended with the frequency dependent upon the patient's age and breast cancer risk factors. Review of her laboratory today shows a normal chemistry. ALP is 40, creatinine 0.83, albumin 3.7, calcium is 8.7. CBC shows a white count of 4.7, hemoglobin 13.4, hematocrit 40.8, and platelet count is 212,000. Assessment/Plan: Shannen is doing well with no evidence of recurrent breast cancer. She is tolerating tamoxifen well but I suspect she is having some decrease in libido secondary to the medication. She is at low risk for reoccurrence but she is also quite young and in that regard I would favor continuing the medication. We did discuss the possibility of using flibanserin. It is a somewhat restricted medication but may have some utility in this situation. She is really not interested in starting that, however, so we will just keep that as an option. We talked about followup today. We will see her back in six months with lab and her next mammograms will be due next February. She will call if there are issues or problems in the interim. documented in this encounter Plan of Treatment Upcoming Encounters Date Type Department Care Team (Late st Contact Info) Description 09/03/2024 3:30 PM EDT Office Visit Dermatology at [facility] [address] [place] [address] Miladys Gordon MD [facility] DR MYES[place] [address] documented as of this encounter Visit Diagnoses Diagnosis Malignant neoplasm of upper-outer quadrant of left female breast Malignant neoplasm of upper-outer quadrant of female breast documented in this encounter Care Teams Manager Packaging Relationship Specialty Start Date End Date Shonda Garcia MD [address] [place] [address] PCP - General 04/27/10 documented as of this encounter
--- OUTSIDE RECORDS SUMMARY | 2024-05-17 21:14 | XMS_ITS | Encounter Summary ---
Author Organization [facility] [place] [address] Care Team Providers Care Stockroom Clerk Name Role Phone Shonda Garcia MD Primary Care Provider [phone] Reason for Visit * Reason Comments Radiation Follow-up Encounter Details Date Type Department Care Team (Late st Contact Info) Description 11/03/2014 2:00 PM EDT Follow-Up Radiation Oncology at [address] [phone] Monalisa Waller MD [facility] [place] [address] Breast cancer, female, left Discharge Disposition: Home Social History Tobacco Use [...] Sign Reading Time Taken Comments Blood Pressure 87/50 11/03/2014 2:00 PM EDT Pulse 64 11/03/2014 2:00 PM EDT Temperature 37.1 ??C (98.7 ??F) 11/03/2014 2:00 PM ED T Respiratory Rate 16 11/03/2014 2:00 PM EDT Oxygen Saturation 100% 11/03/2014 2:00 PM EDT Inhaled Oxygen Concentration - - Weight 56.2 kg (124 lb) 11/03/2014 2:00 PM EDT Height - - Body Mass Index 20.41 08/08/2014 8:53 AM EST documented in this encounter Patient Instructions * Patient Instructions* Monalisa Waller MD - 11/03/2014 2:32 PM EDT Your exam shows that you are recovering well from radiotherapy & there is no evidence of cancer. You may resume your regular deodorant on your left underarm. You may use a straight/regular razor on your left underarm. You may expose the irradiated area to sun, but it is advised that you apply sunscreen with an SPF of @ least #45 to the area prior to exposing it to sun. You may swim in chlorinated water. We will mail you a letter with an appointment to see me or a Radiation Oncology rn on site in 6 months. documented in this encounter Progress Notes * Monalisa Waller MD - 11/03/2014 2:26 PM EDT CC: Sched'd fu s/p xrt completion. HPI: 49 y/o f who completed xrt 3.5 wks ago for breast ca, L, IDC, low gr, ER+SC+, Zhm5onn-, s/p lumpectomy & SNB, pT1a pN0, stage I. She notes healing of the irrad'd skin reaction. No pain. Appetite good. Energy level improved. Past Medical History Diagnosis Date ??? Dermatitis ??? Asthma ??? Eczema childhood eczema ??? Attention deficit disorder controlled with Adderal ??? TMJ (temporomandibular joint disorder) wears retainer Past Surgical History Procedure Laterality Date ??? Mastectomy, partial Left 07/14/2014 MASTECTOMY PARTIAL performed by Patricia Cast MD at [facility] ??? Bx/remv, lymph node, deep axill Left 07/14/2014 BIOPSY OR EXCISION OF LYMPH NODE(S), OPEN, DEEP AXILLARY NODE(S) performed by Patricia Cast MD at [facility] ??? Identify sentinel node Left 07/14/2014 SENTINEL NODE INJECTION performed by Patricia Cast MD at [facility] ??? Nasal septum surgery 2010 deviated septum Physical Exam Constitutional: She is oriented to person, place, and time. She appears well- developed and well-nourished. No distress. BP 87/50 Pulse 64 Temp(Src) 37.1 ??C (98.7 ??F) (Oral) Resp 16 Wt 56.246 kg (124 lb) [id number]% HENT: Head: Normocephalic and atraumatic. Eyes: Conjunctivae and EOM are normal. Right eye exhibits no discharge. Left eye exhibits no discharge. No scleral icterus. Neck: Normal range of motion. Neck supple. No tracheal deviation present. No thyromegaly present. Pulmonary/Chest: Effort normal and breath sounds normal. No stridor. No respiratory distress. She has no wheezes. She has no rales. She exhibits no tenderness. Right breast exhibits no inverted nipple, no mass, no nipple discharge, no skin change and no tenderness. Left breast exhibits skin change ( Minimal hyperpigmentation of skin of L breast, consistent w/expected post xrt appearance.). Left breast exhibits no inverted nipple, no mass and no nipple discharge. Abdominal: Soft. She exhibits no distension and no mass. There is no tenderness. There is no rebound and no guarding. Musculoskeletal: Normal range of motion. She exhibits no edema or tenderness. Lymphadenopathy: Head (right side): No submental, no submandibular, no preauricular, no posterior auricular and no occipital adenopathy present. Head (left side): No submental, no submandibular, no preauricular, no posterior auricular and no occipital adenopathy present. She has no cervical adenopathy. She has no axillary adenopathy. Right: No supraclavicular adenopathy present. Left: No supraclavicular adenopathy present. Neurological: She is alert and oriented to person, place, and time. No cranial nerve deficit. She exhibits normal muscle tone. Coordination normal. Skin: She is not diaphoretic. Psychiatric: She has a normal mood and affect. Her behavior is normal. Judgment and thought contentnormal. A: Recovering from xrt. BALJIT. P: Skin care instructions given. Rtc [address] Santoro today for eval for hormonal tx. Dr. Cast in Jan. documented in this encounter Plan of Treatment Upcoming Encounters Date Type Department Care Team (Late st Contact Info) Description 09/03/2024 3:30 PM EDT Office Visit Dermatology at [facility] [address] [place] [address] Miladys Gordon MD [facility] [address]ES[address] [place] [address] documented as of this encounter Visit Diagnoses Diagnosis Breast cancer, female, left documented in this encounter Care Teams Stockroom Clerk Relationship Specialty Start Date End Date Shonda Garcia MD [address] [place] [address] [facility] [address] [place] [address] PCP - General 04/27/10 documented as of this encounter
--- OUTSIDE RECORDS SUMMARY | 2024-05-17 21:14 | XMS_ITS | Encounter Summary ---
Author Organization [facility] [address] Care Team Providers Care Director Clinical Pharmacology Name Role Phone Shonda Garcia MD Primary Care Provider [phone] Encounter Details Date Type Department Care Team (Late Contact Info) Description 12/23/2014 Orders Only Hematology Oncology at [address] [phone] Maxine Winkler RN Breast cancer, left breast Social History Tobacco Use Types [...] Upcoming Encounters Date Type Department Care Team ([facility] Contact Info) Description 09/03/2024 3:30 PM EDT Office Visit Dermatology at [facility] [address] [place] [address] Miladys Gordon MD [facility] [address] [place] [address] documented as of this encounter Visit Diagnoses Diagnosis Breast cancer, left breast Malignant neoplasm of breast (female), unspecified site documented in this encounter Care Teams Director Clinical Pharmacology Relationship Specialty Start Date End Date Shodna Garcia MD [facility] [address] [place] [address] PCP - General 04/27/10 documented as of this encounter
--- OUTSIDE RECORDS SUMMARY | 2024-05-17 21:14 | XMS_ITS | Encounter Summary ---
Author Organization [facility] [place] [address] Care Team Providers Care Lens Shaper Grinder Name Role Phone Sohnda Garcia MD Primary Care Provider [phone] Reason for Visit * Reason Onset Date Comments Other 10/15/2014 Telephone call Encounter Details Date Type Department Care Team (Late Contact Info) Description 10/15/2014 Telephone Dermatology at [facility] [address] [place] [address] Nohemy Marin Other (Telephone call ) Social History Tobacco Use Types Packs/Day Years [...] encounter Miscellaneous Notes * Telephone Encounter - Nohemy Marin - 10/15/2014 11:00 AM EDT Patient cancelled her appointment with Dr. Murphy on Monday10/17/14 at 10:45am. She will back to reschedule her appointment at her convenience. documented in this encounter Plan of Treatment Upcoming Encounters Date Type Department Care Team (Late st Contact Info) Description 09/03/2024 3:30 PM EDT Office Visit Dermatology at [facility] [address] [place] [address] Miladys Gordon MD [facility] DR MYESHA EARL-[place] [address] documented as of this encounter Visit Diagnoses Not on filedocumented in this encounter Care Teams Lens Shaper Grinder Relationship Specialty Start Date End Date Shonda Garcia MD [facility] [address] [address] PCP - General 04/27/10 documented as of this encounter
--- OUTSIDE RECORDS SUMMARY | 2024-05-17 21:14 | XMS_ITS | Encounter Summary ---
Author Organization [facility] [place] [address] Care Team Providers Care Overhauler Name Role Phone Shonda Garcia MD Primary Care Provider [phone] Reason for Visit * Reason Comments Other Encounter Details Date Type Department Care Team (Late st Contact Info) Description 11/06/2014 Telephone Radiation Oncology at [address] [phone] Sima Fuentes, RN Social History Tobacco Use Types Packs/Day [...] encounter Miscellaneous Notes * Telephone Encounter - Sima Dewey RN - 11/06/2014 10:26 AM EDT Radiation Oncology Nurse Phone Note ----- Message from Mira Caraballo sent at 11/06/2014 8:51 AM EDT ----- Regarding: call back Patient called, please call her back about getting a note to return to work. [phone]. 11/06/14 10:25 AM phone call to patient at above number. She states she is doing very well. Her skin in area of treatment is tanned and has no pain. 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 She asked that this letter be faxed attention to Shruthi at [phone] Plan: I explained that Dr Waller is at [facility] today and tomorrow and will be here in [facility] on Monday. She stated that this can wait until next week and appreciates our help. documented in this encounter Plan of Treatment Upcoming Encounters Date Type Department Care Team (Late st Contact Info) Description 09/03/2024 3:30 PM EDT Office Visit Dermatology at [facility] [address] [place] [address] Miladys Gordon MD [facility] DR [address] [place] [address] documented as of this encounter Visit Diagnoses Not on filedocumented in this encounter Care Teams Overhauler Relationship Specialty Start Date End Date Shonda Garcia MD [facility] [address] [place] [address] PCP - General 04/27/10 documented as of this encounter
--- OUTSIDE RECORDS SUMMARY | 2024-05-17 21:14 | XMS_ITS | Encounter Summary ---
Author Organization [facility] [place] [address] Care Team Providers Care Administrative Support Technician Name Role Phone Shonda Garcia MD Primary Care Provider [phone] Encounter Details Date Type Department Care Team (Late st Contact Info) Description 10/03/2014 4:15 PM EDT Office Visit Radiation Oncology at [address] [phone] CLINIC, Monalisa Narvaez MD [facility] [place] [address] Discharge Disposition: Home Social History Tobacco Use [...] [facility] [address] [place] [phone] Miladys Gordon MD [facility] [address] [place] [address] documented as of this encounter Visit Diagnoses Not on filedocumented in this encounter Care Teams Administrative Support Technician Relationship Specialty Start Date End Date Shonda Garcia MD [address] [place] [address] PCP - General 04/27/10 documented as of this encounter
--- OUTSIDE RECORDS SUMMARY | 2024-05-17 21:14 | XMS_ITS | Encounter Summary ---
Author Organization [facility] Address [facility] [place] [address] Care Team Providers Care Animal Attendants And Trainers Name Role Phone Shonda Garcia MD Primary Care Provider [phone] Reason for Visit * Reason Comments Dermatitis Encounter Details Date Type Department Care Team (Late st Contact Info) Description 07/25/2014 10:45 AM EST Follow-Up Dermatology at [facility] [address] [place] [address] Moraima Murphy MD [facility] [place] [address] Dermatitis Discharge Disposition: Home Social History Tobacco Use Types Packs/Day Years Used Date Smoking Tobacco: Never Sex and Gender Information Value Date Recorded Sex Assigned at Not on file Gender Identity Not on file Sexual Orientation Not on file documented as of this encounter Progress Notes * Darwin Traore MD - 07/25/2014 10:56 AM EST Date of office visit: 07/25/2014 Shannen Nobles : 1965 Provider: Moraima Murphy MD SKIN HISTORY: Long time hx of ATOPIC eczema dust, dog allergy- per allergy No relevant allergens positive by patch testing. She is atopic with hx of childhood eczema Protopic made acne worse Elidel - does not help Current therapy: ketoconazole oral Since Feb 2011; 200mg a day . Rationale: control malesszia as atrigger for AD. Acne - improved on spironolactone 100mg a day HPI Shannen Nobles is a 48 y.o. year old female established patient last seen by me on 10/24/2011 w/ a hx of Malassezia-exacerbated atopic dermatitis controlled on oral ketoconazole at 400 mg/week. It has been a number of years since the patient has come to dermatology, but today she presents with her for evaluation of with a very itchy, flaky, red rash on her face present since last summer -similar to her previous rash. She states that since last being seen. She had seen a bag making machine operator and a ENT, had her blood evaluatedfor food allergies, and has her nasal septa fixed. She was also prick tested. All of the aforementioned was done with the patient's hopes of coming of entirely from her oral ketoconazole - she reports, at the suggestion of her PCP. Unfortunately, she was not able to ever completely stop. Furthermore, her rash returned last September. Since then she had at different times cleared with transient increases in her oral ketoconazole to everyday tx, and at different times, prednisone tapers - at least three from the ED - last one just prior to [place]. Currently, she is still taking Ketoconazole PO 200 mg daily prescribed by her PCP. She has also been applying ketoconazole 2 % cream to her face as needed twice daily seven days/week. She is very itchy and uncomfortable. PAST MEDICAL HX Patient Active Problem List Diagnosis Code ??? Breast cancer, left breast 174.9 MEDS: Current Outpatient Prescriptions Medication Sig Dispense Refill ??? oxyCODONE (ROXICODONE) 5 mg Tablet Take 1 tablet by mouth every 4 hours as needed for Pain. 20 tablet 0 ??? CETIRIZINE HCL (ZYRTEC ORAL) Take by mouth daily as needed. ??? dextroamphetamine-amphetamine (ADDERALL) 10 mg Tablet Take 10 mg by mouth daily. ??? SPIRONOLACTONE ORAL Take 100 mg by mouth. ??? ketoconazole (NIZORAL) 200 mg tablet Take 1 tablet by mouth daily. 90 tablet 0 ??? cholecalciferol, Vitamin D3, 400 unit tablet Take 400 Units by mouth daily. ??? multivitamin (THERAGRAN) tablet Take 1 tablet by mouth daily. ??? LEVALBUTEROL TARTRATE (XOPENEX HFA INHL) Inhale 2 puffs into the lungs every 4 hours as needed. No current facility-administered medications for this visit. ADR: Latex; Amoxicillin trihydrate; and Thiuram analogues ROS General: feeling well Skin: denies other skin complaints EXAM General: NAD, pleasant, cooperative. SKIN EXAM: Significant skin findings: 1. On the face and the anterior neck - diffuse redness and superficial scale in poorly demarcated patches - ASSESSMENT/PLAN 1. Malassezia-exacerbated atopic dermatitis: pt with a current exacerbation - will re-adjust regimen for better control. Recommendations: - stop ketoconazole topically - continue daily 200 mg oral ketoconazole - start twice daily protopic to the affected areas for the following two weeks - stop the use of aquaphor on the face and start vanicream PRN - instructed to call in the following week to update on the condition - will consider desonide if condition persists Return to clinic - 4-6 weeks for further evaluation, or sooner w/ concerns I am documenting this encounter acting as the scribe for and in the presence of Dr. Murphy: Lucina Falcon LPN I performed the above scribed service and agree with the accuracy of the documentation in this encounter - Darwin Traore MD Assessment, plan, recommendations and treatment suggestions were formulated under the direct supervision and are in agreement with the staff head bone grinder Dr. Moraima Murphy MD. Darwin Traore MD Resident in Dermatology [facility] Patient seen and evaluated with staff head bone grinder: Moraima Murphy MD Section of Dermatology [facility] I directly supervised Dr. Liam Traore during this office visit. Dr. Traore presented the history and physical exam to me. I then saw and examined this patient with Dr. Traore. We reviewed the history and pertinent details and I confirmed the physical findings. I agree with the details of the history and physical exam as documented in Dr. Traore's note. Involvement of face and slightly neck with eczematous dermatitis, as she has had previously, after period of good control. Moraima Murphy MD Staff Physician documented in this encounter Plan of Treatment Upcoming Encounters Date Type Department Care Team (Late st Contact Info) Description 09/03/2024 3:30 PM EDT Office Visit Dermatology at [facility] [address] [place] [address] Miladys Gordon MD [facility] [place] [address] documented as of this encounter Visit Diagnoses Diagnosis Dermatitis Contact dermatitis and other eczema, due to unspecified cause documented in this encounter Care Teams Animal Attendants And Trainers Relationship Specialty Start Date End Date Shonda Garcia MD [address] [facility] [place] [address] PCP - General 04/27/10 documented as of this encounter
--- OUTSIDE RECORDS SUMMARY | 2024-05-17 21:14 | XMS_ITS | Encounter Summary ---
Author Organization [facility] [place] [address] Care Team Providers Care Instrument And Control Technician Name Role Phone Shonda Garcia MD Primary Care Provider [phone] Reason for Visit * Reason Comments On Treatment Visit Encounter Details Date Type Department Care Team (Late st Contact Info) Description 09/30/2014 4:45 PM EDT Office Visit Radiation Oncology at [address] [phone] Monalisa Waller MD [facility] [place] [address] Breast cancer, left Discharge Disposition: Home Social History Tobacco [...] Sign Reading Time Taken Comments Blood Pressure 96/60 09/30/2014 4:00 PM EDT Pulse 64 09/30/2014 4:00 PM EDT Temperature 36.8 ??C (98.2 ??F) 09/30/2014 4:00 PM ED T Respiratory Rate 16 09/30/2014 4:00 PM EDT Oxygen Saturation 100% 09/30/2014 4:00 PM EDT Inhaled Oxygen Concentration - - Weight - - Height - - Body Mass Index - - documented in this encounter Progress Notes * Monalisa Waller MD - 09/30/2014 4:39 PM EDT DIAGNOSIS: Breast ca, L, IDC, low gr, ER+ID+, Erb9vrb-, s/p lumpectomy & SNB, pT1a pN0, stage I. Gordon to follow xrt. CURRENT TREATMENT DOSE: 48.6 Gy L breast ANTICIPATED TOTAL DOSE: 50.4 Gy L breast, 60.4 Gy lumpectomy bed L breast Current # of xrt received: 27 Anticipated total # of xrt txs: 33 Evaluation of port verification films: Approved. For details, see electronic film record in [employer]. Changes in Medical Condition: Mild itchiness of L breast in UIQ. No soreness. Notes increased tiredness & states that when she gets over tired, she knows she is prone to being teary, but she denies feeling depressed. Pain?: No. Physical Exam: There were no vitals taken for this visit. A&Ox3, in NAD. Mild erythema of L breast w/mild folliculitis in UIQ L breast. Response to xrt: As expected. Irradiation Related Symptoms: Skin rxn. Treatment for Symptom Control: Mepilex-lite applied to UIQ L breast & given extra. 1% hydrocortisone cream rec'd for itchiness. Kenji's cream. Pain Management: Tylenol or advil PRN. Recommendation on Continuing Course of xrt: Cont. documented in this encounter Plan of Treatment Upcoming Encounters Date Type Department Care Team (Late st Contact Info) Description 09/03/2024 3:30 PM EDT Office Visit Dermatology at [facility] [address] [place] [address] Miladys Gordon MD [facility] [address] [place] [address] documented as of this encounter Visit Diagnoses Diagnosis Breast cancer, left Malignant neoplasm of breast (female), unspecified site documented in this encounter Care Teams Instrument And Control Technician Relationship Specialty Start Date End Date Shonda Garcia MD [facility] [address] [place] [address] PCP - General 04/27/10 documented as of this encounter
--- OUTSIDE RECORDS SUMMARY | 2024-05-17 21:14 | XMS_ITS | Encounter Summary ---
Author Organization [facility] [place] [address] Care Team Providers Care Hold Worker Name Role Phone Shonda Garcia MD Primary Care Provider [phone] Encounter Details Date Type Department Care Team (Late st Contact Info) Description 11/12/2014 Orders [place] [address] Patricia Cast MD [facility] [place] [address] Malignant neoplasm of breast (female), unspecified site (Primary Dx) Social History Tobacco Use Types Packs/Day Years [...] 3:30 PM EDT Office Visit Dermatology at [facility] [address] [place] [address] Miladys Gordon MD [facility] [address] [place] [address] documented as of this encounter Visit Diagnoses Diagnosis Malignant neoplasm of breast (female), unspecified site- Primary documented in this encounter Care Teams Hold Worker Relationship Specialty Start Date End Date Shonda Garcia MD [address] [place] [address] PCP - General 04/27/10 documented as of this encounter
--- OUTSIDE RECORDS SUMMARY | 2024-05-17 21:14 | XMS_ITS | Encounter Summary ---
Author Organization [facility] [place] [address] Care Team Providers Care Freight Conductor Name Role Phone Shonda Garcia MD Primary Care Provider [phone] Reason for Visit * Reason Comments Breast Cancer Encounter Details Date Type Department Care Team (Late st Contact Info) Description 12/22/2014 11:00 AM EDT Follow-Up Hematology/Oncology at [address] [phone] Taz Santoro MD [address] [place] [address] Breast cancer, left breast Discharge Disposition: Home Social History Tobacco [...] Sign Reading Time Taken Comments Blood Pressure 107/69 12/22/2014 10:45 AM EDT Pulse 68 12/22/2014 10:45 AM EDT Temperature 36.6 ??C (97.9 ??F) 12/22/2014 10:45 AM E DT Respiratory Rate 16 12/22/2014 10:45 AM EDT Oxygen Saturation 100% 12/22/2014 10:45 AM EDT Inhaled Oxygen Concentration - - Weight 54.2 kg (119 lb 8 oz) 12/22/2014 10:45 AM EDT Height 166 cm (5' 5.35) 12/22/2014 10:45 AM EDT Body Mass Index 19.67 12/22/2014 10:45 AM EDT documented in this encounter Progress Notes * Taz Santoro MD - 12/22/2014 11:13 AM EDT Diagnosis: Left breast IDC 0.5 cm, low grade, ER+/MS+, Her-2 unamplified Stage Ia, s/p lumpectomy and sentinellymph node biopsy 07/14/14 followed by XRT Subjective: Shannen comes in today for followup. One month ago she finished her radiation therapy and we started her on tamoxifen 20 mg daily. She has also changed jobs and notes that she gets fatigued by Wednesdays with the next job and that is quite unusual for her. We discussed whether or not she is having any hot flashes and she does note a little bit of sweating between her fingers on the backs of her knees and in the crease of her elbow. These are mild and do not bother her much. She does note that her periods have stopped. Other than the fatigue, though, she is not having really any other symptoms. We spent some time talking about long-term followup. She remembers our previous discussions and I believe all of her questions were answered today. Current Outpatient Prescriptions on File Prior to Visit Medication Sig Dispense Refill ??? tamoxifen (NOLVADEX) 20 mg Tablet Take 1 tablet by mouth daily. 30 tablet 3 ??? Fluocinolone Acetonide Oil 0.01 [...] lungs every 4 hours as needed. ??? EMOLLIENT BASE (CREAM BASE TOP) Apply topically. Jeans cream to area of radiation, twice a day,no less than 2 hours prior to radiation treatment No current facility-administered medications on file prior [...] Neurological: Negative. Hematological: Negative for adenopathy. BP 107/69 Pulse 68 Temp(Src) 36.6 ??C (97.9 ??F) (Oral) Resp 16 Ht 166 cm (5' 5.35) Wt 54.205 kg (119 lb 8 oz) BMI 19.67 kg/m2 SpO2 100% Head: Normocephalic, without obvious [...] supraclavicular, and axillary nodes normal Neurologic: Normal Laboratory is reviewed. Electrolytes are normal. Creatinine is 0.8, potassium 4.6, liver tests are normal with an ALP of 48. CMP is otherwise completely unremarkable. CBC shows a white count of 5.4, hemoglobin 14, hematocrit 41.8, and platelet count 215, absolute neutrophil count 3.58. Assessment/Plan: Shannen is tolerating her tamoxifen well. She is at low risk for reoccurrence but nonetheless would benefit from additional adjuvant treatment. It will cut her reoccurrence rate in half and I am pleased that she is tolerating things well. As far as her fatigue level goes, I think this is probable a residual effect from the radiation and one should expect things to improve over the next month or two. There is a rare patient that has difficulties with estrogen blockers in this regard but I think it distinctly unusual. Fatigue from radiation therapy, however, is very common so that is likely the cause. I think that discussion was helpful to her as she is wondering if some of the fatigue is from her new job. I think it is more likely from her treatment. We will see her back in six months' time with lab. She will call if there are issues or problems in the interim. documented in this encounter Plan of Treatment Upcoming Encounters Date Type Department Care Team (Late st Contact Info) Description 09/03/2024 3:30 PM EDT Office Visit Dermatology at [facility] [address] [place] [address] Miladys Gordon MD [facility] DR [address] [place] [address] documented as of this encounter Procedures Procedure Name Priority Date/Time Associated Diagnosis Comments LAB SCAN 06/11/2015 12:00 AM EST documented in this encounter Results * SCAN DOC: LAB (06/11/2015 12:00 AM EST) Scanning Provider MEDIA MGR SCAN EXT O RDR/RSLT documented in this encounter Visit Diagnoses Diagnosis Breast cancer, left breast Malignant neoplasm of breast (female), unspecified site documented in this encounter Care Teams Freight Conductor Relationship Specialty Start Date End Date Shonda Garcia MD [address] [place] [address] PCP - General 04/27/10 documented as of this encounter
--- OUTSIDE RECORDS SUMMARY | 2024-05-17 21:14 | XMS_ITS | Encounter Summary ---
Author Organization [facility] [place] [address] Care Team Providers Care Industrial Roofer Helper Name Role Phone Shonda Garcia MD Primary Care Provider Reason for Visit * Reason Comments Radiation Treatment Encounter Details Date Type Department Care Team (Late st Contact Info) Description 10/07/2014 5:45 PM EDT Office Visit Radiation Oncology at [address] [phone] Monalisa Waller MD [facility] [address] Breast cancer, female, left Discharge Disposition: Home [...] Sign Reading Time Taken Comments Blood Pressure 95/74 10/07/2014 5:04 PM EDT Pulse 84 10/07/2014 5:04 PM EDT Temperature 36.7 ??C (98.1 ??F) 10/07/2014 4:00 PM ED T Respiratory Rate 16 10/07/2014 4:00 PM EDT Oxygen Saturation 100% 10/07/2014 4:00 PM EDT Inhaled Oxygen Concentration - - Weight - - Height - - Body Mass Index - - documented in this encounter Patient Instructions * Patient Instructions* Carolyn Riddle RN - 10/07/2014 4:51 PM EDT DONE WITH TREATMENT INSTRUCTIONS AFTER RECEIVING RADIATION TO THE BREAST Your skin reaction in the treatment field can continue to progress over the next two weeks before it improves. Continue to apply the cream your nurse gave you for two weeks after treatment and until all signs of redness is gone. If you experience skin peeling, apply mepilex to peeling area to absorb drainage and assist in healing. Remove mepilex for showers and change if soiled. Call us if you are having difficulty managing any skin reaction. Discomfort from radiation to the breast is usually relieved by ibuprofen or Tylenol. Call us if youhave discomfort not relieved by these medications. Treatment related fatigue should resolve in 2-4 weeks after treatment is completed. Practice good sleep hygiene habits and take rest periods as needed. Some patients find walking for 30 min daily increases their energy level. If you notice skin tightness, decreased ability to use your arm or swelling in the arm of the treated side, notify us and we will arrange a physical therapy consult. Avoid blood pressure measurements and blood draws in the arm on the treated side. Some people find comfort in joining a support group to meet women who have had breast cancer and share their experiences. If you are interested, tell your nurse and she will assist you in finding onein your area. You will get a call from a executive secretary to schedule your follow up appointment. Radiation Oncology [place], [place]: [phone] Radiation Oncology [place], [place] After hours for emergency for either location: [phone], ask to speak with the radiation oncologist energy operations vice president Your last radiotherapy will be tomorrow. Congratulations! Please continue the kenji's cream. You may also use the 1% hydrocortisone cream up to 3 times daily on itchy skin within the irradiated area. Please do not use deodorant other than Henry's on your left underarm. Please do not use a straight/regular razor on your left underarm. An electric razor is ok. Please do not expose the irradiated area to sun. Please do not swim in chlorinated water. Saltwater or freshwater is ok. We will mail you a letter with an appointment to see me in 1 - 2 months. documented in this encounter Progress Notes * Monalisa Waller MD - 10/07/2014 4:53 PM EDT DIAGNOSIS: Breast ca, L, IDC, low gr, ER+MI+, [id number]-, s/p lumpectomy & SNB, pT1a pN0, stage I. Gordon to follow xrt. CURRENT TREATMENT DOSE: 50.4 Gy L breast, 58.4 Gy lumpectomy bed L breast ANTICIPATED TOTAL DOSE: 50.4 Gy L breast, 60.4 Gy lumpectomy bed L breast Current # of xrt received: 32 Anticipated total # of xrt txs: 33 Evaluation of port verification films: Approved. For details, see electronic film record in [employer]. Changes in Medical Condition: Increased tiredness over the past wk, particularly yesterday afternoon. Itchiness of L breast has resolved. Mild soreness in L axilla, adequately relieved by kenji's cream. Pain?: See above. Physical Exam: There were no vitals taken for this visit. A&Ox3, in NAD. Moderate erythema of L breast w/dry desquamation in several areas. Response to xrt: As expected. Irradiation Related Symptoms: Skin rxn. Treatment for Symptom Control: Mepilex-lite. 1% hydrocortisone cream. Kenji's cream. Pain Management: Tylenol or advil PRN. Recommendation on Continuing Course of xrt: Cont. Completes xrt tomorrow. Rtc 11/03/14. (She would like to be seen in 1st half of November as she has a vacation planned for latter half of November.) Dr. Santoro10/30/14. documented in this encounter Plan of Treatment Upcoming Encounters Date Type Department Care Team (Late st Contact Info) Description 09/03/2024 3:30 PM EDT Office Visit Dermatology at [facility] [address] [place] [phone] Miladys Gordon MD [facility] [place] [address] documented as of this encounter Visit Diagnoses Diagnosis Breast cancer, female, left documented in this encounter Care Teams Industrial Roofer Helper Relationship Specialty Start Date End Date Shonda Garcia MD [address] [place] [address] PCP - General 04/27/10 documented as of this encounter
--- OUTSIDE RECORDS SUMMARY | 2024-05-17 21:14 | XMS_ITS | Encounter Summary ---
[facility] [place] [address] Care Team Providers Care [employer] Fabrication Supervisor Name Role Phone Shonda Garcia MD Primary Care Provider [phone] Reason for Visit * Reason Comments Breast Cancer Encounter Details Date Type Department Care Team (Late st Contact Info) Description 12/28/2015 3:00 PM EDT Office Visit Hematology/Oncology at [address] [phone] Taz Santoro MD [address] [place] [address] Malignant neoplasm of upper-outer quadrant of [...] Taken Comments Blood Pressure - - Pulse 70 12/28/2015 3:09 PM EDT Temperature 36.9 ??C (98.4 ??F) 12/28/2015 3 :09 PM EDT Respiratory Rate 16 12/28/2015 3:09 PM EDT Oxygen Saturation 100% 12/28/2015 3:0 9 PM EDT Inhaled Oxygen Concentration - - Weight 60.1 kg (132 lb 8 oz) 12/28/2015 3:09 PM EDT Height 165.8 cm (5' 5.28) 12/28/2015 3 :09 PM EDT actual, no shoes Body Mass Index 21.86 12/28/2015 3:09 PM EDT documented in this encounter Progress Notes * Taz Santoro MD - 12/28/2015 3:00 PM EDT Diagnosis: Left breast IDC 0.5 cm, low grade, ER+/OR+, 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 Since I last saw her, she has had bilateral breast implants and is quite pleased with the surgical results. She is doing well overall. She notes her menstrual periods, which have been absent for the past year, started a few days ago. She is much more compliant with the tamoxifen and is really taking it accurately. Did go over the recent data that shows that patients do not do quite a while who do not take it on a regular basis. All that being said, she is feeling well and optimistic, and we also spent some time talking about the new data concerning 15 years of blockers being superior, both for local recurrence and, more importantly, for the long-duration therapy on the development of new breast cancers in the opposite breast. I Past medical history and social history [...] Negative. Neurological: Negative. Hematological: Negative for adenopathy. Pulse 70 Temp 36.9 ??C (98.4 ??F) (Oral) Resp 16 Ht 165.8 cm (5' 5.28) Comment: actual, no shoes Wt 60.1 kg (132 lb 8 oz) SpO2 100% BMI 21.86 kg/m2 Head: Normocephalic, without obvious abnormality, atraumatic [...] supraclavicular, and axillary nodes normal Neurologic: Normal n talking to her today, she understands she still has breast tissue, just implants in place, so she still needs mammograms. She has those scheduled already through [facility]. Review of her lab today continues to show a very low ALP at 40. Laboratory is otherwise unremarkable. Creatinine is 0.86, and calcium is normal at 8.7. CBC shows a white count of 6.6, hemoglobin 12.8, hematocrit 38.6, and platelet count of 225. ASSESSMENT/PLAN: Shannen is doing well with no evidence of recurrent breast cancer. She is at very low risk for reoccurrence. We talked about followup, and we talked about the 15-year data with blockers, and she is willing to consider that. We will see her back in 6 months' time with lab, and she will get her scheduled mammograms as noted. documented in this encounter Plan of Treatment Upcoming Encounters Date Type Department Care Team (Late st Contact Info) Description 09/03/2024 3:30 PM EDT Office Visit Dermatology at [address] [phone] Miladys Gordon MD [facility] [address] MY[place] [address] documented as of this encounter Procedures Procedure Name Priority Date/Time Associated Diagnosis Comments LAB SCAN 12/28/2015 12:00 AM EDT documented in this encounter Results * SCAN DOC: LAB (12/28/2015 12:00 AM EDT) Scanning Provider MEDIA MGR SCAN EXT O RDR/RSLT documented in this encounter Visit Diagnoses Diagnosis Malignant neoplasm of upper-outer quadrant of left female breast Malignant neoplasm of upper-outer quadrant of female breast documented in this encounter Care Teams Main[employer] Fabrication Supervisor Relationship Specialty Start Date End Date Shonda Garcia MD [facility] [address] [place] [address] PCP - General 04/27/10 documented as of this encounter
--- OUTSIDE RECORDS SUMMARY | 2024-05-17 21:14 | XMS_ITS | Encounter Summary ---
Author Organization [facility] [place] [address] Care Team Providers Care Care Consultant Name Role Phone Shonda Garcia MD Primary Care Provider [phone] Reason for Visit * Reason Comments Radiation Follow-up Encounter Details Date Type Department Care Team (Late st Contact Info) Description 07/13/2015 3:00 PM EST Office Visit Radiation Oncology at [address] [phone] Monalisa Waller MD [facility] [place] [address] Malignant neoplasm of left female breast, unspecified [...] Sign Reading Time Taken Comments Blood Pressure 98/49 07/13/2015 3:06 PM EST Pulse 64 07/13/2015 3:06 PM EST Temperature 36.7 ??C (98.1 ??F) 07/13/2015 3:06 PM ES T Respiratory Rate 20 07/13/2015 3:06 PM EST Oxygen Saturation 100% 07/13/2015 3:06 PM EST room air Inhaled Oxygen Concentration - - Weight - - Height - - Body Mass Index - - documented in this encounter Patient Instructions * Patient Instructions* Monalisa Waller MD - 07/13/2015 3:25 PM EST Your exam is without worrisome finding. We will mail you a letter with an appointment to return for followup with me or a Radiation Oncology turn supervisor in 6 months. documented in this encounter Progress Notes * Monalisa Waller MD - 07/13/2015 3:14 PM EST CC: Sched'd fu s/p xrt completion. HPI: 49 y/o f who completed xrt 9 mos ago for breast ca, L, IDC, low gr, ER+CA+, [id number]-, s/p lumpectomy & SNB, pT1a pN0, stage I. Since xrt completion, she has been started on mc. 02/18/15 B mmg: Neg. 02/18/15 fu w/Dr. Cast; rtc 1 yr w/mmg. 07/06/[address] De Anda for breast recon due to asymmetry. No pain. No hand/arm swelling. ROM of arms around shoulders nl. Appetite good. Has not recovered full energy level since xrt completion & she describes not being able to downhill ski for a full day, which she could do prior to her dx of breast ca. Now she has to stop after a half day of skiing,due to tiredness. Past Medical History Diagnosis Date ??? Dermatitis ??? Asthma ??? Eczema childhood eczema ??? Attention deficit disorder controlled with Adderal ??? TMJ (temporomandibular joint disorder) wears retainer ??? Breast cancer Past Surgical History Procedure Laterality Date ??? Pro mastectomy, partial Left 07/14/2014 MASTECTOMY PARTIAL performed by Patricia Cast MD at [facility] ??? Pro bx/remv, lymph node, deep axill Left 07/14/2014 BIOPSY OR EXCISION OF LYMPH NODE(S), OPEN, DEEP AXILLARY NODE(S) performed by Patricia Cast MD at [facility] ??? Pro identify sentinel node Left 07/14/2014 SENTINEL NODE INJECTION performed by Patricia Cast MD at [facility] ??? Nasal septum surgery 2010 deviated septum Physical Exam Constitutional: She is oriented to person, place, and time. She appears well- developed and well-nourished. No distress. BP 98/49 mmHg Pulse 64 Temp(Src) 36.7 ??C (98.1 ??F) (Oral) Resp 20 SpO2 100% HENT: Head: Normocephalic and atraumatic. Eyes: Conjunctivae [...] no tenderness. Left breast exhibits no inverted n ipple, no mass, no skin change and no nipple discharge. Abdominal: Soft. She [...] is normal. Judgment and thought contentnormal. A: BALJIT. P: I discussed w/Shannen how tiredness from xrt would be expected to be resolved by this time & the decrease in her energy level may be related to the mc. Rtc 6 mos. Cc: Dr. Kubica documented in this encounter Plan of Treatment Upcoming Encounters Date Type Department Care Team (Late st Contact Info) Description 09/03/2024 3:30 PM EDT Office Visit Dermatology at [facility] [address] [place] [phone] Miladys Gordon MD [facility] [address] [address] documented as of this encounter Visit Diagnoses Diagnosis Malignant neoplasm of left female breast, unspecified site of breast documented in this encounter Care Teams Care Consultant Relationship Specialty Start Date End Date Shonda Garcia MD [address] [place] [address] [address] [place] [address] PCP - General 04/27/10 documented as of this encounter
--- OUTSIDE RECORDS SUMMARY | 2024-05-17 21:14 | XMS_ITS | Encounter Summary ---
Author Organization [facility] [place] [address] Care Team Providers Care Bulk System Operator Name Role Phone Shonda Garcia MD Primary Care Provider [phone] Reason for Visit * Reason Comments Breast Cancer Encounter Details Date Type Department Care Team (Late st Contact Info) Description 11/03/2014 2:30 PM EDT Follow-Up Hematology/Oncology at [address] [phone] Taz Santoro MD [address] [place] [address] Breast cancer, left breast Discharge Disposition: [...] Time Taken Comments Blood Pressure 87/50 11/03/2014 2:32 PM EDT Pulse 64 11/03/2014 2:32 PM EDT Temperature 37.1 ??C (98.8 ??F) 11/03/2014 2:32 PM ED T Respiratory Rate 16 11/03/2014 2:32 PM EDT Oxygen Saturation 100% 11/03/2014 2:32 PM EDT Inhaled Oxygen Concentration - - Weight 56.2 kg (124 lb) 11/03/2014 2:32 PM EDT Height 166 cm (5' 5.35) 11/03/2014 2:32 PM EDT Body Mass Index 20.41 11/03/2014 2:32 PM EDT documented in this encounter Progress Notes * Taz Santoro MD - 11/03/2014 2:31 PM EDT Diagnosis: Left breast IDC 0.5 cm, low grade, ER+/[place]+, Her-2 unamplified Stage Ia, s/p lumpectomy and sentinellymph node biopsy 07/14/14 followed by XRT Subjective: Shannen comes in today for followup and to discuss starting adjuvant tamoxifen in the treatment of her breast cancer. We again went over things. She has had two previous medical oncology visits regarding this so had very few questions. We did explain that tamoxifen did cut her risk of system reoccurrence in half and the risk of a new breast cancer down by 40%. We went over risks and side effects of the medication, the reason for the recommendation, and I believe all of her questions were answered. She notes she did fine with radiation therapy and is not having any problems. She just finished. We also discussed followup extermination supervisor, both with surgery. She would like to have her mammograms down at [facility] and I told her it would be fine to arrange those concurrent with her appointment with the surgeon down there. I would recommend yearly mammograms in addition to twice-yearly lab. Review of Systems Constitutional: Negative for fever, [...] Negative. Neurological: Negative. Hematological: Negative for adenopathy. Head: Normocephalic, without obvious abnormality, atraumatic Eyes: [...] supraclavicular, and axillary nodes normal Neurologic: Normal Assessment/Plan: Shannen is doing well and has finished her radiation therapy which would reduce her risk of local reoccurrence of her breast cancer. She has a stage 1A breast cancer and has a very small risk or reoccurrence but can cut that risk in half by taking tamoxifen for five years and because of her young age, perhaps 12. I went over risks and side effects and she does wish to start treatment. A prescription for tamoxifen 20 mg daily is given. We will see her back in a month to see how she is tolerating the medication and check lab at that time. After that, plans are for followup every six months. documented in this encounter Plan of Treatment Upcoming Encounters Date Type Department Care Team (Late st Contact Info) Description 09/03/2024 3:30 PM EDT Office Visit Dermatology at [facility] [address] [place] [phone] Miladys Gordon MD [facility] [address] [address] documented as of this encounter Procedures Procedure Name Priority Date/Time Associated Diagnosis Comments LAB SCAN 12/11/2014 12:00 AM EDT documented in this encounter Results * SCAN DOC: LAB (12/11/2014 12:00 AM EDT) Scanning Provider MEDIA MGR SCAN EXT O RDR/RSLT documented in this encounter Visit Diagnoses Diagnosis Breast cancer, left breast Malignant neoplasm of breast (female), unspecified site documented in this encounter Care Teams Bulk System Operator Relationship Specialty Start Date End Date Shonda Garcia MD [address] [place] [address] PCP - General 04/27/10 documented as of this encounter
--- OUTSIDE RECORDS SUMMARY | 2024-05-17 21:14 | XMS_ITS | Encounter Summary ---
Author Organization [facility] [place] [address] Care Team Providers Care Accounting Teacher Name Role Phone Shonda Garcia MD Primary Care Provider [phone] Encounter Details Date Type Department Care Team (Late st Contact Info) Description 07/14/2014 [place] [phone] Mammography, Conversion Signing Social History Tobacco Use Types Packs/Day Years [...] Office Visit Dermatology at [facility] [address] [place] [address] Miladys Gordon MD [facility] [place] [address] documented as of this encounter Procedures Procedure Name Priority Date/Time Associated Diagnosis Comments HX CONVERSION BREAST PATHOLOGY Routine 07/14/2014 documented in this encounter Results * HX Conversion Breast Pathology (07/14/2014) Anatomical Region Laterality Modality Breast N/A Mammography 07/14/2014 Conversion Signing Mammography IMG MAMMO ORDERABLES documented in this encounter Visit Diagnoses Not on filedocumented in this encounter Care Teams Accounting Teacher Relationship Specialty Start Date End Date Shonda Garcia MD [address] [place] [address] PCP - General 04/27/10 documented as of this encounter
--- OUTSIDE RECORDS SUMMARY | 2024-05-17 21:14 | XMS_ITS | Encounter Summary ---
[facility] Organization [facility] [place] [address] Care Team Providers Care Insurance Instructor Name Role Phone Shonda Garcia MD Primary Care Provider [phone] Reason for Visit * Reason Comments Follow Up Surgery bilateral breast jan Encounter Details Date Type Department Care Team (Late st Contact Info) Description 10/27/2015 9:20 AM EDT Office Visit [place] [address] Sera Alvarez [facility] [place] [address] Surgery follow-up Social History Tobacco Use Types [...] this encounter Patient Instructions * Patient Instructions* Darlene Whaley RN - 10/27/2015 9:33 AM EDT Signs of Infection : A temperature over 100.4 F or 38 C. Redness at the incision line that is beginning to spread away from the incision after the first 48 hours. Yellow pus-like or foul smelling drainage larger than a dime size from the incision or drain sites. Increased pain / discomfort that is not relieved by your pain medicine. For any of these symptoms please call our nurse's line at [phone] M - F 8 - 5 -SCAR MASSAGE TECHNIQUE: to begin 4-6 weeks following surgery What is a scar? When an injury occurs, the body immediately begins to repair itself & the area becomes swollen & sore. Eventually small collagen fibers form, becoming a solid tissue that results in a scar. This scar will continue to change in appearance for 1-2 years. Ideally, a scar is smooth & flat, blending in with the surrounding skin. However, some scars may become highly visible & unattractive due to factors such as your age, scar location & size, nutrition, genetics, or infection. A hypertrophic scar occurs when there is an excess production of collagen tissue that is elevated but remains within the wound boundaries. The scar is tense, red, & can be associated with itching & tenderness. A hypertrophic scar can be ordinary (usually stabilizes in 3 months & may even get smaller and smoother) or keloid. The keloid scar invades nearby tissue that was not part of the original wound, tends to enlarge even after 6 months & does not get softer. Will scar massage make my scars disappear? Nothing can make scars disappear. However, massaging the scar assists the body in breaking down thescar tissue to give it a flatter, softer, appearance. Massage also mobilizes the scar, preventing it from adhering to underlying tissue, tendons, & nerves. You can make the greatest difference in the appearance of the scar if you massage it in the first 3months. What should I use on my scars? You will hear many recommendations. This clinic finds that it is the massage itself that reduces the scar & not necessarily the choice of ointments or creams. We do discourage the use of Vitamin E oil, however, due to studies that have reported scar inflammation & deterioration. How do I massage my scars? Generously apply the lotion or cream into the scar 3-4 times a day for 8 weeks on new scars, and 3-4 times per day for 3 to 6 months on existing scars. Using your finger, apply pressure to the scar in a crosswise & circular direction, bearing down as hard as tolerated. Remember to protect your scar from the sun, especially in the first 6-12 months, by using a moisturizer with sunblock and wearing a physical barrier (ie: a hat) when possible Begin implant massage 4 weeks from the date of your surgery documented in this encounter Progress Notes * Sera Alvarez APRN - 10/27/2015 9:40 AM EDT Plastic Surgery Post Op Note Reason for visit: F/U status post procedure Date of surgery: 10/20/15 Procedure(s): bilateral breast augmentation S/p left lumpectomy and radiation Complications: None reported Pain: 07/15 HPI: Pt reports that she has been well since her visit last week. Her left side swelling has decreased. Examination: Patient is alert, conversant, comfortable, ambulating Incision: CDI, healing well. Sutures removed and steri-strips applied. Breasts mildly edematous as expected. No palpable fluid collection. No erythema, no evidence of cellulitis. Impression: Shannen Nobles is a 50 y.o. female who was seen today for follow-up after the above procedure. Please see the operative note for details. She is doing well without complaints. Plan: 1. Follow up: 1 month 2. Maintain support garments around the clock until next visit 3. Begin breast band - provided today 4. Begin implant massage 1 month after surgery - instructions and demonstration provided today 5. Wear steri-strips until next visit - replace as needed 6. Activity restrictions until next visit - no running, bouncing, lifting > 5 pounds, pushing, pulling documented in this encounter Plan of Treatment Upcoming Encounters Date Type Department Care Team (Late st Contact Info) Description 09/03/2024 3:30 PM EDT Office Visit Dermatology at [facility] [address] [place] [address] Miladys Gordon MD [facility] DR [address] [place] [address] documented as of this encounter Visit Diagnoses Diagnosis Surgery follow-up Follow-up examination, following unspecified surgery documented in this encounter Care Teams Insurance Instructor Relationship Specialty Start Date End Date Shonda Garcia MD [address] [place] [address] PCP - General 04/27/10 documented as of this encounter
--- OUTSIDE RECORDS SUMMARY | 2024-05-17 21:14 | XMS_ITS | Encounter Summary ---
[place] [address] Care Team Providers Care Title Manager Name Role Phone Shonda Garcia MD Primary Care Provider [phone] Encounter Details Date Type Department Care Team ([facility] Contact Info) Description 08/11/2014 Telephone Hematology [place] [phone] Brittany Guzman MSW [facility] DR HEMATOLOGY/[place] [address] Social History Tobacco Use Types Packs/Day Years [...] encounter Miscellaneous Notes * Telephone Encounter - Brittany Guzman MSW - 08/11/2014 10:01 AM EDT PC from Ms. Nobles who said she needed a letter for work verifying that she would need intermittanttime off from work for continuing care of her breast cancer. A letter will be faxed to [employer] [facility] (fax [phone]). documented in this encounter Plan of Treatment Upcoming Encounters Date Type Department Care Team ([facility] Contact Info) Description 09/03/2024 3:30 PM EDT Office Visit Dermatology at [facility] [address] [place] [address] Miladys Gordon MD [facility] DR MYESHA [place] [address] documented as of this encounter Visit Diagnoses Not on filedocumented in this encounter Care Teams Title Manager Relationship Specialty Start Date End Date Shonda Garcia MD [address] [place] [address] PCP - General 04/27/10 documented as of this encounter
--- OUTSIDE RECORDS SUMMARY | 2024-05-17 21:14 | XMS_ITS | Encounter Summary ---
Author Organization [facility] [place] [address] Care Team Providers Care Bell Cleaner Name Role Phone Shonda Garcia MD Primary Care Provider [phone] Reason for Visit * Reason Comments On Treatment Visit Encounter Details Date Type Department Care Team (Late st Contact Info) Description 09/01/2014 2:30 PM EDT Office Visit Radiation Oncology at [address] [address] Trae Jeong MD Breast cancer, left breast Discharge Disposition: Home [...] Sign Reading Time Taken Comments Blood Pressure 97/61 09/01/2014 2:00 PM EDT Pulse 63 09/01/2014 2:00 PM EDT Temperature 36.5 ??C (97.7 ??F) 09/01/2014 2:00 PM ED T Respiratory Rate 18 09/01/2014 2:00 PM EDT Oxygen Saturation 100% 09/01/2014 2:00 PM EDT Inhaled Oxygen Concentration - - Weight - - Height - - Body Mass Index - - documented in this encounter Progress Notes * Trae Jeong MD - 09/01/2014 2:41 PM EDT DIAGNOSIS: Breast ca, L, IDC, low gr, ER+MN+, [id number]-, s/p lumpectomy & SNB, pT1a pN0, stage I. Gordon to follow xrt. CURRENT TREATMENT DOSE: 10.8 Gy ANTICIPATED TOTAL DOSE: 50.4 Gy L breast, 60.4 Gy lumpectomy bed L breast Current # of xrt received: 6 Anticipated total # of xrt txs: 33 Evaluation of port verification films: Approved. For details, see electronic film record in [employer]. Changes in Medical Condition: Tenderness in L breast has resolved. No skin changes. Feels like she may have cold. Pain?: No pain Physical Exam: BP 97/61 Pulse 63 Temp(Src) 36.5 ??C (97.7 ??F) (Oral) Resp 18 SpO2 100% A&Ox3, in NAD. No erythema of L breast. Response to xrt: As expected. Irradiation Related Symptoms: Inflammation of soft tissue-improved Treatment for Symptom Control: Tylenol or advil rec'd. Kenji's cream. Pain Management: Tylenol or advil PRN Recommendation on Continuing Course of xrt: Cont. documented in this encounter Plan of Treatment Upcoming Encounters Date Type Department Care Team (Late st Contact Info) Description 09/03/2024 3:30 PM EDT Office Visit Dermatology at [address] [address] Miladys Gordon MD [facility] DR [address]ES[address] [place] [address] documented as of this encounter Visit Diagnoses Diagnosis Breast cancer, left breast Malignant neoplasm of breast (female), unspecified site documented in this encounter Care Teams Bell Cleaner Relationship Specialty Start Date End Date Shonda Garcia MD [facility] [address] [place] [id number] PCP - General 04/27/10 documented as of this encounter
--- OUTSIDE RECORDS SUMMARY | 2024-05-17 21:14 | XMS_ITS | Encounter Summary ---
Author Organization [facility] [place] [address] Care Team Providers Care Electro Mechanical Solar Technician Name Role Phone Shonda Garcia MD Primary Care Provider [phone] Reason for Visit * Auth/Cert Specialty Diagnoses / Procedures Referred By Contac t Referred To Contact Diagnoses Breast Cancer Procedures PRO ENLARGE BREAST WITH IMPLANT AUGMENTATION MAMMOPLASTY, UNILATERAL Referral ID Status Reason Start Date Expiration Date Visits Re quested Visits Authorized [id number] 1 1 Encounter Details Date Type Department Care Team (Late st Contact Info) Description 10/20/2015 11:30 AM EDT - 10/20/2015 1:15 PM EDT Surgery [facility] [place] [id number] DavisCassie lizarraga MD [facility] [place] [address] AUGMENTATION MAMMOPLASTY, RICK (WRVU 8.12) Social History Tobacco Use Types Packs/Day Years [...] Sign Reading Time Taken Comments Blood Pressure 85/49 10/20/2015 11:50 AM EDT Pulse 62 10/20/2015 11:50 AM EDT Temperature 36.3 ??C (97.3 ??F) 10/20/2015 10:21 AM E DT Respiratory Rate 16 10/20/2015 11:50 AM EDT Oxygen Saturation 100% 10/20/2015 11:50 AM EDT Inhaled Oxygen Concentration - - Weight 56.7 kg (125 lb) 10/20/2015 10:21 AM EDT Height 167 cm (5' 5.75) 10/20/2015 10:21 AM EDT Body Mass Index 20.33 10/20/2015 10:21 AM EDT documented in this encounter Discharge Instructions * Discharge Instructions* Melanie Lambert RN - 10/20/2015 11:49 AM EDT At 1100 am you received 1000 mg of acetaminophen- Your next dose should not be taken before 8 hourshave passed. Next dose not before- 7:00pm You should not take more than a [...] may remove the patch as early as: Tonight BUT must remove it no later than 11:00 am on Monday There will still be some active ingredients [...] remove the patch and call your surgeon. General Anesthesia Discharge Instructions Go home and [...] closest emergency room or call the hospital forming machine operator at [phone] and ask for physician workers compensation consultant covering for your physician. Questions or problems after 5pm or on a weekend: Call the [facility] forming machine operator at and ask for the physician workers compensation consultant covering for your doctor. * Patient Instructions* Martinez Calle MD - 10/20/2015 11:03 AM EDT PLASTIC SURGERY DISCHARGE INSTRUCTIONS WOUND CARE: OK to shower in 2 days. Do not submerge in water until cleared by MD. Keep dressing clean dry and intact. You must avoid sunlight exposure to your incision(s). Do not use ointments on the incisions postoperatively unless instructed by MD. Wear surgical bra until seen by MD. ACTIVITIES: Minimize contact to bilateral breast. No heavy lifting until seen by MD. No driving or operating heavy machinery when on narcotics. DIET: Slowly advance diet as tolerated to a regular healthy diet. CALL MD IF: Increased pain, numbness, tingling, weakness, swelling, bruising, bleeding, or any other concerningsigns/symptoms FOLLOW UP: Future Appointments and Orders Future Appointments Provider Department Dept Phone 10/27/2015 9:20 AM Sera Alvarez, FISH MACHINE FEEDER Plastic Surgery [phone] Suture removal in clinic MEDICATIONS: Your Medications New Medications Dose Details oxyCODONE 5 mg Tab Commonly known as: ROXICODONE Take 1 tablet by mouth every 4 hours as needed for Pain. 5 mg Quantity: 30 tablet Refills: 0 Continued medications, unchanged Dose Details cholecalciferol (Vitamin D3) 400 unit Tab Take 400 Units by mouth daily. 400 Units Refills: 0 Fluocinolone Acetonide Oil 0.01 % Drop Refills: 0 multivitamin Tab Commonly known as: THERAGRAN Take 1 tablet by mouth daily. 1 tablet Refills: 0 SPIRONOLACTONE ORAL Take 100 mg by mouth daily. Indications: Acneiform Eruption 100 mg Refills: 0 tacrolimus 0.1 % Oint Commonly known as: PROTOPIC Apply topically 2 times daily. To the face Quantity: 60 g Refills: 3 tamoxifen 20 mg Tab Commonly known as: NOLVADEX Take 1 tablet by mouth daily. 20 mg Quantity: 90 tablet Refills: 3 triamcinolone 0.1 % Crea Commonly known as: KENALOG Apply topically on trunk for severe flair of eczema Quantity: 80 g Refills: 1 XOPENEX HFA INHL Inhale 2 puffs into the lungs every 4 hours as needed. 2 puff Refills: 0 ZYRTEC ORAL Take by mouth daily as needed. Refills: 0 NARCOTICS: You may be given a prescription for a narcotic medication immediately following your surgery. Narcotics are prescribed for short-term use to help treat your pain. Surgical pain requiring narcotics will usually be greatly decreased 2-3 days after surgery & should be mild to absent by 10-14 days. We will only prescribe a narcotic pain reliever for 2 weeks following your surgery. This will [...] called in to our prescription line at [phone]. Narcotic renewals may be requested from 8am-4pm [...] a pharmacy and must be picked up by the patient. CONTACT INFORMATION: During office hours: Monday through Monday 8 am to 5 pm Call [phone] On weekends or after hours: Call [phone] and ask the forming machine operator to page the Plastic Surgery Resident workers compensation consultant. documented in this encounter Medications at Time of Discharge Medication Sig Dispensed Refills Start Date End Date triamcinolone (KENALOG) 0.1 % Cream Apply topically [...] every 4 hours as needed for Pain. 30 tablet 10/20/2015 10/27/2015 tamoxifen (NOLVADEX) 20 mg TabletIndications:Kym alford cancer, left breast Take 1 tablet by mouth daily. 90 tablet 3 12/23/2014 11/06/2015 tacrolimus (PROTOPIC) 0.1 % OintmentIndications:De rmatitis Apply topically 2 times daily. To the face 60 g 3 07/25/2014 09/05/2022 CETIRIZINE HCL (ZYRTEC ORAL) Take by mouth daily as needed. 08/09/2016 SPIRONOLACTONE ORALIndications:acneif orm eruption Take 100 mg by mouth daily. Indications: Acneiform Eruption 05/03/2018 documented as of this encounter Progress Notes * Nichelle Lara RN - 10/20/2015 2:29 PM EDT Took over care after report from Mena Lambert RN. Pt awake and alert. States pain better after last dose of IV fentanyl. Taking water without c/o. In no acute distress. 1503: patient states pain is now tolerable. Denies nausea. Ready to get dressed and go home. Reportgiven to Mena Lambert RN documented in this encounter H&P Notes * Cassie De Anda MD - 10/20/2015 11:01 AM EDT 24 HOUR INTERVAL H&P S: Shannen Nobles's condition unchanged since H&P originally performed Denies any new ED visits, hospitalizations, trauma, or new events. Has been overall doing well. O: Patient Vitals for the past 24 hrs: BP Temp Temp src Pulse Resp SpO2 Height Weight 10/20/15 1021 95/67 36.3 ??C (97.3 ??F) Temporal 58 18 100 % 167 cm (5' 5.75) 56.7 kg (125 lb) NAD Non-labored Pee Site marked AP: 50 y.o. female with breast asymmetry after lumpectomy - After extensive discussion of the risks, benefits, and alteratives of surgical intervention, the patient consented to proceed with surgery. - IV antibiotics ordered - Proceed to OR for: Procedure(s): AUGMENTATION MAMMOPLASTY, RICK Martinez Calle MD Plastic Surgery Resident, PGY-6 There have been no interval changes in the health of the patient. I have examined and marked her and we will proceed with saline submuscular breast augmentation today. We have discussed the skin marking and implants and she has decided that she would like to have the same sized implants in both sides and to have the implants be 325 cc. Her ideal choice is 300 cc but her prefers 350 cc so she would like to be somewhere in the middle of those two sizes. We have re-reviewed the risks including scar, capsular contracture, implant rupture, infection, bleeding/hematoma, seroma, skin loss, delayed healing, contour irregularity, fat necrosis, sensation loss, spitting sutures and asymmetry and she wishes to proceed. She understands the radiated side has an increased risk of these complications and that there may still be subtle changes in size and shape of the left breast due to the radiation. Cassie De Anda MD documented in this encounter Miscellaneous Notes * Op Note - Cassie De Anda MD - 10/20/2015 1:14 PM EDT Operative Note Patient Name: Shannen Nobles : [id number] MR#: [id number] Case Date: 10/20/2015 Surgeon: Surgeon(s) and Role: * Cassie De Anda MD - Primary * Martinez Calle MD Preoperative diagnosis: Breast Cancer Postoperative diagnosis: Breast Cancer Procedure(s): AUGMENTATION MAMMOPLASTY, RICK Anesthesia: General Findings: 300 cc saline smooth round moderate plus implants placed and filled to 325 cc. Complications: None Fluids: 1.2L Estimated Blood Loss: 10 mL Drains: None Disposition: awakened from anesthesia, extubated and taken to the recovery room in a stable condition, having suffered no apparent untoward event. Condition: doing well without problems (Please see the Surgical Encounter Summary for any Implant and Specimen details pertinent to this patient.) Infection Bundle used? N/A POST OP: Suture removal in 7 days in clinic. Need to remove steri strips to see prolene suture. Shannen Nobles is a 50 y.o. female with breast asymmetry after lumpectomy who desires breast augmentation. The indications, risks, and benefits of the procedure were again reviewed and explained to the patient and she wished to proceed. All questions were answere and consent obtained. In particular we addressed, the current asymmetry. She was then marked in the preoperative [...] prepped and draped sterilely. We began by injecting 20 cc of 0.25% Sensorcaine with epinephrine into each breast (along the proposed incision sites, along the medial aspect of each breast, and in the submuscular plane ). The IMF and implant dimensions were then tattooed with methylene blue. After adequate time for the epinephrine effect, 2.5 cm long incisions at the level of the IMF were made on each side beginning at the level of the nipple and extending laterally on each breast. On each side, the subcutaneous dissection with electrocautery was carried to the inferior border of the pectoralis major muscle. The muscle wasthen elevated and dissected from the pectoralis minor and chest wall using electrocautery to createa subpectoral pocket to accomodate the implants. The inferior portion of the pectoralis was freed from the chest wall along the IMF but no medial attachment was disrupted. The pocket diameter matchedthe diameter of the selected implant (11.5 cm). Each pocket was then hemostased with electrocautery, checked for symmetry in position and washed with double antibiotic saline solution. A Coy 300 cc Smooth Round Moderate profile plus saline implant filled to 50 cc was then placed within each pocket and then filled to 325 cc. After conformationof correct lie within the pocket, the deep breast fascia and the deep dermis was closed with 3-0 Vicryl and the skin with subcuticular 5-0 prolene. Dermabond was used to reinforce the wound closure followed by steri strips. The wound was dressed with a sterile dressing and the patient placed in a surgical bra.There were no complications. Needle count was correct. Implant Name Type Inv. Item Serial No. Prevention Specialist Lot No. LRB No. Used Action MAMMA,SMTH,RND,MOD,+,PRFL,300C ([id number]) - [id number] IMPLANTS MAMMA,SMTH,RND,MOD,+,PRFL,300C ([id number]) [employer] - [id number] Right 1 Implanted MAMMA,SMTH,RND,MOD,+,PRFL,300C ([id number]) - [id number] IMPLANTS MAMMA,SMTH,RND,MOD,+,PRFL,300C ([id number]) [employer] - [id number] Left 1 Implanted Attestation: Case Date: 10/20/2015 I was present and I participated during the entire procedure. CASSIE DE ANDA MD 10/20/2015 * Brief Op Note - Martinez Calle MD - 10/20/2015 1:12 PM EDT Brief Operative Note Patient Name: Shannen Nobles : [id number] MR#: [id number] Case Date: 10/20/2015 Surgeon: Surgeon(s) and Role: * Cassie De Anda MD - Primary * Martinez Calle MD Preoperative diagnosis: Breast Cancer Postoperative diagnosis: Breast Cancer Procedure(s): AUGMENTATION MAMMOPLASTY, RICK Anesthesia: General Findings: 325 cc saline smooth round moderate plus implants placed. Complications: None Fluids: 1.2L Estimated Blood Loss: 10 mL Drains: None Disposition: awakened from anesthesia, extubated and taken to the recovery room in a stable condition, having suffered no apparent untoward event. Condition: doing well without problems (Please see the Surgical Encounter Summary for any Implant and Specimen details pertinent to this patient.) Infection Bundle used? N/A POST OP: Suture removal in 7 days in clinic. Need to remove steri strips to see prolene suture. documented in this encounter Plan of Treatment Upcoming Encounters Date Type Department Care Team (Late st Contact Info) Description 09/03/2024 3:30 PM EDT Office Visit Dermatology at [facility] [address] [place] [address] Miladys Gordon MD [facility] DR MYESHA [place] [address] documented as of this encounter Procedures Procedure Name Priority Date/Time Associated Diagnosis Comments AUGMENTATION MAMMOPLASTY, RICK (WRVU 8.12) 10/20/2015 11:14 AM EDT Breast Cancer Case Notes 325cc into right breast and 325cc left breast implant. documented in this encounter Visit Diagnoses Not on filedocumented in this encounter Administered Medications Inactive Administered Medications - up to 3 most recent administrations Medication Order MAR Action Action Date Dose Rate Site acetaminophen (TYLENOL) tablet 1,000 mg 1,000 mg, Oral, ONCE, 1 dose, On Mon10/20/15 at 1115, Maximum dose of acetaminophen is 4000 mg from all sources in 24 hours., Routine Given 10/20/2015 11:01 AM EDT 1,000 mg BUpivacaine-EPINEPHrine 0.25 %-1:200,000 injection ONCE PRN, Starting on Mon10/20/15 at 1157, Until Mon10/20/15 at 1722, Intra-Operative (Intra-Procedure), Routine Given 10/20/2015 11:57 AM EDT 30 mLs 19- Surgical Site fentaNYL (PF) 50 mcg/mL 2mL syringe 25 mcg, Intravenous, EVERY 5 MIN PRN, Pain, for 1-4 pain score, Starting on Mon10/20/15 at 1344, Until Mon10/20/15 at 1509, for 1-4 pain score Hold for respiratory rate less than 10 per minute. Maximum dose: 250 mcg over one hour., PACU Recovery Given 10/20/2015 2:27 PM EDT 25 mcg Given 10/20/2015 2:11 PM EDT 25 mcg Given 10/20/2015 2:02 PM EDT 25 mcg gabapentin (NEURONTIN) capsule 600 mg 600 mg, Oral, ONCE, 1 dose, On Mon10/20/15 at 1115, Routine Given 10/20/2015 11:01 AM EDT 600 mg oxyCODONE (ROXICODONE) immediate release tablet 5 mg 5 mg, Oral, EVERY 4 HOURS PRN, Starting on Mon10/20/15 at 1102, Until Mon10/20/15 at 1722, Pain, Routine Given 10/20/2015 1:52 PM EDT 5 mg scopolamine (TRANSDERM-SCOP) 1.5 mg (1 mg over 3 days) patch 1 patch 1 patch, Transdermal, ONCE, 1 dose, On Mon10/20/15 at 1115, Recovery (Recovery-Hospital Unit), Routine Patch Applied 10/20/2015 11:04 AM EDT 1 patch 01- Ear Behind (Left) scopolamine (TRANSDERM-SCOP) 1.5 mg (1 mg over 3 days) patch 1 dose, Starting on Mon10/20/15 at 1050, Until Mon10/20/15 at 1104, AP PATEL: cabinet override scopolamine (TRANSDERM-SCOP) 1.5 mg patch Patch Removal Transdermal, EVERY 24 HOURS, 1 dose, First dose on Mon10/21/15 at 0900, Remove Scopolamine Patch, Recovery (Recovery-Hospital Unit) scopolamine (TRANSDERM-SCOP) 1.5 mg patch Patch Verification Transdermal, 2 TIMES DAILY, 1 dose, First dose on Mon10/20/15 at 2300, Verify scopolamine 1.5 mg patch., Recovery (Recovery-Hospital Unit) documented in this encounter Active and Recently Administered Medications Times are shown in EDT. Scheduled Medication Order 10/18/2015 10/19/2015 10/20/2015 acetaminophen (TYLENOL) tablet 1,000 mg (COMPLETED) 1,000 mg, Oral, ONCE, 1 dose, On Mon10/20/15 at 1115, Maximum dose of acetaminophen is 4000 mg from all sources in 24 hours., Routine 1101 (Given - Provid er: Ap Patel RN) clindamycin (CLEOCIN) 600mg in dextrose 5% 50mL 600 mg, Intravenous, ONCE, 1 dose, On Mon10/20/15 at 1130, Administer over 20 Minutes, HOLD FOR OR, Indication for (Active or Suspected): Prophylaxis 1135 (Given - Provid er: Dalila Purvis CRNA) gabapentin (NEURONTIN) capsule 600 mg (COMPLETED) 600 mg, Oral, ONCE, 1 dose, On Mon10/20/15 at 1115, Routine 1101 (Given - Provid er: Ap Patel RN) scopolamine (TRANSDERM-SCOP) 1.5 mg (1 mg over 3 days) patch 1 patch(Linked Group 1) 1 patch, Transdermal, ONCE, 1 dose, On Mon10/20/15 at 1115, Recovery (Recovery-Hospital Unit), Routine 1104 (Patch Applied - Provider: Ap Patel RN)1115 (Due) scopolamine (TRANSDERM-SCOP) 1.5 mg patch Patch Removal(Linked Group 1) Transdermal, EVERY 24 HOURS, 1 dose, First dose on Mon10/21/15 at 0900, Remove Scopolamine Patch, Recovery (Recovery-Hospital Unit) scopolamine (TRANSDERM-SCOP) 1.5 mg patch Patch Verification(Linked Group 1) Transdermal, 2 TIMES DAILY, 1 dose, First dose on Mon10/20/15 at 2300, Verify scopolamine 1.5 mg patch., Recovery (Recovery-Hospital Unit) Continuous Medication Order 10/18/2015 10/19/2015 10/20/2015 lactated ringers infusion 1,000 mL 1,000 mL, at 100 mL/hr, Intravenous, CONTINUOUS, Starting on Mon10/20/15 at 1045, Until Mon10/20/15 at 1509, Day of Surgery (Day of Procedure) 1045 (Due)1113 (New Bag - Provider: Dalila Purvis CRNA)1154 (Anesthesia Volume Adjustment - Provider: Dalila Purvis CRNA)1240 (Anesthesia Volume Adjustment - Provider: Dalila Purvis CRNA)1309 (Anesthesia Volume Adjustment - Provider: Dalila Purvis CRNA) PRN Medication Order 10/18/2015 10/19/2015 10/20/2015 BUpivacaine-EPINEPHrine 0.25 %-1:200,000 injection (CANCELED) ONCE PRN, Starting on Mon10/20/15 at 1157, Until Mon10/20/15 at 1722, Intra-Operative (Intra-Procedure), Routine 1157 (Given - Provid er: Cassie De Anda MD) fentaNYL (PF) 50 mcg/mL 2mL syringe (CANCELED)(Linked Group 2) 25 mcg, Intravenous, EVERY 5 MIN PRN, Pain, for 1-4 pain score, Starting on Mon10/20/15 at 1344, Until e 10/20/15 at 1509, for 1-4 pain score Hold for respiratory rate less than 10 per minute. Maximum dose: 250 mcg over one hour., PACU Recovery 1347 (Given - Provid er: Melanie Lambert RN)1402 (Given - Provider: Melanie Lambert RN)1411 (Given - Provider: Melanie Lambert RN)1427 (Given - Provider: Melanie Lambert RN) lidocaine (XYLOCAINE) 10 mg/mL (1 %) injection 3 mg 3 mg (0.3 mL), Subcutaneous, ONCE PRN, 1 dose, Starting on Mon10/20/15 at 1023, Until Mon10/20/15 at 1509, for discomfort with PIV insertion, Day of Surgery (Day of Procedure), Routine oxyCODONE (ROXICODONE) immediate release tablet 5 mg 5 mg, Oral, EVERY 4 HOURS PRN, Starting on Mon10/20/15 at 1102, Until Mon10/20/15 at 1722, Pain, Routine 1352 (Given - Provid er: Melanie Lambert RN) sodium chloride 0.9 % flush 5-20 mL 5-20 mL, Intravenous, EVERY 1 MIN PRN, Starting on Mon10/20/15 at 1023, Until Mon10/20/15 at 1509, flush, Flush pertains to all indwelling lines. Flush per protocol found in the job aid using the link provided on this medication record., Day of Surgery (Day of Procedure), Routine No Frequency Medication Order 10/18/2015 10/19/2015 10/20/2015 ceFAZolin (ANCEF) 2 gram/50 mL infusion 1 dose, Starting on Mon10/20/15 at 1056, Until Mon10/20/15 at 1722, AP PATEL: cabinet override 1100 (Due) scopolamine (TRANSDERM-SCOP) 1.5 mg (1 mg over 3 days) patch 1 dose, Starting on Mon10/20/15 at 1050, Until Mon10/20/15 at 1104, AP PATEL: cabinet override Linked Groups Order Group 1: scopolamine (TRANSDERM-SCOP) 1.5 mg (1 mg over 3 days) patch 1 patchJump to med 1 patch, Transdermal, ONCE, 1 dose, On Mon10/20/15 at 1115, Recovery (Recovery-Hospital Unit), Routine Followed by scopolamine (TRANSDERM-SCOP) 1.5 mg patch Patch VerificationJump to med Transdermal, 2 TIMES DAILY, 1 dose, First dose on Mon10/20/15 at 2300, Verify scopolamine 1.5 mg patch., Recovery (Recovery-Hospital Unit) Followed by scopolamine (TRANSDERM-SCOP) 1.5 mg patch Patch RemovalJump to med Transdermal, EVERY 24 HOURS, 1 dose, First dose on Mon10/21/15 at 0900, Remove Scopolamine Patch, Recovery (Recovery-Hospital Unit) Group 2: fentaNYL (PF) 50 mcg/mL 2mL syringe (CANCELED)Jump to med 25 mcg, Intravenous, EVERY 5 MIN PRN, Pain, for 1-4 pain score, Starting on Mon10/20/15 at 1344, Until Mon10/20/15 at 1509, for 1-4 pain score Hold for respiratory rate less than 10 per minute. Maximum dose: 250 mcg over one hour., PACU Recovery Or fentaNYL (PF) 50 mcg/mL 2mL syringe (CANCELED) 50 mcg, Intravenous, EVERY 5 MIN PRN, Pain, for 5-10 pain score, Starting on Mon10/20/15 at 1344, Until Mon10/20/15 at 1509, for 5-10 pain score Hold for respiratory rate less than 10 per minute. Maximum dose: 250 mcg over one hour., PACU Recovery documented in this encounter Care Teams Electro Mechanical Solar Technician Relationship Specialty Start Date End Date Shonda Garcia MD [address] [place] [address] PCP - General 04/27/10 documented as of this encounter
--- OUTSIDE RECORDS SUMMARY | 2024-05-17 21:14 | XMS_ITS | Encounter Summary ---
Author Organization [facility] [place] [address] Care Team Providers Care Media Job Titles Name Role Phone Shonda Garcia MD Primary Care Provider [phone] Encounter Details Date Type Department Care Team (Latest Contact Info) Description 02/18/2015 12:44 PM EDT - 02/18/2015 11:59 PM EDT Hospital [place] [address] Malignant neoplasm of breast (female), unspecified site Social History Tobacco Use Types Packs/Day Years [...] Sig Dispensed Refills Start Date End Date Fluocinolone Acetonide Oil 0.01 % Drops Reported on 07/04/2016 05/11/2014 cholecalciferol, Vitamin D3, 400 unit tablet Take 1,000 Units by mouth daily. multivitamin (THERAGRAN) tablet Take 1 tablet by mouth daily. LEVALBUTEROL TARTRATE (XOPENEX HFA INHL) Inhale 2 puffs into the lungs every 4 hours as needed. tamoxifen (NOLVADEX) 20 mg TabletIndications:[facility] st cancer, left breast Take 1 tablet by mouth daily. 90 tablet 3 12/23/2014 11/06/2015 EMOLLIENT BASE (CREAM BASE TOP) Apply topically. Jeans cream to area of radiation, twice a day, no less than 2 hours prior to radiation treatment 03/13/2015 tacrolimus (PROTOPIC) 0.1 % OintmentIndications:De rmatitis Apply topically 2 times daily. To the face 60 g 3 07/25/2014 09/05/2022 CETIRIZINE HCL (ZYRTEC ORAL) Take by mouth daily as needed. 08/09/2016 dextroamphetamine-amph etamine (ADDERALL) 10 mg Tablet Take 10 mg by mouth daily. 10/12/2015 SPIRONOLACTONE ORALIndications:acneif orm eruption Take 100 mg by mouth daily. Indications: Acneiform Eruption 05/03/2018 ketoconazole (NIZORAL) 200 mg tabletIndications:Atop ic dermatitis Take 1 tablet by mouth daily. 90 tablet 0 08/24/2011 07/06/2015 documented as of this encounter Plan of Treatment Upcoming Encounters Date Type Department Care Team (Late st Contact Info) Description 09/03/2024 3:30 PM EDT Office Visit Dermatology at [facility] [address] [place] [address] Miladys Gordon MD [facility] DR [address] [place] [address] documented as of this encounter Procedures Procedure Name Priority Date/Time Associated Diagnosis Comments MAMMO 2D DIGITAL SCREEN PAUL BILATERAL Routine 02/18/2015 1:17 PM EDT documented in this encounter Results * Mammo Screen Paul 2D Bilateral (02/18/2015 1:17 PM EDT) Anatomical Region Laterality Modality Breast Bilateral Mammography 02/18/2015 1:17 PM EDT Narrative 02/19/2015 8:39 AM EDT Reason for Exam: Screening Technique: Craniocaudal (CC) [...] patient's age and breast cancer risk factors. A letter has been sent to this patient by the breast imaging center. Procedure Note Vale Bae MD - 02/19/2015 Reason for Exam: Screening Technique: Craniocaudal (CC) and Medio-lateral Oblique (MLO) views of both breasts obtained with direct digital capture. In addition to routine 2-D imaging, this exam was also performed with 3-D Tomographic Imaging (MLOand CC). The exam was evaluated by CAD version 8.3.17. Findings: This is a negative mammogram (ACR Category 1). There is a stablefibroglandular pattern without significant change from prior studies. There is no mammographic evidence of cancer. The breasts are of scattered density. History of Breast Cancer status post BCT. There are treatment related changes in the left breast. CONCLUSION: This is a NEGATIVE mammogram (ACR Category 1). Routine screening mammography is recommended with the frequency dependentupon the patient's age and breast cancer risk factors. A letter has been sent to this patient by the breast imaging center. Patricia Cast MD IMG MAMMO ORDERABLE S documented in this encounter Visit Diagnoses Diagnosis Malignant neoplasm of breast (female), unspecified site documented in this encounter Care Teams Media Job Titles Relationship Specialty Start Date End Date Shonda Garcia MD [facility] [address] [place] [address] PCP - General 04/27/10 documented as of this encounter
--- OUTSIDE RECORDS SUMMARY | 2024-05-17 21:14 | XMS_ITS | Encounter Summary ---
Author Organization [facility] [place] [address] Care Team Providers Care Sumatra Opener Name Role Phone Shonda Garcia MD Primary Care Provider [phone] Encounter Details Date Type Department Care Team (Latest Contact Info) Description 10/08/2014 Unscheduled Encounter Radiation Oncology at [address] [address] Sima Fuentes, RN Malignant neoplasm of left breast Social History Tobacco Use Types [...] this encounter Patient Instructions * Patient Instructions* Sima Dewey RN - 10/08/2014 3:39 PM EDT TREATMENT COMPLETION INSTRUCTIONS AFTER RECEIVING RADIATION TO THE BREAST [...] You will get a call from a secretary of state to schedule your follow up appointment. Radiation Oncology [place], [place]: [phone] Radiation Oncology [place], [place] After hours for emergency for either location: [phone], ask to speak with the radiation oncologist pipeline construction inspector documented in this encounter Progress Notes * Sima Dewey RN - 10/10/2014 8:58 AM EDT Radiation Oncology Nursing Completion of Treatment Note Pt completed 50.4 Gy L breast, 60.4 Gy lumpectomy bed L breast For breast cancer . Side effects/problems noted today: She has no complaints and no changes from seeing Dr Waller yesterday. She is very happy to be completed. With treatments. She states she has enough Jeans cream and mepilex dressings. Teaching and discharge instructions reviewed: See AVS that was printed for patient Expected follow up/referrals: See AVS. Patient has our contact numbers on AVS Patient/family response to instructions: Patient verbalized understanding of these instructions. documented in this encounter Plan of Treatment Upcoming Encounters Date Type Department Care Team (Late st Contact Info) Description 09/03/2024 3:30 PM EDT Office Visit Dermatology at [facility] [address] [place] [address] Miladys Gordon MD [facility] [place] [address] documented as of this encounter Visit Diagnoses Diagnosis Malignant neoplasm of left breast Malignant neoplasm of breast (female), unspecified site documented in this encounter Care Teams Sumatra Opener Relationship Specialty Start Date End Date Shonda Garcia MD [address] [facility] [address] [place] [address] PCP - General 04/27/10 documented as of this encounter
--- OUTSIDE RECORDS SUMMARY | 2024-05-17 21:14 | XMS_ITS | Encounter Summary ---
Author Organization [facility] [place] [address] Care Team Providers Care Dietetic Technician Registered Name Role Phone Shonda Garcia MD Primary Care Provider [phone] Encounter Details Date Type Department Care Team (Late st Contact Info) Description 09/16/2014 3:30 PM EDT Office Visit Radiation Oncology at [address] [address] Monalisa Waller MD [facility] [place] [address] Breast cancer, left Discharge Disposition: Home Social [...] Progress Notes * Monalisa Waller MD - 09/16/2014 3:15 PM EDT DIAGNOSIS: Breast ca, L, IDC, low gr, ER+WI+, Qby5smd-, s/p lumpectomy & SNB, pT1a pN0, stage I. Gordon to follow xrt. CURRENT TREATMENT DOSE: 30.6 Gy ANTICIPATED TOTAL DOSE: 50.4 Gy L breast, 60.4 Gy lumpectomy bed L breast Current # of xrt received: 17 Anticipated total # of xrt txs: 33 Evaluation of port verification films: Approved. For details, see electronic film record in [employer]. Changes in Medical Condition: Thinks she may have forgotten & shaved L underarm last wk, because over the wknd noticed a burning sensation in L underarm, which has since cleared. No other pain/irritation/itchiness. Pain?: No. Physical Exam: There were no vitals taken for this visit. A&Ox3, in NAD. Minimal erythema of L breast. L axilla w/o visible/palpable abnlity. Response to xrt: As expected. Irradiation Related Symptoms: Skin rxn. Treatment for Symptom Control: Kenji's cream. Pain Management: Tylenol or advil PRN. Recommendation on Continuing Course of xrt: Cont. She was reminded not to shave L underarm. documented in this encounter Plan of Treatment Upcoming Encounters Date Type Department Care Team (Late st Contact Info) Description 09/03/2024 3:30 PM EDT Office Visit Dermatology at [address] [address] Miladys Gordon MD [facility] [place] [address] documented as of this encounter Visit Diagnoses Diagnosis Breast cancer, left Malignant neoplasm of breast (female), unspecified site documented in this encounter Care Teams Dietetic Technician Registered Relationship Specialty Start Date End Date Shonda Garcia MD [facility] [address] [place] [address] PCP - General 04/27/10 documented as of this encounter
--- OUTSIDE RECORDS SUMMARY | 2024-05-17 21:14 | XMS_ITS | Encounter Summary ---
Author Organization [facility] [place] [address] Care Team Providers Care Broach Operator Name Role Phone Shonda Nunez MD Primary Care Provider [phone] Reason for Visit * Reason Comments Follow-up f/u discuss asymetry , hx of breast cancer Encounter Details Date Type Department Care Team (Latest Contact Info) Description 08/31/2015 11:30 AM EDT Office [place] [address] Cassie De Anda MD [facility] [place] [address] Postoperative breast asymmetry Social History Tobacco Use Types Packs/Day Years [...] - Inhaled Oxygen Concentration - - Weight 57.5 kg (126 lb 12.8 oz) 016 11:32 AM EDT Height 166.4 cm (5' 5.5) 08/31/2015 11 :32 AM EDT Body Mass Index 20.78 08/31/2015 11:32 AM EDT documented in this encounter Progress Notes * Cassie De Anda MD - 08/31/2015 11:57 AM EDT Plastic Surgery Consultation Note Provider: CASSIE DE ANDA MD PCP: SHONDA NUNEZ MD Requesting surgeon: Dr. Cast CC: To rediscuss breast reconstruction for breast asymmetry post lumpectomy HPI: Shannen returns with her to discuss her rice test results. She has decided on 300-325 cc silicon implants. She does not want to have any fat grafting performed. Past Medical History Diagnosis Date ??? Dermatitis ??? Asthma ??? Eczema childhood eczema ??? Attention deficit disorder controlled with Adderal ??? TMJ (temporomandibular joint disorder) wears retainer ??? Breast cancer Past Surgical History Procedure Laterality Date ??? Pro mastectomy, partial Left 07/14/2014 MASTECTOMY PARTIAL performed by Patricia Cast MD at [facility] ??? Pro bx/remv, lymph node, deep axill Left 07/14/2014 BIOPSY OR EXCISION OF LYMPH NODE(S), OPEN, DEEP AXILLARY NODE(S) performed by Patricia Cast MD at [facility] ??? Pro identify sentinel node Left 07/14/2014 SENTINEL NODE INJECTION performed by Patricia Cast MD at [facility] ??? Nasal septum surgery 2011 deviated septum History Social History ??? Marital Status: Spouse Name: N/A Number of Children: 1 ??? 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 Smoking status: Never Smoker ??? Smokeless tobacco: Never Used ??? Alcohol Use: Yes Comment: very seldom, once a year ??? Drug Use: No ??? Sexual Activity: Yes Other Topics Concern ??? Not on file Social History Narrative Family History Problem Relation Age of Onset [...] Cancer Paternal Uncle 70 alive at 75 ROS: System Constitutional neg Eye neg ENT neg CV neg Resp neg GI neg neg Skin neg Allergy neg Endocrine neg Neurologic neg Musculoskeletal neg Lymph neg Psych neg Y N All other systems reviewed and negative. x Examination: Ht 166.4 cm (5' 5.5) Wt 57.516 kg (126 lb 12.8 oz) BMI 20.77 kg/m2 General: On my examination today, Ms. Shannen Nobles appears to be in good health. Her emotional outlook is positive and she asked appropriate questions throughout the visit. HEENT: MMM, normocephalic, sclera: white, no facial abrasions Neuro: PERRLA, motor and sensory exam grossly normal Skin Without lesions. Specifically, there is no dimpling or peau d'orange changes or nipple retraction. Breasts Symmetry: Very minimal volume asymmetry, left > right Good skin quality, Mild radiation changes to the left chest skin, and areola Transverse superior lateral scar with slight inset Anatomic Breast Measurements: Right Left SN to Nipple (cm) 19.5 19.5 IMF to nipple (cm) 6 6.25 Base Diameter (cm) 11.5 11.5 Areola circumference (mm) 32 33 Impression: Shannen Nobles is a 49 y.o. 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 We discussed options for improving her symmetry focusing on augmentation, as well as fat grafting along the left breast scar. If she proceeds with a breast augmentation she would require placement of an implant on both sides to achieve symmetry as there is n ot an implant small enough to match her breast volume discrepancy. I advised that given her historyof radiation, she is at increased risk of wound healing complications and capsular contracture. Question: Right Left Plan Surgical treatment requested? Delayed inset 3-4 days later? Symmetry Surgery? X X breast augmentation No Reconstruction We are ready to schedule surgery yes We discussed the options for: submuscular versus subglandular implants, the incision placement (inframammary, periareolar, axillary or umbilical) and the choice of implant (silicon vs. saline and smooth vs. Textured). Implant related complications: The specific risks of implants were reviewed and she was provided with an ASPS informed consent document, the IOM report summary on the safety of silicone implants and the [place] brochure: Silicone implants, making an informed decision. We reviewed the general risksof implant reconstruction including: upper pole fullness; asymmetry; implant rupture, migration, infection, or contracture; visible rippling or waviness from the implant; likely need for revision or further surgery in the future. I have suggested that she review the written materials and return to our office for a final visit prior to surgery. In the meantime we will proceed with getting her pricing information from [employer]. She was also given a sheet on determing the desired breast size using the baggy test orrice test. I explained that about 7-8 oz. of rice would typically take her up one bra cup size. She will complete this exercise prior to returning and call or return with the results and any further questions prior to scheduling a procedure. She is leaning towards IMF incisional placement with sub muscular placement. She is not sure if shewould proceed with silicone vs saline implants. In the mean time I will consult with Dr. Cast to determine if fat grafting would be safe along her incisional scar. We briefly discussed post surgical restrictions and expectations. She will likely require 1 week off from work due to discomfort. Plan: Rice test Follow up after rice test to finalize surgery Potential Grid: Duration: 90 mins Timeframe: elective Coordinated with: None Procedure: bilateral breast augmentation CPT: 27385 Surgical site: Breast Side: left Anesthesia: General Follow up: 10 days PAT: No Implants needed: High and MPP 300, 325 and 350 cc silicon implants. documented in this encounter Plan of Treatment Upcoming Encounters Date Type Department Care Team (Late st Contact Info) Description 09/03/2024 3:30 PM EDT Office Visit Dermatology at [facility] [address] [place] [address] Miladys Gordon MD [facility] DR MYES[address] [place] [address] documented as of this encounter Visit Diagnoses Diagnosis Postoperative breast asymmetry Other specified disorders of breast documented in this encounter Care Teams Broach Operator Relationship Specialty Start Date End Date Shonda Nunez MD [facility] [address] [place] [address] PCP - General 04/27/10 documented as of this encounter
--- OUTSIDE RECORDS SUMMARY | 2024-05-17 21:14 | XMS_ITS | Encounter Summary ---
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 Encounter Details Date Type Department Care Team (Late st Contact Info) Description 07/06/2015 4:30 PM EST Office [place] [address] Cassie De Anda MD [facility] [place] [address] S/P lumpectomy, left breast; Malignant neoplasm of upper-outer quadrant of [...] * Patient Instructions* Lisbet Ko RN - 07/06/2015 5:28 PM EST You were given instructions on the RICE test for breast size determination along with booklets on: Saline and Silicone implants Once you have finished the RICE test - please call our office ([phone]) to schedule another appointment with Dr. De Anda. Please call our office if you have any questions or concerns. The nurses line: [phone] Monday through Monday 8 - 5 The secretaries line: [phone] For emergencies at night or on the weekend: Call the main hospital number [phone] and ask for the Plastic Surgeon continuous conveyor screen drier. documented in this encounter Progress Notes * Lisbet Ko RN - 07/06/2015 5:35 PM EST Shannen was given written and verbal instructions on doing the RICE test as well as saline and silicone implant booklets. She will call us to schedule a follow up appointment with Dr. De Anda once jasss completed the RICE test. * Cassie De Anda MD - 07/06/2015 4:11 PM EST Plastic Surgery Consultation Note Provider: CASSIE DE ANDA MD PCP: SHONDA NUNEZ MD Requesting surgeon: Dr. Cast CC: To discuss breast reconstruction for breast asymmetry post lumpectomy HPI: Dr. Cast previously requested consultation with Dr. Horton for Shannen Nobles . She now returns for follow up. Shannen is a 49 y.o. woman with a history of left breast cancer who was treatedwith lumpectomy in July 2014 and completed her radiation in October 2014. She now has concerns about asymmetry in her breast volume, she feels that her breast became larger following radiation treatment. Prior to her breast cancer surgery she was a 34 A - B size. After the left breast lumpectomy and radiation her left breast appeared larger than the contralateral right breast. She reports that her noticed, and commented on the asymmetry. She waited 6 months before proceeding with an evaluation with a plastic surgeon. She feels she did not connect well with Dr. Horton at her initial consult, She does think the symmetry has improved since it was first noticed. She has a hollowing along her scar, and the left breast is slightly larger than the right breast. She has always had small breasts, and she is very self conscious about the appearance of her breasts. She would like to discuss p ossible procedures to improve her symmetry, but is not sure if she really needs any further procedures. She feels she would prefer to have her right breast a little larger to match her left breast. She would also like to fill in the hollow area along her left breast scar. Past Medical History Diagnosis Date ??? Dermatitis ??? Asthma ??? Eczema childhood eczema ??? Attention deficit disorder controlled with Adderal ??? TMJ (temporomandibular joint disorder) wears retainer Past Surgical History Procedure Laterality Date ??? Pro mastectomy, partial Left 07/14/2014 MASTECTOMY PARTIAL performed by Patricia Cast MD at [facility] ??? Pro bx/remv, lymph node, deep axill Left 07/14/2014 BIOPSY OR EXCISION OF LYMPH NODE(S), OPEN, DEEP AXILLARY NODE(S) performed by Patricia Cast MD at [facility] ??? Pro identify sentinel node Left 07/14/2014 SENTINEL NODE INJECTION performed by Patricia Cast MD at [facility] ??? Nasal septum surgery 2011 deviated septum History Social History ??? Marital Status: Spouse Name: N/A Number of Children: 1 ??? 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 Social History Main Topics ??? Smoking status: [...] other systems reviewed and negative. x Examination: There were no vitals taken for this visit. General: On my examination today, Ms. Shannen [...] later? Symmetry Surgery? X X breast augmentation Possible fat grafting to left breast scar No Reconstruction We are ready to schedule [...] the safety of silicone implants and the [place] brochure: Silicone implants, making an informed decision. [...] proceed with getting her pricing information from [employer]. She was also given a sheet on [...] mins Timeframe: elective Coordinated with: None Procedure: possible fat grafting to left breast scar (will wait for Dr. Cast discussion), bilateral breast augmentation CPT: 08364, 63761 Surgical site: Breast Side: left Anesthesia: General Follow up: 10 days PAT: No Implants needed: TBD I, Lavern Castanon, am acting as scribe for Dr De Anda. All work documented was performed by Dr De Anda. ???I performed the above scribed service and agree with the accuracy of the note?? CASSIE DE ANDA MD documented in this encounter Plan of Treatment Upcoming Encounters Date Type Department Care Team (Late st Contact Info) Description 09/03/2024 3:30 PM EDT Office Visit Dermatology at [facility] [address] [place] [address] Miladys Gordon MD [facility] DR MYES[address] [place] [address] documented as of this encounter Visit Diagnoses Diagnosis S/P lumpectomy, left breast Other postprocedural status Malignant neoplasm of upper-outer quadrant of left female breast Malignant neoplasm of upper-outer quadrant of female breast documented in this encounter Care Teams Social Work Faculty Member Relationship Specialty Start Date End Date Shonda Nunez MD [address] [facility] [address] [place] [address] PCP - General 04/27/10 documented as of this encounter
--- OUTSIDE RECORDS SUMMARY | 2024-05-17 21:14 | XMS_ITS | Encounter Summary ---
Author Organization [facility] [place] [address] Care Team Providers Care Building Architect Name Role Phone Shonda Garcia MD Primary Care Provider [phone] Encounter Details Date Type Department Care Team (Late st Contact Info) Description 07/31/2014 12:30 PM EST Follow-Up H[place]ology [place] [id number] Pedro Lu MD [facility] [place] HEMATOLOGY/[place] [address] Breast cancer, left breast Discharge Disposition: Home Social History Tobacco Use Types Packs/Day Years Used Date Smoking Tobacco: Never Sex and Gender Information Value Date Recorded Sex Assigned at Not on file Gender Identity Not on file Sexual Orientation Not on file documented as of this encounter Progress Notes * Pedro Lu MD - 07/31/2014 3:42 PM EST Ms. Nobles was seen by myself in the Familial Cancer Program to receive results from genetic testing. A total of 10 minutes were spent in [id number] consultation outlining the test result and its implications. A copy of a letter sent to the patient containing these results is provided below. Please be advised that [place] law requires that all health care workers respect the confidentiality of this information and not pass it along to other health care providers, insurance companies, orindividuals without the written permission of the patient. The Familial Cancer Program welcomes any questions about these matters. Our phone number is: [phone]. On 07/09/2014, Shannen underwent genetic testing for alterations in BRCA1 and BRCA2 (Integrated BRACAnalysis). Following are the results of this test. Result: The Integrated BRACAnalysis showed no mutation was detected. This means that Shannen does not carry an alteration in the BRCA1 or BRCA2 genes detectable by this test. At that appointment, Shannen was given a printed copy of her test results. Interpretation: Because the genetic basis, if any, of the breast cancer in Shannen and her family has not been identified, this negative test result does not necessarily mean that Shannen's cancer was sporadic/Shannen is not at a higher risk for developing cancer] (i.e. not attributable to an inherited predisposition). This is because of two important limitations of the test. First, not all inherited predispositionto breast cancer is attributable to the BRCA1/2 genes. Research has identified other genes that when altered can increase one???s risk of cancer. Second, a small percentage of alterations in BRCA1/2 may be missed by current technology. Therefore, we recommend that Shannen recontact us from time to time to see if additional information has become available that could clarify her personal history. Screening Recommendations: Based on the genetic test result and personal and/or family history, we recommend: Breast cancer screening ??? Monthly self breast exams and annual clinical breast exams ?? Annual mammograms Ovarian cancer screening ??? We do not recommend any special screening studies in addition to an annual CH[employer] PAINTER exam at this time. Colon cancer screening ??? Colonoscopy screening starting at age 50 Other cancer screening ??? Annual dermatologic exams documented in this encounter Plan of Treatment Upcoming Encounters Date Type Department Care Team (Late st Contact Info) Description 09/03/2024 3:30 PM EDT Office Visit Dermatology at [facility] [address] [place] [phone] Miladys Gordon MD [facility] [place] [address] documented as of this encounter Visit Diagnoses Diagnosis Breast cancer, left breast Malignant neoplasm of breast (female), unspecified site documented in this encounter Care Teams Building Architect Relationship Specialty Start Date End Date Shonda Garcia MD [address] [facility] [address] [place] [address] PCP - General 04/27/10 documented as of this encounter
--- OUTSIDE RECORDS SUMMARY | 2024-05-17 21:14 | XMS_ITS | Encounter Summary ---
Author Organization [facility] Address [facility] [place] [address] Care Team Providers Care Machine Programmer Name Role Phone Shonda Garcia MD Primary Care Provider [phone] Reason for Visit * Reason Comments Skin Check Follow-up Encounter Details Date Type Department Care Team (Late st Contact Info) Description 06/18/2015 2:30 PM EST Office Visit Dermatology at [facility] [address] [place] [address] Dulce Markham MD [facility] [place] [address] Dermatitis Social History Tobacco Use Types Packs/Day Years [...] this encounter Patient Instructions * Patient Instructions* Renzo Shane - 06/18/2015 3:02 PM EST Use Protopic more frequently now and whenever her eczema worsens -- once daily for 1 week. For bad flares that Protopic does not resolve, use triamcinolone instead. Do not use triamcinolone on face. Discontinue oral ketoconazole Switch to Dove fragrance-free bar soap. Continue Vanicream after bathing We discussed the bad side effects and risks with chronic use of steroid. Call if flaring documented in this encounter Progress Notes * Dulce Markham MD - 06/18/2015 2:36 PM EST DERMATOLOGY - ESTABLISHED PATIENT NOTE Date of service: 06/18/2015 Shannen Nobles : 1965 CC: atopic eczema HPI: Shannen Nobles is an established patient, last seen by Darwin Traore MD on 07/25/14, new patient to me. Her eczema has been acting up for a while. Tacrolimus is helping, which she uses about every day but in different places -- about once weekly to her face. She tried ketoconazole which she thinks is helpful because it stops her skin from drying. It affects the face, back, antecubital fossas, stomach, ears, thighs, and axillae. She moisturizes with Vanicream and does not use soap. She was prescribed oral fluconazole 400 mg once weekly for exacerbated atopic dermatitis 2 yeast last spring. Her disease again flared and she increased her dosage to daily use, and has been takingit daily for a while without liver function monitoring. Relevant History: Melanoma: no SCC: no BCC: no Psoriasis: no Eczema/Atopy: yes Procedure Screening Questions: No Yes Defibrillator/Pacemaker x Artificial Joints x Heart Valves x Blood Thinners x Prophylactic Antibiotics x Family History: Melanoma: no SCC: father? BCC: father? 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 Latex Rash ??? Amoxicillin Trihydrate ??? Thiuram Analogues Dermatitis Review of Systems: - General: Feels well. - Skin: No other skin concerns. Examination: - Constitutional: Patient was alert, well-appearing and in no noticeable distress. - Skin: Skin examination of the scalp, hair, head, face, neck, back, chest, abdomen, right and leftupper extremities, right and left lower extremities and buttocks was normal with the exception of the findings listed below. Notable findings/Assessment/Plan: 1. Atopic dermatitis- few eczematous plaques on the R neck, thigh, abdomen. BSA 1-2% - Past reports of malassezia flaring her atopic dermatitis, however now eczema is very mild and I am concerned about fpc oral antifungal use - I advised her to use her Protopic more frequently now and whenever her eczema worsens -- use daily for at least 1 week. - For bad flares that Protopic does not resolve, she should use her triamcinolone instead. Advised not to use TAC on face. Discussed side effects and risks with chronic use of steroid. - Discontinue oral fluconazole. Would consider topical treatment if reflares - Advised patient to switch to Dove fragrance-free bar soap. - Continue Vanicream after bathing - Discussed common triggers of eczema. - Call if flaring. RTC: 4-6 weeks or PRN if symptoms worsen or persist. Note initiated by Danna Max LPN. I am documenting this encounter acting as the scribe for and in the presence of Dulce Markham MD: Renzo Shane I performed the above scribed service and agree with the accuracy of the documentation in this encounter. Reviewed and signed by: Dulce Markham MD Dermatology [facility] documented in this encounter Plan of Treatment Upcoming Encounters Date Type Department Care Team (Late st Contact Info) Description 09/03/2024 3:30 PM EDT Office Visit Dermatology at [facility] [address] [facility] [place] [address] Miladys Gordon MD [facility] [place] [address] documented as of this encounter Visit Diagnoses Diagnosis Dermatitis Contact dermatitis and other eczema, due to unspecified cause documented in this encounter Care Teams Machine Programmer Relationship Specialty Start Date End Date Shonda Garcia MD [facility] [address] [place] [address] PCP - General 04/27/10 documented as of this encounter
--- OUTSIDE RECORDS SUMMARY | 2024-05-17 21:14 | XMS_ITS | Encounter Summary ---
Author Organization [facility] [place] [address] Care Team Providers Care Manager Background Name Role Phone Shonda Nunez MD Primary Care Provider [phone] Reason for Visit * Reason Comments Advice Only discuss options for breast symmetry, s/p left breast lumpectomy * Consultation (Routine) - Closed Specialty Diagnoses / Procedures Referred By Charanjit dover Referred To Contact Plastic Surgery Diagnoses Malignant neoplasm of breast (female), unspecified site Evaluate for symmetry procedure for breast cancer/implants- Call patient to schedule, she would like to coordinate on a day her has an appt at [facility] Patricia Cast MD [facility] [place] [address] [facility] [place] [address] [place] [address] Referral ID Status Reason Start Date Expiration Date Visits Re quested Visits Authorized [id number] Closed 02/24/2015 02/24/2016 1 1 Encounter Details Date Type Department Care Team (Late st Contact Info) Description 03/13/2015 10:30 AM EDT Office [place] [address] Darren Horton MD [facility] [place] [address] Breast cancer, left breast Social History Tobacco [...] Sign Reading Time Taken Comments Blood Pressure 93/63 03/13/2015 10:28 AM EDT Pulse 61 03/13/2015 10:28 AM EDT Temperature - - Respiratory Rate - - Oxygen Saturation - - Inhaled Oxygen Concentration - - Weight 56.6 kg (124 lb 12.8 oz) 015 10:28 AM EDT Height 167 cm (5' 5.75) 03/13/2015 10: 28 AM EDT Body Mass Index 20.3 03/13/2015 10:28 AM EDT documented in this encounter Progress Notes * Darren Horton MD - 03/13/2015 7:30 AM EDT Plastic Surgery Consultation Note Provider: DARREN HORTON MD PCP: SHONDA NUNEZ MD (General) Requesting surgeon: Dr. Cast CC: To discuss breast reconstruction for breast asymmetry HPI: Her breast surgeon, Dr. Cast has requested this consultation for Shannen Nobles, a 49 y.o. woman with a history of left breast cancer. She was treated with lumpectomy in July 2014 andshe completed her last course of radiation in October 2014. She now has concerns about asymmetry in herbreast volume, she feels that her breast became larger following radiation treatment. She reports that she has small breasts and does have to wear push-up bras. Past Medical History Diagnosis Date ??? Dermatitis ??? Asthma ??? Eczema childhood eczema ??? Attention deficit disorder controlled with Adderal ??? TMJ (temporomandibular joint disorder) wears retainer Past Surgical History Procedure Laterality Date ??? Pro mastectomy, partial Left 07/14/2014 MASTECTOMY PARTIAL performed by Patricia Cast MD at [facility] ??? Pro bx/remv, lymph node, deep axill Left 07/14/2014 BIOPSY OR EXCISION OF LYMPH NODE(S), OPEN, DEEP AXILLARY NODE(S) performed by Patricia Cast MD at [facility] ??? Pro identify sentinel node Left 07/14/2014 SENTINEL NODE INJECTION performed by Patricia Cast MD at [facility] ??? Nasal septum surgery 2011 deviated septum History Social History ??? Marital Status: Spouse Name: N/A Number of Children: 1 ??? 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 Smoking status: [...] changes or nipple retraction. Breasts Symmetry: Very mild volume asymmetry, left > right Good skin quality, minimal changes from radiation Anatomic Breast Measurements: Right Left NAC (cm) 3.5 3.5 Height of breast (cm) 8 9 Base Diameter (cm) 12 12 Ant.ax.line-midline (cm) Impression: Shannen Nobles is a 49 y.o. 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 We discussed options for improving her symmetry focusing on augmentation. She would require placement of an implant on both sides to achieve symmetry as there is not an implant small enough to match her breast volume discrepancy. I advised that given her history of radiation, she is at increased risk of wound healing complications and capsular contracture. I recommended waiting until at least 1 year out from radiation before proceeding with surgery to minimize wound healing complications. Question: Right Left Plan Surgical treatment requested? Delayed inset 3-4 days later? Symmetry Surgery? X X Saline breast augmentation No Reconstruction We are ready to schedule surgery yes Implant related complications: The specific risks of implants were reviewed and she was provided with an ASPS informed consent document, the IOM report summary on the safety of silicone implants and the [employer] brochure: Silicone implants, making an informed decision. We reviewed the general risksof implant reconstruction including: upper pole fullness; asymmetry; implant rupture, migration, infection, or contracture; visible rippling or waviness from the implant; likely need for revision or further surgery in the future. I recommended she plan for 1 week off from work. I recommended she review the literature provided to her and consider her options, she will return for a final visit to finalize surgical plans. Plan: 1. Pricing will be provided for breast augmentation 2. Recommend waiting 1 year post-radiation before proceeding with surgery Potential Grid: Duration: 90 mins Timeframe: elective Coordinated with: None Procedure: Breast augmentation CPT: 38412 - breast augmentation Surgical site: Breast Side: Aj Anesthesia: General Follow up: 7 days coordinated with Physical therapy PAT: No Implants needed: Saline implants IKayley, am acting as scribe for Dr. Horton. All work documented was performed by Dr. Horton. ???I performed the above scribed service and agree with the accuracy of the note?? DARREN HORTON MD documented in this encounter Plan of Treatment Upcoming Encounters Date Type Department Care Team (Late st Contact Info) Description 09/03/2024 3:30 PM EDT Office Visit Dermatology at [facility] [address] [place] [address] Miladys Gordon MD [facility] [place] [address] documented as of this encounter Visit Diagnoses Diagnosis Breast cancer, left breast Malignant neoplasm of breast (female), unspecified site documented in this encounter Care Teams Manager Background Relationship Specialty Start Date End Date Shonda Nunez MD [address] [place] [address] PCP - General 04/27/10 documented as of this encounter
--- OUTSIDE RECORDS SUMMARY | 2024-05-17 21:14 | XMS_ITS | Encounter Summary ---
Author Organization [facility] [place] [address] Care Team Providers Care Archery Instructor Name Role Phone Shonda Garcia MD Primary Care Provider [phone] Encounter Details Date Type Department Care Team (Late st Contact Info) Description 09/08/2014 2:30 PM EDT Office Visit Radiation Oncology at [address] [address] Trae Jeong MD Breast cancer, [...] Sign Reading Time Taken Comments Blood Pressure 105/59 09/08/2014 2:35 PM EDT Pulse 63 09/08/2014 2:35 PM EDT Temperature 36.5 ??C (97.7 ??F) 09/08/2014 2 :35 PM EDT Respiratory Rate 16 09/08/2014 2:35 PM EDT Oxygen Saturation 100% 09/08/2014 2:3 5 PM EDT Inhaled Oxygen Concentration - - Weight 57.2 kg (126 lb) 09/08/2014 2:35 PM EDT boots on room 2 Height - - Body Mass Index 20.74 08/08/2014 8:53 AM EST documented in this encounter Progress Notes * Trae Jeong MD - 09/08/2014 2:58 PM EDT DIAGNOSIS: Breast ca, L, IDC, low gr, ER+WY+, Siv1cvm-, s/p lumpectomy & SNB, pT1a pN0, stage I. Gordon to follow xrt. CURRENT TREATMENT DOSE: 19.8 Gy ANTICIPATED TOTAL DOSE: 50.4 Gy L breast, 60.4 Gy lumpectomy bed L breast Current # of xrt received: 11 Anticipated total # of xrt txs: 33 Evaluation of port verification films: Approved. For details, see electronic film record in [employer]. Changes in Medical Condition: Does not notice skin changes. Cold symptoms have resolved. No itch orredness. Pain?: No pain Physical Exam: BP 105/59 Pulse 63 Temp(Src) 36.5 ??C (97.7 ??F) (Oral) Resp 16 Wt 57.153 kg(126 lb) SpO2 100% A&Ox3, in NAD. No erythema of L breast. Response to xrt: As expected. Irradiation Related Symptoms: Inflammation of soft tissue-improved Treatment for Symptom Control: Kenji's cream. Pain Management: Tylenol or advil PRN Recommendation on Continuing Course of xrt: Cont. documented in this encounter Plan of Treatment Upcoming Encounters Date Type Department Care Team (Late st Contact Info) Description 09/03/2024 3:30 PM EDT Office Visit Dermatology at [address] [address] Miladys Gordon MD [facility] [address] [place] [address] documented as of this encounter Visit Diagnoses Diagnosis Breast cancer, left breast Malignant neoplasm of breast (female), unspecified site documented in this encounter Care Teams Archery Instructor Relationship Specialty Start Date End Date Shonda Garcia MD [place] [address] [place] [id number] PCP - General 04/27/10 documented as of this encounter
--- OUTSIDE RECORDS SUMMARY | 2024-05-17 21:14 | XMS_ITS | Encounter Summary ---
[place] [address] Care Team Providers Care Machine Heel Seat Laster Name Role Phone Shonda Garcia MD Primary Care Provider [phone] Encounter Details Date Type Department Care Team (Late st Contact Info) Description 07/14/2014 11:01 AM EST Anesthesia Event [place] [address] Priya Osborn [facility] [place] [address] Yumiko Carrasquillo [facility] [place] [address] Anesthesia Record Procedure Summary Procedure Name Responsible Anesthesiologist Anesthesia Start Time Anesthesia Stop Time MASTECTOMY PARTIAL (WRVU 10.13) (Left: Breast) Priya Osborn DO 07/14/14 1101 07/14/14 1209 Events Date Time Event Comment 07/14/2014 1045 1101 Start 1103 AN Verify 1104 An Start Data 1107 An Induction 1110 An Intubation 1112 Anesthesia Ready 1154 Extubation/LMA Out 1201 an stop data 1209 Stop Meds Name Total fentaNYL 100 mcg IV Lidocaine 40 mg Propofol 200 mg PHENYLephrine 160 mcg Ondansetron 8 mg Dexamethasone 4 mg Ketorolac 30 mg Propofol INF 263.66 mg clindamycin (CLEOCIN) 900mg in dextrose 5% 50mL 900 mg Lactated Ringers 950 mL * Agents Name O2 Air N2O Sevoflurane (et) * Blood No blood administrations on file. Lines, Drains, and Airways Type Details Placement Removal (RETIRED) Peripheral IV Line - Single Lumen 07/14/14; 1014; metacarpal vein right (top of hand); xyio-whd-mphidd catheter system; 20 gauge, 1 in length; 07/14/14; 1327 07/14/14 1014 by Cande Lopez RN 07/14/14 1327 by Yecenia Morales RN Supraglottic Mask Ventilation: No t Attempted (0); LMA Type: iGel; LMA Size: 3; Inserted by: Neida VENCES; Removal Date: 07/14/14; Removal Time: 1154 07/14/14 1110 by Yumiko Carrasquillo CRNA 07/14/14 1154 by Yumiko Carrasquillo CRNA Incision mid axillary; LDA no t present upon assessment; 11/14/18; 1009 07/14/14 1119 by 11/14/18 1009 by Tatiana Houser RN Incision breast; 11/14/18; 1009 07/14/14 1120 by 0 11/14/18 1009 by Tatiana Houser RN documented in this encounter Social History Tobacco Use Types Packs/Day Years Used Date Smoking Tobacco: Never Sex and Gender Information Value Date Recorded Sex Assigned at Not on file Gender Identity Not on file Sexual Orientation Not on file documented as of this encounter OR Notes * Anesthesia Postprocedure Evaluation - Priya Osborn DO - 07/14/2014 2:18 PM EST Patient: Shannen Nobles Procedure(s) Performed: Procedure(s): MASTECTOMY PARTIAL BIOPSY OR EXCISION OF LYMPH NODE(S), OPEN, DEEP AXILLARY NODE(S) SENTINEL NODE INJECTION MODIFIER SENTINEL NODE EXCISION Actual Anesthetic: general Patient location: PACU Post-op pain: Adequate analgesia Post-op nausea: no nausea or vomiting Last Vitals: Filed Vitals: 07/14/14 1245 BP: 127/64 Pulse: 61 Temp: Resp: 18 Post-op cardiovascular and respiratory status: is stable Level of consciousness: awake, alert and oriented Complications: no apparent complications and tolerated the procedure well Fluid Status: normal * Anesthesia Preprocedure Evaluation - Yumiko Carrasquillo CRNA - 07/14/2014 8:10 AM EST Pre-Anesthesia Evaluation for: Shannen Nobles a 48 y.o. female. Procedure(s): MASTECTOMY PARTIAL BIOPSY OR EXCISION OF LYMPH NODE(S), OPEN, DEEP AXILLARY NODE(S) SENTINEL NODE INJECTION MODIFIER SENTINEL NODE EXCISION Patient Active Problem List Diagnosis ??? Breast cancer, left breast Past Medical History Diagnosis Date ??? Dermatitis No past surgical history on file. History Substance Use Topics ??? Smoking status: Never Smoker ??? Smokeless tobacco: Not on file ??? Alcohol Use: Not on file History Drug Use Not on file Allergies Allergen Reactions ??? Latex Rash ??? Amoxicillin Trihydrate ??? Thiuram Analogues Dermatitis Medications: MAR and/or home medications have been reviewed. Physical Exam: There were no vitals filed for this visit. There is no height or weight on file to calculate BMI. Airway Assessment: Mallampati: II TM distance: >3 FB Neck ROM: full Cardiovascular Assessment: Rhythm: regular Rate: normal cardiovascular exam normal Pulmonary Assessment: breath sounds clear to auscultation pulmonary exam normal Dental Assessment: - normal exam Misc Assessment: Patient is wearing No contact(s). IV access: Peripheral line Other exam findings: TMJ mouth piece that will be removed. Mouth opening is limited. Anesthesia Plan: ASA 2 general, with a(n) intravenous induction 46F for L Partial Mastectomy. No hx of difficulty w anesthesia. No medications today. Pt denies CP/SOB/PND/Orthopnea/GERD Positive hx of motion sickness Plan GA /KRISTAL/ IV and VA maint/P op PACU care and IV pain control. Antiemetics w scop patch. IC for anesthesia obtained Region - Other Informed Consent: Anesthetic plan and risks discussed with patient. Plan discussed with MULTI MEDIA SPECIALIST. [facility] [place]. Assessment: documented in this encounter Plan of Treatment Upcoming Encounters Date Type Department Care Team (Late st Contact Info) Description 09/03/2024 3:30 PM EDT Office Visit Dermatology at [facility] [address] [place] [address] Miladys Gordon MD [facility] [address] [place] [address] documented as of this encounter Visit Diagnoses Not on filedocumented in this encounter Administered Medications Inactive Administered Medications - up to 3 most recent administrations Medication Order MAR Action Action Date Dose Rate Site clindamycin (CLEOCIN) 900mg in dextrose 5% 50mL 900 mg, Intravenous, EVERY 6 HOURS, 1 dose, First dose on Mon07/14/14 at 1015, Administer over 30 Minutes, Do not exceed 30 mg/minute., Intra-Operative (Intra-Procedure), Indication for (Active or Suspected): Prophylaxis Given 07/14/2014 11:15 AM EST 900 mg dexamethasone (DECADRON) injection PRN, Starting on Mon07/14/14 at 1115, Until Mon07/14/14 at 1209, Anesthesia Intra-op, Routine Given 07/14/2014 11:15 AM EST 4 mg fentaNYL 50mcg/mL injection PRN, Starting on Mon07/14/14 at 1101, Until Mon07/14/14 at 1209, Pain, Anesthesia Intra-op, Routine Given 07/14/2014 11:37 AM EST 25 mcg Given 07/14/2014 11:17 AM EST 25 mcg Given 07/14/2014 11:01 AM EST 50 mcg ketorolac (TORADOL) injection PRN, Starting on Mon07/14/14 at 1119, Until Mon07/14/14 at 1209, Pain, Anesthesia Intra-op, Routine Given 07/14/2014 11:19 AM EST 30 mg lactated ringers infusion CONTINUOUS PRN, Starting on Mon07/14/14 at 1046, Until Mon07/14/14 at 1209, Anesthesia Intra-op New Bag 07/14/2014 10:46 AM EST lidocaine (PF) (XYLOCAINE) 100 mg/5 mL (2 %) injection PRN, Starting on Mon07/14/14 at 1107, Until Mon07/14/14 at 1209, Anesthesia Intra-op, Routine Given 07/14/2014 11:07 AM EST 40 mg ondansetron (ZOFRAN) injection PRN, Starting on Mon07/14/14 at 1131, Until Mon07/14/14 at 1209, Nausea, Anesthesia Intra-op, Routine Given 07/14/2014 11:31 AM EST 8 mg PHENYLephrine HCl in NS (PF) (ZAIN-SYNEPHRINE) 0.8 mg/10 mL (80 mcg/mL) injection Syrg PRN, Starting on Mon07/14/14 at 1115, Until Mon07/14/14 at 1209, Anesthesia Intra-op, Routine Given 07/14/2014 11:43 AM EST 80 mcg Given 07/14/2014 11:15 AM EST 80 mcg propofol (DIPRIVAN) 10 mg/mL bolus injection (Anesthesia) PRN, Starting on Mon07/14/14 at 1107, Until Mon07/14/14 at 1209, Anesthesia Intra-op Given 07/14/2014 11:07 AM EST 200 mg propofol (DIPRIVAN) infusion CONTINUOUS PRN, Starting on Mon07/14/14 at 1112, Until Mon07/14/14 at 1209, Anesthesia Intra-op, Routine Rate/Dose Change 07/14/2014 11:40 AM EST 100 mcg/kg/min 33.5 mL/hr Rate/Dose Change 07/14/2014 11:35 AM EST 125 mcg/kg/min 41 .9 mL/hr Rate/Dose Change 07/14/2014 11:31 AM EST 75 mcg/kg/min 25. 1 mL/hr documented in this encounter Care Teams Machine Heel Seat Laster Relationship Specialty Start Date End Date Shonda Garcia MD [address] [place] [address] PCP - General 04/27/10 documented as of this encounter
--- OUTSIDE RECORDS SUMMARY | 2024-05-17 21:14 | XMS_ITS | Encounter Summary ---
Author Organization Formerly [facility] [place] [address] Care Team Providers Care Shoes Hand Sewer Name Role Phone Shonda Garcia MD Primary Care Provider [phone] Encounter Details Date Type Department Care Team (Latest Contact Info) Description 08/14/2014 9:00 AM EDT Ancillary Appointment Radiation Oncology at [address] [phone] Monalisa Waller MD [facility] [place] [address] Breast CA, left Discharge Disposition: Home Social History Tobacco [...] * Patient Instructions* Sima Dewey RN - 08/14/2014 8:27 AM EDT Information for Patients receiving radiation therapy to the Breast Approximately two weeks after your first treatment, you may begin to experience side effects causedby the radiation. These effects may continue throughout the treatment period and not start improving until 1-2 weeks after treatment is completed. Your doctor will tell you which side effects you aremost likely to experience, when you will notice them and how long they might last. It is important to follow the appropriate instructions to minimize your discomfort. Skin Care ??? Wash skin in the treatment field with lukewarm water and mild or moisturizing soap daily. Blot skin dry with a soft towel. ??? Do not apply any ointment, salve, deodorant, perfume, cologne, cosmetic or self-remedy to the treatment area while you are undergoing radiation and for 1-2 weeks following treatment. An all natural deodorant with no aluminum can be used if necessary. ??? Moisturizing cream will be provided for you. This may be used in the treatment area once daily beginning on your first treatment day. Do not apply 2 hours before your radiation treatments. As dryness/redness develop you can use this more often. ??? Do not rub or scratch the skin in the treatment field. This includes shaving unless you use an electric razor. If your skin becomes dry or itchy, tell your nurse or doctor. If necessary, your doctor may order a medication specifically for this problem. ??? Do not use hot water bottles, heating lights, electric heating pads, or hot packs to the treatment area. ??? Keep treated areas out of the sun throughout the treatment period. Be careful of sun exposure to the treatment field for one year following treatment. Please use SPF> 30 to all exposed areas of skin and limit sun exposure. ??? Avoid tight fitting clothes. We would prefer that you wear a cotton t-shirt instead of a bra. If you are unable to go without a bra please wear a soft cotton bra without underwire. ??? Examine your skin in the treatment area daily and watch for changes. If you cannot reach the whole treatment field ask a family member to look at it and apply cream as needed. Be careful to keep the area under your breast clean and dry as this area can get irritated first. ??? You will meet with your nurse and doctor weekly. They will check your skin and help you with any side effects you are having. Please ask to see the nurse if you have concerns in between these days. ??? During the last weeks of treatment you may notice some peeling of skin and/or a moist reaction.Be sure to let us know if this happens so we can provide you with further skin care instructions.. ??? Continue to stay active, walk daily, eat healthy foods and drink several glasses of water each day. Fatigue You may notice that you feel unusually tired towards the end of treatment. This is not unusual. We recommend that you pace your activities and plan for rest periods to avoid becoming over-tired. Feel free to direct any questions or concerns you may have related to your treatment to your nurse or doctor. [facility] Radiation Oncology Our normal business hours are: Monday - Monday 8 AM to 5 PM [place], [place] [facility] Radiation Oncology ,[place], [place] For emergent situations after hours please call for either location and ask for the Radiation Oncologist information services assistant. documented in this encounter Progress Notes * Monalisa Waller MD - 08/14/2014 11:43 AM EDT Here for sim. Sim: Breast bd immobilization; flat bbs on L breast lumpectomy scar; CT through chest showed heart to approach chest wall, & so she was instructed in deep inspiration breath hold (DIBH), but was unable to hold breath long enough for the technique to be used; 3D xrt planned. She tolerated sim well, w/o adverse effect. Tx Plan: 3D xrt to optimally treat L breast while minimizing dose to heart, L lung, R lung, total lung, R breast & spinal cord. Start xrt 08/25/14. documented in this encounter Plan of Treatment Upcoming Encounters Date Type Department Care Team (Late st Contact Info) Description 09/03/2024 3:30 PM EDT Office Visit Dermatology at [facility] [address] [place] [address] Miladys Gordon MD [facility] DR MYESHA [place] [address] documented as of this encounter Visit Diagnoses Diagnosis Breast CA, left documented in this encounter Care Teams Shoes Hand Sewer Relationship Specialty Start Date End Date Shonda Garcia MD [facility] [address] [place] [address] PCP - General 04/27/10 documented as of this encounter
--- OUTSIDE RECORDS SUMMARY | 2024-05-17 21:14 | XMS_ITS | Encounter Summary ---
Author Organization Formerly [facility], 1926[address] [place] [address] Care Team Providers Care Auto Roller Name Role Phone Shonda Garcia MD Primary Care Provider [phone] Reason for Visit * Auth/Cert Specialty Diagnoses / Procedures Referred By Contac t Referred To Contact Diagnoses Breast Cancer Procedures PRO ENLARGE BREAST WITH IMPLANT AUGMENTATION MAMMOPLASTY, UNILATERAL Referral ID Status Reason Start Date Expiration Date Visits Re quested Visits Authorized [id number] 1 1 Encounter Details Date Type Department Care Team (Latest Contact Info) Description 10/20/2015 9:41 AM EDT - 10/20/2015 3:10 PM EDT Hospital Encounter [place] [phone] PittsburghCassie lizarraga MD [facility] [place] [address] Discharge Disposition: Home Social History Tobacco Use [...] Sign Reading Time Taken Comments Blood Pressure 104/57 10/20/2015 2:27 PM EDT Pulse 76 10/20/2015 2:27 PM EDT Temperature 36.1 ??C (97 ??F) 10/20/2015 1:17 PM EDT Respiratory Rate 14 10/20/2015 2:27 PM EDT Oxygen Saturation 100% 10/20/2015 2:27 PM EDT Inhaled Oxygen Concentration - - [...] closest emergency room or call the hospital play back operator at [phone] and ask for physician incident response coordinator covering for your physician. Questions or problems after 5pm or on a weekend: Call the [facility] play back operator at and ask for the physician incident response coordinator covering for your doctor. * Patient Instructions* [...] Dept Phone 10/27/2015 9:20 AM Sera Alvarez, KIERRA Plastic Surgery [phone] Suture removal in clinic MEDICATIONS: Your Medications [...] called in to our prescription line at [phone]. Narcotic renewals may be requested from 8am-4pm [...] Monday 8 am to 5 pm Call [phone] On weekends or after hours: Call [phone] and ask the play back operator to page the Plastic Surgery Resident incident response coordinator. documented in this encounter Medications at Time [...] Operative Note Patient Name: Shannen Nobles : [id number] MR#: [id number] Case Date: 10/20/2015 Surgeon: Surgeon(s) and Role: [...] washed with double antibiotic saline solution. A [place] 300 cc Smooth Round Moderate profile plus [...] Implant Name Type Inv. Item Serial No. Cyanide Pot Tender Lot No. LRB No. Used Action MAMMA,SMTH,RND,MOD,+,PRFL,300C ([id number]) - [id number] IMPLANTS MAMMA,SMTH,RND,MOD,+,PRFL,300C ([id number]) [employer] - [id number] Right 1 Implanted MAMMA,SMTH,RND,MOD,+,PRFL,300C ([id number]) - [id number] IMPLANTS MAMMA,SMTH,RND,MOD,+,PRFL,300C ([id number]) [employer] - [id number] Left 1 Implanted Attestation: Case Date: 10/20/2015 I was present and I participated during the entire procedure. CASSIE DE ANDA MD 10/20/2015 * Brief Op Note - Martinez Calle MD - 10/20/2015 1:12 PM EDT Brief Operative Note Patient Name: Shannen Nobles : [id number] MR#: [id number] Case Date: 10/20/2015 Surgeon: Surgeon(s) and Role: [...] 3:30 PM EDT Office Visit Dermatology at [facility] [address] [place] [phone] Miladys Gordon MD [facility] DR MYESHA [place] [address] documented as of this encounter Procedures Procedure [...] Given 10/20/2015 11:01 AM EDT 1,000 mg fentaNYL (PF) 50 mcg/mL 2mL syringe 25 [...] er: Melanie Lambert RN)1402 (Given - Provider: Melaine Lambert RN)1411 (Given - Provider: Melanie Lambert [...] Recovery documented in this encounter Care Teams Auto Roller Relationship Specialty Start Date End Date Shonda Garcia MD [facility] [address] [place] [address] PCP - General 04/27/10 documented as of this encounter
--- OUTSIDE RECORDS SUMMARY | 2024-05-17 21:14 | XMS_ITS | Encounter Summary ---
Author Organization [facility] [place] [address] Care Team Providers Care Management Planner Name Role Phone Shonda Garcia MD Primary Care Provider [phone] Reason for Visit * Reason Comments On Treatment Visit Encounter Details Date Type Department Care Team (Late st Contact Info) Description 08/28/2014 2:30 PM EDT Office Visit Radiation Oncology at [address] [phone] Monalisa Waller MD [facility] [place] [address] Breast CA, left Discharge Disposition: Home Social [...] Sign Reading Time Taken Comments Blood Pressure 98/56 08/28/2014 2:00 PM EDT Pulse 66 08/28/2014 2:00 PM EDT Temperature 36.7 ??C (98 ??F) 08/28/2014 2:00 PM EDT Respiratory Rate 16 08/28/2014 2:00 PM EDT Oxygen Saturation 100% 08/28/2014 2:00 PM EDT Inhaled Oxygen Concentration - - Weight 55.1 kg (121 lb 6.4 oz) 08/28/2014 2:00 P M EDT Height - - Body Mass Index 19.98 08/08/2014 8:53 AM EST documented in this encounter Progress Notes * Monalisa Waller MD - 08/28/2014 3:13 PM EDT DIAGNOSIS: Breast ca, L, IDC, low gr, ER+VT+, Eyb0lhy-, s/p lumpectomy & SNB, pT1a pN0, stage I. Gordon to follow xrt. CURRENT TREATMENT DOSE: 7.2 Gy ANTICIPATED TOTAL DOSE: 50.4 Gy L breast, 60.4 Gy lumpectomy bed L breast Current # of xrt received: 4 Anticipated total # of xrt txs: 33 Evaluation of port verification films: Approved. For details, see electronic film record in [employer] System. Changes in Medical Condition: Mild tenderness, intermittent, in L breast; level 3 on pain scale, not bad enough to take analgesic. Pain?: See above. Physical Exam: BP 98/56 Pulse 66 Temp(Src) 36.7 ??C (98 ??F) Resp 16 Wt 55.067 kg (121 lb 6.4 oz) SpO2 100% A&Ox3, in NAD. No erythema of L breast. Response to xrt: As expected. Irradiation Related Symptoms: Inflammation of soft tissue. Treatment for Symptom Control: Tylenol or advil rec'd. Kenji's cream. Pain Management: Tylenol or advil rec'd. Recommendation on Continuing Course of xrt: Cont. documented in this encounter Plan of Treatment Upcoming Encounters Date Type Department Care Team (Late st Contact Info) Description 09/03/2024 3:30 PM EDT Office Visit Dermatology at [facility] [address] [place] [address] Miladys Gordon MD [facility] DR MYESHA [place] [address] documented as of this encounter Visit Diagnoses Diagnosis Breast CA, left documented in this encounter Care Teams Management Planner Relationship Specialty Start Date End Date Shonda Garcia MD [address] [place] [address] PCP - General 04/27/10 documented as of this encounter
--- OUTSIDE RECORDS SUMMARY | 2024-05-17 21:14 | XMS_ITS | Encounter Summary ---
Author Organization [facility] [facility] [place] [address] Care Team Providers Care General Medical Practitioner Name Role Phone Shonda Garcia MD Primary Care Provider [phone] Reason for Visit * Reason Comments Radiation Treatment Encounter Details Date Type Department Care Team (Late st Contact Info) Description 09/23/2014 4:00 PM EDT Office Visit Radiation Oncology at [address] [phone] Monalisa Waller MD [facility] [address] Breast cancer, left Discharge Disposition: Home Social [...] Sign Reading Time Taken Comments Blood Pressure 96/57 09/23/2014 4:00 PM EDT Pulse 72 09/23/2014 4:00 PM EDT Temperature 36.6 ??C (97.9 ??F) 09/23/2014 4:00 PM ED T Respiratory Rate 16 09/23/2014 4:00 PM EDT Oxygen Saturation 100% 09/23/2014 4:00 PM EDT Inhaled Oxygen Concentration - - Weight - - Height - - Body Mass Index - - documented in this encounter Progress Notes * Monalisa Waller MD - 09/23/2014 4:57 PM EDT DIAGNOSIS: Breast ca, L, IDC, low gr, ER+FL+, [id number]-, s/p lumpectomy & SNB, pT1a pN0, stage I. Gordon to follow xrt. CURRENT TREATMENT DOSE: 39.6 Gy ANTICIPATED TOTAL DOSE: 50.4 Gy L breast, 60.4 Gy lumpectomy bed L breast Current # of xrt received: 22 Anticipated total # of xrt txs: 33 Evaluation of port verification films: Approved. For details, see electronic film record in [email or web address] System. Changes in Medical Condition: Mild itchiness of L breast. No soreness. An episode of tiredness earlier this wk, but otherwise no increase in tiredness & continues to work full-time. Pain?: No. Physical Exam: BP 96/57 Pulse 72 Temp(Src) 36.6 ??C (97.9 ??F) (Oral) Resp 16 SpO2 100% A&Ox3, in NAD. Mild erythema of L breast. Response to xrt: [...] Dermatology at [facility] [address] [facility] [address] [place] [address] Miladys Gordon MD [facility] [address] [place] [address] documented as of this encounter Visit Diagnoses Diagnosis Breast cancer, left Malignant neoplasm of breast (female), unspecified site documented in this encounter Care Teams General Medical Practitioner Relationship Specialty Start Date End Date Shonda Garcia MD [facility] [address] [place] [address] PCP - General 04/27/10 documented as of this encounter
--- OUTSIDE RECORDS SUMMARY | 2024-05-17 21:14 | XMS_ITS | Encounter Summary ---
Author Organization [facility] [place] [address] Care Team Providers Care Puller Over Name Role Phone Shonda Garcia MD Primary Care Provider [phone] Reason for Visit * Reason Onset Date Comments Medication Refill 11/06/2015 Encounter Details Date Type Department Care Team (Late Contact Info) Description 11/06/2015 Refill Hematology/Oncology at [address] [phone] Taz Santoro MD [address] [place] [phone] Malignant neoplasm of areola of left breast [...] [facility] [address] [place] [phone] Miladys Gordon MD [facility] [place] [address] documented as of this encounter Visit Diagnoses Diagnosis Malignant neoplasm of areola of left breast in female documented in this encounter Care Teams Puller Over Relationship Specialty Start Date End Date Shonda Garcia MD [facility] [address] [place] [address] PCP - General 04/27/10 documented as of this encounter
--- OUTSIDE RECORDS SUMMARY | 2024-05-17 21:14 | XMS_ITS | Encounter Summary ---
[facility] [place] [address] Care Team Providers Care Ship'S Electronic Warfare Officer Name Role Phone Shonda Garcia MD Primary Care Provider [phone] Reason for Visit * Reason Comments Follow Up Surgery bba Encounter Details Date Type Department Care Team (Late st Contact Info) Description 11/23/2015 8:40 AM EDT Office [place] [address] Sera Alvarez APRN [facility] [place] [address] Surgery follow-up Social History Tobacco Use Types [...] * Patient Instructions* Sera Alvarez APRN - 11/23/2015 8:21 AM EDT Plan: 1. Follow up: Fall [address] De Anda 2. Implant and scar massage 3. No restrictions as of 11/30/15 -SCAR MASSAGE TECHNIQUE: to begin 4-6 weeks [...] physical barrier (ie: a hat) when possible documented in this encounter Progress Notes * Sera Alvarez APRN - 11/23/2015 8:18 AM EDT Plastic Surgery Post Op Note Reason for visit: F/U status post procedure Date of surgery: 10/20/15 Procedure(s): bilateral breast augmentation S/p left lumpectomy and radiation Complications: None reported Pain: 0/10 HPI: Pt reports that she has been well since her visit last week. She has been using her breast band. She noticed a flat spot on the bottom of her left breast. Examination: Patient is alert, conversant, comfortable, ambulating Incisions: CDI, healing well. Breasts symmetric in volume Left IMF approximatley 5 mm higher than right. Capsule slightly [...] well without complaints. Plan: 1. Follow up: Fall [address] De Anda 2. Implant and scar massage 3. No restrictions as of 11/30/15 Elsa Lancaster, am acting as scribe for Sera Alvarez APRN . All work documented was performed by Sera Alvarez APRN. ???I performed the above scribed service and agree with the accuracy of the note?? SERA ALVAREZ APRN documented in this encounter Plan of Treatment Upcoming Encounters Date Type Department Care Team (Late st Contact Info) Description 09/03/2024 3:30 PM EDT Office Visit Dermatology at [address] [place] [address] Miladys Gordon MD [facility] DR MYESHA [place] [address] documented as of this encounter Visit Diagnoses Diagnosis Surgery follow-up Follow-up examination, following unspecified surgery documented in this encounter Care Teams Ship'S Electronic Warfare Officer Relationship Specialty Start Date End Date Shonda Garcia MD [facility] ETHAN GOMEZ [address] [place] [id number] PCP - General 04/27/10 documented as of this encounter
--- OUTSIDE RECORDS SUMMARY | 2024-05-17 21:14 | XMS_ITS | Encounter Summary ---
Author Organization [facility] [place] [address] Care Team Providers Care Sub Assembly Team Worker Name Role Phone Shonda Garcia MD Primary Care Provider [phone] Encounter Details Date Type Department Care Team (Late st Contact Info) Description 08/14/2014 Notes Only Radiation Oncology at [address] [address] Marcella Flores FIXTURE MAKER OFFICE OF CARE MANAGEMENT Social History Tobacco Use Types Packs/Day Years [...] as of this encounter Progress Notes * Marcella Flores MSW - 08/14/2014 12:40 PM EDT Reason for Referral: Brief assessment of social and emotional needs. Met with pt prior to sim today. Reviewed noted form VERN Christian and Brittany Guzman MSW. Social Supports: Pt is to Dutch of 27 years. They have a 13 year old son. Pt's parents and her parents are local supports. She indicated they have good friends and neighbors. Living Situation/Daily Activities/Transportation: Pt and manage their daily chores and activities. Pt does drive. She does not expect any issues with transportation. She lives ~ 40 minutes from this facility. Work/Finances/Insurance:Pt works about 30 hours a week for [employer]. She plans to continue to work as much as she can around her treatment schedule. She does have short term disability available to her. Advance Directives: Pt has not completed her advance directive. She does have the booklet/form at home. She wants her as her health care decision maker but indicated he does not agree with some of her wishes. Encouraged her to consider completing the document as a guide for and her health care providers about her wishes. Utilization of Community Resources:Pt receives primary care at the [facility]. Sheis agreeable to participate in the [place] [facility]. Provided her with a program brochure. SARAH Thomas RN, [facility] [employer] Truck Driver, [facility] re this. Adjustment to Illness/Mental Health Issues: Pt indicated she has a positive outlook. She indicated her son appears to be coping well. She has notified his school so his teachers are aware but he is doing well there. She feels supported by her local family. Identified Needs: pt did not identify any specific needs at this time. Referrals: None at this time. Plan: Informed pt of my availability and will follow for support and resources. documented in this encounter Plan of Treatment Upcoming Encounters Date Type Department Care Team (Late st Contact Info) Description 09/03/2024 3:30 PM EDT Office Visit Dermatology at [facility] [address] [place] [address] Miladys Gordon MD [facility] DR [place] [address] documented as of this encounter Visit Diagnoses Not on filedocumented in this encounter Care Teams Sub Assembly Team Worker Relationship Specialty Start Date End Date Shonda Garcia MD Eva GOMEZ [address] [place] [id number] PCP - General 04/27/10 documented as of this encounter
--- OUTSIDE RECORDS SUMMARY | 2024-05-17 21:14 | XMS_ITS | Encounter Summary ---
Author Organization [facility] [place] [address] Care Team Providers Care Hand Spring Former Name Role Phone Shonda Garcia MD Primary Care Provider Reason for Visit * Reason Comments Radiation Consult Encounter Details Date Type Department Care Team (Late st Contact Info) Description 08/08/2014 10:00 AM EST Office Visit Radiation Oncology at [address] [id number] Monalisa Waller MD [facility] [place] [address] Breast CA, left Discharge Disposition: Home Social [...] Sign Reading Time Taken Comments Blood Pressure 102/56 08/08/2014 8:53 AM EST Pulse 60 08/08/2014 8:53 AM EST Temperature 36.7 ??C (98.1 ??F) 08/08/2014 8:53 AM ES T Respiratory Rate 16 08/08/2014 8:53 AM EST Oxygen Saturation 100% 08/08/2014 8:53 AM EST Inhaled Oxygen Concentration - - Weight 56.2 kg (124 lb) 08/08/2014 8:53 AM EST Height 166 cm (5' 5.35) 08/08/2014 8:53 AM EST Body Mass Index 20.41 08/08/2014 8:53 AM EST documented in this encounter Progress Notes * Monalisa Waller MD - 08/08/2014 10:09 AM EST Images from the original note were not included. CC: Referred by Dr. Cast for eval for xrt for breast ca. HPI: 48 y/o f who palpated a mass in UOQ L breast. [place] [facility] [place] US from 06/03/14: US visualized 5 mm mass @ 0200, correlatingw/palpable area of concern, equivocal on mmg. 06/23/14 US guided bx 5 mm L breast mass @ 0200. Path: IDC. ER+VT+, [id number] 06/27/14 CXR: No met dz. 06/30/14 MRI B Breasts: L breast lesion #1, 5 mm @ 2 o'clock. L ax visualization adequate, no suspicious node. R breast w/o lesion. R axilla visualization adequate, no suspicious node. 07/03/[address] Cast. 07/09/14 BRCA1 & BRCA2 testing: Neg. 07/14/14 L breast lumpectomy & SNB. Specimen mmg showed the marker clip & mass. Bx cavity clips placed. Path: IDC, low gr, 0.5 cm, +DCIS (minor), no ALI, RM neg, closest RM to DCIS = 0.14 cm, 2 ax lymph nodes, both neg; pT1a N0. 07/31/14 fu w/Dr. Cast; plan for med & rad onc eval; rtc 6 mos w/new baseline mmg. Eval yesterday by Dr. Couch, w/plan for mc after xrt completion. Surg site well healed. No pain. No hand/arm swelling. ROM of arms around shoulders ok. Appetite & energy level ok. Past Medical History Diagnosis Date ??? Dermatitis ??? Asthma ??? Eczema childhood eczema ??? Attention deficit disorder controlled with Adderal ??? TMJ (temporomandibular joint disorder) wears retainer Past Surgical History Procedure Laterality Date ??? Mastectomy, partial Left 07/14/2014 MASTECTOMY PARTIAL performed by Patricia Cast MD at [facility] ??? Bx/remv, lymph node, deep axill Left 07/14/2014 BIOPSY OR EXCISION OF LYMPH NODE(S), OPEN, DEEP AXILLARY NODE(S) performed by Patricai Cast MD at [facility] ??? Identify sentinel node Left 07/14/2014 SENTINEL NODE INJECTION performed by Patricia Cast MD at [facility] ??? Nasal septum surgery 2010 deviated septum Physical Exam Constitutional: She is oriented to person, place, and time. She appears well- developed and well-nourished. No distress. BP 102/56 Pulse 60 Temp(Src) 36.7 ??C (98.1 ??F) (Oral) Resp 16 Ht 166 cm (5' 5.35) Wt 56.246 kg (124 lb) BMI 20.41 kg/m2 SpO2 100% HENT: Head: Normocephalic and atraumatic. [...] no inverted n ipple, no mass, no nipple discharge, no skin change and no tenderness. Abdominal: Soft. She exhibits no distension and [...] is normal. Judgment and thought contentnormal. A: Breast ca, L, IDC, low gr, ER+VT+, [id number]-, s/p lumpectomy & SNB, pT1a N0, stage I. P: A course of xrt to L breast rec'd to increase likelihood of ca control. Xrt would be given in 33 daily fxs. She asked about her eligibility for treatment w/hypofractionated breast xrt, given in 20 days, & I informed her that the hypofractionated breast xrt is generally not recommended for women younger than 50 yrs of age. Possible side effects of xrt to breast discussed, w/acute/immediate side effects including: Pinkening, soreness & peeling of skin in treated area; swelling of treated breast; soreness of treated breast; cough; shortness of breath; tiredness. Late/extermination supervisor side effects to breast discussed include: Treated breast may shrink, become firmer & sit higher on chest; achiness/stiffness of chest wall on treated side; slight increase in smallrisk of dying of heart disease (from 1.9% to 2.4%) in women irradiated to L breast/chest; rib fracture on treated side; CT after xrt may show scarring w/in small volume of lung on treated side; very small risk of radiotherapy associated 2nd malignancy. Need for CTsim prior to xrt discussed. I discussed w/her how she would be evaluated @ CTsim for possible use of deep inspiration breath hold (DIBH), to decrease dose of xrt to heart. She would like to proceed w/plan for xrt & will return in near future for CTsim. 20 mins of 30 min face to face visit w/Shannen spent discussing rationale for xrt; hoped for benefitof xrt; possible side effects/complications of xrt; prevention/management of side effects/complications of xrt; logistics of daily xrt; CTsimulation w/eval for DIBH (deep inspiration breath hold); arm position required for xrt; followup after completion of xrt. * Maco, Sima Chino RN - 08/08/2014 9:14 AM EST RADIATION ONCOLOGY NURSING INITIAL NURSING ASSESSMENT IDENTIFICATION: Shannen Nobles is a 48 y.o. year-old female with breast cancer PRESENTING SYMPTOMS/CHIEF COMPLAINT: she found lump left breast May 2015 , which led to investigation and diagnosis. REVIEW OF SYSTEMS: Review of Systems Constitutional: Negative for activity change and fatigue. HENT: Negative for dental problem, hearing loss, nosebleeds, sinus pressure, sore throat, trouble swallowing and voice change. TMJ Eyes: Negative for discharge and visual disturbance. Wears glasses Respiratory: Negative for cough, chest tightness, shortness of breath and wheezing. Asthma, uses inhaler only a couple times a year Cardiovascular: Negative. Negative for chest pain, palpitations and leg swelling. Gastrointestinal: Negative. Negative for nausea, vomiting, diarrhea, constipation, blood in stool and abdominal distention. Endocrine: Negative. Negative for cold intolerance and heat intolerance. Genitourinary: Negative. Negative for hematuria, decreased urine volume, vaginal discharge, vaginalpain and pelvic pain. Vaginal bleeding: on menses. Menstrual problem: still having menses, currently on menses. are very light. Musculoskeletal: Negative. Negative for back pain, gait problem and neck pain. Skin: Negative for rash. Itchiness ( chronic) currently undergoing testing for allergies Allergic/Immunologic: Positive for environmental allergies and food allergies. Neurological: Negative. Negative for dizziness, tremors, seizures, speech difficulty, light-headedness and headaches. Hematological: Negative. Negative for adenopathy. Does not bruise/bleed easily. Psychiatric/Behavioral: Negative for agitation. Sleep disturbance: with itching. The patient is notnervous/anxious. Prior Radiotherapy: No [x] Yes [] Prior Chemotherapy: No [x] Yes [] Prior Hormone Therapy: Yes [x] control pills for total of 20 years [place] RISK ASSESSMENT SCORE: 0 RADIOLOGY SAFETY QUESTIONS REVIEWED: already done LEARNING ASSESSMENT REVIEWED: yes ADVANCED DIRECTIVE: declined PAIN ASSESSMENT: [0] out of 10 *eD-H Adult PCS Flow Sheet if 4 or above SOCIAL ASSESSMENT: See EDH social assessment information entered. Support Systems: lives with and son Barriers to treatment: denies Referrals/Interventions: none today. RADIATION SPECIFIC TEACHING: [facility] Radiation Therapy and You providewd Site specific teaching : will go over in more detail on SIM day PLAN: SIM per Dr Waller documented in this encounter Plan of Treatment Upcoming Encounters Date Type Department Care Team (Late st Contact Info) Description 09/03/2024 3:30 PM EDT Office Visit Dermatology at [facility] [address] [place] [address] Miladys Gordon MD [facility] DR MYESHA [place] [address] documented as of this encounter Visit Diagnoses Diagnosis Breast CA, left documented in this encounter Care Teams Hand Spring Former Relationship Specialty Start Date End Date Shonda Garcia MD [facility] [address] [place] [address] PCP - General 04/27/10 documented as of this encounter
--- OUTSIDE RECORDS SUMMARY | 2024-05-17 21:14 | XMS_ITS | Encounter Summary ---
Author Organization [facility] [place] [address] Care Team Providers Care Marine Consultant Name Role Phone Shonda Garcia MD Primary Care Provider [phone] Encounter Details Date Type Department Care Team (Latest Contact Info) Description 03/04/2016 7:56 AM EDT - 03/04/2016 11:59 PM EDT Hospital En[place] [address] Patricia Cast MD [facility] [place] [address] Encounter for screening mammogram for breast cancer [...] Sig Dispensed Refills Start Date End Date pimecrolimus (ELIDEL) 1 % CreamIndications:Atopic dermatitis, unspecified [...] hours as needed. tamoxifen (NOLVADEX) 20 mg TabletIndications:Maltobi nant neoplasm of areola of left breast in female Take 1 tablet by mouth daily. 90 tablet 3 11/06/2015 11/02/2016 tacrolimus (PROTOPIC) 0.1 % OintmentIndications:Gary matitis Apply topically 2 times daily. To the face 60 g 3 07/25/2014 09/05/2022 CETIRIZINE HCL (ZYRTEC ORAL) Take by mouth daily as needed. 08/09/2016 SPIRONOLACTONE ORALIndications:acneifo rm eruption Take 100 mg by mouth daily. Indications: Acneiform Eruption 05/03/2018 documented as of this encounter Plan of Treatment Upcoming Encounters Date Type Department Care Team (Late st Contact Info) Description 09/03/2024 3:30 PM EDT Office Visit Dermatology at [address] [address] Miladys Gordon MD [facility] DR MYESHA [place] [address] documented as of this encounter Procedures Procedure Name Priority Date/Time Associated Diagnosis Comments MAMMO SCREENING CAD AND PAUL WITH IMPLANTS BILATERAL Routine 03/04/2016 8:21 AM EDT Encounter for screening mammogram for breast cancer documented in this encounter Results * Mammo Screen Implants CAD and Paul Bilat (Generic) (03/04/2016 8:21 AM EDT) Anatomical Region Laterality Modality Breast Bilateral Mammography Narrative 03/04/2016 9:30 AM EDT REASON FOR EXAM: Screening. History [...] BIRADS CATEGORY 2: BENIGN FINDINGS * ??[employer] [employer] and The Society of [...] earlier screening and breast MRI are appropriate. Patricia Cast MD IMG MAMMO ORDERABLE S documented in this encounter Visit Diagnoses Diagnosis Encounter for screening mammogram for breast cancer documented in this encounter Care Teams Marine Consultant Relationship Specialty Start Date End Date Shonda Garcia MD [address] [place] [address] PCP - General 04/27/10 documented as of this encounter
--- OUTSIDE RECORDS SUMMARY | 2024-05-17 21:14 | XMS_ITS | Encounter Summary ---
Author Organization [facility] [place] [address] Care Team Providers Care Roller Mechanic Name Role Phone Shonda Garcia MD Primary Care Provider [phone] Encounter Details Date Type Department Care Team (Late Contact Info) Description 08/14/2014 Orders Only Radiation Oncology at [address] [phone] Monalisa Waller MD [facility] [place] [address] Social History Tobacco Use Types Packs/Day Years [...] PM EDT Office Visit Dermatology at [facility] [address] [place] [address] Miladys Gordon MD [facility] [address] [place] [address] documented as of this encounter Procedures Procedure Name Priority Date/Time Associated Diagnosis Comments FILM LIBRARY STORAGE ONLY RADIATION ONCOLOGY STUDIES Routine 08/14/2014 10:46 AM EDT documented in this encounter Results * Film Library- Storage Only Radiation Oncology Studies (08/14/2014 10:46 AM EDT) Anatomical Region Laterality Modality Other 08/14/2014 10:4 6 AM EDT Narrative 08/14/2014 10:46 AM EDT This is a Non-reportable exam Procedure Note LEISA, UNSIGNED REPORT - 08/14/2014 This is a Non-reportable exam Monalisa Waller MD [facility] FILM LIBRARY ORD ERABLES documented in this encounter Visit Diagnoses Not on filedocumented in this encounter Care Teams Roller Mechanic Relationship Specialty Start Date End Date Shonda Garcia MD [address] [place] [address] PCP - General 04/27/10 documented as of this encounter
--- OUTSIDE RECORDS SUMMARY | 2024-05-17 21:14 | XMS_ITS | Encounter Summary ---
[place] [address] Care Team Providers Care Epoxy Coatings Installer Name Role Phone Shonda Garcia MD Primary Care Provider [phone] Reason for Visit * Auth/Cert Specialty Diagnoses / Procedures Referred By Contac t Referred To Contact Diagnoses Breast Cancer Procedures PRO ENLARGE BREAST WITH IMPLANT AUGMENTATION MAMMOPLASTY, UNILATERAL Referral ID Status Reason Start Date Expiration Date Visits Re quested Visits Authorized [id number] 1 1 Encounter Details Date Type Department Care Team (Late st Contact Info) Description 10/20/2015 11:15 AM EDT Anesthesia Event [place] [id number] Priya Osborn [facility] [place] [address] Anesthesia Record Procedure Summary Procedure Name Responsible Anesthesiologist Anesthesia Start Time Anesthesia Stop Time AUGMENTATION MAMMOPLASTY, RICK (WRVU 8.12) (Bilateral: Breast) Priya Osborn DO 10/20/15 1115 10/20/15 1319 Events Date Time Event Comment 10/20/2015 1054 1115 AN Verify 1115 Start 1115 An Start Data 1119 An Induction 1121 An Intubation 1123 Anesthesia Ready 1311 Extubation/LMA Out 1314 an stop data 1319 Recovery or ICU Handoff King[place] ent care was transferred to the destination unit staff after review of the patient's medical history, current anesthetic/surgical status and plan, according to the Provider Handoff Checklist. 1319 Stop Meds Name Total Midazolam 2 mg fentaNYL 100 mcg IV Lidocaine 60 mg Propofol 200 mg Rocuronium 50 mg PHENYLephrine 360 mcg ePHEDrine 140 mg Ondansetron 8 mg Dexamethasone 8 mg Neostigmine 3 mg Glycopyrrolate 0.6 mg clindamycin (CLEOCIN) 600mg in dextrose 5% 50mL 600 mg Propofol INF 252.32 mg HYDROmorphone 0.2 mg lactated ringers infusion 1,000 mL 1,200 mL * Agents Name O2 Air Sevoflurane (et) * Blood No blood administrations on file. Lines, Drains, and Airways Type Details Placement Removal Incision mid axillary; LDA no t present upon assessment; 11/14/18; 1009 07/14/14 1119 by 11/14/18 1009 by Tatiana Houser RN Incision breast; 11/14/18; 1009 07/14/14 1120 by 0 11/14/18 1009 by Tatiana Houser RN Incision 10/20/15; breast; LD A not present upon assessment; 11/14/18; 1009 10/20/15 0000 by Prashant Linda RN 11/14/18 1009 by Tatiana Houser RN (RETIRED) Peripheral IV Line - Single Lumen 10/20/15; 1045; cephalic vein right (lateral side of arm); 20 gauge; no longer indicated, catheter intact; 10/20/15; 1504 10/20/15 1045 by Melanie Lambert RN 10/20/15 1504 by Nichelle Lara RN ETT Mask Ventilation: Ea sy (1); ETT Type: Oral; ETT Size: 7 mm; Mac Blade: 3; Notes: Asleep, Pre-O2, Stylette; Attempts: 1; Laryngoscopy Grade: 2; ETT Placement Verified By: Auscultation, Capnometry, Visual; Secured at Teeth: 20 cm; Inserted by: Yaniv VENCES; Removal Date: 10/20/15; Removal Time: 1311 10/20/15 1121 by Dalila Purvis CRNA 10/20/15 1311 by Dalila Purvis CRNA documented in this encounter Social History [...] Postprocedure Evaluation - Priya Osborn DO - 10/21/2015 8:05 AM EDT [facility] [place] Post-procedure Note Patient: Shannen Nobles Procedure Summary Date Anesthesia Start Anesthesia Stop Room / Location 10/20/15 1115 1319 [facility] OR 5 / [facility] Procedure Diagnosis Surgeon Responsible Provider AUGMENTATION MAMMOPLASTY, RICK (Bilateral Breast) (Breast Cancer) Cassie De Anda MD Walker, TaceeE, DO All Anesthesia Providers: Anesthesiologist: Priya Osborn DO AUTOMOTIVE PARTS MANAGER: Dalila Purvis CRNA Last (1hr) Vitals: BP Temp Pulse Resp SpO2 Patient Location: PACU/[facility] Level of Consciousness: Awake and Alert Pain Management: Satisfactory Analgesia PONV: None Cardiovascular Status: At Baseline and Hemodynamically Stable Respiratory Status: At Baseline and Room Air Postoperative Fluid Status: Intravascular EUvolemia Possible Anesthetic Complications: NONE apparent at time of evaluation Final Primary Anesthesia Type: General (The anesthetic type performed was the same as planned.) Comments: Priya Osborn DO * Anesthesia Preprocedure Evaluation - Priya Osborn DO - 10/20/2015 10:53 AM EDT Pre-Anesthesia Evaluation for: Shannen Nobles a 50 y.o. female. Procedure(s): MASTECTOMY PARTIAL BIOPSY OR EXCISION OF LYMPH NODE(S), OPEN, DEEP AXILLARY NODE(S) SENTINEL NODE INJECTION MODIFIER SENTINEL NODE EXCISION Patient Active Problem List Diagnosis ??? S/P lumpectomy, left breast ??? Breast cancer, left breast Past Medical History Diagnosis Date ??? Asthma ??? Attention deficit disorder controlled with Adderal ??? Breast cancer ??? Dermatitis ??? Eczema childhood eczema ??? TMJ (temporomandibular joint disorder) wears retainer Past Surgical History Procedure Laterality Date ??? Pro mastectomy, partial Left 07/14/2014 MASTECTOMY PARTIAL performed by Patricia Cast MD at [facility] ??? Pro bx/remv, lymph node, deep axill Left 07/14/2014 BIOPSY OR EXCISION OF LYMPH NODE(S), OPEN, DEEP AXILLARY NODE(S) performed by Patricia Cast MD at [facility] ??? Pro identify sentinel node Left 07/14/2014 SENTINEL NODE INJECTION performed by Patricia Cast MD at [facility] ??? Nasal septum surgery 2010 deviated septum History Substance Use Topics ??? Smoking status: Never Smoker ??? Smokeless tobacco: Never Used ??? Alcohol use: Yes Comment: very seldom, once a year History Drug Use No Allergies Allergen Reactions ??? Latex Rash ??? Amoxicillin Trihydrate ??? Thiuram Analogues Dermatitis Medications: MAR and/or home medications have been reviewed. Physical Exam: Vitals: 10/20/15 1021 BP: 95/67 Pulse: 58 Resp: 18 Temp: 36.3 ??C (97.3 ??F) Body mass index is 20.33 kg/(m^2). Height: 167 cm (5' 5.75) Weight - Scale: 56.7 kg (125 lb) Airway Assessment: Mallampati: II TM distance: [...] risks discussed with patient. Plan discussed with AUTOMOTIVE PARTS MANAGER. Misc. Assessment: PAT Staff Note documented in this encounter Plan of Treatment Upcoming Encounters Date Type Department Care Team (Late st Contact Info) Description 09/03/2024 3:30 PM EDT Office Visit Dermatology at [facility] [address] [place] [address] Miladys Gordon MD [facility] DR MY[place] [address] documented as of this encounter Visit Diagnoses Not on filedocumented in this encounter Administered Medications Inactive Administered Medications - up to 3 most recent administrations Medication Order MAR Action Action Date Dose Rate Site clindamycin (CLEOCIN) 600mg in dextrose 5% 50mL 600 mg, Intravenous, ONCE, 1 dose, On Mon10/20/15 at 1130, Administer over 20 Minutes, HOLD FOR OR, Indication for (Active or Suspected): Prophylaxis Given 10/20/2015 11:35 AM EDT 600 mg dexamethasone (DECADRON) injection PRN, Starting on Mon10/20/15 at 1139, Until Mon10/20/15 at 1319, Anesthesia Intra-op, Routine Given 10/20/2015 12:05 PM EDT 4 mg Given 10/20/2015 11:39 AM EDT 4 mg ePHEDrine 5 mg/mL multi-dose injection PRN, Starting on Mon10/20/15 at 1129, Until Mon10/20/15 at 1319, Anesthesia Intra-op, Routine Given 10/20/2015 12:43 PM EDT 120 mg Given 10/20/2015 11:29 AM EDT 10 mg Given 10/20/2015 11:24 AM EDT 10 mg fentaNYL 50 mcg/mL multi-dose injection PRN, Starting on Mon10/20/15 at 1120, Until Mon10/20/15 at 1319, Pain, Anesthesia Intra-op, Routine Given 10/20/2015 12:01 PM EDT 50 mcg Given 10/20/2015 11:20 AM EDT 50 mcg glycopyrrolate (ROBINUL) multi-dose injection PRN, Starting on Mon10/20/15 at 1250, Until Mon10/20/15 at 1319, Anesthesia Intra-op, Routine Given 10/20/2015 12:50 PM EDT 0.6 mg HYDROmorphone (DILAUDID) injection PRN, Starting on Mon10/20/15 at 1228, Until Mon10/20/15 at 1319, Pain, Anesthesia Intra-op, Routine Given 10/20/2015 12:28 PM EDT 0.2 mg lactated ringers infusion 1,000 mL 1,000 mL, at 100 mL/hr, Intravenous, CONTINUOUS, Starting on Mon10/20/15 at 1045, Until Mon10/20/15 at 1509, Day of Surgery (Day of Procedure) New Bag 10/20/2015 11:13 AM EDT lidocaine (PF) (XYLOCAINE) 100 mg/5 mL (2 %) injection PRN, Starting on Mon10/20/15 at 1119, Until Mon10/20/15 at 1319, Anesthesia Intra-op, Routine Given 10/20/2015 11:19 AM EDT 60 mg midazolam (PF) (VERSED) 1 mg/mL multi-dose injection PRN, Starting on Mon10/20/15 at 1113, Until Mon10/20/15 at 1319, Sleep, Anesthesia Intra-op, Routine Given 10/20/2015 11:13 AM EDT 2 mg neostigmine (PROSTIGMINE) multi-dose injection PRN, Starting on Mon10/20/15 at 1250, Until Mon10/20/15 at 1319, Anesthesia Intra-op, Routine Given 10/20/2015 12:50 PM EDT 3 mg ondansetron (ZOFRAN) injection PRN, Starting on Mon10/20/15 at 1251, Until Mon10/20/15 at 1319, Nausea, Anesthesia Intra-op, Routine Given 10/20/2015 12:51 PM EDT 8 mg PHENYLephrine HCl in NS (PF) (ZAIN-SYNEPHRINE) 0.8 mg/10 mL (80 mcg/mL) multi-dose injection Syrg PRN, Starting on Mon10/20/15 at 1136, Until Mon10/20/15 at 1319, Anesthesia Intra-op, Routine Given 10/20/2015 11:47 AM EDT 120 mcg Given 10/20/2015 11:42 AM EDT 120 mcg Given 10/20/2015 11:36 AM EDT 120 mcg propofol (DIPRIVAN) 10 mg/mL bolus injection (Anesthesia) PRN, Starting on Mon10/20/15 at 1119, Until Mon10/20/15 at 1319, Anesthesia Intra-op Given 10/20/2015 11:19 AM EDT 200 mg propofol (DIPRIVAN) infusion CONTINUOUS PRN, Starting on Mon10/20/15 at 1131, Until Mon10/20/15 at 1319, Anesthesia Intra-op, Routine New Bag 10/20/2015 11:31 AM EDT 50 mcg/kg/min 17 mL/hr rocuronium (ZEMURON) multi-dose injection PRN, Starting on Mon10/20/15 at 1120, Until Mon10/20/15 at 1319, Anesthesia Intra-op, Routine Given 10/20/2015 12:11 PM EDT 10 mg Given 10/20/2015 11:20 AM EDT 40 mg documented in this encounter Care Teams Epoxy Coatings Installer Relationship Specialty Start Date End Date Shonda Garcia MD [facility] [address] [place] [address] PCP - General 04/27/10 documented as of this encounter
--- OUTSIDE RECORDS SUMMARY | 2024-05-17 21:14 | XMS_ITS | Encounter Summary ---
Author Organization [facility] [place] [address] Care Team Providers Care Lease Administration Supervisor Name Role Phone Shonda Garcia MD Primary Care Provider [phone] Reason for Visit * Reason Comments Radiation Follow-up Encounter Details Date Type Department Care Team (Late st Contact Info) Description 12/28/2015 3:30 PM EDT Office Visit Radiation Oncology at [address] [phone] Monalisa Waller MD [facility] [place] [address] Malignant neoplasm of left female breast, unspecified [...] * Patient Instructions* Monalisa Waller MD - 12/28/2015 3:30 PM EDT You have healed well from your breast implants & there is no evidence of worrisome finding on exam. Apply sunscreen with an SPF of @ least #45 prior to exposing the irradiated area to sun. We will mail you a letter with an appointment for followup in 6 months, @ which time you would be seen by me or by one of the Radiation Oncology Advanced Practice RNs. documented in this encounter Progress Notes * oMnalisa Waller MD - 12/28/2015 3:30 PM EDT CC: Sched'd fu s/p xrt completion. HPI: 49 y/o f who completed xrt 10/08/14 for breast ca, L, IDC, low gr, ER+VT+, [id number]-, s/p lumpectomy & SNB, pT1a pN0, stage I. Since xrt completion, she has been taking mc. 02/18/15 B mmg: Neg. 02/18/15 fu w/Dr. Cast; rtc 1 yr w/mmg. 07/06/[address] De Anda for breast recon due to asymmetry. 10/20/15 B augmentation mammoplasty w/saline implants. ROS: Energy level improved, better than it was this winter when she was only strong enough to ski for half day (normally would ski a full day) but she does not think it has returned to pretx level, as formerly she could cycle uphill in highest gear & now has to use a lower gear sometime. No pain/swelling. Past Medical History Diagnosis Date ??? Asthma ??? Attention deficit disorder controlled with Adderal ??? Breast cancer ??? Dermatitis ??? Eczema childhood eczema ??? TMJ (temporomandibular joint disorder) wears retainer Past Surgical History Procedure Laterality Date ??? Pro mastectomy, partial Left 07/14/2014 MASTECTOMY PARTIAL performed by Patricia Cast MD at [facility] ??? Pro bx/remv, lymph node, deep axill Left 07/14/2014 BIOPSY OR EXCISION OF LYMPH NODE(S), OPEN, DEEP AXILLARY NODE(S) performed by Patricia Cast MD at [facility] ??? Pro identify sentinel node Left 07/14/2014 SENTINEL NODE INJECTION performed by Patricia Cast MD at [facility] ??? Nasal septum surgery 2011 deviated septum ??? Pro enlarge breast with implant Bilateral 10/20/2015 AUGMENTATION MAMMOPLASTY, RICK performed by Cassie De Anda MD at [facility] Physical Exam Constitutional: She is oriented to person, place, and time. She appears well- developed and well-nourished. No distress. There were no vitals taken for this visit. HENT: Head: Normocephalic and atraumatic. Eyes: Conjunctivae and EOM are normal. Right eye exhibits no discharge. Left eye exhibits no discharge. No scleral icterus. Neck: Normal range of motion. Neck supple. No tracheal deviation present. No thyromegaly present. Pulmonary/Chest: Effort normal and breath sounds normal. No stridor. No respiratory distress. She has no wheezes. She has no rales. She exhibits no tenderness. She is s/p B breast implants & bothbreasts have healed well. Right breast exhibits no inverted nipple, no mass, no nipple discharge, no skin change and no tenderness. Left breast exhibits no inverted nipple, no mass, no skin change and no [...] Judgment and thought contentnormal. A: BALJIT. P: Rtc 6 mos. Surg Onc, Plastics & mmg 03/04/16. documented in this encounter Plan of Treatment Upcoming Encounters Date Type Department Care Team (Late st Contact Info) Description 09/03/2024 3:30 PM EDT Office Visit Dermatology at [facility] [address] [place] [address] Miladys Gordon MD [facility] DR MYESHA [place] [address] documented as of this encounter Visit Diagnoses Diagnosis Malignant neoplasm of left female breast, unspecified site of breast documented in this encounter Care Teams Lease Administration Supervisor Relationship Specialty Start Date End Date Shonda Garcia MD [address] [place] [address] DR GOMEZ [address] [place] [id number] PCP - General 04/27/10 documented as of this encounter
--- OUTSIDE RECORDS SUMMARY | 2024-05-17 21:14 | XMS_ITS | Encounter Summary ---
Author Organization [facility] [place] [address] Care Team Providers Care Bag Machine Set Up Operator Name Role Phone Shonda Garcia MD Primary Care Provider [phone] Reason for Visit * Reason Comments Follow Up Surgery Encounter Details Date Type Department Care Team (Late st Contact Info) Description 03/04/2016 9:45 AM EDT Office [place] [phone] Alka Morse, WOOL GRADER [facility] [place] [address] History of breast cancer Social History Tobacco [...] this encounter Progress Notes * Alka Morse, WOOL GRADER - 03/04/2016 9:45 AM EDT Shannen returns today in surgical follow up of left breast cancer.She is a patient of Dr Cast.Shannen incidentally noted a left breast mass in June 2014.. She presented for evaluation. Mammogram and u/s confirmed a 5mm mass in the upper, outer left breast. Biopsy revealed IDC (ER/IN+, HER2-). Breast MRI did not reveal any additional sites of disease nor adenopathy. She opted for BCT. ---Pathologic Diagnosis--- Specimens: A - Left breast partial mastectomy C - Left axillary sentinal node Histologic Type: Invasive ductal carcinoma Tumor Grade: Low (High, Intermediate, Low) Khivty-Tdems-[id number] Score: 5 Tubular Differentiation: 2 Mitotic Rate: [...] and FISH, performed on prior biopsy [id number], see spearate report pTNM: pT1aN0 (AJCC, 7th [...] tenderness. Mammogram today: pending Assessment and Plan: 50 yo female with history of stage I [...] present No Date of last follow up 03/04/16 documented in this encounter Plan of Treatment Upcoming Encounters Date Type Department Care Team (Late st Contact Info) Description 09/03/2024 3:30 PM EDT Office Visit Dermatology at [address] [phone] Miladys Gordon MD [facility] [place] [address] documented as of this encounter Visit Diagnoses Diagnosis History of breast cancer Personal history of malignant neoplasm of breast documented in this encounter Care Teams Bag Machine Set Up Operator Relationship Specialty Start Date End Date Shonda Garcia MD Eva GOMEZ [address] [place] [id number] PCP - General 04/27/10 documented as of this encounter
--- OUTSIDE RECORDS SUMMARY | 2024-05-17 21:14 | XMS_ITS | Encounter Summary ---
Author Organization [facility] Address [facility] [place] [address] Care Team Providers Care Poly Area Supervisor Name Role Phone Shonda Nunez MD Primary Care Provider [phone] Reason for Visit * Reason Comments Pre-op Exam finalize surgical pl ans Encounter Details Date Type Department Care Team (Late st Contact Info) Description 10/12/2015 10:00 AM EDT Office [place] [address] Cassie De Anda MD [facility] [place] [address] S/P lumpectomy, left breast Social History Tobacco [...] * Patient Instructions* Lisbet Ko RN - 10/12/2015 10:44 AM EDT You were given written and verbal preoperative instructions today. To prepare for your upcoming surgery, please review the Pre-Operative Instruction brochure that youwere given at today's appointment; it's the pink and white booklet. Remember to do the pre op wash, with Hibiclens, as instructed. You were given a tube of Bactroban - remember to begin use 5 days before surgery. The usage log is included below. Nasal carriage of Staphylococcus aureus including methicillin-resistant [...] Beginning five (5) days before your surgery, apply ointment to both nostrils twice daily: 1) Wash [...] 2 Day 3 Day 4 Day 5 You will need a taxi truck driver. Expect a call from the nurses from the Same Day Dept the business day before surgery to instruct you in the time to arrive as well as when to stop eating and drinking. Feel free to call our office [phone] if you have any questions or concerns. We monitor the phones from 8-5 Monday through Monday. documented in this encounter Progress Notes * Lisbet Ko RN - 10/12/2015 10:42 AM EDT Pre-Op Teaching for Surgery Surgery: bilateral saline implants Written and verbal pre-operative instructions given and reviewed with patient and her . Patient was advised to discontinue use of NSAIDS and aspirin products (unless otherwise advised by patient's PCP/Hard Metals Hand Engraver for cardiac symptoms), fish oil, Vitamin E and herbal supplements for 14 days prior to surgery, to perform the pre-op scrub, and to coordinate a ride home following surgery. Smoking status and medications were further reviewed to rule out/address current use of Nicotine, Coumadin, Plavix, Estrogen or Tamoxifen. She was advised that the nurses from the Same Day Dept from would be calling the day before surgeryto instruct in time to arrive as well as dietary restrictions. Discussed and answered all questionsincluding post op course, possible use of drains, and activity limitations. Photos previously taken. She was given the saline implant information booklet. She was given a tube of Bactroban ointment and advised how to use it beginning 5 days before surgery. She was also given the application log. Patient was given 2 packets of Hibiclens soap along with instructions for its use pre op. She was told to call the clinic for any questions or concerns prior to surgery. * Cassie De Anda MD - 10/12/2015 10:08 AM EDT Plastic Surgery Consultation Note Provider: CASSIE DE ANDA MD PCP: SHONDA NUNEZ MD Requesting surgeon: Dr. Cast CC: To rediscuss breast reconstruction for breast asymmetry post lumpectomy HPI: Shannen returns with her to finalize surgical plans. She is currently scheduled for surgery on 10/20/15. She has decided on 300-350 cc saline implants. Past Medical History Diagnosis Date ??? Dermatitis ??? Asthma ??? Eczema childhood eczema ??? Attention deficit disorder controlled with Adderal ??? TMJ (temporomandibular joint disorder) wears retainer ??? Breast cancer Past Surgical History Procedure Laterality Date ??? Pro mastectomy, partial Left 07/14/2014 MASTECTOMY PARTIAL performed by Patricia Cast MD at [facility] ??? Pro bx/remv, lymph node, deep axill Left 07/14/2014 BIOPSY OR EXCISION OF LYMPH NODE(S), OPEN, DEEP AXILLARY NODE(S) performed by Patricia Cast MD at [facility] ??? Pro identify sentinel node Left 07/14/2014 SENTINEL NODE INJECTION performed by Patricia Cast MD at [facility] ??? Nasal septum surgery 2010 deviated septum History Social History ??? Marital Status: Spouse Name: N/A Number of Children: 1 ??? 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 Smoking status: [...] Cancer Paternal Uncle 70 alive at 75 Examination: There were no vitals taken for this visit. General: On my examination today, Ms. Shannen Nobles appears to be in good health. Her emotional outlook is positive and she asked appropriate questions throughout the visit. Exam deferred at today's visit Anatomic Breast Measurements from 08/31/15 visit: Right Left SN to Nipple (cm) 19.5 19.5 IMF to nipple (cm) 6 6.25 Base Diameter (cm) 11.5 11.5 Areola circumference (mm) 32 33 Impression: Shannen Nobles is a 50 y.o. patient with very mild breast asymmetry s/p lumpectomy andradiation for left breast cancer and breast hypoplasia. We reviewed details of her upcoming procedure including risks, she is aware that she is at increased risk of wound healing problems, infection and capsular contracture given her history of radiation. She has opted for saline submuscular implants, she feels more comfortable with her ability to monitor for deflation with saline implants. We will plan for sub-muscular placement with an IMF incision. We reviewed activity restrictions, I advised her to plan for 6 weeks of limited activity. Implant related complications: The specific risks of implants were reviewed and she was provided with an ASPS informed consent document, the IOM report summary on the safety of silicone implants and the Dwarf brochure: Silicone implants, making an informed decision. We reviewed the general risksof implant reconstruction including: upper pole fullness; asymmetry; implant rupture, migration, infection, or contracture; visible rippling or waviness from the implant; likely need for revision or further surgery in the future. Surgical consent was reviewed and signed in the office today Plan: Proceed with surgery as planned. Will plan for 325 cc saline high profile implant on the left side and approximately 300 cc to achieve symmetry on the smaller right side Implants to order x 2 Left breast: 300 + 60 cc 11.5 cm 4.3 cm 350-2300 325 + 65 cc 11.9 cm 4.4 cm 350-2325 350 + 70 cc 12.1 cm 4.5 cm 350-2350 Right breast 250 + 50 cc 10.8 cm 4.0 cm 350-2250 275 + 55 cc 11 cm 4.1 cm 350-2275 300 + 60 cc 11.5 cm 4.3 cm 350-2300 I, Kayley Gray, am acting as scribe for Dr De Anda. All work documented was performed by Dr De Anda. ???I performed the above scribed service and agree with the accuracy of the note?? CASSIE DE ANDA MD documented in this encounter Plan of Treatment Upcoming Encounters Date Type Department Care Team (Late st Contact Info) Description 09/03/2024 3:30 PM EDT Office Visit Dermatology at [facility] [address] [place] [address] Miladys Gordon MD [facility] [address] [place] [address] documented as of this encounter Visit Diagnoses Diagnosis S/P lumpectomy, left breast Other postprocedural status documented in this encounter Care Teams Poly Area Supervisor Relationship Specialty Start Date End Date Shonda Nunez MD [facility] ETHAN GOMEZ [address] [place] [id number] PCP - General 04/27/10 documented as of this encounter
--- OUTSIDE RECORDS SUMMARY | 2024-05-17 21:14 | XMS_ITS | Encounter Summary ---
Author Organization [facility] [place] [address] Care Team Providers Care Metal Trades Instructor Name Role Phone Shonda Garcia MD Primary Care Provider Reason for Visit * Reason Comments Follow-up Encounter Details Date Type Department Care Team (Late st Contact Info) Description 02/18/2015 3:45 PM EDT Follow-[place] [address] CLINIC, Vic Whittaker MD [facility] [place] [address] History of breast cancer Discharge Disposition: Home [...] as of this encounter Progress Notes * Vic Cast MD - 02/18/2015 1:28 PM EDT HPI Shannen returns today in surgical follow up of eft breast cancer. Shannen incidentally noted a left breast mass in June 2014.. She presented for evaluation. Mammogram and u/s confirmed a 5mm mass inthe upper, outer left breast. Biopsy revealed IDC (ER/MN+, HER2-). Breast MRI did not reveal any add itional sites of disease nor adenopathy. She opted for BCT. ---Pathologic Diagnosis--- Specimens: A - Left breast partial mastectomy C - Left axillary sentinal node Histologic Type: Invasive ductal carcinoma Tumor Grade: Low (High, Intermediate, Low) Noevmj-Skzyg-Bpxuzchfir Score: 5 Tubular Differentiation: 2 Mitotic Rate: [...] and FISH, performed on prior biopsy [id number], see spearate report pTNM: pT1aN0 (AJCC, 7th edition, 2010) B - Left breast superfical margin, re-excision: Benign breast tissue. She did well with surgery. She was treated with whole breast xrt and is now on mc. Shannen has gained 5 pounds since she decreased exercise. She otherwise has no complaints except asymmetry of the breasts. She has no fevers, chills, sob, chest pain, adbominal pain, lymphedema. FH: father with prostate cancer. Sister with breast cancer (age 47). SH: . Non smoker. Has one son, Chevy who is 14 PMH: Asthma Dermatitis Objective: Physical Exam Constitutional: [...] of the breast. verterbral bodies without tenderness. Abdomen soft, no masses Mammogram today: pending Assessment and Plan: 48 yo female with history of stage I IDC of the left breast. Shannen is doing well without evidence of local or systemic recurrence. She is troubled by some asymmetry of her breasts (interestingly, the ipsilateral breast is larger than the contralateral). Thereis no evidence of edema. I will set her up with plastic surgery to discuss possible symmetry procedure. Pending normal mammogram, HANNAH Dejesus or I will see Shannen back in 1 year with screening mammogram. She will call with any questions in the interval timeframe. Comprehensive Breast Program Surgery Follow Up Note Range of motion of surgical arm complete Lymphedema present No Cosmesis-surgeon reported Cosmesis-patient reported Excellent Good Local or regional recurrence No Contralateral cancer present No Distant recurrence present No Date of last follow up 02/18/2015 VIC CAST MD 02/18/2015 documented in this encounter Plan of Treatment Upcoming Encounters Date Type Department Care Team (Late st Contact Info) Description 09/03/2024 3:30 PM EDT Office Visit Dermatology at [facility] [address] [place] [address] Miladys Gordon MD [facility] DR MYESHA [place] [address] documented as of this encounter Visit Diagnoses Diagnosis History of breast cancer Personal history of malignant neoplasm of breast documented in this encounter Care Teams Metal Trades Instructor Relationship Specialty Start Date End Date Shonda Garcia MD [address] [facility] [address] [place] [address] PCP - General 04/27/10 documented as of this encounter
--- OUTSIDE RECORDS SUMMARY | 2024-05-17 21:14 | XMS_ITS | Encounter Summary ---
Author Organization [facility] [place] [address] Care Team Providers Care Data Reviewer Name Role Phone Shonda Garcia MD Primary Care Provider Reason for Visit * Reason Comments Breast Cancer Encounter Details Date Type Department Care Team (Late st Contact Info) Description 08/07/2014 9:00 AM EST Office Visit Hematology Oncology at [address] [address] Noe Couch MD [facility] [place] [address] Breast cancer, left Discharge Disposition: Home Social History Tobacco Use Types Packs/Day Years Used Date Smoking Tobacco: Never Sex and Gender Information Value Date Recorded Sex Assigned at Not on file Gender Identity Not on file Sexual Orientation Not on file documented as of this encounter Last Filed Vital Signs Vital Sign Reading Time Taken Comments Blood Pressure 92/57 08/07/2014 9:04 AM EST Pulse 63 08/07/2014 9:04 AM EST Temperature 36.4 ??C (97.5 ??F) 08/07/2014 9 :04 AM EST Respiratory Rate 16 08/07/2014 9:04 AM EST Oxygen Saturation 100% 08/07/2014 9:0 4 AM EST Inhaled Oxygen Concentration - - Weight 56.2 kg (124 lb) 08/07/2014 9:04 AM EST Height 166 cm (5' 5.35) 08/07/2014 9:0 4 AM EST measured in clinic Body Mass Index 20.41 08/07/2014 9:04 AM EST documented in this encounter Progress Notes * Noe Couch MD - 08/12/2014 9:20 AM EDT Diagnosis: Left breast IDC 0.5 cm, low grade, ER+/KS+, Her-2 unamplified Subjective:I feel fine HPI: Ms. Nobles is 48 y.o. F referred to us by Dr. Cast for a consultation on her new diagnosis of left breast cancer. Ms. Nobles incidentally noted a left breast mass in May 2014. Mammogram and u/s confirmed a 5mm mass in the upper, outer left breast. Biopsy revealed IDC (ER/KS+, HER2-). Breast MRI did not reveal any additional sites of disease nor adenopathy. She underwent lumpectomy and sentinel lymph node biopsy on July 14, 2014. Postop course was uneventful. PMH:dermatitis, asthma, deviated nose septum Social History: No changes Family History: Father with prostate cancer. Sister with breast cancer (age 47). Brother had esophageal cancer OBGYN History: Menarche at age 14, , last 3 months irregular periods, Oral contraceptive use: In the past, for a total of 19 years, no hormonal replacement therapy Allergies Allergen Reactions ??? Latex Rash ??? Amoxicillin Trihydrate ??? Thiuram Analogues Dermatitis Medications: Reviewed Review of Systems: Constitutional: Negative for fever, chills, activity change, fatigue and unexpected weight change. HEENT: Negative for sore throat, mouth sores and trouble swallowing. Eyes: Negative. Respiratory: Negative for cough, shortness of breath and wheezing. Cardiovascular: Negative for chest pain, palpitations and leg swelling. Gastrointestinal: Negative for nausea, vomiting, abdominal pain, diarrhea, constipation and abdominal distention. Genitourinary: Negative for dysuria and difficulty urinating. Musculoskeletal: Negative. Skin: Negative. Neurological: Negative. Hematological: Negative for adenopathy. 12 systems were reviewed and otherwise negative PE: General: AAAx3, in NAD Head: Normocephalic, without obvious abnormality, atraumatic Eyes: [...] respirations unlabored Chest Wall: No tenderness or deformity. Healing surgical incision on the left breast. No palpable masses or lumps in either breast. Examination was done in the presence of KOREY Mckeon. Heart: Regular rate and rhythm, S1, S2 normal, no murmur, rub or gallop Abdomen: Soft, non-tender, bowel sounds active all four quadrants, no masses, no organomegaly. There is no appreciable ascites Extremities: Extremities normal, atraumatic, no cyanosis or edema Pulses: 2+ and symmetric Skin: Skin color, texture, turgor normal, no rashes or lesions Lymph nodes: Cervical, supraclavicular, and axillary nodes normal Neurologic: Normal Vitals BP 92/57 Pulse 63 Temp(Src) 36.4 ??C (97.5 ??F) (Oral) Resp 16 Ht 166 cm (5' 5.35) Wt 56.246 kg (124 lb) BMI 20.41 kg/m2 SpO2 100% Pathology: 07/14/14 ---Pathologic Diagnosis--- Specimens: A - Left breast partial mastectomy C - Left axillary sentinal node Histologic Type: Invasive ductal carcinoma Tumor Grade: Low (High, Intermediate, Low) Wiyabr-Uchcw-Fwjqxxveou Score: 5 Tubular Differentiation: 2 Mitotic Rate: [...] and FISH, performed on prior biopsy [id number], see spearate report pTNM: pT1aN0 (AJCC, 7th edition, 2010) B - Left breast superfical margin, re-excision: Benign breast tissue. ---Comment--- The DCIS is present as cribriform atypia as well as columnar cell spectrum changes (columnar hyperplasia with atypia/flat epithelial atypia). The columnar atypia is mixed with and away from the invasive tumor and extends 1 mm from the deep RM. 06/23/14 ---Pathologic Diagnosis--- Needle biopsies: Left breast. Diagnosis: Invasive ductal carcinoma. Atypical papillary hyperplasia. Microcalcifications: NA On A2- ER immunoreactivity: Positive > 90% cancer cells with immunostaining Stain Intensity Moderate KS immunoreactivity: Positive > 90% cancer cells with immunostaining Stain Intensity Strong NEGATIVE FOR HER2/MIKALA AMPLIFICATION Labs: The Integrated BRACAnalysis showed no mutation was detected Results for AMANDAPAPITOViviana Chino ( ) as of 08/12/2014 09:20 Ref. Range 06/27/2014 09:06 Alk Phos Latest Range: 40-104 unit/L 50 AST Latest Range: 0-30 unit/L 22 ALT Latest Range: 0-30 unit/L 15 Imagin06/27/14 FINDINGS: BI-RADS 2 Right upper outer breast MRI. Minimal scattered foci of enhancement due to fibrocystic changes and/or hormonal effects. LESIONS: Left BREAST LESION #: 1 BIRADS: 6 SIZE: 5 mm LOCATION: 2 O'Clock 7 cm from the nipple DESCRIPTION: Mass/post surgical change: Shape: Round Margins: Minmally irregular Enhancement: Intense KINETICS: Washout kinetic compatible with the biopsy finding of invasive ductal carcinoma. OTHER FINDINGS: Minimal increased vascularity surrounding the neoplasm in the left upper outer breast. Biopsy clip and minimal post biopsy changes noted. LEFT AXILLA: Visualization: Adequate: Adequate Suspicious Nodes: 0 Number:3 Largest:0 .4 cm RIGHT AXILLA: Visualization: Adequate: Adequate Suspicious Nodes: 0 Number: 0 Largest: 0 cm COMMENTS: Solitary biopsy proven invasive ductal carcinoma in the left upper outer breast close to the chest wall without chest wall involvement or adenopathy. RECOMMENDATION: Left breast mass amenable for lumpectomy. 06/27/14 CXR IMPRESSION: No radiographic evidence of metastatic disease Assessment and Plan: Diagnosis: Left breast IDC 0.5 cm, low grade, ER+/KS+, Her-2 unamplified, LN 0/2, [id number] Treatment: s/p lumpectomy and sentinel lymph node biopsy 07/14/14 We discussed prognosis and stage T1a invasive ductal carcinoma.10-year recurrence rate is 14-15% with 1% associated cancer-related mortality. We talked about roles of chemotherapy and hormonal therapy in the prevention of recurrences. Hormonal therapy has 6% benefit in disease-free survival. Risks of chemotherapy overweight benefits due to early stage/low grade and negative sentinel lymph nodes. We discussed data on tamoxifen, tamoxifen with ovarian suppression, and ovarian suppression with exemestane. I informed Ms. Nobles that the benefits of tamoxifen continues beyond 5 years. We discussedthe risks of tamoxifen. She is scheduled to see our radiation oncologist Dr. Waller tomorrow. I'll see her back in 2-3 weeks after completion of XRT for consideration of hormonal treatment. 1. Next visit with CBc, CMP in 2-3 weeks after completion of XRT The plan was discussed with the patient in details. All questions were answered to patient's satisfaction. I would like to thank Dr. Cast and Dr. Garcia for allowing me to participate in the care of this wonderful lady * Kyung Medina RN - 08/07/2014 9:20 AM EST MEDICAL ONCOLOGY INITIAL NURSING ASSESSMENT ADVANCE DIRECTIVES: In EDH [ ] Has documents [ ] Will bring in [ ] IF NO: Advance Directive pamphlet provided : Not interested in advance directives. She has given jenny lot of thought and declines to have at this time. Referral to Care Management : PRESENTING SYSTEMS and PATHOLOGY: [place] a lump incidentally. No other symptoms. REVIEW OF SYSTEMS: Prior Radiotherapy: no[ x ] Yes[ ]Site Date Facility Prior Chemotherapy: no[x ] Yes[ ] Drug: Oncologist- LastTreatment: Balance difficulty: [x ]no [ ]yes At risk for fall: [ x ] no [ ] yes If yes, actions implemented to prevent fall. Patient/family instructed to avoid independent ambulation. Use wheelchair and ask for assistance of staff while in the clinic. ADL [ x ] no limits [ ] needs dressing assistance [ ] needs meal assistance Assistive device:[x ]none [ ]cane [ ]walker [ ]wheelchair [ ]other: explain PAIN ASSESSMENT: [ ] out of 10 Location: Description: [ ] Dull [ ] Sharp [ ] Burning [ ] Throbbing [ ] Radiating [ ] Continuous [ ]Intermittent Aggravating Factors: [ ] Movement [ ] Position [ ]Immobility [ ]Other Alleviating Factors: [ ]Medication [ ] Positioning [ ] Other Current Pain Management Plan: [ ]Satisfied [ ] Not satisfied SOCIAL ASSESSMENT: See ED social assessment information entered. Support Systems: Lives with and 13 year old son in [place], [place] 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 transportation plan: [ ]private vehicle [ ] RCT needs Social Work referral [ ] Unknown at this time needs Social Work referral Barriers to treatment: Referrals/Interventions: LEARNING STYLE: Visual and verbal, wants written material and verbal discussion. TEACHING: __ NCI ???Chemotherapy and You?? and folder given __ Specific chemotherapy literature provided and reviewed with patient documented in this encounter Plan of Treatment Upcoming Encounters Date Type Department Care Team (Late st Contact Info) Description 09/03/2024 3:30 PM EDT Office Visit Dermatology at [facility] [address] [place] [address] Miladys Gordon MD [facility] [place] [address] documented as of this encounter Visit Diagnoses Diagnosis Breast cancer, left Malignant neoplasm of breast (female), unspecified site documented in this encounter Care Teams Data Reviewer Relationship Specialty Start Date End Date Shonda Garcia MD [address] [facility] [address] [place] [address] PCP - General 04/27/10 documented as of this encounter
--- OUTSIDE RECORDS SUMMARY | 2024-05-17 21:15 | XMS_ITS | Encounter Summary ---
Author Organization [facility] [place] [address] Care Team Providers Care Vice President Global Digital Marketing Name Role Phone Shonda Garcia MD Primary Care Provider [phone] Encounter Details Date Type Department Care Team (Latest Contact Info) Description 06/23/2014 7:21 AM EST - 06/23/2014 11:59 PM [facility] Hospital En[place] [address] CLINIC, Shonda Osman MD [facility] [address] [place] [address] Other (abnormal) findings on radiological examination of breast Discharge Disposition: Home Social History [...] the lungs every 4 hours as needed. SPIRONOLACTONE ORALIndications:acneif orm eruption Take 100 mg by mouth daily. Indications: Acneiform Eruption 05/03/2018 ketoconazole (NIZORAL) 200 mg tabletIndications:Atop ic dermatitis Take 1 tablet by mouth daily. 90 tablet 0 08/24/2011 07/06/2015 fexofenadine (MARIANO) 60 mg tablet Take 180 mg by mouth daily. 07/03/2014 documented as of this encounter Progress Notes * Link Diggs MD - 06/20/2014 4:44 PM EST Pre-procedure note for needle breast biopsies performed in radiology. Procedure date: Scheduled for: 06/23/2014 Procedure type: left breast ultrasound guided biopsy, axillary tail mass lesion Allergies: Amoxicillin trihydrate and Thiuram analogues Medications: Current outpatient prescriptions:SPIRONOLACTONE ORAL, Take 100 mg by mouth., Disp: , Rfl: , ; ketoconazole (NIZORAL) 200 mg tablet, Take 1 tablet by mouth daily., Disp: 90 tablet, Rfl: 0, ; fexofenadine (MARIANO) 60 mg tablet, Take 180 mg by mouth daily., Disp: , Rfl: , ; cholecalciferol, Vitamin D3, 400 unit tablet, Take 400 Units by mouth daily., Disp: , Rfl: , ; multivitamin (THERAGRAN) tablet, Take 1 tablet by mouth daily., Disp: , Rfl: , LEVALBUTEROL TARTRATE (XOPENEX HFA INHL), Inhale 2 puffs into the lungs every 4 hours as needed., Disp: , Rfl: , Anticoagulation status: none stopped on: N/A Imaging reviewed and procedural plan approved by Dr. LINK DIGGS MD documented in this encounter Plan of Treatment Upcoming Encounters Date Type Department Care Team (Late st Contact Info) Description 09/03/2024 3:30 PM EDT Office Visit Dermatology at [facility] [address] [place] [address] Miladys Gordon MD [facility] DR MYESHA [place] [address] documented as of this encounter Procedures Procedure Name Priority Date/Time Associated Diagnosis Comments MAMMO US BIOPSY BILATERAL Routine 06/23/2014 9:03 AM EST Other (abnormal) findings on radiological examination of breast SPECIMEN TO PATHOLOGY Routine 06/23/2014 8:30 AM EST MOLECULAR GENETICS REPORT Routine 06/23/2014 8:20 AM EST SURGICAL PATHOLOGY REPORT Routine 06/23/2014 8:20 AM EST documented in this encounter Results * Mammo- US biopsy (06/23/2014 9:03 AM EST) Anatomical Region Laterality Modality Breast N/A Mammography 06/23/2014 9:03 AM EST Impressions 06/25/2014 3:04 PM EST IMPRESSION: BIRADS 6, known malignancy, Radiology and pathology results are concordant. RECOMMENDATION: Consider MRI for further characterization. ??Breast surgery consultation for definitive management. Findings were discussed with the patient. ?? Comprehensive breast program has been notified. Home phone: [phone] Cell phone: [phone] This report was reviewed by Vishnu Smith at 06/25/2014 2:59 PM Film and interpretation reviewed by the attending Narrative 06/25/2014 3:04 PM EST ULTRASOUND GUIDED BIOPSY OF THE LEFT BREAST ON 06/23/14: Informed consent was obtained. Using sterile technique and 1% Lidocaine used for local anesthesia, a skin incision was made and a biopsy was performed using Ultrasound for image guidance. CLINICAL INDICATION: Left breast 5mm mass in the upper, outer quadrant at 0200, 7cm from the nipple. 14-gauge Achieve device 5 core biopsy specimens obtained. A Ultra Clip 17-gauge (US) Ribbon marker clip was placed. ??Cranio-caudal and lateral digital mammography performed to determine biopsy marker placement, which was shown to be at the biopsy site.. Satisfactory sampling was obtained. There were no procedural complications. IMAGING DIAGNOSIS: Lymph node (normal or abnormal) versus breast cancer. PATHOLOGIC DIAGNOSIS: Invasive ductal carcinoma, atypical papillary hyperplasia. Procedure Note Vishnu Smith MD - 06/30/2014 ULTRASOUND GUIDED BIOPSY OF THE LEFT BREAST ON 06/23/14: Informed consent was obtained. Using sterile technique and 1% Lidocaineused for local anesthesia, a skin incision was made and a biopsy was performedusing Ultrasound for image guidance. CLINICAL INDICATION: Left breast 5mm mass in the upper, outer quadrant [id number], 7cm from the nipple. 14-gauge Achieve device 5 core biopsy specimens obtained. A Ultra Clip 17-gauge (US) Ribbon marker clip was placed. Cranio-caudaland lateral digital mammography performed to determine biopsy markerplacement, which was shown to be at the biopsy site.. Satisfactory sampling was obtained. There were no procedural complications. IMAGING DIAGNOSIS: Lymph node (normal or abnormal) versus breast cancer. PATHOLOGIC DIAGNOSIS: Invasive ductal carcinoma, atypical papillaryhyperplasia. IMPRESSION IMPRESSION: BIRADS 6, known malignancy, Radiology and pathology resultsare concordant. RECOMMENDATION: Consider MRI for further characterization. Breastsurgery consultation for definitive management. Findings were discussed with the patient. Comprehensive breast programhas been notified. Home phone: [phone] Cell phone: [phone] This report was reviewed by Vishnu Smith at 06/25/2014 2:59 PM Film and interpretation reviewed by the attending Vishnu Smith MD IMG MAMMO ORDERABLES * Specimen to Pathology (surgical or derm) (06/23/2014 8:30 AM EST) AP Specimen 06/23/2014 8:30 AM EST 06/23/2014 8:30 AM EST Narrative E[facility] KO - 06/23/2014 8:30 AM EST Specimen requisition ordered. ??Separate Pathology report to follow Vishnu Smith MD PATHOLOGY/CYTOLOGY O [place] Performing Organization Address City/State/[facility] Co de Phone Number [facility] * Molecular Genetics Report (06/23/2014 8:20 AM EST) Molecular Report ? [facility] ? Provider: ?? VISHNU SMITH ?? Pt. Name: ?? SHANNEN NOBLES ? Acc #: ?[id number] ?Pt. ? Col Date: ?? 06/23/2014 ? /Sex: ?1965,(48 years),Female ? Rec Date: ?? 06/23/2014 ? LOC: ?3S ? MOLECULAR GENETIC STUDIES ? ---REPORT OF DNA ANALYSIS--- ? TEST: ??HER2(ERBB2)FISH, Breast ? METHOD: ??Fluorescence in situ hybridization (FISH) with chromosome 17 ? centromere (17p11.1-q11.1) probe and a locus specific probe for the HER2 ? gene locus (17q11.2-q12). ? SAMPLE ANALYZED: A2-6 ? RESULT: ?NEGATIVE FOR HER2/MIKALA AMPLIFICATION ?TOTAL # SIGNALS/TOTAL # NUCLEI COUNTED FOR HER2 PROBE = 97 ?TOTAL # SIGNALS/TOTAL # NUCLEI COUNTED FOR CEP-17 PROBE = 85 ?HER2 TO CEP-17 RATIO = 1.1 ? (NORMAL RANGE <2.0) ?TOTAL # NUCLEI COUNTED = 40 ? Interpretation: ??Paraffin-embedde d tissue sections were submitted for ? HER2(ERBB2)gene amplification analysis by FISH. ??Direct analysis was ? performed using the DinnerTime Kit. ??Slide adequacy and signal enumeration ? were evaluated and satisfactory for both control and patient slides. ??A ? signal ratio derived from the HER2 probe and the CEP-17 centromere probe of ? 2.0 is considered positive for HER2 gene amplification. ? The 2013 ASCO/CAP guideline recommendation for HER2 testing in breast ? cancer states that samples with a HER2 to CEP-17 ratio of less than 2.0 are ? non-amplified. Specimens with a HER2 to CEP-17 range of 2.0 are considered ? amplified. ? This test is approved by the U.S. FDA for clinical diagnostic use. ? Reference: Nathalia JOSUE, et al. Recommendations for human epidermal growth ? factor receptor 2 testing in breast cancer: [place] Society of Clinical ? Oncology/College of [place] Pathologists clinical practice guideline ? update. J Clin Oncol. ? 2012Apr 05. ? Reviewed by: ? Chacha Pablo MD ? [facility], Molecular Pathology ? [facility] ? Provider: ?? VISHNU SMITH ?? Pt. Name: ?? MIREYA NOBLESNIBarry Chino ? Acc #: ?[id number] ?Pt. ? Col Date: ?? 06/23/2014 ? /Sex: ?1965,(48 years),Female ? Rec Date: ?? 06/23/2014 ? LOC: ?3S ? MOLECULAR GENETIC STUDIES ? _ ? Verified date: ??06/30/14 ??LJC ? Verified by: ?Chacha Pablo MD ? (Electronic Signature) E[facility] KO 06/23/2014 8:20 AM EST Vishnu Smith MD PATHOLOGY/CYTOLOGY O RDERABLES E[facility] KO * Surgical Pathology Report (06/23/2014 8:20 AM EST) Final Diagnosis 00- [id number] ? Location: 3S The signing pathologist has (i) examined the relevant preparation(s) for the specimen(s) and (ii) rendered or confirmed the diagnosis(es). . ? Pathology Molecular Genetics Report Results TEST: ??HER2(ERBB2)FISH, Breast METHOD: ??Fluorescence in situ hybridization (FISH) with chromosome 17 centromere (17p11.1-q11.1) probe and a locus specific probe for the HER2 gene locus (17q11.2- q12). SAMPLE ANALYZED: A2-6 RESULT: ?NEGATIVE FOR HER2/MIKALA AMPLIFICATION ? TOTAL # SIGNALS/TOTAL # NUCLEI COUNTED FOR HER2 PROBE = 97 ? TOTAL # SIGNALS/TOTAL # NUCLEI COUNTED FOR CEP-17 PROBE = 85 ? HER2 TO CEP-17 RATIO = 1.1 ? (NORMAL RANGE <2.0) ? TOTAL # NUCLEI COUNTED = 40 Interpretation: ??Paraffin-embedde d tissue sections were submitted for HER2(ERBB2)gene amplification analysis by FISH. ??Direct analysis was performed using the DinnerTime Kit. ??Slide adequacy and signal enumeration were evaluated and satisfactory for both control and patient slides. ??A signal ratio derived from the HER2 probe and the CEP-17 centromere probe of ?2.0 is considered positive for HER2 gene amplification. The 2013 ASCO/CAP guideline recommendation for HER2 testing in breast cancer states that samples with a HER2 to CEP-17 ratio of less than 2.0 are non-amplified. Specimens with a HER2 to CEP-17 range of ?2.0 are considered amplified. This test is approved by the U.S. FDA for clinical diagnostic use. Reference: Nathalia JOSUE, et al. Recommendations for human epidermal growth factor receptor 2 testing in breast cancer: [place] Society of Clinical Oncology/College of [place] Pathologists clinical practice guideline update. J Clin Oncol. 2013 Apr 05. Reviewed by: Chacha Pablo MD [facility], Molecular Pathology _ Verified date: ??06/30/14 ??C Verified by: ?Samy WESLEY, Chacha Rey ?(Electronic Signature) ?Pathology Surgical Pathology Final Report Clinical Information Specimen Submitted: A - Left breast ultrasound biopsy Clinical History: Mass . Clinical Information Clinical Diagnosis: LN normal or abnormal, rule out breast CA Report to: SHONDA GARCIA MD [facility] [place] [address] [place] [address] Gross Description A - Labeled/Fixative: Left breast ultrasound biopsy, formalin. Quantity/Size: Fragments, 0.2-1.3 cm. Tissue Description: Fragmented, fibrofatty needle core biopsies. Ischemic Time: 10 minutes. Sections/Processin g: (T2) ??ejr Diagnosis Needle biopsies: ?Left breast. Diagnosis: ?Invasive ductal carcinoma. ?Atypical papillary hyperplasia. Microcalcification s: ??NA On A2- ER immunoreactivity: ??Positive > 90% cancer cells with immunostaining ?Stain Intensity Moderate DC immunoreactivity: ??Positive > 90% cancer cells with immunostaining ?Stain Intensity Strong FISH studies pending. ? *Diagnostic pathak for hormone receptors (ASCO/CAP GUIDELINES, 2010): ?Negative immunoreactivity: <1% tumor cells with immunostaining ?Positive immunoreactivity: ?? >1% tumor cells with immunostaining Immunohistochemica l assays were performed on paraffin-embedded tissue sections fixed in 10% neutral buffered formalin for 6-72 hours using the polymer system technique with appropriate positive and negative controls. ??The assays were performed according to the sdc teacher ??'s instructions using Anti-ER (SP1) and Anti-DC (16) antibodies. CR-0 01/20/15 CCB 06/24/14 Verified by: ? Black DO, Bria C. ?Pathologist ?(Electronic Signature) The attending pathologist whose signature appears on this report has reviewed all diagnostic slides and has edited the gross and/or microscopic portion of the report in rendering the final pathologic diagnosis. 06/30/2014 4:22 PM EST [facility] BREAST STRUCTURE / Unknown 06/23/2014 8:20 AM EST 06/23/2014 8:20 AM EST Vishnu Smith MD PATHOLOGY/CYTOLOGY O RDERAJENNIFER Performing Organization Address City/State/[facility] Co de Phone Number [facility] [place] [phone] documented in this encounter Visit Diagnoses Diagnosis Other (abnormal) findings on radiological examination of breast documented in this encounter Administered Medications Inactive Administered Medications - up to 3 most recent administrations Medication Order MAR Action Action Date Dose Rate Site lidocaine (XYLOCAINE) 10 mg/mL (1 %) injection 10 mg 10 mg, Intradermal, ONCE, 1 dose, On Mon06/23/14 at 0900, Routine Given 06/23/2014 8:30 AM EST 10 mg lidocaine-EPINEPHrine 1 %-1:100,000 injection 20 mL 20 mL, Intradermal, ONCE, 1 dose, On Mon06/23/14 at 0900, Routine Given 06/23/2014 8:30 AM EST 20 mLs documented in this encounter Care Teams Vice President Global Digital Marketing Relationship Specialty Start Date End Date Shonda Garcia MD [address] [place] [address] PCP - General 04/27/10 documented as of this encounter
--- OUTSIDE RECORDS SUMMARY | 2024-05-17 21:15 | XMS_ITS | Encounter Summary ---
[facility] [place] [address] Care Team Providers Care Aircraft Inspector Name Role Phone hSonda Garcia MD Primary Care Provider [phone] Encounter Details Date Type Department Care Team (Late st Contact Info) Description 07/14/2014 10:15 AM EST - 07/14/2014 11:47 AM EST Surgery [facility] [place] [address] Vic Cast MD [facility] [place] [address] MASTECTOMY PARTIAL (WRVU 10.13) Social History Tobacco Use Types Packs/Day Years Used Date Smoking Tobacco: Never Sex and Gender Information Value Date Recorded Sex Assigned at Not on file Gender Identity Not on file Sexual Orientation Not on file documented as of this encounter Last Filed Vital Signs Vital Sign Reading Time Taken Comments Blood Pressure 127/64 07/14/2014 12:45 PM EST Pulse 61 07/14/2014 12:45 PM EST Temperature 36.3 ??C (97.3 ??F) 07/14/2014 12:[address] Respiratory Rate 18 07/14/2014 12:45 PM EST Oxygen Saturation 100% 07/14/2014 12:45 PM EST Inhaled Oxygen Concentration - - Weight 55.8 kg (123 lb) 07/14/2014 9:54 AM EST Height 162.6 cm (5' 4) 07/14/2014 9:54 AM EST Body Mass Index 21.11 07/14/2014 9:54 AM EST documented in this encounter Discharge Instructions * Discharge Instructions* Adria Lopez I, RN - 07/14/2014 11:00 AM EST Okay to shower 24 hours Activity as tolerated Call [phone] with any questions steristrips will fall off 7-14 days Do not soak incision for 2 weeks Will call with pathology results in 5-7 days Ice pack to breast as needed Oxycodone 1-2 tablets every 4 hours as needed Stool softeners as needed while on oxycodone May use ibuprofen and/or tylenol as needed for pain Would avoid taking antifungals when on oxycodone Tylenol 1000 mg and gabapentin 600 mg was given at 11:00. You may take Tylenol again after 7:00 pm. General Anesthesia Discharge Instructions Go home and [...] closest emergency room or call the hospital hammer operator at [phone] and ask for physician quality control engineering technician covering for your physician. Questions or problems after 5pm or on a weekend: Call the [facility] hammer operator at and ask for the physician quality control engineering technician covering for your doctor. SCOPOLAMINE PATCH DISCHARGE INSTRUCTIONS You are wearing [...] away shortly. You may remove the patch , , or . ??? There will still be some active ingredients on the patch, so fold it in half (with the sticky sides together) and throw it in the trash. This will help prevent others from coming into contact with it. ??? After removing the patch, carefully wash your hands and behind your ear (or wherever the patch was placed) with soap and water. If you have not urinated in 6-8 hours after your surgery, remove the patch and call your surgeon. documented in this encounter Medications at Time [...] as needed for Pain. 20 tablet 0 07/14/2014 07/25/2014 CETIRIZINE HCL (ZYRTEC ORAL) Take by mouth daily as needed. 08/09/2016 dextroamphetamine-amph etamine (ADDERALL) 10 mg Tablet Take 10 mg by mouth daily. 10/12/2015 SPIRONOLACTONE ORALIndications:acneif orm eruption Take 100 mg by mouth daily. Indications: Acneiform Eruption 05/03/2018 ketoconazole (NIZORAL) 200 mg tabletIndications:Atop ic dermatitis Take 1 tablet by mouth daily. 90 tablet 0 08/24/2011 07/06/2015 documented as of this encounter H&P Notes * Vic Cast MD - 07/13/2014 12:26 PM EST Images from the original note were not included. Patient ID: Shannen Nobles is a 48 y.o. female. JULIEN Pride is seen today in surgical consultation at the request of Dr. Smith. She presents with her to discuss newly diagnosed left breast cancer. Shannen incidentally noted a left breast mass afew weeks ago. She presented for evaluation. Mammogram and u/s confirmed a 5mm mass in the upper, outer left breast. Biopsy revealed IDC (ER/IL+, HER2-). Breast MRI did not reveal any additional sites of disease nor adenopathy. Shannen denies prior biopsies, nipple discharge, skin changes. FH: father with prostate cancer. Sister with breast cancer (age 47). SH: . Non smoker. PMH: Asthma Dermatitis Review of Systems Constitutional: Negative. HENT: Negative. Eyes: Negative. Respiratory: Negative. Cardiovascular: Negative. Gastrointestinal: Negative. Genitourinary: Negative. Musculoskeletal: Negative. Skin: Negative. Neurological: Negative. Psychiatric/Behavioral: Negative. Objective: Physical Exam Constitutional: She is oriented to person, place, and time. She appears well- developed and well-nourished. Eyes: EOM are normal. Neck: Normal range of motion. Cardiovascular: Normal rate and regular rhythm. Pulmonary/Chest: Effort normal and breath sounds normal. Right breast exhibits no inverted nipple, no mass, no nipple discharge, no skin change and no tenderness. Left breast exhibits no inverted nipple, no mass, no nipple discharge, no skin change and no tenderness. Breasts are symmetrical. Abdominal: Soft. Musculoskeletal: Normal range of motion. Lymphadenopathy: She has no cervical adenopathy. She has no axillary adenopathy. Right: No supraclavicular adenopathy present. Left: No supraclavicular adenopathy present. Neurological: She is alert and oriented to person, place, and time. Skin: Skin is warm and dry. Psychiatric: She has a normal mood and affect. Imaging: as in HPI. I have personally reviewed mammogram and MRI CBC, LFTs WNL CXR WNL Assessment and Plan: 48 yo female with radiographic stage I IDC of the left breast.No symptomatic, radiographic or chemical eidence of metastasis. Discussed options for surgery. Shannen has a good understanding of her options. She is interested in breast conservation and I think she is an excellent candidate for partialmastectomy followed by radiation therapy. We also discussed the technique and rationale for sentinel node biopsy and we will proceed with this as well. We briefly touched upon systemic adjuvant therapy.Shannen is willing to undergo chemotherapy if it is indicated and understands that oncotype DX testing may be recommended if she is node negative (given that she is ER/IL+ and HER-). She also understands that endocrine therapy will likely be recommended. We discussed genetic counseling and Shannen will consider this. Risks of surgery including bleeding, infection, need for additional surgery and lymphedema were discussed and consent was obtained. Stable for OR documented in this encounter Miscellaneous Notes * Op Note - Vic Cast MD - 07/14/2014 11:53 AM EST [facility] Operative Note Patient Name: Shannen Nobles : [id number] MR#: [id number] Case Date: 07/14/2014 Surgeon: Surgeon(s) and Role: * Vic Cast MD - Primary * Eunice Correia MD Preoperative diagnosis: left breast cancer Postoperative diagnosis: left breast cancer Procedure(s): MASTECTOMY PARTIAL BIOPSY OR EXCISION OF LYMPH NODE(S), OPEN, DEEP AXILLARY NODE(S) SENTINEL NODE INJECTION MODIFIER SENTINEL NODE EXCISION Anesthesia: General Estimated Blood Loss: 7 mL Specimens removed during surgery: left partial mastectomy, left axillary sentinel nodes, left breast superficial margin Surgical Closure: Primary Closure - closure of [...] details pertinent to this patient.) HPI/Surgical Indications: 48 yo female self palpated a left breast mass. Imaging confirmed a 5mm solid mass and biopsy revealed IDC. Plan partial mastectomy and sentinel node excision. Procedure Description: Shannen was admitted through Same-Day Surgery. She was then brought to the Operating Room and laid supine on the operating table. Sedatives were administered intravenously. The left breast was preppedand draped in sterile fashion. Time-out confirmed the patient's identity, the correct surgical site, and the administration of prophylactic antibiotics. Once the time out had been confirmed, attention was turned to the breast. Here an incision was made at 2:00 o'clock radially. The mass was palpated and a circumferential core of tissue was widely excised. The tissue was inkedon the anatomic margins and sent to Radiology where the lesion and clip were confirmed to be in thecentral portion of the surgical specimen. Due to gross proximity, the superficial margin was re-excised. Attention was then turned to the axilla. Through the same incision, the clavipectoral fascia was opened. Two sentinel nodes were identified and excised. The highest had an ex vivo count of 2478. Remaining count within the axilla bou588. There was not palpable adenopathy. Satisfied that all sentinelnodes were removed, the wound was irrigated and hemostased and closed in layers after placement of biopsy cavity clips. Attestation: Case Date: 07/14/2014 I was present and I participated during the entire procedure (does not need to include opening and closing). Vic Cast MD 07/14/2014 documented in this encounter Plan of Treatment Upcoming Encounters Date Type Department Care Team (Late st Contact Info) Description 09/03/2024 3:30 PM EDT Office Visit Dermatology at [facility] [address] [place] [address] Miladys Gordon MD [facility] [place] [address] documented as of this encounter Procedures Procedure Name Priority Date/Time Associated Diagnosis Comments SPECIMEN TO PATHOLOGY Routine 07/14/2014 11:51 AM EST SPECIMEN TO PATHOLOGY Routine 07/14/2014 11:49 AM EST MAMMO SPECIMEN Routine 07/14/2014 11:35 AM EST Breast cancer, left SURGICAL PATHOLOGY REPORT Routine 07/14/2014 11:26 AM EST SPECIMEN TO PATHOLOGY Routine 07/14/2014 11:26 AM EST MODIFIER SENTINEL NODE EXCISION 07/14/2014 11:02 AM EST left breast cancer SENTINEL NODE INJECTION (WRVU 0.65) 07/14/2014 11:02 AM EST left breast cancer BIOPSY OR EXCISION OF LYMPH NODE(S), OPEN, DEEP AXILLARY NODE(S) (WRVU 6.43) 07/14/2014 11:02 AM EST left breast cancer MASTECTOMY PARTIAL (WRVU 10.13) 07/14/2014 11:02 AM EST left breast cancer documented in this encounter Results * Specimen to Pathology (surgical or derm) (07/14/2014 11:51 AM EST) AP Specimen 07/14/2014 11:5 1 AM EST 07/14/2014 11:51 AM EST Narrative EMA WOOTENIUM - 07/14/2014 11:51 AM EST Specimen requisition ordered. ??Separate Pathology report to follow Vic Cast MD PATHOLOGY/CYTOLOGY ORDERABLES Performing Organization Address [facility] Co de Phone Number [facility] * Specimen to Pathology (surgical or derm) (07/14/2014 11:49 AM EST) AP Specimen 07/14/2014 11:4 9 AM EST 07/14/2014 11:49 AM EST Narrative EMA MILLRANDYIUM - 07/14/2014 11:49 AM EST Specimen requisition ordered. ??Separate Pathology report to follow Vic Cast MD PATHOLOGY/CYTOLOGY ORDERABLES EMA KO * Mammo specimen (07/14/2014 11:35 AM EST) Anatomical Region Laterality Modality Breast N/A Mammography 07/14/2014 11:3 5 AM EST Impressions 07/14/2014 12:09 PM EST IMPRESSION: Specimen radiography revealing marker clip and mass within the specimen. Narrative 07/14/2014 12:09 PM EST EXAMINATION: MAMMOGRAM SPECIMEN/LEFT CLINICAL HISTORY: please assess the staining for clear margins TECHNIQUE: Specimen radiography was obtained of the left breast. COMPARISON: Breast MRI of 06/27/2014. Ultrasound and mammography of 06/23/2014. FINDINGS: The specimen contains the marker, with mass identified within the specimen. These findings were conveyed to the attending surgeon by phone. Procedure Note Vishnu Smith MD - 07/14/2014 EXAMINATION: MAMMOGRAM SPECIMEN/LEFT CLINICAL HISTORY: please assess the staining for clear margins TECHNIQUE: Specimen radiography was obtained of the left breast. COMPARISON: Breast MRI of 06/27/2014. Ultrasound and mammography of06/23/2014. FINDINGS: The specimen contains the marker, with mass identified within thespecimen. These findings were conveyed to the attending surgeon by phone. IMPRESSION IMPRESSION: Specimen radiography revealing marker clip and mass within the specimen. Vic Cast MD IMG MAMMO ORDERABLE S * Surgical Pathology Report (07/14/2014 11:26 AM EST) Final Diagnosis ? [facility] ? Provider: ?? VIC CAST ??Pt. Name: ?? SHANNEN NOBLES ? Acc #: ?[id number] ?Pt. ? Col Date: ?? 07/14/2014 ?/Sex: ?1965,(48 years),Female ? Rec Date: ?? 07/14/2014 ?LOC: ?[facility] ? SURGICAL PATHOLOGY ? ---Pathologic Diagnosis--- ? Specimens: ??A - Left breast partial mastectomy ? C - Left axillary sentinal node ? Histologic Type: Invasive ductal carcinoma ? Tumor Grade: ??Low (High, Intermediate, Low) ? Ciqklg-Csxal-Rpdejudhwk Score: ??5 ?Tubular Differentiation: ?? 2 ?Mitotic Rate: ?? 1 ?Nuclear Grade: ??2 ? Tumor Size: ?? 0.5 cm (maximum diameter) ? In Situ Histologic Type: DCIS ? Extensive/Minor Component: ??Minor ?Grade: ?? Low (High, Intermediate, Low) ?Necrosis: ??Absent (Present / Absent) ?Pattern(s): ??Solid, Cribriform ? Microcalcifications: ??Not identified. ? Angiolymphatic Invasion: Absent ? Perineural invasion: Absent ? Nipple involvement: ?? N/A ? Skin/Skeletal muscle invasion: N/A ? Other Findings: Atypical ductal hyperplasia. ? Columnar cell hyperplasia and flat epithelial atypia. ?(See Comment.) ? Fibrocystic changes including usual ductal hyperplasia, ? cysts, duct ectasia, adenosis. ??Healing biopsy site. ? Resection Margins (RM): ?Invasive Ca: ? Uninvolved (involved/uninvolved) ? Distance from closest RM(s): ??0.1 cm to blue/superficial (A3) ? 0.4 cm to deep margin (A4) ?DCIS: ?Uninvolved (involved/uninvolved) ? Distance from closest RM(s): ??0.14 cm to blue/superficial (A3) ? Axillary lymph nodes: ? Total no. nodes sampled: ? 2 ? No. non-sentinel nodes: ?0 ??(Specimen _, block(s)_) ? No. positive for carcinoma: ??NA ??(H&E stain only) ? No. sentinel nodes: ??2 ??(Specimen C, blocks1-2)(H&E only) ?No. with metastases 0.02 cm or less (isolated tumor cells) 0 ?No. with metastases >0.02 cm to 0.2 cm (micrometastases) 0 ? [facility] ? Provider: ?? VIC CAST ??Pt. Name: ?? SHANNEN NOBLES ? Acc #: ?[id number] ?Pt. ? Col Date: ?? 07/14/2014 ?/Sex: ?1965,(48 years),Female ? Rec Date: ?? 07/14/2014 ?LOC: ?[facility] ? SURGICAL PATHOLOGY ?No. with metastases >0.2 cm (macrometastases) 0 ? Total no. nodes negative for carcinoma: ??2 ? Estrogen/Progestin receptors and FISH, performed on prior biopsy [id number] ? [id number], see spearate report ? pTNM: pT1aN0 (AJCC, 7th edition, 2010) ? B - Left breast superfical margin, re-excision: ? Benign breast tissue. ?- - - - - - - - - - - - - - - - - - - - - - - - - - - - - ? *Diagnostic pathak for hormone receptors (ASCO/CAP GUIDELINES, 2010): ? Negative immunoreactivity: <1% tumor cells with immunostaining ? Positive immunoreactivity: >1% tumor cells with immunostaining ? Immunohistochemical assays were performed on paraffin-embedded tissue ? sections fixed in 10% neutral buffered formalin for 6-72 hours using the ? polymer system technique with appropriate positive and negative controls. ? The assays were performed according to the proposal analyst? s instructions ? using Anti-ER (SP1) and Anti-IL (16) antibodies. ? BRTMRBLK-BRIN: A3,A4 ? BRNRL-BRIN: A7 ? 07/17/14 ? [facility] ? 07/18/14 Verified by: ? Bria Meier DO ? Pathologist ? (Electronic Signature) ? The attending pathologist whose signature appears on this report has ? reviewed all diagnostic slides and has edited the gross and/or ? microscopic portion of the report in rendering the final pathologic ? diagnosis. ? ---Comment--- ? The DCIS is present as cribriform atypia as well as columnar cell spectrum ? changes (columnar hyperplasia with atypia/flat epithelial atypia). ?? The ? columnar atypia is mixed with and away from the invasive tumor and extends ? 1 mm from the deep RM. ? [facility] ? Provider: ?? VIC CAST ??Pt. Name: ?? SHANNEN NOBLES ? Acc #: ?[id number] ?Pt. ? Col Date: ?? 07/14/2014 ?/Sex: ?1965,(48 years),Female ? Rec Date: ?? 07/14/2014 ?LOC: [facility] ? SURGICAL PATHOLOGY ? ---Microscopic Description--- ? Immunohistochemistry Studies: ? Formalin-fixed, paraffin-embedded tissue sections are studied using the B- ? SA system technique with appropriate positive and negative controls. ??These ? IHC studies provide the pathologist with adjunctive diagnostic information. ? Antibody specificity has been verified by testing antibodies on a series of ? in-house tissues with known immunohistochemical performance ? characteristics. The clinical interpretation of any antibody positive ? staining or its absence is evaluated within the context of clinical ? presentation, morphology, histopathological criteria and other diagnostic ? tests. ? Block ?Antibody ? Result (Positive/Negative) ? A3 ?calponin ? Positive around DCIS ? ---Gross Description--- ? A - Labeled/Fixative: Left breast partial mastectomy, fresh. ? SPECIMEN DESCRIPTION ? Resection Specimen: Intact left breast partial mastectomy ? Qty/Size/Weight: Single, 3.4 x 2.9 x 1.0 cm, five grams. ? Radiograph: Lobular tissue with clip. ? Specimen Description: According to the established protocol the ink ? designations are red (medial), yellow (lateral), orange (cranial), green ? (caudal), black (deep) and blue (superficial). ? Tissue Sections: The specimen is serially sectioned perpendicular to the ? long axis from cranial (orange) caudal (green) into 7 slices, each ? averaging 0.3 in thickness. ? Parenchyma: Entire specimen consists of intermixed yellow fatty tissue and ? pink-white fibrous tissue, a discrete mass is not identified. ? Wire/Clip: Slice 4. ? SECTIONS/PROCESSING: The specimen is entirely submitted (A1) slice one, ? perpendicular sections; (A2-A6) cassette corresponds to slice; (A7) slice ? seven, perpendicular sections. (T7) ? Ischemic Time: 90 minutes ? B - Labeled/Fixative: Left breast superficial margin, fresh. ? Quantity/Size: Single, 1.6 x 1.6 x 1.0 cm. ? Tissue Description: yellow lobular adipose tissue, inked blue on one side. ? Sections/Processing: The specimen is entirely submitted in cassette B1. ? (T1) ? C - Labeled/Fixative: Left axillary sentinel node, fresh. ? [facility] ? Provider: ?? VIC CAST ??Pt. Name: ?? AMANDA SHANNEN Matti ? Acc #: ?[id number] ?Pt. ? Col Date: ?? 07/14/2014 ?/Sex: ?1965,(48 years),Female ? Rec Date: ?? 07/14/2014 ?LOC: ?[facility] ? SURGICAL PATHOLOGY ? Quantity/Size: Two, 1.5 x 1.5 x 1.0 cm, and 1.5 x 1.0 x 1.0 cm. ? Tissue Description: Yellow, lobular adipose tissue. Sectioning reveals two ? lymph nodes, the largest 1.5 cm. ? Sections/Processing: (C1) one node; (C2) one node. (T2) kjp ? one ? ---Clinical Information--- ? Specimen Submitted: ? A - Left breast partial mastectomy ? B - Left breast superfical margin ? C - Left axillary sentinal node ? Clinical History: ? Breast cancer ? Clinical diagnosis: ? Same 07/18/2014 9:30 AM EST [facility] SENTINEL LYMPH NODE / Unknown 07/14/2014 11:26 AM EST 07/14/2014 11:26 AM EST Margin 07/14/2014 11:2 6 AM EST 07/14/2014 11:26 AM EST SENTINEL LYMPH NODE / Unknown 07/14/2014 11:26 AM EST 07/14/2014 11:26 AM EST Vic Cast MD PATHOLOGY/CYTOLOGY ORDERABLES EMA KO [facility] [place] [address] * Specimen to Pathology (surgical or derm) (07/14/2014 11:26 AM EST) AP Specimen 07/14/2014 11:2 6 AM EST 07/14/2014 11:26 AM EST Narrative EMA KO - 07/14/2014 11:26 AM EST Specimen requisition ordered. ??Separate Pathology report to follow Vic Cast MD PATHOLOGY/CYTOLOGY ORDERABLES Performing Organization Address City/[facility]/ZIP Co de Phone Number EMA KO documented in this encounter Visit Diagnoses Not on filedocumented in this encounter Administered Medications Inactive Administered Medications - up to 3 most recent administrations Medication Order MAR Action Action Date Dose Rate Site acetaminophen (TYLENOL) tablet 1,000 mg 1,000 mg, Oral, ONCE, 1 dose, On 07/14/14 at 1115, Maximum dose of acetaminophen is 4000 mg from all sources in 24 hours., Routine Given 07/14/2014 10:55 AM EST 1,000 mg BUpivacaine (PF) (MARCAINE) 0.5 % (5 mg/mL) injection ONCE PRN, Starting on Mon07/14/14 at 1127, Until Mon07/14/14 at 1328, Intra-Operative (Intra-Procedure), Routine Given 07/14/2014 11:27 AM EST 5 mLs 19- Surgical Site gabapentin (NEURONTIN) capsule 600 mg 600 mg, Oral, ONCE, 1 dose, On Mon07/14/14 at 1115, Routine Given 07/14/2014 10:56 AM EST 600 mg lidocaine (PF) (XYLOCAINE) 10 mg/mL (1 %) injection ONCE PRN, Starting on Mon07/14/14 at 1127, Until Mon07/14/14 at 1328, Intra-Operative (Intra-Procedure), Routine Given 07/14/2014 11:27 AM EST 50 mg oxyCODONE (ROXICODONE) immediate release tablet 5 mg 5 mg, Oral, EVERY 4 HOURS PRN, Starting on Mon07/14/14 at 1039, Until Mon07/14/14 at 1602, Pain, Routine Given 07/14/2014 12:43 PM EST 5 mg scopolamine (TRANSDERM-SCOP) 1.5 mg patch 1 dose, Starting on Mon07/14/14 at 1047, Until Mon07/14/14 at 1100, ADRIA LOPEZ: cabinet override Given 07/14/2014 11:00 AM EST 1 patch 01- Ear Behind (Left) documented in this encounter Active and Recently Administered Medications Times are shown in EST. Scheduled Medication Order 07/12/2014 07/13/2014 07/14/2014 acetaminophen (TYLENOL) tablet 1,000 mg (COMPLETED) 1,000 mg, Oral, ONCE, 1 dose, On Mon07/14/14 at 1115, Maximum dose of acetaminophen is 4000 mg from all sources in 24 hours., Routine 1055 (Given - Provid er: Adria Lancaster RN) clindamycin (CLEOCIN) 900mg in dextrose 5% 50mL (COMPLETED) 900 mg, Intravenous, EVERY 6 HOURS, 1 dose, First dose on Mon07/14/14 at 1015, Administer over 30 Minutes, Do not exceed 30 mg/minute., Intra-Operative (Intra-Procedure), Indication for (Active or Suspected): Prophylaxis 1115 (Given - Provid er: Yumiko Carrasquillo CRNA) gabapentin (NEURONTIN) capsule 600 mg (COMPLETED) 600 mg, Oral, ONCE, 1 dose, On Mon07/14/14 at 1115, Routine 1056 (Given - Provid er: Adria Lancaster RN) PRN Medication Order 07/12/2014 07/13/2014 07/14/2014 BUpivacaine (PF) (MARCAINE) 0.5 % (5 mg/mL) injection (CANCELED) ONCE PRN, Starting on Mon07/14/14 at 1127, Until Mon07/14/14 at 1328, Intra-Operative (Intra-Procedure), Routine 1127 (Given - Provid er: Vic Cast MD - Comment: mixed 1:1 with 1% lidocaine) lidocaine (PF) (XYLOCAINE) 10 mg/mL (1 %) injection (CANCELED) ONCE PRN, Starting on Mon07/14/14 at 1127, Until Mon07/14/14 at 1328, Intra-Operative (Intra-Procedure), Routine 1127 (Given - Provid er: Vic Cast MD) oxyCODONE (ROXICODONE) immediate release tablet 5 mg (CANCELED) 5 mg, Oral, EVERY 4 HOURS PRN, Starting on Mon07/14/14 at 1039, Until Mon07/14/14 at 1602, Pain, Routine 1243 (Given - Provid er: Yecenia Morales RN) No Frequency Medication Order 07/12/2014 07/13/2014 07/14/2014 scopolamine (TRANSDERM-SCOP) 1.5 mg patch (COMPLETED) 1 dose, Starting on Mon07/14/14 at 1047, Until Mon07/14/14 at 1100, ADRIA LOPEZ: cabinet override 1100 (Given - Provid er: Adria Lancaster RN) documented in this encounter Care Teams Aircraft Inspector Relationship Specialty Start Date End Date Shonda Garcia MD [address] [place] [address] PCP - General 04/27/10 documented as of this encounter
--- OUTSIDE RECORDS SUMMARY | 2024-05-17 21:15 | XMS_ITS | Encounter Summary ---
Author Organization [facility]ly [facility] Address One [facility] [place] [address] Care Team Providers Care Disposal Worker Name Role Phone Shonda Garcia MD Primary Care Provider [phone] Encounter Details Date Type Department Care Team (Latest Contact Info) Description 06/06/2014 10:55 AM EST - 06/06/2014 11:59 PM [facility] Encounter XRay at [address] [place] [address] CLINIC, DR WEBBER Discharge Disposition: Home Social History Tobacco Use [...] daily. 07/03/2014 documented as of this encounter Plan of Treatment Upcoming Encounters Date Type Department Care Team (Late st Contact Info) Description 09/03/2024 3:30 PM EDT Office Visit Dermatology at [facility] [address] [place] [address] Miladys Gordon MD [facility] DR MYESHA [place] [address] documented as of this encounter Visit Diagnoses Not on filedocumented in this encounter Care Teams Disposal Worker Relationship Specialty Start Date End Date Shonda Garcia MD [facility] [address] [facility] [address] [place] [address] PCP - General 04/27/10 documented as of this encounter
--- OUTSIDE RECORDS SUMMARY | 2024-05-17 21:15 | XMS_ITS | Encounter Summary ---
Author Organization [facility] [place] [place] [address] Care Team Providers Care Stem Cleaning Machine Feeder Name Role Phone Shonda Garcia MD Primary Care Provider [phone] Reason for Visit * Reason Comments Dermatitis Encounter Details Date Type Department Care Team (Late Contact Info) Description 11/03/2010 11:30 AM EDT Follow-Up Dermatology [place] [id number] Moraima Murphy MD [facility] [address] [place] [address] Atopic dermatitis (Primary Dx); Acne Discharge Disposition: Home Social History Tobacco Use Types Packs/Day Years Used Date Smoking Tobacco: Never Assessed Sex and Gender Information Value Date Recorded Sex Assigned at Not on file Gender Identity Not on file Sexual Orientation Not on file documented as of this encounter Progress Notes * Moraima Murphy MD - 11/03/2010 12:14 PM EDT DERMATOLOGY CONSULT NOTE Date of service: 11/03/2010 Shannen Nobles : 1965 Provider: Moraima Murphy MD PROBLEM: Atopic dermatitis acne HPI Shannen Nobles is a 45 y.o. year old female. Here for follow up on her Atopic dermatitis, which was being treated with itraconazole 100mg once daily as a trial, based on malessezia hypersensitivity and head and neck location. This helped quite a bit and in the late fall she took 3 months of treatment and her face was the best it had been in years. She tried a change in June to 2x per week butthis did not seem to help and her face went back to flaring. Due to the fact that the patient has lost her prescription insurance on June 05, 2010, she has Changed her dosage to twice weekly. The patient would ideally like to stay on this treatment plan. I discussed ketoconazole vs. Itraconazole;both are affective but the keto would need more frequent lab testing for monitoring. ADR: Allergies Allergen Reactions ??? Amoxicillin Trihydrate ??? Thiuram Derivative Dermatitis MEDS: Current outpatient prescriptions ordered prior to encounter Medication Sig Dispense Refill ??? spironolactone (ALDACTONE) 100 mg tablet 100 MG = 1 Tablet(s) PO Once daily ??? LEVALBUTEROL TARTRATE (XOPENEX HFA INHL) Inhale 2 puffs into the lungs every 4 hours as needed. ??? itraconazole (SPORANOX) 100 mg capsule 100 MG = 1 Capsule(s), PO, Once daily ??? pimecrolimus (ELIDEL) 1 % cream 1 Appl(s) to face, Top, Once daily ??? clindamycin (CLEOCIN T) 1 % lotion 1 Appl(s), Top, Once daily ROS General: feeling well Skin: denies other skin complaints EXAM General: NAD, pleasant, cooperative Skin: A total body skin exam was performed. This includes examination of the skin of the face, ears, neck, chest, axillae, left and right upper and lower extremities, hands, feet, abdomen, and back. Genitalia, buttocks and breasts were also examined with patient consent. Significant skin findings: A. confluent , pink facial erythema, less intense than when flaring. Some acne papules lateral cheeks. Lichenification around eyes bilaterally. ASSESSMENT/PLAN: A. Atopic dermatitis ?? Continue current treatment cores, patient will get lab in two months and return for follow up in3 months. Prescriptions: Itraconazole 100mg once daily, labs in 2 months. Will likely need to do prior authorization. Spironolactone 100mg once daily Return to clinic: 3 months Note initiated by: JARRELL DALY LPN Routed to physician for review and changes: Moraima Murphy MD Section of Dermatology [facility] documented in this encounter Plan of Treatment Upcoming Encounters Date Type Department Care Team (Late st Contact Info) Description 09/03/2024 3:30 PM EDT Office Visit Dermatology at [facility] [address] [place] [address] Miladys Gordon MD [facility] [place] [address] documented as of this encounter Visit Diagnoses Diagnosis Atopic dermatitis- Primary Other atopic dermatitis and related conditions Acne Other acne documented in this encounter Care Teams Stem Cleaning Machine Feeder Relationship Specialty Start Date End Date Shonda Garcia MD [facility] ETHAN DAEL [facility] [address] [place] [address] PCP - General 04/27/10 documented as of this encounter
--- OUTSIDE RECORDS SUMMARY | 2024-05-17 21:15 | XMS_ITS | Encounter Summary ---
Author Organization [facility] [place] [address] Care Team Providers Care Education Rep Name Role Phone Shonda Garcia MD Primary Care Provider [phone] Encounter Details Date Type Department Care Team (Late st Contact Info) Description 06/04/2014 External Results XRay at [address] [place] [id number] Provider, Scanning Social History Tobacco Use Types Packs/Day Years Used Date Smoking Tobacco: Never Sex and Gender Information Value Date Recorded Sex Assigned at Not on file Gender Identity Not on file Sexual Orientation Not on file documented as of this encounter Plan of Treatment Upcoming Encounters Date Type Department Care Team (Late st Contact Info) Description 09/03/2024 3:30 PM EDT Office Visit Dermatology at [facility] [address] [place] [address] Miladys Gordon MD [facility] [address] MYESHA [place] [address] documented as of this encounter Procedures Procedure Name Priority Date/Time Associated Diagnosis Comments MAMMOGRAM SCAN Routine 06/03/2014 MAMMOGRAM SCAN Routine 09/09/2011 MAMMOGRAM SCAN Routine 10/09/2009 MAMMOGRAM SCAN Routine 10/18/2007 documented in this encounter Results * Scan Doc: Mammogram (06/03/2014) Anatomical Region Laterality Modality Other Scanning Provider MEDIA MGR SCAN EXT O RDR/RSLT * Scan Doc: Mammogram (09/09/2011) Anatomical Region Laterality Modality Other Scanning Provider MEDIA MGR SCAN EXT O RDR/RSLT * Scan Doc: Mammogram (10/09/2009) Anatomical Region Laterality Modality Other Scanning Provider MEDIA MGR SCAN EXT O RDR/RSLT * Scan Doc: Mammogram (10/18/2007) Anatomical Region Laterality Modality Other Scanning Provider MEDIA MGR SCAN EXT O RDR/RSLT documented in this encounter Visit Diagnoses Not on filedocumented in this encounter Care Teams Education Rep Relationship Specialty Start Date End Date Shonda Garcia MD [facility] [address] [place] [address] [place] [address] PCP - General 04/27/10 documented as of this encounter
--- OUTSIDE RECORDS SUMMARY | 2024-05-17 21:15 | XMS_ITS | Encounter Summary ---
Author Organization [facility] [place] [address] Care Team Providers Care Junior Buyer Name Role Phone Shonda Garcia MD Primary Care Provider [phone] Encounter Details Date Type Department Care Team (Late st Contact Info) Description 10/09/2009 [place] [address] Piper Rubio MD [facility] DR DIAGNO[place] [address] Social History Tobacco Use Types Packs/Day Years [...] 3:30 PM EDT Office Visit Dermatology at [facility] [address] [place] [address] Miladys Gordon MD [facility] DR MYESHA [place] [address] documented as of this encounter Procedures Procedure Name Priority Date/Time Associated Diagnosis Comments FILM LIBRARY STORAGE ONLY MAMMO Routine 10/09/2009 10:39 AM EDT documented in this encounter Results * Film Library- Storage only Mammo (10/09/2009 10:39 AM EDT) Anatomical Region Laterality Modality Other 10/09/2009 10:3 9 AM EDT Narrative 06/04/2014 10:40 AM EST This is a Non-reportable exam Procedure Note LEISA, UNSIGNED REPORT - 06/04/2014 This is a Non-reportable exam Piper Rubio MD [facility] FILM LIBRARY ORD ERABLES documented in this encounter Visit Diagnoses Not on filedocumented in this encounter Care Teams Junior Buyer Relationship Specialty Start Date End Date Shonda Garcia MD [address] [place] [address] PCP - General 04/27/10 documented as of this encounter
--- OUTSIDE RECORDS SUMMARY | 2024-05-17 21:15 | XMS_ITS | Encounter Summary ---
Author Organization [facility] Address One [facility] [place] [address] Care Team Providers Care Agricultural Extension Agent Name Role Phone Shonda Garcia MD Primary Care Provider [phone] Encounter Details Date Type Department Care Team (Latest Contact Info) Description 06/27/2014 8:45 AM EST - 06/27/2014 10:17 AM [facility] Hospital Encounter XRay at [address] [place] [address] Invasive ductal carcinoma of breast, left Social History Tobacco Use Types Packs/Day [...] 3:30 PM EDT Office Visit Dermatology at [facility] [address] [place] [address] Miladys Gordon MD [facility] DR MYESHA [place] [address] documented as of this encounter Procedures Procedure Name Priority Date/Time Associated Diagnosis Comments XR CHEST PA AND LATERAL Routine 06/27/2014 8:52 AM EST Invasive ductal carcinoma of breast, left documented in this encounter Results * XR chest routine PA & lateral (06/27/2014 8:52 AM EST) Anatomical Region Laterality Modality Chest N/A Radiographic Margot ging 06/27/2014 8:52 AM EST Impressions 06/27/2014 10:00 AM EST IMPRESSION: No radiographic evidence of metastatic disease. This report was reviewed by Lanny Ibarra at 06/27/2014 9:54 AM Film and interpretation reviewed by the attending Narrative 06/27/2014 10:00 AM EST EXAMINATION: CHEST ROUTINE PA+LAT CLINICAL HISTORY: NEW BR CA - R/O METS TECHNIQUE: PA and lateral standing chest radiographs COMPARISON: None FINDINGS: The lungs are symmetrically expanded and clear. There is no pleural effusion or pneumothorax. The cardiomediastinal silhouette, suzy and pulmonary vasculature. Minimal degenerative disc disease of the lower thoracic spine. Procedure Note Lanny Ibarra MD - 06/27/2014 EXAMINATION: CHEST ROUTINE PA+LAT CLINICAL HISTORY: NEW BR CA - R/O METS TECHNIQUE: PA and lateral standing chest radiographs COMPARISON: None FINDINGS: The lungs are symmetrically expanded and clear. There is no pleuraleffusion or pneumothorax. The cardiomediastinal silhouette, suzy and pulmonaryvasculature. Minimal degenerative disc disease of the lower thoracic spine. IMPRESSION IMPRESSION: No radiographic evidence of metastatic disease. This report was reviewed by Lanny Ibarra at 06/27/2014 9:54 AM Film and interpretation reviewed by the attending Patricia Cast MD IMG DX ORDERABLES documented in this encounter Visit Diagnoses Diagnosis Invasive ductal carcinoma of breast, left documented in this encounter Care Teams Agricultural Extension Agent Relationship Specialty Start Date End Date Shonda Garcia MD [address] [facility] 1 [place] [address] PCP - General 04/27/10 documented as of this encounter
--- OUTSIDE RECORDS SUMMARY | 2024-05-17 21:15 | XMS_ITS | Encounter Summary ---
[place] [address] Care Team Providers Care Commercial Baking Teacher Name Role Phone Shonda Garcia MD Primary Care Provider [phone] Encounter Details Date Type Department Care Team (Late st Contact Info) Description 06/25/2014 Telephone Hematology [place] [address] Danna Veronica RN Social History Tobacco Use Types Packs/Day Years Used Date Smoking Tobacco: Never Sex and Gender Information Value Date Recorded Sex Assigned at Not on file Gender Identity Not on file Sexual Orientation Not on file documented as of this encounter Miscellaneous Notes * Telephone Encounter - Danna Veronica RN - 06/25/2014 4:14 PM EST Shannen Nobles is a 48 y.o. pre or darcy-menopausal female with newly diagnosed ER/[place]+/HER2 cherie pending left breast IDC (left breast U/S guided biopsy 06/23/2014 at [facility] Contacted patient after Dr. Smith informed her that her breast biopsy results indicated she has invasive ductal carcinoma. Pt. sounds positive and has support from family and friends. Her will likely will accompanyher to appointments. Pt. appears to be coping well, but is anxious to meet with a breast surgeon to determine a treatment plan. We reviewed the meaning of invasive ductal carcinoma, potential surgical options, and the role of medical and radiation oncology. Appointments for breast MRI, chest xray, and surgical consult with a breast surgeon will be arranged for pt. She states she would like to maintain current breast size (A) and would be interested in plastic surgery appt. should this be needed for symmetry. Patient was told she would receive information about her diagnosis and it's treatment. Addressed her questions and encouraged her to contact mewith any additional questions or concerns. Contact information provided for CBP and this functional tester typewriters. FAMILY HISTORY Breast cancer - sister in 2014 at age of 47. Prostate cancer - father, age 60 Skin cancer - sister (who had breast cancer), father - unknown type. documented in this encounter Plan of Treatment Upcoming Encounters Date Type Department Care Team (Late st Contact Info) Description 09/03/2024 3:30 PM EDT Office Visit Dermatology at [facility] [address] [place] [address] Miladys Gordon MD [facility] DR [place] [address] documented as of this encounter Visit Diagnoses Not on filedocumented in this encounter Care Teams Commercial Baking Teacher Relationship Specialty Start Date End Date Shonda Garcia MD [address] [place] [address] PCP - General 04/27/10 documented as of this encounter
--- OUTSIDE RECORDS SUMMARY | 2024-05-17 21:15 | XMS_ITS | Encounter Summary ---
Author Organization [facility] [place] [address] Care Team Providers Care Mill Representative Name Role Phone Shonda Garcia MD Primary Care Provider [phone] Encounter Details Date Type Department Care Team (Late st Contact Info) Description 06/03/2014 [place] [address] Piper Rubio MD [facility] DR DIAGNOST[place] [address] Social History Tobacco Use Types Packs/Day Years Used Date Smoking Tobacco: Never Sex and Gender Information Value Date Recorded Sex Assigned at Not on file Gender Identity Not on file Sexual Orientation Not on file documented as of this encounter Plan of Treatment Upcoming Encounters Date Type Department Care Team (Late st Contact Info) Description 09/03/2024 3:30 PM EDT Office Visit Dermatology at [facility] [address] [place] [address] Miladys Gordon MD [facility] DR MYESHA [place] [address] documented as of this encounter Visit Diagnoses Not on filedocumented in this encounter Care Teams Mill Representative Relationship Specialty Start Date End Date Shonda Garcia MD [address] [place] [address] DR [address] [place] [address] PCP - General 04/27/10 documented as of this encounter
--- OUTSIDE RECORDS SUMMARY | 2024-05-17 21:15 | XMS_ITS | Encounter Summary ---
Author Organization [facility] [place] [address] Care Team Providers Care Manager Gallery Name Role Phone Shonda Garcia MD Primary Care Provider [phone] Encounter Details Date Type Department Care Team (Late st Contact Info) Description 07/03/2014 2:15 PM EST Office Visit Hematology [place] [phone] Patricia Cast MD [facility] [place] [address] Breast cancer, left Discharge Disposition: Home Social History Tobacco Use Types Packs/Day Years Used Date Smoking Tobacco: Never Sex and Gender Information Value Date Recorded Sex Assigned at Not on file Gender Identity Not on file Sexual Orientation Not on file documented as of this encounter Last Filed Vital Signs Vital Sign Reading Time Taken Comments Blood Pressure 102/66 07/03/2014 2:06 PM EST Pulse 69 07/03/2014 2:06 PM EST Temperature 36.4 ??C (97.5 ??F) 07/03/2014 2:06 PM ES T Respiratory Rate 16 07/03/2014 2:06 PM EST Oxygen Saturation 100% 07/03/2014 2:06 PM EST Inhaled Oxygen Concentration - - Weight 55.9 kg (123 lb 3.2 oz) 07/03/2014 2:06 P M EST Height 164.9 cm (5' 4.92) 07/03/2014 2:06 PM ES T Body Mass Index 20.55 07/03/2014 2:06 PM EST documented in this encounter Progress Notes * Patricia Cast MD - 07/13/2014 11:58 AM EST Images from the original note were not included. Subjective: Patient ID: Shannen Nobles is a 48 y.o. female. HPI Shannen is seen today in surgical consultation at the request of Dr. Smith. She presents with her to discuss newly diagnosed left breast cancer. Shannen incidentally noted a left breast mass afew weeks ago. She presented for evaluation. Mammogram and u/s confirmed a 5mm mass in the upper, outer left breast. Biopsy revealed IDC (ER/LA+, HER2-). Breast MRI did not reveal any [...] is node negative (given that she is ER/LA+ and HER-). She also understands that endocrine therapy will likely be recommended. We discussed genetic counseling and Shannen will consider this. Risks of surgery including bleeding, infection, need for additional surgery and lymphedema were discussed and consent was obtained. * Danna Veronica RN - 07/03/2014 5:09 PM EST Shannen Nobles is a 48 y.o. female with left breast cancer. I met with patient and her , Dutch, in clinic. She verbalized understanding of the plan of care and states all her questions were answered. Patient will schedule surgery on way out (in 4[place]) today. Ten minutes was spent in education and providing support. Patient has our contact information. SPECIFIC TEACHIN. Breast Cancer Treatment Handbook (Pily Roblero, 2012) was received via mail. 2. DVD from our Shared Decision-Marking Program on Early-Stage Breast Cancer was received. 3. She understands she will meet with medical and radiation oncologists after surgery. Prefers radiotherapy in [facility], closer to home. 4. Contact phone number for questions or concerns in the immediate post- operative period. 5. Post Breast Surgery Exercises, handout created by physical therapy at [facility]. documented in this encounter Plan of Treatment Upcoming Encounters Date Type Department Care Team (Late st Contact Info) Description 09/03/2024 3:30 PM EDT Office Visit Dermatology at [facility] [address] [place] [address] [facility] DR [place] [address] documented as of this encounter Visit Diagnoses Diagnosis Breast cancer, left Malignant neoplasm of breast (female), unspecified site documented in this encounter Care Teams Manager Gallery Relationship Specialty Start Date End Date Shonda Garcia MD [facility] [address] [address] PCP - General 04/27/10 documented as of this encounter
--- OUTSIDE RECORDS SUMMARY | 2024-05-17 21:15 | XMS_ITS | Encounter Summary ---
Author Organization [facility] [place] [address] Care Team Providers Care Inventory Control Analyst Name Role Phone Unavailable Primary Care Provider Unavailabl e Encounter Details Date Type Department Care Team (Late st Contact Info) Description 04/26/2010 10:15 AM EST [place] [address] Moraima Murphy MD [facility] [address] [place] [address] Social History Tobacco Use Types Packs/Day Years [...] PM EDT Office Visit Dermatology at [facility] [address] [place] [address] Miladys Gordon MD [facility] [address] [place] [address] documented as of this encounter Visit Diagnoses Not on filedocumented in this encounter
--- OUTSIDE RECORDS SUMMARY | 2024-05-17 21:15 | XMS_ITS | Encounter Summary ---
Author Organization [facility] [place] [address] Care Team Providers Care Driver Name Role Phone Shonda Garcia MD Primary Care Provider [phone] Encounter Details Date Type Department Care Team (Late st Contact Info) Description 10/29/2010 [place] [address] Lavern Gleason RN Social History Tobacco Use Types Packs/Day [...] 3:30 PM EDT Office Visit Dermatology at [facility] [address] [place] [address] Miladys Gordon MD [facility] DR [place] [address] documented as of this encounter Visit Diagnoses Not on filedocumented in this encounter Care Teams Driver Relationship Specialty Start Date End Date Shonda Garcia MD [address] [place] [address] PCP - General 04/27/10 documented as of this encounter
--- OUTSIDE RECORDS SUMMARY | 2024-05-17 21:15 | XMS_ITS | Encounter Summary ---
Author Organization [facility] [place] [address] Care Team Providers Care Production Illustrator Name Role Phone Shonda Garcia MD Primary Care Provider [phone] Reason for Visit * Reason Comments Allergic Reaction Encounter Details Date Type Department Care Team (Late st Contact Info) Description 02/16/2011 9:45 AM EDT [place] [address] Moraima Murphy MD [facility] [address] [place] [address] Atopic dermatitis (Primary Dx) Discharge Disposition: Home Social History Tobacco Use Types Packs/Day Years Used Date Smoking Tobacco: Never Sex and Gender Information Value Date Recorded Sex Assigned at Not on file Gender Identity Not on file Sexual Orientation Not on file documented as of this encounter Progress Notes * Moraima Murphy MD - 02/16/2011 10:20 AM EDT DERMATOLOGY ESTABLISHED PATIENT CLINIC NOTE Date of service: 02/16/2011 Shannen Nobles : 1965 Provider: Moraima Murphy MD SKIN HISTORY: Atopic dermatitis Chief Complaint: Chief Complaint Patient presents with ??? Allergic Reaction HPI Shannen Nobles is a 45 y.o. year old female. F/u visit- face flaring this week. Saw her ENT who is going to do surgery for a deviated septum. She tells me he remarked about how badly her skin was flaring. She is VERY frustrated by this. Elidel- does not think it is helping. Protopic- makes acne worse. MEDS: Current outpatient prescriptions ordered prior to encounter Medication Sig Dispense Refill ??? spironolactone (ALDACTONE) 100 mg tablet Take 1 tablet by mouth daily. 30 tablet 2 ??? LEVALBUTEROL TARTRATE (XOPENEX HFA INHL) Inhale 2 puffs into the lungs every 4 hours as needed. ??? pimecrolimus (ELIDEL) 1 % cream 1 Appl(s) to face, Top, Once daily ??? itraconazole (SPORANOX) 100 mg capsule Take 1 capsule by mouth daily. 30 capsule 2 ??? clindamycin (CLEOCIN T) 1 % lotion 1 Appl(s), Top, Once daily ADR: Allergies Allergen Reactions ??? Amoxicillin Trihydrate ??? Thiuram Derivative Dermatitis ROS General: feeling well Skin: denies other skin complaints EXAM General: NAD, pleasant, cooperative. Face: scaling pink erythema central face, lichenification around the eyes, under the nose, fissuring, ASSESSMENT/PLAN: 1. Atopic dermatitis- Severe, facial involvement. DID improve on daily itraconazole. Insurance has denied. JAAD article referred to again. Ketoconazole is less expensive ; will try 200mg a day x 2 months , then 2x per week. Rx given. Labs today and in 1 month. Also check IgE to malassezia furfur. > 1/2 of this 25 minute visit spent in discussing care options, ketoconazole, need for monitoring. Routed to physician for review and changes Moraima Murphy MD Section of Dermatology [facility] * Nohemy Jackman LPN - 02/16/2011 10:11 AM EDT Date of office visit: 02/16/2011 Shannen Nobles : 1965 Provider: Moraima Murphy MD SKIN HISTORY: Chief Complaint Patient presents with ??? Allergic Reaction HPI Shannen Nobles is a 45 y.o. year old female. PAST MEDICAL HX There is no problem list on file for this patient. MEDS: Current outpatient prescriptions ordered prior to encounter Medication Sig Dispense Refill ??? spironolactone (ALDACTONE) 100 mg tablet Take 1 tablet by mouth daily. 30 tablet 2 ??? LEVALBUTEROL TARTRATE (XOPENEX HFA INHL) Inhale 2 puffs into the lungs every 4 hours as needed. ??? pimecrolimus (ELIDEL) 1 % cream 1 Appl(s) to face, Top, Once daily ??? itraconazole (SPORANOX) 100 mg capsule Take 1 capsule by mouth daily. 30 capsule 2 ??? clindamycin (CLEOCIN T) 1 % lotion 1 Appl(s), Top, Once daily ADR: Allergies Allergen Reactions ??? Amoxicillin Trihydrate ??? Thiuram Derivative Dermatitis FAMILY HX: SOCIAL HX: ROS General: feeling well Skin: denies other skin complaints EXAM General: NAD, pleasant, cooperative. SKIN EXAM: Exam of scalp, ears, neck, face. Exam of chest, back, arms, hands. Exam of buttocks, suprapubic skin and hips. Exam of legs and feet. No exam of genitalia. Significant skin findings: ASSESSMENT/PLAN Return to clinic: Note initiated by: NOHEMY JACKMAN LPN LPN Routed to physician for review and changes: Moraima Murphy MD Section of Dermatology [facility] documented in this encounter Plan of Treatment Upcoming Encounters Date Type Department Care Team (Late st Contact Info) Description 09/03/2024 3:30 PM EDT Office Visit Dermatology at [facility] [address] [place] [address] Miladys Gordon MD [facility] [address] MY[place] [address] documented as of this encounter Procedures Procedure Name Priority Date/Time Associated Diagnosis Comments DIFFERENTIAL, AUTOMATED Routine 02/16/2011 11:11 AM EDT CBC (WITH DIFF) Routine 02/16/2011 11:11 AM EDT Atopic dermatitis COMPREHENSIVE METABOLIC PANEL Routine 02/16/2011 11:11 AM EDT Atopic dermatitis MISCELLANEOUS LAB REQUEST Routine 02/16/2011 11:01 AM EDT [facility] TEST-BOW[facility] Routine 02/16/2011 1 1:01 AM EDT documented in this encounter Results * (ABNORMAL) REFLEX LAB-A-DIFF (02/16/2011 11:11 AM EDT) Neutrophil % 69.3 34.0 - 71.0 % CERNER MILLENNIUM Neutrophil Absolute 4.47 1.50 - 6.30 x10(3)/mc L CERNER MILLENNIUM Lymph % 17.7(L) 19.0 - 53.0 % CERNER MILLENNIUM Lymphocytes Abs 1.1 1.0 - 3.6 x10(3)/mc L CERNER MILLENNIUM Monocyte % 6.8 4.0 - 13.0 % CERNER MILLENNIUM Monocyte Abs 0.4 0.2 - 1.0 x10(3)/mc L CERNER MILLENNIUM Eos % 5.4 0.0 - 7.0 % CERNER MILLENNIUM Eosinophils Abs 0.4 0.0 - 0.5 x10(3)/mc L CERNER MILLENNIUM Basophil % 0.6 0.0 - 2.0 % CERNER MILLENNIUM Baso Absolute 0.0 0.0 - 0.2 x10(3)/mc L CERNER MILLENNIUM Immature Gran % 0.20 0.00 - 0.66 % CERNER MILLENNIUM Comment: Immature granulocytes(IG's)percentage and absolute count will include metamyelocytes, myelocytes, and promyelocytes. Blood smears from CBCs yielding IG's will be scanned manually for concordance. If this scan disagrees with the automated IG or if promyelocytes are noted, a manual differential will be performed. Immature Gran Absolute 0.01 0.00 - 0.05 x10(3)/mc L CERNER MILLENNIUM Blood specimen (specimen) 02/16/2011 11:11 AM EDT 02/16/2011 11:15 AM EDT Moraima Murphy MD HEMATOLOGY ORDERABLE S CERNER MILLENNIUM * (ABNORMAL) Comprehensive metabolic panel (non-fasting) (02/16/2011 11:11 AM EDT) Glucose 88 60 - 199 mg/dL CERNER MILLENNIUM Comment:Diabetes: >=200 mg/d L plus symptoms Blood Urea Nitrogen 19(H) 8 - 18 mg/dL CERNER MILLENNIUM Creatinine 0.74 0.70 - 1.20 mg/dL CERNER MILLENNIUM Sodium 137 135 - 145 mmol/L CERNER MILLENNIUM Potassium 4.3 3.5 - 5.0 mmol/L CERNER MILLENNIUM Comment: Please note: ??Patients with WBC >100,000 may have falsely elevated Potassium levels. ??For accurate Potassium quantification in these patients send serum separator tube (gold top) for subsequent determinations. ??Contact the Clinical Chemistry Laboratory if there are any questions. Chloride 100 98 - 107 mmol/L CERNER MILLENNIUM Carbon Dioxide 29 22 - 31 mmol/L CERNER MILLENNIUM Anion Gap 8 5 - 15 mmol/L CERNER MILLENNIUM Calcium 9.5 8.5 - 10.5 mg/dL CERNER MILLENNIUM Protein, Total 7.7 6.4 - 8.3 gm/dL CERNER MILLENNIUM Albumin 4.7 3.2 - 5.2 gm/dL CERNER MILLENNIUM Aspartate Aminotransferase 20 0 - 30 unit/L CERNER MILLENNIUM Alanine Aminotransferase 13 0 - 30 unit/L CERNER MILLENNIUM Alkaline Phosphatase 60 40 - 104 unit/L CERNER MILLENNIUM Bilirubin, Total 0.6 0.2 - 1.3 mg/dL CERNER MILLENNIUM Bilirubin, Direct 0.1 0.0 - 0.3 mg/dL CERNER MILLENNIUM Est Glomerular Filtration Rate >60 >=60 CERNER MILLENNIUM Comment: The National Kidney Disease Education Program (NKDEP) has recommended all laboratories report estimated GFR (eGFR) along with plasma creatinine measurements to assist you with recognition of early kidney disease. Caveats: ??Plasma creatinine should be at steady-state (unchanged within the past week). For patients multiply eGFR by 1.2.MDRD equation has not been validated for pediatric patients and is only valid for patients with age >= 18 years. At present, NKDEP does NOT recommend using the MDRD equation for drug dosing purposes and pharmacists should continue to use their current dosing methods. In addition, numerical eGFR values greater than 60 ml/min/1.73 square meters should be treated as > 60, and not an exact number due to greater inaccuracies at these higher values. Per NKDEP, they classify normal renal function as any GFR >60ml/min/1.73 square meters; chronic kidney disease when GFR <60, and renal failure when GFR <15. ??This calculation may not be valid for patients with atypical muscle mass (very lean or obese), acute renal failure, and in patients with diabetic kidney disease. References: http://nkdep.nih.gov/resources/NKDEP_Suggestn4Labs_0606_508.pdf http://www.kidney.org/professionals/kls/pdf/faq_gfr.pdf Blood specimen (specimen) 02/16/2011 11:11 AM EDT 02/16/2011 11:15 AM EDT Moraima Murphy MD CHEMISTRY ORDERABLES [facility] * CBC (with Diff) (02/16/2011 11:11 AM EDT) White Blood Cell 6.5 4.0 - 10.0 x10(3)/mcL CERNER MILLENNIUM Red Blood Cell 4.53 3.93 - 5.22 x10(6)/mcL CERNER MILLENNIUM Hemoglobin 13.8 11.2 - 15.7 gm/dL CERNER MILLENNIUM Hematocrit 41.3 34.0 - 45.0 % CERNER MILLENNIUM Mean Cell Volume 91.2 79.0 - 94.0 fL CERNER MILLENNIUM Mean Cell Hemoglobin 30.5 26.6 - 32.2 pg CERNER MILLENNIUM Mean Cell Hemoglobin Concentration 33.4 32.0 - 36.5 gm/dL CERNER MILLENNIUM Platelet 193 145 - 370 x10(3)/mcL CERNER [facility] Standard Deviation 42.7 35.0 - 46.0 fL [facility] RDW coefficient of variation 12.8 10.9 - 14.4 % [facility] Mean Platelet Volume 10.9 9.0 - 12.0 fL [facility] Blood specimen (specimen) 02/16/2011 11:11 AM EDT 02/16/2011 11:15 AM EDT Moraima Murphy MD [facility] ORDERABLE S [facility] * REFLEX LAB-[facility]ERLY [facility] TEST-[place] (02/16/2011 11:01 AM EDT) Pathologist [facility] ? [place] ? Expected Test ? Result ?LO ??Units ??Values [facility] ??Test Name ?Malassezia Mix IgE ??Result ? SEE COMMENTS Result ?Flag/Class ?Units ? Reference Ranges ------ ?----- ? - 28.90 ?H/4 ?kU/L ? <0.35 *This test was developed and validated by studies performed by [employer]. Test performed by [employer], [employer] [facility]. [facility]. When the symbol () is next to an allergen it indicates that it has not been cleared or approved by the FDA. Test Performed by: [facility] ? [address] ? [place] [address] EMA WOOTENIUM Blood specimen (specimen) 02/16/2011 11:01 AM EDT 02/16/2011 12:02 PM EDT Moraima Murphy MD LAB SEND OUT ORDERAB LES EMA KO * MISCELLANEOUS LAB REQUEST (02/16/2011 11:01 AM EDT) Label Request received in lab. CERNER BORISENNIUM Blood specimen (specimen) 02/16/2011 11:01 AM EDT 02/16/2011 11:01 AM EDT Moraima Murphy MD LAB SEND OUT ORDERAB LES EMA KO documented in this encounter Visit Diagnoses Diagnosis Atopic dermatitis- Primary Other atopic dermatitis and related conditions documented in this encounter Care Teams Production Illustrator Relationship Specialty Start Date End Date Shonda Garcia MD [address] [place] [address] PCP - General 04/27/10 documented as of this encounter
--- OUTSIDE RECORDS SUMMARY | 2024-05-17 21:15 | XMS_ITS | Encounter Summary ---
Author Organization [facility] [place] [address] Care Team Providers Care Assistant Customer Service Manager Name Role Phone Shonda Garcia MD Primary Care Provider [phone] Encounter Details Date Type Department Care Team (Late st Contact Info) Description 06/11/2014 [place] [address] Vishnu Smith MD [facility] [place] [address] Other (abnormal) findings on radiological examination of breast Social History Tobacco Use Types [...] Visit Dermatology at [facility] [address] [place] [address] Miladys Gordon MD [facility] DR MY[place] [address] documented as of this encounter Results * Mammo direct digital unilateral (06/23/2014 9:04 AM EST) Anatomical Region Laterality Modality Breast N/A Mammography 06/23/2014 9:04 AM EST Impressions 06/30/2014 10:44 AM EST IMPRESSION: BIRADS 6, known malignancy, Radiology and pathology results are concordant. RECOMMENDATION: Consider MRI for further characterization. ??Breast surgery consultation for definitive management. Findings were discussed with the patient. ?? Comprehensive breast program has been notified. Home phone: [phone] Cell phone: [phone] This report was reviewed by Vishnu Smith at 06/25/2014 2:59 PM Film and interpretation reviewed by the attending Narrative 06/30/2014 10:44 AM EST ULTRASOUND GUIDED BIOPSY OF THE LEFT [...] 5mm mass in the upper, outer quadrant [id number], 7cm from the nipple. 14-gauge Achieve device [...] Comprehensive breast programhas been notified. Home phone: [phone] Cell phone: [phone] This report was reviewed by Vishnu Smith at 06/25/2014 2:59 PM Film and interpretation reviewed by the attending Vishnu Smith MD IMG MAMMO ORDERABLES * Mammo- US biopsy (06/23/2014 9:03 AM EST) Anatomical Region Laterality Modality Breast N/A Mammography 06/23/2014 9:03 AM EST Impressions 06/25/2014 3:04 PM EST IMPRESSION: BIRADS 6, known malignancy, Radiology and pathology results are concordant. RECOMMENDATION: Consider MRI for further characterization. ??Breast surgery consultation for definitive management. Findings were discussed with the patient. ?? Comprehensive breast program has been notified. Home phone: [phone] Cell phone: [phone] This report was reviewed by Vishnu Smith [...] 5mm mass in the upper, outer quadrant [id number], 7cm from the nipple. 14-gauge Achieve device [...] Comprehensive breast programhas been notified. Home phone: [phone] Cell phone: [phone] This report was reviewed by Vishnu Smith at 06/25/2014 2:59 PM Film and interpretation reviewed by the attending Vishnu Smith MD IMG MAMMO ORDERABLES documented in this encounter Visit Diagnoses Diagnosis Other (abnormal) findings on radiological examination of breast Other (abnormal) findings on radiological examination of breast Other (abnormal) findings on radiological examination of breast documented in this encounter Care Teams Assistant Customer Service Manager Relationship Specialty Start Date End Date Shonda Garcia MD [facility] [address] [place] [address] PCP - General 04/27/10 documented as of this encounter
--- OUTSIDE RECORDS SUMMARY | 2024-05-17 21:15 | XMS_ITS | Encounter Summary ---
Author Organization [facility] Address [facility] [facility] [place] [address] Care Team Providers Care Awning Hanger Supervisor Name Role Phone Shonda Garcia MD Primary Care Provider [phone] Encounter Details Date Type Department Care Team (Latest Contact Info) Description 06/23/2014 7:22 AM EST - 06/23/2014 11:59 PM [facility] Hospital Encounter Mammography at [facility] [place] [address] Other (abnormal) findings on radiological examination of [...] EDT Office Visit Dermatology at [facility] [address] [place] [address] Miladys Gordon MD [facility] DR MYES[address] [place] [address] documented as of this encounter Procedures Procedure Name Priority Date/Time Associated Diagnosis Comments MAMMO DIRECT DIGITAL UNILATERAL Routine 06/23/2014 9:04 AM EST Other (abnormal) findings on radiological examination of breast documented in this encounter Results * Mammo direct digital [...] breast program has been notified. Home phone: [phone] Cell phone: [phone] This report was reviewed by Vishnu Smith [...] 5mm mass in the upper, outer quadrant [id number], 7cm from the nipple. 14-gauge Achieve device [...] Comprehensive breast programhas been notified. Home phone: [phone] Cell phone: [phone] This report was reviewed by Vishnu Smith at 06/25/2014 2:59 PM Film and interpretation reviewed by the attending Vishnu Smith MD IMG MAMMO ORDERABLES documented in this encounter Visit Diagnoses Diagnosis Other (abnormal) findings on radiological examination of breast documented in this encounter Care Teams Awning Hanger Supervisor Relationship Specialty Start Date End Date Shonda Garcia MD [facility] [address] [place] [address] PCP - General 04/27/10 documented as of this encounter
--- OUTSIDE RECORDS SUMMARY | 2024-05-17 21:15 | XMS_ITS | Encounter Summary ---
Author Organization [facility] [place] [address] Care Team Providers Care Human Resource Analyst Name Role Phone Shonda Garcia MD Primary Care Provider [phone] Encounter Details Date Type Department Care Team (Late st Contact Info) Description 07/04/2014 Orders [place] [address] Patricia Cast MD [facility] [place] [address] Breast cancer, left Social History Tobacco Use Types Packs/Day [...] [facility] [address] [place] [address] Miladys Gordon MD [facility] [address] [place] [address] documented as of this encounter Results * Mammo specimen (07/14/2014 11:35 AM EST) [...] marker clip and mass within the specimen. Patricia Cast MD IMG MAMMO ORDERABLE S documented in this encounter Visit Diagnoses Diagnosis Breast cancer, left Malignant neoplasm of breast (female), unspecified site Breast cancer, left Malignant neoplasm of breast (female), unspecified site documented in this encounter Care Teams Human Resource Analyst Relationship Specialty Start Date End Date Shonda Garcia MD [address] [place] [address] PCP - General 04/27/10 documented as of this encounter
--- OUTSIDE RECORDS SUMMARY | 2024-05-17 21:15 | XMS_ITS | Encounter Summary ---
Author Organization [facility] [place] [address] Care Team Providers Care Bulb Grader Name Role Phone Shonda Garcia MD Primary Care Provider [phone] Encounter Details Date Type Department Care Team (Late st Contact Info) Description 09/09/2011 [place] [address] Piper Rubio MD [facility] [address] [place] [address] Social History Tobacco Use Types Packs/Day Years [...] EDT Office Visit Dermatology at [facility] [address] [place] [address] Miladys Gordon MD [facility] [address] MYESHA [place] [address] documented as of this encounter Procedures Procedure Name Priority Date/Time Associated Diagnosis Comments FILM LIBRARY STORAGE ONLY MAMMO Routine 09/09/2011 10:39 AM EDT documented in this encounter Results * Film Library- Storage only Mammo (09/09/2011 10:39 AM EDT) Anatomical Region Laterality Modality Other 09/09/2011 10:3 9 AM EDT Narrative 06/04/2014 10:40 AM EST This is a Non-reportable exam Procedure Note LEISA, UNSIGNED REPORT - 06/04/2014 This is a Non-reportable exam Piper Rubio MD [facility] FILM LIBRARY ORD ERABLES documented in this encounter Visit Diagnoses Not on filedocumented in this encounter Care Teams Bulb Grader Relationship Specialty Start Date End Date Shonda Garcia MD [address] [place] [address] PCP - General 04/27/10 documented as of this encounter
--- OUTSIDE RECORDS SUMMARY | 2024-05-17 21:15 | XMS_ITS | Encounter Summary ---
Author Organization [facility] [place] [address] Care Team Providers Care Melangeur Operator Name Role Phone Shonda Garcia MD Primary Care Provider [phone] Reason for Visit * Reason Onset Date Comments Other 08/22/2011 Rx Renewals--ANGELICA Encounter Details Date Type Department Care Team (Late st Contact Info) Description 08/22/2011 [place] [address] Moraima Murphy MD [facility] [place] [address] Other (Rx Renewals--ANGELICA) Social History Tobacco Use Types Packs/Day Years Used Date Smoking Tobacco: Never Sex and Gender Information Value Date Recorded Sex Assigned at Not on file Gender Identity Not on file Sexual Orientation Not on file documented as of this encounter Miscellaneous Notes * Telephone Encounter - Isamar Hook - 08/22/2011 9:41 AM EDT [facility] PT Pt changed insurance companies and is requesting a renewal of Spironolactone and Ketoconazole 90 day supply. Her ID# is [id number]. [facility] fax [phone]. If you have any questions you can reach her at [phone]. Isamar Smith documented in this encounter Plan of Treatment Upcoming Encounters Date Type Department Care Team (Late st Contact Info) Description 09/03/2024 3:30 PM EDT Office Visit Dermatology at [facility] [address] [place] [address] Miladys Gordon MD [facility] [place] [address] documented as of this encounter Visit Diagnoses Not on filedocumented in this encounter Care Teams Melangeur Operator Relationship Specialty Start Date End Date Shonda Garcia MD [facility] [address] [place] [address] PCP - General 04/27/10 documented as of this encounter
--- OUTSIDE RECORDS SUMMARY | 2024-05-17 21:15 | XMS_ITS | Encounter Summary ---
[place] [address] Care Team Providers Care Bakery Worker Conveyor Line Name Role Phone Shonda Garcia MD Primary Care Provider [phone] Encounter Details Date Type Department Care Team (Late st Contact Info) Description 07/08/2014 Telephone [place] [address] Danna Veronica, RN Social History Tobacco Use Types Packs/Day Years Used Date Smoking Tobacco: Never Sex and Gender Information Value Date Recorded Sex Assigned at Not on file Gender Identity Not on file Sexual Orientation Not on file documented as of this encounter Miscellaneous Notes * Telephone Encounter - Danna Veronica RN - 07/08/2014 12:00 PM EST Shannen Nobles is a 48 y.o. female with left breast cancer, scheduled for left breast partial mastectomy and SLNB on 07/[address] Cast. She called on 07/07 to inquire as to meeting with a plastic surgeon prior to scheduled surgery. Afterclarification from Dr. Cast regarding potential plastics consult apt. in future, patient would like to wait to (potentially) meet with plastic surgeon after surgery and radiation. She is aware that breast changes could occur after radiotherapy. Should she desire symmetry procedure at that time, a plastic surgeon consult apt. will be arranged. Shannen verbalized understanding and agreement with the plan. documented in this encounter Plan of Treatment Upcoming Encounters Date Type Department Care Team (Late st Contact Info) Description 09/03/2024 3:30 PM EDT Office Visit Dermatology at [facility] [address] [place] [address] Miladys Gordon MD [facility] [address] [place] [address] documented as of this encounter Visit Diagnoses Not on filedocumented in this encounter Care Teams Bakery Worker Conveyor Line Relationship Specialty Start Date End Date Shonda Garcia MD [facility] [address] [facility] [address] [place] [address] PCP - General 04/27/10 documented as of this encounter
--- OUTSIDE RECORDS SUMMARY | 2024-05-17 21:15 | XMS_ITS | Encounter Summary ---
Author Organization [facility] [place] [address] Care Team Providers Care Industrial Real Estate Agent Name Role Phone Shonda Garcia MD Primary Care Provider [phone] Encounter Details Date Type Department Care Team (Late st Contact Info) Description 07/03/2014 Notes [place] [id number] Obdulia Us MSW Social History Tobacco Use Types Packs/Day Years Used Date Smoking Tobacco: Never Sex and Gender Information Value Date Recorded Sex Assigned at Not on file Gender Identity Not on file Sexual Orientation Not on file documented as of this encounter Progress Notes * Obdulia Us MSW - 07/04/2014 2:45 PM EST OFFICE OF CARE MANAGEMENT/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 After meeting with Dr. Cast, pt has decided to have a lumpectomy and sentinel node dissection followed by radiation therapy which she will receive at the [facility]. Advance Directives: Pt has not completed advance directives. [facility] explained the new surrogate healthcare decision maker law in [place] which applies to [place] residents. Based on this law, pt's would be the person to make her health care decisions in the event she cannot make them for herself. Pt states that she has not completed Advance Directives because she and her cannot agree on her wishes. I told pt that she needs to choose a Health Care Proxy who can follow her wishes. Pt was given information and forms to complete her advance directives. Living arrangements/social supports: Pt lives in [place], [place] with her and 13 year old, son. Pt states she has support from her family and friends. Her accompanied her to this appt. Pt was told to contact me if she has any concerns about her out of pocket medical expenses and I would refer her to potential resources. Tobacco/drug/alcohol history: Pt states she does not smoke or drink. Adjustment to illness/mental health concerns: Pt states she feels less anxious since meeting Dr. Cast. She states she has support from family and friends. [facility] reviewed the support and services available to pt in the cancer center. Strengths: Pt has support from family and friends. Plan: Brittany Guzman and I will continue to follow to assess and assist with psychosocial needs as sheprogresses through treatment. documented in this encounter Plan of Treatment Upcoming Encounters Date Type Department Care Team (Late st Contact Info) Description 09/03/2024 3:30 PM EDT Office Visit Dermatology at [facility] [address] [place] [address] Miladys Gordon MD [facility] [address] MYESHA [place] [address] documented as of this encounter Visit Diagnoses Not on filedocumented in this encounter Care Teams Industrial Real Estate Agent Relationship Specialty Start Date End Date Shonda Garcia MD [address] [place] [address] PCP - General 04/27/10 documented as of this encounter
--- OUTSIDE RECORDS SUMMARY | 2024-05-17 21:15 | XMS_ITS | Encounter Summary ---
Author Organization [facility] [place] [address] Care Team Providers Care Funeral Greeter Name Role Phone Shonda Garcia MD Primary Care Provider [phone] Encounter Details Date Type Department Care Team (Late st Contact Info) Description 06/26/2014 Orders Only [place] [address] Patricia Cast MD [facility] [place] [address] Invasive ductal carcinoma of breast, left Social [...] at [facility] [address] [place] [address] Miladys Gordon MD [facility] [address] MY[place] [address] documented as of this encounter Results * MRI breast bilateral with/WO contrast (06/27/2014 12:08 PM EST) Anatomical Region Laterality Modality Breast Bilateral Magnetic Resonan ce 06/27/2014 12:0 8 PM EST Narrative 06/30/2014 5:05 PM EST BREAST MRI OF THE BILATERAL BREASTS CLINICAL INDICATION: Breast 5 mm mass in the upper outer quadrant of the left breast close to the chest wall is a newly ultrasound-guided biopsy proven invasive ductal carcinoma and atypical papillary hyperplasia. TECHNIQUE: Multiplanar sequences were obtained pre- and post- gadolinium enhancement, to include SPGR weighted dynamic run-off and subtraction sequences obtained after the intravenous administration of 6 ccs of Gadovist. Computer algorithm analysis for lesion detection and kinetic contrast enhancement curve analysis was performed, using myParcelDelivery software. COMPARISON STUDIES: Mammography: 06/06/2014, 06/23/2014 Ultrasound: 06/23/2014 MRI: None Biopsy: 06/23/2014 BACKGROUND ENHANCEMENT PATTERN (first post gadolinium image) Minimal AMOUNT OF FIBROGLANDULAR TISSUE Scattered. FINDINGS: BI-RADS 2 Right upper outer ??breast MRI. Minimal scattered foci of enhancement due [...] wall without chest wall involvement or adenopathy. ?? RECOMMENDATION: Left breast mass amenable for lumpectomy. Procedure Note Lynn Broderick MD - 06/30/2014 BREAST MRI OF THE BILATERAL BREASTS CLINICAL INDICATION: Breast 5 mm mass in the upper outer quadrant of theleft breast close to the chest wall is a newly ultrasound-guided biopsyproven invasive ductal carcinoma and atypical papillary hyperplasia. TECHNIQUE: Multiplanar sequences were obtained pre- and post- gadolinium enhancement,to include SPGR weighted dynamic run-off and subtraction sequences obtainedafter the intravenous administration of 6 ccs of Gadovist. Computer algorithmanalysis for lesion detection and kinetic contrast enhancement curve analysis was performed, using myParcelDelivery software. COMPARISON STUDIES: Mammography: 06/06/2014, 06/23/2014 Ultrasound: 06/23/2014 MRI: None Biopsy: 06/23/2014 BACKGROUND ENHANCEMENT PATTERN (first post gadolinium image) Minimal AMOUNT OF FIBROGLANDULAR TISSUE Scattered. FINDINGS: BI-RADS 2 Right upper outer breast MRI. Minimal scattered foci ofenhancement due to fibrocystic changes and/or hormonal effects. LESIONS: Left BREAST LESION #: 1 BIRADS: 6 SIZE: 5 mm LOCATION: 2 O'Clock 7 cm from the nipple DESCRIPTION: Mass/post surgical change: Shape: Round Margins: Minmally irregular Enhancement: Intense KINETICS: Washout kinetic compatible with the biopsy finding of invasive ductalcarcinoma. OTHER FINDINGS: Minimal increased vascularity surrounding the neoplasm in the left upperouter breast. Biopsy clip and minimal post biopsy changes noted. LEFT AXILLA: Visualization: Adequate: Adequate Suspicious Nodes: 0 Number:3 Largest:0 .4 cm RIGHT AXILLA: Visualization: Adequate: Adequate Suspicious Nodes: 0 Number: 0 Largest: 0 cm COMMENTS: Solitary biopsy proven invasive ductal carcinoma in the left upper outerbreast close to the chest wall without chest wall involvement or adenopathy. RECOMMENDATION: Left breast mass amenable for lumpectomy. Patricia Cast MD [facility] MRI ORDERABLES * (ABNORMAL) Comprehensive metabolic panel (non-fasting) (06/27/2014 9:06 AM EST) Glucose 64 60 - 199 mg/dL CERNER MILLENNIUM Comment:Diabetes: >=200 mg/d L plus symptoms Blood Urea Nitrogen 25(H) 8 - 18 mg/dL CERNER MILLENNIUM Creatinine 0.85 0.70 - 1.20 mg/dL CERNER MILLENNIUM Comment: Please note that the pediatric reference intervals supplied above were not validated at [facility]. Results from pediatric patients should be interpreted in conjunction to the patient's age, height and muscle mass. Sodium 142 135 - 145 mmol/L CERNER MILLENNIUM Potassium 4.0 3.5 - 5.0 mmol/L CERNER MILLENNIUM Comment: Please note: ??Patients with WBC >100,000 may have falsely elevated Potassium levels. ??For accurate Potassium quantification in these patients send serum separator tube (gold top) for subsequent determinations. ??Contact the Clinical Chemistry Laboratory if there are any questions. Chloride 102 98 - 107 mmol/L CERNER MILLENNIUM Carbon Dioxide 23 22 - 31 mmol/L CERNER MILLENNIUM Anion Gap 17(H) 5 - 15 mmol/L CERNER MILLENNIUM Calcium 9.4 8.5 - 10.5 mg/dL CERNER MILLENNIUM Protein, Total 7.5 6.4 - 8.3 gm/dL CERNER MILLENNIUM Albumin 4.7 3.2 - 5.2 gm/dL CERNER MILLENNIUM Aspartate Aminotransferase 22 0 - 30 unit/L CERNER MILLENNIUM Alanine Aminotransferase 15 0 - 30 unit/L CERNER MILLENNIUM Alkaline Phosphatase 50 40 - 104 unit/L CERNER MILLENNIUM Bilirubin, Total 0.5 0.2 - 1.3 mg/dL CERNER MILLENNIUM Bilirubin, Direct 0.1 0.0 - 0.3 mg/dL CERNER MILLENNIUM Est Glomerular Filtration Rate >60 >=60 CERNER MILLENNIUM Comment: This estimated GFR (eGFR) value was calculated using the MDRD equation which has been validated on patients between the ages of 18 and 70. The MDRD should not be used to assess kidney function in patients < 18 years of age or in patients with extremes of body mass, or in patients with acute kidney failure. This value should be multiplied by 1.2 for patients. For further information please copy and paste the following links into your internet browser. [email or web address] Blood specimen (specimen) 06/27/2014 9:06 AM EST 06/27/2014 9:09 AM EST Narrative Resulting Agency Comment Spec In Lab Patricia Cast MD CHEMISTRY ORDERABLE S CERMERT WOOTENIUM * XR chest routine PA & lateral [...] Diagnosis Invasive ductal carcinoma of breast, left Invasive ductal carcinoma of breast, left Invasive ductal carcinoma of breast, left documented in this encounter Care Teams Funeral Greeter Relationship Specialty Start Date End Date Shonda Garcia MD [facility] [address] [place] [address] PCP - General 04/27/10 documented as of this encounter
--- OUTSIDE RECORDS SUMMARY | 2024-05-17 21:15 | XMS_ITS | Encounter Summary ---
Author Organization [facility] [place] [address] Care Team Providers Care Network Control Operator Name Role Phone Shonda Garcia MD Primary Care Provider [phone] Encounter Details Date Type Department Care Team (Late st Contact Info) Description 06/06/2014 [place] [phone] Shonda Garcia MD [address] [place] [address] [facility] [address] [place] [address] Social History Tobacco Use Types Packs/Day Years Used Date Smoking Tobacco: Never Sex and Gender Information Value Date Recorded Sex Assigned at Not on file Gender Identity Not on file Sexual Orientation Not on file documented as of this encounter Plan of Treatment Upcoming Encounters Date Type Department Care Team (Late st Contact Info) Description 09/03/2024 3:30 PM EDT Office Visit Dermatology at [facility] [address] [place] [address] Miladys Gordon MD [facility] DR MYESHA [place] [address] documented as of this encounter Procedures Procedure Name Priority Date/Time Associated Diagnosis Comments REQUEST FOR 2ND READ MAMMO Routine 06/06/2014 11:01 AM EST documented in this encounter Results * Request for 2nd read Mammo (06/06/2014 11:01 AM EST) Anatomical Region Laterality Modality Other 06/06/2014 11:0 1 AM EST Narrative 06/11/2014 2:50 PM EST EXAMINATION: INTERPRETATION OF OUTSIDE MAMMOGRAMS (PERFORMED ON 06/03/14) FROM [facility] DATED 06/10/14: DIAGNOSTIC IMAGING SUMMARY: LEFT BREAST LESION 1: SUSPICIOUS (BIRADS Category 4). Finding: ??Ultrasound irregular mass correlating with palpable abnormality, equivocal on mammography. Size: 5mm. Location: Upper, outer quadrant at 0200, 7cm from the nipple. Recommendation: Ultrasound guided biopsy of this palpable finding. NARRATIVE: CLINICAL HISTORY: I have been asked to consult on this patient by Dr. Shonda Garcia because she believes a review of this study may change or alter the care of this patient. TECHNIQUE: Mammography and ultrasound from [facility] dated 06/03/14. COMPARISON: Bilateral mammography of 09/09/11, 10/09/09 and 10/18/07. FINDINGS: At the area of palpable concern of the axillary tail/upper and outer Left breast at the area of palpable concern there is a suggestion of focal asymmetry and/or mass underlying the radiographic marker without definite suspicious microcalcifications, partially characterized. ULTRASOUND: Correlating with the area of palpable concern there is a poorly defined, hypoechoic mass which measures approximately 0.4mm with poorly defined margins and mild surrounding echogenicity. Procedure Note Vishnu Smith MD - 06/11/2014 EXAMINATION: INTERPRETATION OF OUTSIDE MAMMOGRAMS (PERFORMED ON 06/03/14)FROM [facility] DATED 06/10/14: DIAGNOSTIC IMAGING SUMMARY: LEFT BREAST LESION 1: SUSPICIOUS (BIRADS Category 4). Finding: Ultrasound irregular mass correlating with palpableabnormality, equivocal on mammography. Size: 5mm. Location: Upper, outer quadrant at 0200, 7cm from the nipple. Recommendation: Ultrasound guided biopsy of this palpable finding. NARRATIVE: CLINICAL HISTORY: I have been asked to consult on this patient by Dr. Fernandez because she believes a review of this study may change or alter the careof this patient. TECHNIQUE: Mammography and ultrasound from [facility] dated 06/03/14. COMPARISON: Bilateral mammography of 09/09/11, 10/09/09 and 10/18/07. FINDINGS: At the area of palpable concern of the axillary tail/upper andouter Left breast at the area of palpable concern there is a suggestion offocal asymmetry and/or mass underlying the radiographic marker withoutdefinite suspicious microcalcifications, partially characterized. ULTRASOUND: Correlating with the area of palpable concern there is apoorly defined, hypoechoic mass which measures approximately 0.4mm with poorlydefined margins and mild surrounding echogenicity. Shonda Garcia MD IMG OUTSIDE INTERPRE TATION ORDERABLES documented in this encounter Visit Diagnoses Not on filedocumented in this encounter Care Teams Network Control Operator Relationship Specialty Start Date End Date Shonda Garcia MD [address] [place], [place] [address] [place] [address] PCP - General 04/27/10 documented as of this encounter
--- OUTSIDE RECORDS SUMMARY | 2024-05-17 21:15 | XMS_ITS | Encounter Summary ---
Author Organization [facility] [place] [address] Care Team Providers Care Business Team Leader Name Role Phone Shonda Garcia MD Primary Care Provider Encounter Details Date Type Department Care Team (Latest Contact Info) Description 07/14/2014 8:46 AM EST - 07/14/2014 11:59 PM [facility] Hospital Encounter [place] [address] CLINIC, Patricia Whittaker MD [facility] [place] [address] Breast cancer, left Discharge Disposition: Home Social [...] 3:30 PM EDT Office Visit Dermatology at [facility] [address] [place] [address] Miladys Gordon MD [facility] DR MYESHA [place] [address] documented as of this encounter Procedures Procedure Name Priority Date/Time Associated Diagnosis Comments NM SENTINEL NODE INJECTION BREAST WITHOUT IMAGING Routine 07/14/2014 9:25 AM EST documented in this encounter Results * NM sentinel node injection (07/14/2014 9:25 AM EST) Anatomical Region Laterality Modality Other 07/14/2014 9:25 AM EST Impressions 07/14/2014 9:44 AM EST IMPRESSION: Tremont node injections performed without complication. This report was reviewed by Ra Camacho at 07/14/2014 9:39 AM Film and interpretation reviewed by the attending Narrative 07/14/2014 9:44 AM EST EXAMINATION: SENTINEL NODE INJ/LEFT CLINICAL HISTORY: please inject the left breast for lymphatic mapping TECHNIQUE: Technetium-99m sulfur colloid was administered in divided doses totaling 0.2 mCi in the left breast, circumareolar at 3:00 o'clock. COMPARISON: None FINDINGS: No imaging was performed. The patient left the department in good condition. Procedure Note Ra Camacho MD - 07/14/2014 EXAMINATION: SENTINEL NODE INJ/LEFT CLINICAL HISTORY: please inject the left breast for lymphatic mapping TECHNIQUE: Technetium-99m sulfur colloid was administered in divideddoses totaling 0.2 mCi in the left breast, circumareolar at 3:00 o'clock. COMPARISON: None FINDINGS: No imaging was performed. The patient left the department ingood condition. IMPRESSION IMPRESSION: Tremont node injections performed without complication. This report was reviewed by Ra Camacho at 07/14/2014 9:39 AM Film and interpretation reviewed by the attending Patricia Cast MD [facility] [place] ORDERABLES documented in this encounter Visit Diagnoses Diagnosis Breast cancer, left Malignant neoplasm of breast (female), unspecified site documented in this encounter Care Teams Business Team Leader Relationship Specialty Start Date End Date Shonda Garcia MD [address] [place], [place] [address]LLA [facility] [place] [address] PCP - General 04/27/10 documented as of this encounter
--- OUTSIDE RECORDS SUMMARY | 2024-05-17 21:15 | XMS_ITS | Encounter Summary ---
Author Organization [facility] [place] [address] Care Team Providers Care Bit And Shank Department Supervisor Name Role Phone Shonda Garcia MD Primary Care Provider [phone] Encounter Details Date Type Department Care Team (Late st Contact Info) Description 10/18/2007 [place] [address] Piper Rubio MD [facility] [place] [address] Social History Tobacco Use Types Packs/Day Years [...] 3:30 PM EDT Office Visit Dermatology at [facility] [address] [place] [address] Miladys Gordon MD [facility] [address] MYES[address] [place] [address] documented as of this encounter Procedures Procedure Name Priority Date/Time Associated Diagnosis Comments FILM LIBRARY STORAGE ONLY MAMMO Routine 10/18/2007 10:39 AM EDT documented in this encounter Results * Film Library- Storage only Mammo (10/18/2007 10:39 AM EDT) Anatomical Region Laterality Modality Other 10/18/2007 10:3 9 AM EDT Narrative 06/04/2014 10:40 AM EST This is a Non-reportable exam Procedure Note LEISA, UNSIGNED REPORT - 06/04/2014 This is a Non-reportable exam Piper Rubio MD [facility] FILM LIBRARY ORD ERABLES documented in this encounter Visit Diagnoses Not on filedocumented in this encounter Care Teams Bit And Shank Department Supervisor Relationship Specialty Start Date End Date Shonda Garcia MD [address] [place] [address] PCP - General 04/27/10 documented as of this encounter
--- OUTSIDE RECORDS SUMMARY | 2024-05-17 21:15 | XMS_ITS | Encounter Summary ---
Author Organization [facility] Address [facility] [place] [address] Care Team Providers Care Broach Setter Name Role Phone Shonda Garcia MD Primary Care Provider [phone] Encounter Details Date Type Department Care Team (Latest Contact Info) Description 06/27/2014 10:18 AM EST - 06/27/2014 11:[address] [facility] Hospital [place] [address] CLINIC, Patricia Whittaker MD [facility] [address] Invasive ductal carcinoma of breast, left Discharge Disposition: Home Social History Tobacco [...] 3:30 PM EDT Office Visit Dermatology at [facility] [address] [place] [address] Miladys Gordon MD [facility] DR MYES[address] [place] [address] documented as of this encounter Procedures Procedure Name Priority Date/Time Associated Diagnosis Comments MRI BREAST WWO CONTRAST BILAT Routine 06/27/2014 12:08 PM EST Invasive ductal carcinoma of breast, left documented in this encounter Results * MRI breast bilateral [...] contrast enhancement curve analysis was performed, using HotDesk software. COMPARISON STUDIES: Mammography: 06/06/2014, 06/23/2014 Ultrasound: [...] contrast enhancement curve analysis was performed, using HotDesk software. COMPARISON STUDIES: Mammography: 06/06/2014, 06/23/2014 Ultrasound: [...] mass amenable for lumpectomy. Patricia Cast MD IMG MRI ORDERABLES documented in this encounter Visit Diagnoses Diagnosis Invasive ductal carcinoma of breast, left documented in this encounter Administered Medications Inactive Administered Medications - up to 3 most recent administrations Medication Order MAR Action Action Date Dose Rate Site gadobutrol (GADAVIST) 10 mmol/10 mL (1 mmol/mL) injection 5.44 mL 5.44 mL (0.1 mL/kg/dose ? 54.4 kg Order-specific weight), Intravenous, ONCE PRN, 1 dose, Starting on Mon06/27/14 at 1111, Until Mon06/27/14 at 1149, Per Protocol, Routine Given 06/27/2014 11:49 AM EST 6 mLs documented in this encounter Care Teams Broach Setter Relationship Specialty Start Date End Date Shonda Garcia MD [facility] [address] [place] [address] PCP - General 04/27/10 documented as of this encounter
--- OUTSIDE RECORDS SUMMARY | 2024-05-17 21:15 | XMS_ITS | Encounter Summary ---
Author Organization [facility] Ell[facility], [place] [address] Care Team Providers Care Social Media Content Specialist Name Role Phone Shonda Garcia MD Primary Care Provider [phone] Reason for Visit * Reason Comments Medication Refill Encounter Details Date Type Department Care Team (Late st Contact Info) Description 04/20/2011 11:30 AM [place] [address] Moraima Murphy MD [facility] [address] [place] [address] Atopic dermatitis (Primary Dx) Discharge Disposition: Home Social History Tobacco Use Types Packs/Day Years Used Date Smoking Tobacco: Never Sex and Gender Information Value Date Recorded Sex Assigned at Not on file Gender Identity Not on file Sexual Orientation Not on file documented as of this encounter Progress Notes * Moraima Murphy MD - 04/20/2011 11:24 AM EST Date of office visit: 04/20/2011 Shannen Nobles : 1965 Provider: Moraima Murphy MD SKIN HISTORY: Atopic Eczema DERMATOLOGY HISTORY: 1. Follow up: long time hx of ATOPIC eczema dust, dog allergy- per allergy 10/2008 ASSESSMENT/Summary: No relevant allergens positive by patch testing. She is atopic with hx of childhood eczema; this facial involvement is likely then all atopic. Protopic made acne worse. She is now using elidel. She is also taking claritin D. She lives in a home with all hardwood floors, has had a dog for 2 years but her problem was present prior to that. protopic- does not use, makes acne worse Current therapy: ketoconazole oral Since Feb 2011; 200mg a day . Rationale: control malesszia as atrigger for AD. 2. Acne- improved on spironolactone 100mg a day Chief Complaint Patient presents with ??? Medication Refill HPI Shannen Nobles is a 45 y.o. year old female. I have been treating her for atopic dermatitis; I referred to head and neck eczema paper with a review of the role of malessezia furfur and I had advisedtreatment trial of this for her, rather than immune suppression. It has seemed to be very helpful. Her insurance would not pay for itraconazole and so she did get ketoconazole. Started ketoconazole around Feb 16. Has been on it 2 months. . Saw her ENT who is going to do surgery for a deviated septum. He did a lot of allergy testing andshe is confused, as am I , at the results. She has several positives to various molds. She has beengiven an elimination diet. Not using moisturizer on face. Elidel- not using it. Protopic- makes acne worse. Happy with acne control. Happy with eczema control on the face. Face is not itchy. Worried about stopping the ketoconazole. Has many questions about length of treatment. Also has questions about alejandro, which she has been taking until recently, 60mg a day. Wonders if it will help her eczema. PAST MEDICAL HX There is no problem list on file for this patient. MEDS: Current outpatient prescriptions ordered prior to encounter Medication Sig Dispense Refill ??? cholecalciferol, Vitamin D3, 400 unit tablet Take 400 Units by mouth daily. ??? multivitamin (THERAGRAN) tablet Take 1 tablet by mouth daily. ??? pimecrolimus (ELIDEL) 1 % cream Apply topically daily. 30 g 5 ??? DISCONTD: ketoconazole (NIZORAL) 200 mg tablet Take 1 tablet by mouth daily. 30 tablet 1 ??? itraconazole (SPORANOX) 100 mg capsule Take 1 capsule by mouth daily. 30 capsule 2 ??? spironolactone (ALDACTONE) 100 mg tablet Take 1 tablet by mouth daily. 30 tablet 2 ??? LEVALBUTEROL TARTRATE (XOPENEX HFA INHL) Inhale 2 puffs into the lungs every 4 hours as needed. ??? DISCONTD: clindamycin (CLEOCIN T) 1 % lotion 1 Appl(s), Top, Once daily ADR: Allergies Allergen Reactions ??? Amoxicillin Trihydrate ??? Thiuram Derivative Dermatitis FAMILY HX: SOCIAL HX: ROS General: feeling well Skin: denies other skin complaints EXAM General: NAD, pleasant, cooperative. SKIN EXAM: An exam of the skin from the neck up was performed. This includes examination of the skin of the face, ears, scalp, and neck. Significant skin findings: Faint erythema in central face on medial cheeks and chin. ASSESSMENT/PLAN Atopic dermatitis. Long discussion and time to answer questions. I noted to her I do not have a cure for her disease, and that the medication she is presently taking will not cure this problem, only manage it. Length of therapy with the ketoconazole is not certain, I planned for 3-4 months, then a slow taper off. We also discussed topical nizoral; the papers on this topic reference oral meds and not topical, but we can try the topical. Advised her to start this prior to any taper of the oral ketoconazole as I do not want to be confused by tapering variable and a new topical at same time. I did not advise a mold free diet as I do not believe it will help her AD. Adult AD is not typically stimulated or worsened by foods. 1. Alejandro 60 mg once a day (ketoconazole increase level of alejandro so lower dose discussed and advised today after review of this interaction). 2. Ketoconazole 200mg once a day, for next 2 months (this is 2nd month)--then I plan to advise a slow taper. 3. Ketoconazole topically once a day. Start now. 4. Continue spironolactone 100mg a day, for adult acne. > 1/2 of this 25 minute visit spent in counselling and education. F/u 2 months. Return to clinic: Moraima Murphy MD Section of Dermatology [facility] documented in this encounter Plan of Treatment Upcoming Encounters Date Type Department Care Team (Late st Contact Info) Description 09/03/2024 3:30 PM EDT Office Visit Dermatology at [facility] [address] [place] [address] Miladys Gordon MD [facility] DR MYESHA [place] [address] documented as of this encounter Visit Diagnoses Diagnosis Atopic dermatitis- Primary Other atopic dermatitis and related conditions documented in this encounter Care Teams Social Media Content Specialist Relationship Specialty Start Date End Date Shonda Garcia MD [address] [place] [address] [address] PCP - General 04/27/10 documented as of this encounter
--- OUTSIDE RECORDS SUMMARY | 2024-05-17 21:15 | XMS_ITS | Encounter Summary ---
Author Organization [facility] [place] [address] Care Team Providers Care Director Of Catering Sales Name Role Phone Shonda Garcia MD Primary Care Provider [phone] Encounter Details Date Type Department Care Team (Latest Contact Info) Description 07/14/2014 9:41 AM EST - 07/14/2014 1:29 PM EST Hospital Encounter [facility]patient [place] [address] Vic Cast MD [facility] [place] [address] Breast cancer, left Discharge Disposition: Home Social [...] shower 24 hours Activity as tolerated Call [phone] with any questions steristrips will fall off [...] closest emergency room or call the hospital direct casting operator at [phone] and ask for physician car installations supervisor covering for your physician. Questions or problems after 5pm or on a weekend: Call the [facility] direct casting operator at and ask for the physician car installations supervisor covering for your doctor. SCOPOLAMINE PATCH DISCHARGE [...] upper, outer left breast. Biopsy revealed IDC (ER/IA+, HER2-). Breast MRI did not reveal any [...] is node negative (given that she is ER/IA+ and HER-). She also understands that endocrine therapy will likely be recommended. We discussed genetic counseling and Shannen will consider this. Risks of surgery including bleeding, infection, need for additional surgery and lymphedema were discussed and consent was obtained. Stable for OR documented in this encounter Miscellaneous Notes * Op Note - Vic Cast MD - 07/14/2014 11:53 AM EST [facility] Operative Note Patient Name: Shannen Nobles : [id number] MR#: [id number] Case Date: 07/14/2014 Surgeon: Surgeon(s) and Role: [...] of 2478. Remaining count within the axilla [id number]. There was not palpable adenopathy. Satisfied that [...] Dermatology at [facility] [address] [place] [address] Miladys Gordon MD [facility] DR MYESHA [place] [address] documented as of this encounter Procedures Procedure [...] Cast MD PATHOLOGY/CYTOLOGY ORDERABLES Performing Organization Address [facility] Co de Phone Number EMA KO * Specimen to Pathology (surgical or derm) (07/14/2014 11:49 AM EST) AP Specimen 07/14/2014 11:4 9 AM EST 07/14/2014 11:49 AM EST Narrative EMA WOOTENIUM - 07/14/2014 11:49 AM EST Specimen requisition ordered. ??Separate Pathology report to follow Vic Cast MD PATHOLOGY/CYTOLOGY ORDERABLES Performing Organization Address [facility]/State/[facility] Co de Phone Number EMA KO * Mammo specimen (07/14/2014 11:35 [...] (07/14/2014 11:26 AM EST) Final Diagnosis ? [facility] ? Provider: ?? VIC CAST ??Pt. Name: ?? SHANNEN NOBLES ? Acc #: ?[id number] ?Pt. ? Col Date: ?? 07/14/2014 ?/Sex: ?1965,(48 years),Female ? Rec Date: ?? 07/14/2014 ?LOC: ?[facility] ? SURGICAL PATHOLOGY ? ---Pathologic Diagnosis--- ? Specimens: ??A - Left breast partial mastectomy ? C - Left axillary sentinal node ? Histologic Type: Invasive ductal carcinoma ? Tumor Grade: ??Low (High, Intermediate, Low) ? Szdnby-Igbnw-Fpodhwhwyh Score: ??5 ?Tubular Differentiation: ?? 2 ?Mitotic [...] cm to 0.2 cm (micrometastases) 0 ? [facility] ? Provider: ?? VIC CAST ??Pt. Name: ?? SHANNEN NOBLES ? Acc #: ?[id number] ?Pt. ? Col Date: ?? 07/14/2014 ?/Sex: ?1965,(48 years),Female ? Rec Date: ?? 07/14/2014 ?LOC: ?[facility] ? SURGICAL PATHOLOGY ?No. with metastases >0.2 cm (macrometastases) 0 ? Total no. nodes negative for carcinoma: ??2 ? Estrogen/Progestin receptors and FISH, performed on prior biopsy [id number] ? [id number], see spearate report ? pTNM: pT1aN0 (AJCC, [...] The assays were performed according to the sports trainer? s instructions ? using Anti-ER (SP1) and Anti-IA (16) antibodies. ? BRTMRBLK-BRIN: A3,A4 ? BRNRL-BRIN: [...] 1 mm from the deep RM. ? [facility] ? Provider: ?? VIC CAST ??Pt. Name: ?? SHANNEN NOBLES ? Acc #: ?[id number] ?Pt. ? Col Date: ?? 07/14/2014 ?/Sex: [...] Labeled/Fixative: Left axillary sentinel node, fresh. ? [facility] ? Provider: ?? VIC CAST ??Pt. Name: ?? SHANNEN NOBLES ? Acc #: ?[id number] ?Pt. ? Col Date: ?? 07/14/2014 ?/Sex: [...] diagnosis: ? Same 07/18/2014 9:30 AM EST [facility] SENTINEL LYMPH NODE / Unknown 07/14/2014 11:26 AM EST 07/14/2014 11:26 AM EST Margin 07/14/2014 11:2 6 AM EST 07/14/2014 11:26 AM EST SENTINEL LYMPH NODE / Unknown 07/14/2014 11:26 AM EST 07/14/2014 11:26 AM EST Vic Cast MD PATHOLOGY/CYTOLOGY ORDERABLES EMA KO [facility] [place] [address] * Specimen to Pathology (surgical or derm) (07/14/2014 11:26 AM EST) AP Specimen 07/14/2014 11:2 6 AM EST 07/14/2014 11:26 AM EST Narrative EMA KO - 07/14/2014 11:26 AM EST Specimen requisition ordered. ??Separate Pathology report to follow Vic Cast MD PATHOLOGY/CYTOLOGY ORDERABLES Performing Organization Address City/[facility]/ZIP Co de Phone Number EMA KO documented in this encounter Visit Diagnoses Diagnosis Breast cancer, left Malignant neoplasm of breast (female), unspecified site documented in this encounter Administered Medications Inactive Administered Medications - up to 3 most recent administrations Medication Order MAR Action Action Date Dose Rate Site acetaminophen (TYLENOL) tablet 1,000 mg 1,000 mg, Oral, ONCE, 1 dose, On Mon07/14/14 at 1115, Maximum dose of acetaminophen is 4000 mg from all sources in 24 hours., Routine Given 07/14/2014 10:55 AM EST 1,000 mg gabapentin (NEURONTIN) capsule 600 mg 600 mg, Oral, ONCE, 1 dose, On Mon07/14/14 at 1115, Routine Given 07/14/2014 10:56 AM EST 600 mg oxyCODONE (ROXICODONE) immediate release tablet [...] Routine 1243 (Given - Provid er: Yecenia Morales, RN) No Frequency Medication Order 07/12/2014 07/13/2014 07/14/2014 scopolamine (TRANSDERM-SCOP) 1.5 mg patch (COMPLETED) 1 dose, Starting on Mon07/14/14 at 1047, Until Mon07/14/14 at 1100, ADRIA LOPEZ: cabinet override 1100 (Given - Provid er: Adria Lancaster RN) documented in this encounter Care Teams Director Of Catering Sales Relationship Specialty Start Date End Date Shonda Garcia MD [address] [place] [address] PCP - General 04/27/10 documented as of this encounter
--- OUTSIDE RECORDS SUMMARY | 2024-05-17 21:15 | XMS_ITS | Encounter Summary ---
Author Organization [facility] [place] [address] Care Team Providers Care Autistic Teacher Name Role Phone Shonda Garcia MD Primary Care Provider [phone] Reason for Visit * Reason Comments Follow-up check her face Encounter Details Date Type Department Care Team (Late st Contact Info) Description 07/04/2011 11:15 AM EST [place] [address] Moraima Murphy MD [facility] [place] [address] Atopic dermatitis (Primary Dx); Acne Discharge Disposition: Home Social History Tobacco Use Types Packs/Day Years Used Date Smoking Tobacco: Never Sex and Gender Information Value Date Recorded Sex Assigned at Not on file Gender Identity Not on file Sexual Orientation Not on file documented as of this encounter Progress Notes * Moraima Murphy MD - 07/04/2011 11:29 AM EST Date of office visit: 07/04/2011 Shannen Nobles : 1965 Provider: Moraima Murphy MD SKIN HISTORY: Atopic Eczema DERMATOLOGY HISTORY: Follow up: long time hx of ATOPIC eczema dust, dog allergy- per allergy No relevant allergens positive by patch testing. She is atopic with hx of childhood eczema Protopic made acne worse elidel- does not help Current therapy: ketoconazole oral Since Feb 2011; 200mg a day . Rationale: control malesszia as atrigger for AD. 2. Acne- improved on spironolactone 100mg a day Chief Complaint Patient presents with ??? Follow-up check her face HPI Shannen Nobles is a 45 y.o. year old female. Here for f/u visit. No changes in her health. She is pleased with the lack of itching and improvement of skin of the face and scalp. Acne she reports been perfect except a week when she did not have spironolactone--then she developed an acne break out on the left cheek. Saw an ENT/diversity specialist (Dr. Garsia-- In [place]). She was going to try immunotherapy. Tried aquaphor, but too greasy. Ketoconazole cream seems too drying. Now using eucerin. Taking spironolactone once a day, 100 mg a day. ADR: Allergies Allergen Reactions ??? Amoxicillin Trihydrate ??? Thiuram Derivative Dermatitis ROS General: feeling well Skin: denies other skin complaints EXAM General: NAD, pleasant, cooperative. Significant skin findings: Faint patchy erthema central face One acne papule left cheek. Xerosis- hands ASSESSMENT/PLAN 1. Atopic dermatitis- doing well. Current therapy- oral ketoconazole daily 200mg. This has helped face and scalp. Continue eucerin daily. I will check labs today, monitoring ketoconazole tolerance. 2. Acne- controlled on spironolactone. Will check potassium today. Well controlled. Continue. Refills given of both. Plan f/u in 4 months. Moraima Murphy MD Section of Dermatology [facility] documented in this encounter Plan of Treatment Upcoming Encounters Date Type Department Care Team (Late st Contact Info) Description 09/03/2024 3:30 PM EDT Office Visit Dermatology at [facility] [address] [place] [address] Miladys Gordon MD [facility] [address] [place] [address] documented as of this encounter Visit Diagnoses Diagnosis Atopic dermatitis- Primary Other atopic dermatitis and related conditions Acne Other acne documented in this encounter Care Teams Autistic Teacher Relationship Specialty Start Date End Date Shonda Garcia MD [facility] [address] [place] [address] PCP - General 04/27/10 documented as of this encounter
--- OUTSIDE RECORDS SUMMARY | 2024-05-17 21:15 | XMS_ITS | Encounter Summary ---
Author Organization [facility] [place] [address] Care Team Providers Care Wireless Retail Manager Name Role Phone Shonda Garcia MD Primary Care Provider [phone] Reason for Visit * Reason Onset Date Comments Other 04/13/2011 KETOCONAZOLE GUERLINE EWAL Encounter Details Date Type Department Care Team (Late st Contact Info) Description 04/13/2011 [place] [address] Moraima Murphy MD [facility] [address] MYESHA [place] [address] Other (KETOCONAZOLE RENEWAL) Social History Tobacco Use Types Packs/Day Years Used Date Smoking Tobacco: Never Sex and Gender Information Value Date Recorded Sex Assigned at Not on file Gender Identity Not on file Sexual Orientation Not on file documented as of this encounter Miscellaneous Notes * Telephone Encounter - Sacha Rosenberg LPN - 04/15/2011 3:52 PM EST Isamar, spoke with dr. murphy yesterday. She needs an appt.,then refill. Thanks sacha rosenberg lpn * Telephone Encounter - Isamar Hook - 04/13/2011 8:06 AM EST [facility] PT Pt calling to request a renewal of Ketoconazole. She uses the [facility] ([facility]) [place], [place]. If you have any questions or problems you can reach her at [phone]. Did you receive her labwork at the beginning of Mar? From [facility]. Isamar Smith documented in this encounter Plan of Treatment Upcoming Encounters Date Type Department Care Team (Late st Contact Info) Description 09/03/2024 3:30 PM EDT Office Visit Dermatology at [facility] [address] [place] [address] Miladys Gordon MD [facility] DR MYESHA [place] [address] documented as of this encounter Visit Diagnoses Not on filedocumented in this encounter Care Teams Wireless Retail Manager Relationship Specialty Start Date End Date Shonda Garcia MD [facility] [address] [place] [address] PCP - General 04/27/10 documented as of this encounter
--- OUTSIDE RECORDS SUMMARY | 2024-05-17 21:15 | XMS_ITS | Encounter Summary ---
Author Organization [facility] [place] [address] Care Team Providers Care Patient Services Specialist Name Role Phone Shonda Garcia MD Primary Care Provider [phone] Reason for Visit * Reason Onset Date Comments Medication Refill 08/23/2011 Encounter Details Date Type Department Care Team (Late st Contact Info) Description 08/23/2011 [place] [address] Moraima Murphy MD [facility] [place] [address] Acne (Primary Dx); Atopic dermatitis Social History Tobacco Use Types Packs/Day Years Used Date Smoking Tobacco: Never Sex and Gender Information Value Date Recorded Sex Assigned at Not on file Gender Identity Not on file Sexual Orientation Not on file documented as of this encounter Plan of Treatment Upcoming Encounters Date Type Department Care Team (Late st Contact Info) Description 09/03/2024 3:30 PM EDT Office Visit Dermatology at [facility] [address] [place] [address] Miladys Gordon MD [facility] [place] [address] documented as of this encounter Visit Diagnoses Diagnosis Acne- Primary Other acne Atopic dermatitis Other atopic dermatitis and related conditions documented in this encounter Care Teams Patient Services Specialist Relationship Specialty Start Date End Date Shonda Garcia MD [address] [place] [address] PCP - General 04/27/10 documented as of this encounter
--- OUTSIDE RECORDS SUMMARY | 2024-05-17 21:15 | XMS_ITS | Encounter Summary ---
Author Organization [facility] Address [facility] [place] [facility] [place] [address] Care Team Providers Care Nail Setter Name Role Phone Shonda Garcia MD Primary Care Provider [phone] Reason for Visit * Reason Comments Genetic Evaluation personal and fam hx of breast and other cancers Encounter Details Date Type Department Care Team (Late st Contact Info) Description 07/09/2014 2:00 PM EST Office Visit Hematology [place] [address] Pedro Lu MD [facility] HEMATOLOGY/[place] [address] Malignant neoplasm of breast (female), unspecified site; Family history of breast cancer Discharge Disposition: Home Social History Tobacco Use Types Packs/Day Years Used Date Smoking Tobacco: Never Sex and Gender Information Value Date Recorded Sex Assigned at Not on file Gender Identity Not on file Sexual Orientation Not on file documented as of this encounter Progress Notes * Pedro Lu MD - 07/14/2014 10:32 AM EST Ms. Nobles was seen by Kaci Colby, , [facility] and myself in consultation at the request of Dr. Patricia Cast to advise regarding possible heritable predisposition to cancer. Reason for referral/Chief complaint Recent diagnosis of left breast cancer and family history of breast, esophageal, skin and prostate cancer. Medical history Cancer hx and treatment: Shannen was recently diagnosed with left breast cancer at age 48. Her tumoris ER+, AL+ and Her2-. She is scheduled for a lumpectomy on July 14. Age at 1st menses: 14 or 15 Age at 1st child: 35 Menopause status: Premenopausal Oral contraceptive use: In the past, for a total of 19 years. Hormone replacement therapy use: N/A Current cancer screening: Mammograms every 2 years. Annual physical exams and periodic self breast exams. Family History of Cancer Problem Relation Age of Onset ??? Breast Cancer Sister 48 Dx's 2013; lumpectomy, XRT, Gordon; alive at 49 ??? Prostate Cancer Father 60 also, skin cancer in his 30s and 40s (nose, arms); alive at 70 ??? Esophageal Cancer Brother 49 metastatic; ? Etoh, smoker; alive at 50 ??? Esophageal Cancer Paternal Uncle Late 50s Etoh, smoker; alive at 62 ??? Prostate Cancer Paternal Uncle 70 alive at 75 Maternal ethnic background is [place], Scottish and Turkmen. Paternal ethnic background is English-Tristanian and Turkmen. Genetic risk assessment Based on personal and family history, Shannen's risk of being a BRCA1 or BRCA2 carrier is high enough to justify the option of genetic testing. Genetic testing is recommended. The risks, benefits and limitations of BRCA1 and BRCA2 genetic testing were reviewed. Shannen opted for testing and was consented. Her blood sample was obtained and sent to [facility]. Testing will take approximately 3-4 weeks. Shannen will be contacted in the near future to schedule her disclosure appointment. Shannen will not be provided with her test result over the phone. We will address the issue of screening upon the receipt of Shannen???s genetic test result. Background information Breast cancer is a relatively common disease within the general population. It affects approximately 1 in 8 (about 12%) of [place] women over the course of a lifetime. This ???lifetime?? risk refers to a woman???s chance of developing breast cancer by age 85. Ovarian cancer is less common than breast cancer, but still a major health concern for women. The majority of breast and ovarian cancer is sporadic, meaning it is caused by random alterations that occur in the genes over the course of a person???s lifetime. Only about 5-10% of breast and ovarian cancer is due to an inherited alteration in a cancer susceptibility gene. The two main cancer susceptibility genes that have been discovered to be involved in familial breast and/or ovarian cancer are called BRCA1 and BRCA2 (BR=breast, CA=cancer). Like other tumor suppressor genes, they code for proteins that under normal conditions function to suppress the development of certain forms of cancer. When an individual inherits an altered copy of one of these genes from either parent the chances of cancer arising later in life are increased (see below). Because we all have two copies of each type of gene, one from each parent, there is a 50% chance that each child of an individual carrying an alteration in BRCA1 or BRCA2 will inherit the non-functioning copy of the gene, and therefore will also have an increased risk for cancer. Likewise, there is a 50% chance that a child will inherit the normally functioning gene and will not be at an increased risk for cancer. The most significant consequences of inheriting an altered copy of BRCA1 or BRCA2 are increased risks for breast cancer and ovarian cancer. For a woman, lifetime risk of breast cancer is approximately 38-63%, compared to a 12% lifetime risk for the general [place] population. Lifetime risk of ovarian cancer is also significantly increased to approximately 12-44%, compared to a 2% lifetime risk seen inthe general population. Men who have inherited an alteration in BRCA2 are at increased risk of breast cancer, and can pass the non-functioning copy of the gene on to their children as well. Other cancers associated with BRCA2 are prostate, pancreatic, esophageal and melanoma. It is important to keep in mind that not all individuals who inherit an alteration in BRCA1 or BRCA2 genes will develop cancer, and that most people who get these types of cancer do not have an inherited predisposition. HPI: Recent dx breast cancer. Surgery soon. See above for full family history. She has no current complaints/sxs. Exam: Looks well. In no physical distress. Anicteric and without evident skin lesions. Alert and Oriented. A/P: Appropriate for genetic testing. Arrangements for result disclosure to be made. documented in this encounter Plan of Treatment Upcoming Encounters Date Type Department Care Team (Late st Contact Info) Description 09/03/2024 3:30 PM EDT Office Visit Dermatology at [facility] [address] [place] [address] Miladys Gordon MD [facility] DR MYESHA [place] [address] documented as of this encounter Visit Diagnoses Diagnosis Malignant neoplasm of breast (female), unspecified site Family history of breast cancer Family history of malignant neoplasm of breast documented in this encounter Care Teams Nail Setter Relationship Specialty Start Date End Date Shonda Garcia MD [facility] [address] [place] [address] PCP - General 04/27/10 documented as of this encounter
--- OUTSIDE RECORDS SUMMARY | 2024-05-17 21:15 | XMS_ITS | Encounter Summary ---
Author Organization [facility] Address [facility] [place] [address] Care Team Providers Care Veneer Repairer Machine Name Role Phone Shonda Garcia MD Primary Care Provider [phone] Encounter Details Date Type Department Care Team (Latest Contact Info) Description 06/27/2014 8:43 AM EST - 06/27/2014 11:59 PM [facility] Hospital Encounter Hematology [place] [address] Patricia Cast MD [facility] [place] [address] Invasive ductal carcinoma of breast, left Discharge [...] PM EDT Office Visit Dermatology at [facility] [address] [place] [address] Miladys Gordon MD [facility] DR MYESHA [place] [address] documented as of this encounter Procedures Procedure Name Priority Date/Time Associated Diagnosis Comments HEMOGRAM Routine 06/27/2014 9:06 AM EST Invasive ductal carcinoma of breast, left DIFFERENTIAL, AUTOMATED Routine 06/27/2014 9:06 AM EST Invasive ductal carcinoma of breast, left CBC (WITH DIFF) Routine 06/27/2014 9:06 AM EST Invasive ductal carcinoma of breast, left COMPREHENSIVE METABOLIC PANEL Routine 06/27/2014 9:06 AM EST Invasive ductal carcinoma of breast, left documented in this encounter Results * (ABNORMAL) Differential, Automated (06/27/2014 9:06 AM EST) Neutrophil % 71.4 % CERNER MILLENNIUM Neutrophil Absolute 3.99 1.50 - 6.30 x10(3)/mc L CERNER MILLENNIUM Lymph % 15.1 % CERNER MILLENNIUM Lymphocytes Abs 0.8(L) 1.0 - 3.6 x10(3)/mc L CERNER MILLENNIUM Monocyte % 5.4 % CERNER MILLENNIUM Monocyte Abs 0.3 0.2 - 1.0 x10(3)/mc L CERNER MILLENNIUM Eos % 7.0 % CERNER MILLENNIUM Eosinophils Abs 0.4 0.0 - 0.5 x10(3)/mc L CERNER MILLENNIUM Basophil % 0.9 % CERNER MILLENNIUM Baso Absolute 0.0 0.0 - 0.2 x10(3)/mc L CERNER MILLENNIUM Immature Gran % 0.20 % CERN ER MILLENNIUM Comment: Immature granulocytes(IG's)percentage and absolute count will include metamyelocytes, myelocytes, and promyelocytes. Blood smears from CBCs yielding IG's will be scanned manually for concordance. If this scan disagrees with the automated IG or if promyelocytes are noted, a manual differential will be performed. Immature Gran Absolute 0.01 0.00 - 0.05 x10(3)/mc L CERNER MILLENNIUM Blood specimen (specimen) 06/27/2014 9:06 AM EST 06/27/2014 9:09 AM EST Narrative Resulting Agency Comment Spec In Lab Patricia Cast MD HEMATOLOGY ORDERABL ES CERNER MILLENNIUM * (ABNORMAL) Hemogram (06/27/2014 9:06 AM EST) White Blood Cell 5.6 4.0 - 10.0 x10(3)/mc L CERNER MILLENNIUM Red Blood Cell 4.43 3.93 - 5.22 x10(6)/mc L CERNER MILLENNIUM Hemoglobin 14.3 11.2 - 15.7 gm/dL CERNER MILLENNIUM Hematocrit 41.9 34.0 - 45.0 % CERNER MILLENNIUM Mean Cell Volume 94.6(H) 79.0 - 94.0 fL CERNER MILLENNIUM Mean Cell Hemoglobin 32.3(H) 26.6 - 32.2 pg CERNER MILLENNIUM Mean Cell Hemoglobin Concentration 34.1 32.0 - 36.5 gm/dL CERNER MILLENNIUM Platelet 198 145 - 370 x10(3)/mc L CERNER MILLENNIUM RDW Standard Deviation 43.8 35.0 - 46.0 fL CERNER MILLENNIUM RDW coefficient of variation 12.7 10.9 - 14.4 % CERNER MILLENNIUM Mean Platelet Volume 10.3 9.0 - 12.0 fL CERNER MILLENNIUM Blood specimen (specimen) 06/27/2014 9:06 AM EST 06/27/2014 9:09 AM EST Narrative Resulting Agency Comment Spec In Lab Patricia Cast MD HEMATOLOGY ORDERABL ES CERNER MILLENNIUM * (ABNORMAL) Comprehensive metabolic panel (non-fasting) (06/27/2014 9:06 AM EST) Glucose 64 60 - 199 mg/dL CERNER MILLENNIUM Comment:Diabetes: >=200 mg/d L plus symptoms Blood Urea Nitrogen 25(H) 8 - 18 mg/dL CERNER MILLENNIUM Creatinine 0.85 0.70 - 1.20 mg/dL CERNER MILLENNIUM Comment: Please note that the pediatric reference intervals supplied above were not validated at [facility]. Results from pediatric patients should be interpreted [...] the following links into your internet browser. [email or web address] Blood specimen (specimen) 06/27/2014 9:06 AM EST 06/27/2014 9:09 AM EST Narrative Resulting Agency Comment Spec In Lab Patricia Cast MD CHEMISTRY ORDERABLE S Performing Organization Address City/State/[facility] Co co Phone Number [facility] documented in this encounter Visit Diagnoses Diagnosis Invasive ductal carcinoma of breast, left documented in this encounter Care Teams Veneer Repairer Machine Relationship Specialty Start Date End Date Shonda Garcia MD [facility] [address] [place] [address] PCP - General 04/27/10 documented as of this encounter
--- OUTSIDE RECORDS SUMMARY | 2024-05-17 21:15 | XMS_ITS | Encounter Summary ---
Author Organization [facility] [place] [address] Care Team Providers Care Fiscal Accounting Clerk Name Role Phone Shodna Garcia MD Primary Care Provider [phone] Reason for Visit * Reason Comments Follow-up dermatitis Encounter Details Date Type Department Care Team (Late st Contact Info) Description 10/24/2011 11:30 AM EDT [place] [address] Moraima Murphy MD [facility] [place] [address] Atopic dermatitis (Primary Dx); Acne Discharge Disposition: Home Social History Tobacco Use Types Packs/Day Years Used Date Smoking Tobacco: Never Sex and Gender Information Value Date Recorded Sex Assigned at Not on file Gender Identity Not on file Sexual Orientation Not on file documented as of this encounter Progress Notes * Moraima Murphy MD - 10/24/2011 11:43 AM EDT DERMATOLOGY [facility] Shannen Nobles : 1965 Physician: Moraima Murphy MD Date of service: 10/24/2011 SKIN HISTORY: Follow up: long time hx of ATOPIC eczema dust, dog allergy- per allergy No relevant allergens positive by patch testing. She is atopic with hx of childhood eczema Protopic made acne worse elidel- does not help Current therapy: ketoconazole oral Since Feb 2011; 200mg a day . Rationale: control malesszia as atrigger for AD. 2. Acne- improved on spironolactone 100mg a day HPI: Ms. Shannen Nobles is a 46 y.o. female. Reason for visit: Follow-up for atopic dermatitis and acne. Not using anything for the atopic dermatitis on the face. Not using anything for the acne on the face. Not using elidel. I can live with the redness. Ketoconazole helped for the scab like lesions. She has been pleased with the result after starting this medication. Past Medical History: There is no problem list on file for this patient. Medications: Current outpatient prescriptions ordered prior to encounter Medication Sig Dispense Refill ??? ketoconazole (NIZORAL) 200 mg tablet Take 1 tablet by mouth daily. 90 tablet 0 ??? fexofenadine (MARIANO) 60 mg tablet Take 180 mg by mouth daily. ??? cholecalciferol, Vitamin D3, 400 unit tablet Take 400 Units by mouth daily. ??? multivitamin (THERAGRAN) tablet Take 1 tablet by mouth daily. ??? DISCONTD: spironolactone (ALDACTONE) 100 mg tablet Take 1 tablet by mouth daily. 90 tablet 0 ??? DISCONTD: ketoconazole (NIZORAL) 2 % cream Apply topically daily. 30 g 0 ??? LEVALBUTEROL TARTRATE (XOPENEX HFA INHL) Inhale 2 puffs into the lungs every 4 hours as needed. Allergies: Allergies Allergen Reactions ??? Amoxicillin Trihydrate ??? Thiuram Derivative Dermatitis Family History: Social History: Review of Systems: - General: Feels well. - Skin: As per HPI; no other skin concerns. Examination - Constitutional: Patient was alert, well-appearing and in no noticeable distress. An abbreviated skin exam was performed; this includes:face Specific skin findings: Central facial erythema , mild pink nose, paranasal, chin. No active acne lesions Assessment Atopic dermatitis- malessezia is trigger for her flaring. Has done well with ketoconazole 200mg a day. Acne Plan 1. I have discussed with her changing the ketoconazole to 400mg once a week. I would like her to try this lower dose. 2. Not using any surface medications now. 3. We discussed the spironolactone. I do not think it is a reason for her to get cellulite. I advised that if she has further concerns about a possible relationship, she should discontinue this medication. She will consider discontinuation. She would like to f/u with prescriptions and monitoring by her PCP. This is fine with me. I would continue labwork every 4-6 months while she is on the oral ketoconazole- cbc, ast, alt. Labs she notes have been drawn and sent here. I will check for them, did not have them at the time of this visit. RTC to me prn . Moraima Murphy MD Section of Dermatology [facility] documented in this encounter Plan of Treatment Upcoming Encounters Date Type Department Care Team (Late st Contact Info) Description 09/03/2024 3:30 PM EDT Office Visit Dermatology at [facility] [address] [place] [address] Miladys Gordon MD [facility] [place] [address] documented as of this encounter Visit Diagnoses Diagnosis Atopic dermatitis- Primary Other atopic dermatitis and related conditions Acne Other acne documented in this encounter Care Teams Fiscal Accounting Clerk Relationship Specialty Start Date End Date Shonda Garcia MD [facility] [address] [place] [address] PCP - General 04/27/10 documented as of this encounter
--- OUTSIDE RECORDS SUMMARY | 2024-05-17 21:15 | XMS_ITS | Encounter Summary ---
Author Organization [facility] [place] [address] Care Team Providers Care Bit Setter Name Role Phone Shonda Garcia MD Primary Care Provider [phone] Reason for Visit * Reason Onset Date Comments Prior Authorization 01/07/2011 Encounter Details Date Type Department Care Team (Late st Contact Info) Description 01/07/2011 [place] [address] Moraima Murphy MD [facility] [address] MYESHA [place] [address] Prior Authorization Social History Tobacco Use Types Packs/Day Years Used Date Smoking Tobacco: Never Assessed Sex and Gender Information Value Date Recorded Sex Assigned at Not on file Gender Identity Not on file Sexual Orientation Not on file documented as of this encounter Miscellaneous Notes * Telephone Encounter - Moraima Murphy MD - 01/07/2011 1:29 PM EDT To whom it may concern, Shannen Noblse is a patient I have treated for severe atopic dermatitis of the face. The only treatment that has been helpful to her is oral itraconazole. I have given her this therapybased on a summary article in the Journal of the [place] [employer]: the role of Malassezia in atopic dermatitis affecting the head and neck of adults (JAAD 2009; 60:125-36). This article details the treatment of patients with severe atopic dermatitis, presumably triggered by a normal yeast, malesszia furfur. There are eight published case series referred to in the article in whichpatients improved on systemic treatment to eradicate the malessezia. One regimen is for 200mg itraconazole daily for 2 months. After the 2 months (which helped her quite dramatically), it was my planto treat her with a lower level of itraconazole at 100mg twice a week, as suggested in this peer-reviewed article. My other options for treatment of Shannen potentially require blood monitoring and are immune suppressive. These drugs include cyclosporin or cell cept. Side effects of immune suppression, as you know, are the potential for serious infectious complications. Since Shannen has done well on the itraconazole, I am appealing the insurance denial for coverage ofthis drug for her. Sincerely, Moraima Murphy MD outer diameter grinder (Dermatology) [facility] [phone] documented in this encounter Plan of Treatment Upcoming Encounters Date Type Department Care Team (Late st Contact Info) Description 09/03/2024 3:30 PM EDT Office Visit Dermatology at [address] [address] Miladys Gordon MD [facility] DR MYESHA [place] [address] documented as of this encounter Visit Diagnoses Not on filedocumented in this encounter Care Teams Bit Setter Relationship Specialty Start Date End Date Shonda Garcia MD [facility] [address] [place] [address] PCP - General 04/27/10 documented as of this encounter
[2024-05-17 21:16] LABS: HCT 41.9 % (36.0-46.0); HGB 13.9 g/dL (11.2-15.7); MCH 31.1 pg (27.0-33.0); MCHC 33.2 % (32.0-36.0); MCV 94 fL (80-95); MPV 10.9 fL (8.0-11.0); Platelet Count 240 10^3/uL (130-400); RBC 4.47 10^6/uL (3.93-5.22); RDW 12.8 % (11.7-14.6); RDW-SD 44.5 fL; WBC 6.15 10^3/uL (4.4-10.8)
[2024-05-17 21:27] LABS: ALT 30 U/L (14-59); AST 29 U/L (15-37); Albumin 4.1 g/dL (3.4-5.0); Alkaline Phosphatase 87 U/L (46-116); Anion Gap 7.7 mmol/L (3-11); BUN 22 mg/dL (7-18); Bilirubin, Total 0.19 mg/dL (0.2-1.0); CO2 30.3 mmol/L (21.0-32.0); CREATININE 0.9 mg/dL (0.55-1.02); Calcium 9.1 mg/dL (8.5-10.1); Chloride 103 mmol/L (98-107); Estimated GFR 75.03 (mL/min/1.73m2); Glucose 93 mg/dL (74-106); Potassium 4.4 mmol/L (3.5-5.1); Sodium 141 mmol/L (136-145); Total Protein 7.8 g/dL (6.4-8.2)
== END 2024-05-17 21:06 | disposition home or self-care (01) ==
LOC: NCHCN 21:05
PROVIDERS: PCP Family Medicine; Visit Provider Family Medicine
DX: Z51.81 Encounter for therapeutic drug level monitoring (principal)
CPT/HCPCS: 80053; 85027

== ENCOUNTER 2025-05-21 10:19 | Outpatient (REF) | payer OTHER, SELFPAY ==
[2025-05-21 21:40] LABS: Hemoglobin A1C 5.4 % (<5.7)
[2025-05-21 21:44] LABS: ALT 21 U/L (10-49); AST 25 U/L (<34); Albumin 4.5 g/dL (3.2-5.0); Alkaline Phosphatase 80 U/L (46-116); Anion Gap 7.3 mmol/L (3-11); BUN 23 mg/dL (9-23); Bilirubin, Total 0.4 mg/dL (0.2-1.2); CO2 29.7 mmol/L (20.0-31.0); Calcium 9.8 mg/dL (8.3-10.6); Chloride 106 mmol/L (98-107); Glucose 84 mg/dL (74-106); Potassium 4.3 mmol/L (3.5-5.1); Sodium 143 mmol/L (136-145); Total Protein 7.4 g/dL (5.7-8.2)
== END 2025-05-21 10:20 | disposition home or self-care (01) ==
LOC: NCHCN 10:19
PROVIDERS: PCP Family Medicine; Visit Provider Family Medicine
DX: R73.03 Prediabetes (principal)
CPT/HCPCS: 80053; 83036